=== PATIENT | female | born 1955 | race Caucasian/White ===

== ENCOUNTER 2016-09-27 11:30 | Emergency (ER) | payer MEDICAID, OTHER ==
[~2016-09-27] VITALS: Ht 148.6 cm; Wt 60.0 kg
[~2016-09-27 11:30] MED LIST: ALPR.25 PO; ATEN-100 PO; ECOT81TA2 PO; LEVEMIR SQ; LORTA10 PO; NOVOLOGSS SQ; POTA-243 PO; VITA200017 PO; [UNRECOGNIZED DRUG - CODE]
[2016-09-27 11:33] VITALS: BP 160/73; PULSE 67; RESP 12; TEMP 97.8; O2SAT 96
--- NOTE | 2016-09-27 12:34 | PD ---
HPI Chief Complaint: Wound/Suture/Staple Re-Check Time Seen by Provider: 12:33 Travel History International Travel<30 days: No Contact w/Intl Traveler<30days: No Traveled to known affect area: No History of Present Illness HPI 61-year-old female presents to the emergency department for evaluation of an ulcer to her left second toe that she noticed one week ago. Patient is concerned because she is type I diabetic and has history of peripheral neuropathy. Patient reports mild drainage. No fevers. Patient states the pain is worse at night. She denies any other complaints at this time. PFSH Past Medical History Hx Anticoagulant Therapy: Yes Arthritis: Yes Blood Disorders: No Anxiety: Yes Depression: No Cancer: No Cardiovascular Problems: Yes (HTN) Chemotherapy: No Diabetes: Yes Diminished Hearing: No Endocrine: Yes (DIABETES) Genitourinary: No Hepatitis: No ( A CHILD) Hiatal Hernia: No Hypertension: Yes Immune Disorder: No Musculoskeletal: Yes (ARTHRITIS) Neurologic: Yes (NEUROPATHY TO BILAT FEET) Psychiatric: No Reproductive: Yes (Hx. of cyst.) Respiratory: No Migraines: Yes (occassionally) Radiation Therapy: No Thyroid Disease: No ?: Not Past Surgical History Abdominal Surgery: Yes (CHOLECYSTECTOMY) AICD: No Appendectomy: Yes Body Medical Devices: insulin pump Cardiac Surgery: No Cholecystectomy: Yes Ear Surgery: No Endocrine Surgery: No Eye Surgery: No Genitourinary Surgery: No Gynecologic Surgery: Yes (HYSTERECTOMY) Hysterectomy: Yes Joint Replacement: No Oral Surgery: No Pacemaker: No Thoracic Surgery: No Other Surgery: Yes Social History Alcohol Use: Yes (OCCAS) Tobacco Use: No (quit) Substance Use: Yes (Marijauna) Allergies-Medications (Allergen,Severity, Reaction): Coded Allergies: Codeine (Verified Allergy, Mild, HIVES, 09/27/16) Glucophage (Verified Allergy, Mild, DKA, 09/27/16) Morphine (Verified Adverse Reaction, Severe, 09/27/16) vomiting Reported Meds & Prescriptions Reported Meds & Active Scripts Active Levemir Insulin (Insulin Detemir) 100 Units/Ml Inj 10 Units SQ HS 30 Days Levemir Insulin (Insulin Detemir) 100 Units/Ml Inj 20 Units SQ QAC 30 Days Novolog Insulin Supplemental Scale (Insulin Aspart) 100 /Ml Inj 1 Unit SQ ACHS 30 Days accu-check with novolog sliding scale coverage; 150-200 two units 201-250 four units 251-300 six units 301-350 eight units 351-400 ten units inform PCP if < 70 or > 400. Reported K-Dur (Potassium Chloride) 10 Meq Tabcr 10 Meq PO DAILY Paradigm Insulin Pump Pro (Insulin Infusion Pump) Program Mis Vitamin D3 (Cholecalciferol) 2,000 Unit Cap 2,000 Unit PO DAILY Ecotrin (Aspirin) 81 Mg Tabec 81 Mg PO DAILY Xanax 0.25 Mg (Alprazolam) Alprazolam 0.25 mg Tab 1 Tab PO TID PRN Atenolol 25 Mg Tab 25 Mg PO BID Hydrocodone/Acetaminophen 10 mg/325 mg 10 Mg/325 Mg Tab 1 Tab PO Q4HPRN Review of Systems Except as stated in HPI: all other systems reviewed are Neg Physical Exam Narrative GENERAL: Well-developed well-nourished female patient, ambulatory. Afebrile. SKIN: Warm and dry. Patient has an approximately 1 cm x 1 cm erythema to the left second toe on the medial aspect with a small central ulceration. Patient has tenderness over the erythema. HEAD: Normocephalic. Atraumatic. EYES: No scleral icterus. No injection or drainage. NECK: Supple, trachea midline. No JVD or lymphadenopathy. CARDIOVASCULAR: Regular rate and rhythm without murmurs, gallops, or rubs. Right pedal pulse 2+. Left pedal pulse is found with Doppler. RESPIRATORY: Breath sounds equal bilaterally. No accessory muscle use. Lungs sounds are clear to auscultation. GASTROINTESTINAL: Abdomen soft, non-tender, nondistended. MUSCULOSKELETAL: No cyanosis, or edema. BACK: Nontender without obvious deformity. No CVA tenderness. Data Data Last Documented VS Vital Signs Date Time Temp Pulse Resp B/P Pulse Ox O2 Delivery O2 Flow Rate FiO2 09/27/16 11:33 97.8 67 12 160/73 96 Room Air Orders Foot, Complete ([id number]) (09/27/16 ) Complete Blood Count With Diff (09/27/16 12:31) Basic Metabolic Panel (Bmp) (09/27/16 12:31) Westergren Sedimentation Rate (09/27/16 12:31) C-Reactive Protein (Crp) (09/27/16 12:31) Labs Laboratory Tests Test 09/27/16 13:06 White Blood Count 4.6 TH/MM3 Red Blood Count 5.29 MIL/MM3 Hemoglobin 14.0 GM/DL Hematocrit 41.8 % Mean Corpuscular Volume 79.0 FL Mean Corpuscular Hemoglobin 26.4 PG Mean Corpuscular Hemoglobin 33.4 % Concent Red Cell Distribution Width 14.4 % Platelet Count 227 TH/MM3 Mean Platelet Volume 8.6 FL Neutrophils (%) (Auto) 46.6 % Lymphocytes (%) (Auto) 30.3 % Monocytes (%) (Auto) 14.9 % Eosinophils (%) (Auto) 6.3 % Basophils (%) (Auto) 1.9 % Neutrophils # (Auto) 2.1 TH/MM3 Lymphocytes # (Auto) 1.4 TH/MM3 Monocytes # (Auto) 0.7 TH/MM3 Eosinophils # (Auto) 0.3 TH/MM3 Basophils # (Auto) 0.1 TH/MM3 CBC Comment DIFF FINAL Differential Comment Erythrocyte Sedimentation Rate 19 mm/hr Sodium Level 138 MEQ/L Potassium Level 4.1 MEQ/L Chloride Level 108 MEQ/L Carbon Dioxide Level 21.2 MEQ/L Anion Gap 9 MEQ/L Blood Urea Nitrogen 31 MG/DL Creatinine 0.91 MG/DL Estimat Glomerular Filtration 63 ML/MIN Rate Random Glucose 98 MG/DL Calcium Level 8.7 MG/DL C-Reactive Protein 0.49 MG/DL [facility] Medical Decision Making Medical Screen Exam Complete: Yes Emergency Medical Condition: Yes Medical Record Reviewed: Yes Interpretation(s) Last Impressions Foot X-Ray 09/27/16 0000 Signed Impressions: Service Date/Time: Tuesday, September 27, 2016 12:55 - CONCLUSION: 1. Erosion along the lateral aspect of the second metatarsal head. There is no destructive change. 2. Osteopenia and mild osteoarthritic change. Pacheco Cerrato MD Differential Diagnosis Diabetic ulcer versus cellulitis versus osteomyelitis Narrative Course 61-year-old female presented to the emergency department for evaluation of a diabetic ulcer on her left second toe. She denies any fevers or chills. She is type I diabetic. X-ray left foot is ordered and pending. CBC, BMP, CRP, sedimentation rate are ordered and pending. CBC shows no acute abnormality. ESR is 19. BMP shows no acute abnormality. CRP is 0.49. X-ray of the left foot shows Erosion along the lateral aspect of the second metatarsal head. There is no destructive change. 2. Osteopenia and mild osteoarthritic change. I discussed the case with attending physician, Dr. Zelaya, who also examined patient. She agrees with disposition. Patient will be discharged with a prescription for Keflex. She is encouraged to follow-up with her primary care physician. Patient will be given information on Dr. Puga in the community clinic [facility] as well as the wound clinic. Patient is agreeable. Diagnosis Primary Impression: Diabetic ulcer of foot associated with type 1 diabetes mellitus, limited to breakdown of skin Referrals: [facility] call for appointment Patient Instructions: Diabetic Foot Ulcers (ED), General Instructions Additional Instructions: Clean area twice daily with soap and water. Monitor closely. Take antibiotic as directed until gone. Follow-up with Dr. Puga at the community clinic. Information to contact the community clinic is attached. Follow up at the wound care clinic - Return to the emergency department for any acute worsening of symptoms. Med/Other Pt SpecificInfo: Prescription(s) given Scripts Cephalexin (Keflex)500 Mg [id number] Mg PO Q6H 10 Days Ref 0 Prov:Shari Jean-Baptiste 09/27/16 Disposition: 01 DISCHARGE HOME Condition: Stable Shari Jean-Baptiste Sep 27, 2016 12:33
[2016-09-27 13:23] LABS: AUTOMATED NEUTROPHIL # 2.1 TH/MM3 (1.8-7.7); BASOPHIL # 0.1 TH/MM3 (0-0.2); BASOPHIL % 1.9 % (0.0-2.0); EOSINOPHIL # 0.3 TH/MM3 (0-0.4); EOSINOPHIL % 6.3 % (0.0-4.0); HEMATOCRIT 41.8 % (35.0-46.0); HEMO FLAGS DIFF FINAL; LYMPH % 30.3 % (9.0-44.0); LYMPHOCYTE # 1.4 TH/MM3 (1.0-4.8); MEAN CORPUSCULAR HEMOGLOBIN 26.4 PG (27.0-34.0); MEAN CORPUSCULAR HGB CONC 33.4 % (32.0-36.0); MONO % 14.9 % (0.0-8.0); NEUT % 46.6 % (16.0-70.0); PLATELET COUNT 227 TH/MM3 (150-450); RED BLOOD COUNT 5.29 MIL/MM3 (4.00-5.30); RED CELL DISTRIBUTION WIDTH 14.4 % (11.6-17.2); WHITE BLOOD COUNT 4.6 TH/MM3 (4.0-11.0)
--- NOTE | 2016-09-27 13:25 | RADRPT ---
EXAM DATE/TIME: 09/27/2016 12:55 [facility] COMPARISON: No previous studies available for comparison. INDICATIONS : Diabetic open wound on anterior surface of 2nd digit on left foot, pain in great toe and 2nd digit MEDICAL HISTORY : Diabetes mellitus type II. SURGICAL HISTORY : None. ENCOUNTER: Initial ACUITY: 1 week PAIN SCORE: 8/10 LOCATION: Left foot FINDINGS: Three view examination of the left foot demonstrates no soft tissue swelling, dislocation, or fractur e. The tarsal bones appear intact. Mild degenerative change involving intertarsal joints and metata rsal tarsal joints. There is an erosion along the lateral aspect of the second metatarsal head. The c alcaneus is intact. There is mild osteopenia. Vascular calcifications are present. CONCLUSION: 1. Erosion along the lateral aspect of the second metatarsal head. There is no destructive change. 2. Osteopenia and mild osteoarthritic change. Pacheco Cerrato MD on September 27, 2016 at 13:18 Board Certified Radiologist. This report was verified electronically.
[2016-09-27 13:42] LABS: BICARBONATE 21.2 MEQ/L (21.0-32.0); POTASSIUM 4.1 MEQ/L (3.5-5.1)
[2016-09-27] MEDS ORDERED: CEPH-460 PO (14:05)
--- NOTE | 2016-09-27 14:32 | PD ---
Data Data Last Documented VS Vital Signs Date Time Temp Pulse Resp B/P Pulse Ox O2 Delivery O2 Flow Rate FiO2 09/27/16 11:33 97.8 67 12 160/73 96 Room Air Orders Foot, Complete ([id number]) (09/27/16 ) Complete Blood Count With Diff (09/27/16 12:31) Basic Metabolic Panel (Bmp) (09/27/16 12:31) Westergren Sedimentation Rate (09/27/16 12:31) C-Reactive Protein (Crp) (09/27/16 12:31) Labs Laboratory Tests Test 09/27/16 13:06 White Blood Count 4.6 TH/MM3 Red Blood Count 5.29 MIL/MM3 Hemoglobin 14.0 GM/DL Hematocrit 41.8 % Mean Corpuscular Volume 79.0 FL Mean Corpuscular Hemoglobin 26.4 PG Mean Corpuscular Hemoglobin 33.4 % Concent Red Cell Distribution Width 14.4 % Platelet Count 227 TH/MM3 Mean Platelet Volume 8.6 FL Neutrophils (%) (Auto) 46.6 % Lymphocytes (%) (Auto) 30.3 % Monocytes (%) (Auto) 14.9 % Eosinophils (%) (Auto) 6.3 % Basophils (%) (Auto) 1.9 % Neutrophils # (Auto) 2.1 TH/MM3 Lymphocytes # (Auto) 1.4 TH/MM3 Monocytes # (Auto) 0.7 TH/MM3 Eosinophils # (Auto) 0.3 TH/MM3 Basophils # (Auto) 0.1 TH/MM3 CBC Comment DIFF FINAL Differential Comment Erythrocyte Sedimentation Rate 19 mm/hr Sodium Level 138 MEQ/L Potassium Level 4.1 MEQ/L Chloride Level 108 MEQ/L Carbon Dioxide Level 21.2 MEQ/L Anion Gap 9 MEQ/L Blood Urea Nitrogen 31 MG/DL Creatinine 0.91 MG/DL Estimat Glomerular Filtration 63 ML/MIN Rate Random Glucose 98 MG/DL Calcium Level 8.7 MG/DL C-Reactive Protein 0.49 MG/DL MDM Supervised Visit with SETH: Yes Narrative Course I, Dr. Zelaya, have reviewed the advance practice practioner's documentation and am in agreement, met with the patient face to face, made the diagnosis, and the medical decision making was done by me. *My assessment and Findings: 61-year-old diabetic female here with complaint of ulceration to her left second toe for the last week. Associated peripheral neuropathy. On exam she has a crisscross of her big toe overlapping her second toe with a very small, 2 mm ulcer with minimal surrounding erythema. My suspicion for osteomyelitis, cellulitis is low. Exam is most consistent with this diabetic ulcer. Her laboratory workup and x-ray were negative and she will be discharged to home with outpatient primary care follow-up. Diagnosis Primary Impression: Diabetic ulcer of foot associated with type 1 diabetes mellitus, limited to breakdown of skin Referrals: [facility] call for appointment Patient Instructions: General Instructions, Diabetic Foot Ulcers (ED) Departure Forms: Tests/Procedures Additional Instruction: Clean area twice daily with soap and water. Monitor closely. Take antibiotic as directed until gone. Follow-up with Dr. Puga at the [facility]. Information to contact the [facility] is attached. Follow up at the wound care clinic - Return to the emergency department for any acute worsening of symptoms. Scripts Cephalexin (Keflex)500 Mg [id number] Mg PO Q6H 10 Days Ref 0 Prov:Shari Jean-Baptiste 09/27/16 Disposition: 01 DISCHARGE HOME Condition: Stable Liz Zelaya MD Sep 27, 2016 14:31
== END 2016-09-27 14:34 | disposition home or self-care (01) ==
LOC: NETRI 11:30
DX: E10.621 Type 1 diabetes mellitus with foot ulcer (principal); L97.521 Non-pressure chronic ulcer of other part of left foot limited to breakdown of skin; E10.42 Type 1 diabetes mellitus with diabetic polyneuropathy; I10 Essential (primary) hypertension; Z79.4 Long term (current) use of insulin; Z87.891 Personal history of nicotine dependence
CPT/HCPCS: 73630; 80048; 85025; 85652; 86140; 99283

== ENCOUNTER 2016-10-17 21:53 | Emergency (ER) | payer MEDICAID, OTHER ==
[~2016-10-17] VITALS: Ht 147.3 cm; Wt 60.0 kg
[~2016-10-17 21:53] MED LIST changes: +CEPH-460 PO
[2016-10-17 21:55] VITALS: BP 183/86; PULSE 91; RESP 18; TEMP 97.7; O2SAT 97
[2016-10-17] MEDS ORDERED: SODIUM CHLOR 0.9% 1000 ML INJ 1,000 ML IV ONE (23:15)
[2016-10-17 23:26] LABS: BLOOD, URINE TRACE (NEG); COMMENT (UR) CATH-CULT NOT IND; CULTURE IF INDICATED CATH CULTURE NOT IND; GLUCOSE,URINE 1000 mg/dL (NEG); KETONE, URINE NEG (NEG); MUCUS URINE FEW /lpf (OCC); NITRITE,URINE NEG (NEG); SQUAMOUS EPITHELIAL CELL URINE <1 /hpf (0-5); URINE COLOR YELLOW (YELLW/STRAW)
--- NOTE | 2016-10-17 23:40 | PD ---
HPI Chief Complaint: Diabetic Time Seen by Provider: 23:28 Travel History International Travel<30 days: No Contact w/Intl Traveler<30days: No Traveled to known affect area: No History of Present Illness HPI 61-year-old female with history of diabetes, has an insulin pump, chronic left second toe poorly healing wound seen 3 weeks ago in the ER status post Keflex treatment, presents back to the ER today because she states that the wound is not healing, and her blood sugars have been over 500 today. She denies any nausea, vomiting, fevers, abdominal pains, diarrhea, or any other symptoms. She states that she had given herself insulin without significant improvement in blood sugars. She reports pain in the second toe is a sharp 10 out of 10 at times. Modifying Factors: None Associated Signs & Symptoms: Left toe poorly healing wound, hyperglycemia Risk Factors: Diabetic PFSH Past Medical History Hx Anticoagulant Therapy: Yes Arthritis: Yes Blood Disorders: No Anxiety: Yes Depression: No Cancer: No Cardiovascular Problems: Yes (HTN) Chemotherapy: No Diabetes: Yes Patient Takes Glucophage: No Diminished Hearing: No Endocrine: Yes (DIABETES) Genitourinary: No Hiatal Hernia: No Hypertension: Yes Immune Disorder: No Musculoskeletal: Yes (ARTHRITIS) Neurologic: Yes (NEUROPATHY TO BILAT FEET) Psychiatric: No Reproductive: Yes (Hx. of cyst.) Respiratory: No Immunizations Current: Yes Migraines: Yes (occassionally) Radiation Therapy: No Thyroid Disease: No Past Surgical History Abdominal Surgery: Yes (CHOLECYSTECTOMY) AICD: No Appendectomy: Yes Body Medical Devices: INSULIN PUMP Cardiac Surgery: No Cholecystectomy: Yes Coronary Stent: Yes (X2) Ear Surgery: No Endocrine Surgery: No Eye Surgery: No Genitourinary Surgery: No Gynecologic Surgery: Yes (HYSTERECTOMY) Hysterectomy: Yes Joint Replacement: No Oral Surgery: No Pacemaker: No Thoracic Surgery: No Other Surgery: Yes (BYPASS LEFT LEG) Social History Alcohol Use: Yes (OCCAS) Tobacco Use: No Substance Use: Yes (Marijauna) Allergies-Medications (Allergen,Severity, Reaction): Coded Allergies: Codeine (Verified Allergy, Mild, HIVES, 10/17/16) Glucophage (Verified Allergy, Mild, DKA, 10/17/16) Morphine (Verified Adverse Reaction, Severe, 10/17/16) vomiting Reported Meds & Prescriptions Reported Meds & Active Scripts Active Reported Imitrex (Sumatriptan Succinate) 25 Mg Tab 25 Mg PO ONCE PRN If a satisfactory response has not been obtained at 2 hours, a second dose may be administered Topamax (Topiramate) 25 Mg Tab 25 Mg PO HS Lortab (Hydrocodone-Acetaminophen) 10-325 Mg Tab 1 Tab PO Q6H PRN Gabapentin 100 Mg Cap 100 Mg PO HS Atenolol 25 Mg Tab 25 Mg PO BID Mobic (Meloxicam) 15 Mg Tab 15 Mg PO DAILY Lisinopril 20 Mg Tab 20 Mg PO DAILY Clopidogrel (Clopidogrel Bisulfate) 75 Mg Tab 75 Mg PO DAILY Pravastatin 20 Mg Tab 20 Mg PO DAILY Aspir-81 (Aspirin) 81 Mg Tabdr 1 Tab PO DAILY Novolog Inj (Insulin Aspart) 1,000 Unit/10 Ml Vial 1 Units SQ DIRECTED Review of Systems Except as stated in HPI: all other systems reviewed are Neg Physical Exam Narrative GENERAL: Well-nourished, well-developed elderly female patient in no acute distress. Awake and oriented 3. SKIN: Warm and dry. HEAD: Normocephalic. EYES: No scleral icterus. No injection or drainage. NECK: Supple, trachea midline. CARDIOVASCULAR: Regular rate and rhythm without murmurs, gallops, or rubs. RESPIRATORY: Breath sounds equal bilaterally. No accessory muscle use. GASTROINTESTINAL: Abdomen soft, non-tender, nondistended. MUSCULOSKELETAL: No cyanosis, or edema. BACK: Nontender without obvious deformity. No CVA tenderness. Left foot: There is a 1 cm clean-based ulcer at the second toe dorsum with no significant drainage. Tender to palpation. No underlying fluctuance. NEUROLOGICAL: Awake and alert. Cranial nerves II through XII intact. Motor and sensory grossly within normal limits. Five out of 5 muscle strength in all muscle groups. Normal speech. Data Data Last Documented VS Vital Signs Date Time Temp Pulse Resp B/P Pulse Ox O2 Delivery O2 Flow Rate FiO2 10/17/16 21:55 97.7 91 18 183/86 97 Room Air Orders Complete Blood Count With Diff (10/17/16 23:06) Comprehensive Metabolic Panel (10/17/16 23:06) Lactic Acid Sepsis Protocol (10/17/16 23:06) Urinalysis - C+S If Indicated (10/17/16 23:06) Blood Culture (10/17/16 23:06) Blood Glucose (10/17/16 23:06) Ecg Monitoring (10/17/16 23:06) Iv Access Insert/Monitor (10/17/16 23:06) Oximetry (10/17/16 23:06) Oxygen Administration (10/17/16 23:06) Sodium Chlor 0.9% 1000 Ml Inj (Ns 1000 M (10/17/16 23:15) Toe (Min 2vws) (10/17/16 23:28) Beta Hydroxybutyrate (Acetone) (10/17/16 23:06) Insulin Human Regular Inj (Novolin R Inj (10/18/16 01:15) Labs Laboratory Tests Test 10/17/16 10/17/16 10/17/16 10/17/16 23:00 23:06 23:15 23:30 White Blood Count 6.1 TH/MM3 Red Blood Count 5.30 MIL/MM3 Hemoglobin 14.5 GM/DL Hematocrit 42.5 % Mean Corpuscular Volume 80.1 FL Mean Corpuscular Hemoglobin 27.3 PG Mean Corpuscular Hemoglobin 34.0 % Concent Red Cell Distribution Width 14.3 % Platelet Count 233 TH/MM3 Mean Platelet Volume 9.2 FL Neutrophils (%) (Auto) 50.0 % Lymphocytes (%) (Auto) 31.8 % Monocytes (%) (Auto) 13.7 % Eosinophils (%) (Auto) 3.2 % Basophils (%) (Auto) 1.3 % Neutrophils # (Auto) 3.0 TH/MM3 Lymphocytes # (Auto) 1.9 TH/MM3 Monocytes # (Auto) 0.8 TH/MM3 Eosinophils # (Auto) 0.2 TH/MM3 Basophils # (Auto) 0.1 TH/MM3 CBC Comment DIFF FINAL Differential Comment Sodium Level 135 MEQ/L Potassium Level 4.3 MEQ/L Chloride Level 101 MEQ/L Carbon Dioxide Level 24.8 MEQ/L Anion Gap 9 MEQ/L Blood Urea Nitrogen 26 MG/DL Creatinine 1.19 MG/DL Estimat Glomerular Filtration 46 ML/MIN Rate Random Glucose 389 MG/DL Calcium Level 9.0 MG/DL Total Bilirubin 0.4 MG/DL Aspartate Amino Transf 23 U/L (AST/SGOT) Alanine Aminotransferase 21 U/L (ALT/SGPT) Alkaline Phosphatase 128 U/L Total Protein 8.4 GM/DL Albumin 3.4 GM/DL B-Hydroxybutyrate 0.08 MMOL/L Urine Color YELLOW Urine Turbidity HAZY Urine pH 5.0 Urine Specific [place] 1.027 Urine Protein 30 mg/dL Urine Glucose (UA) 1000 mg/dL Urine Ketones NEG mg/dL Urine Occult Blood TRACE Urine Nitrite NEG Urine Bilirubin NEG Urine Urobilinogen LESS THAN 2.0 MG/DL Urine Leukocyte Esterase NEG Urine RBC 1 /hpf Urine WBC 2 /hpf Urine Squamous Epithelial <1 /hpf Cells Urine Mucus FEW /lpf Microscopic Urinalysis Comment CATH-CULT NOT IND Lactic Acid Level 1.4 mmol/L MDM Medical Decision Making Medical Screen Exam Complete: Yes Emergency Medical Condition: Yes Medical Record Reviewed: Yes Interpretation(s) Laboratory Tests Test 10/17/16 10/17/16 10/17/16 23:00 23:06 23:15 Monocytes (%) (Auto) 13.7 % (0.0-8.0) Sodium Level 135 MEQ/L (136-145) Blood Urea Nitrogen 26 MG/DL (7-18) Creatinine 1.19 MG/DL (0.50-1.00) Estimat Glomerular Filtration 46 ML/MIN (>89) Rate Random Glucose 389 MG/DL (74-106) Alkaline Phosphatase 128 U/L (45-117) Total Protein 8.4 GM/DL (6.4-8.2) Urine Turbidity HAZY (CLEAR) Urine Protein 30 mg/dL (NEG-TRACE) Urine Glucose (UA) 1000 mg/dL (NEG) Urine Occult Blood TRACE (NEG) Urine Mucus FEW /lpf (OCC) Differential Diagnosis Left toe poorly healing ulcer, hyperglycemiaDKA versus electrolyte abnormalities versus sepsis versus diabetic foot Narrative Course X-rays did not show any signs of acute osteomyelitis on the second toe. Apparently is a poor chronic healing diabetic ulcer which will need to be evaluated and observed further with primary care physician and podiatry. Her blood sugars were elevated here in the ER and IV insulin was given. I do not see any signs of DKA. At this point, my plan would be to release the patient would follow-up to primary care and podiatry. Return for new issues as needed. The plan has discussed her and she states understanding. Diagnosis Primary Impression: Diabetic ulcer of foot associated with type 1 diabetes mellitus, limited to breakdown of skin Additional Impression: Diabetes type 1, uncontrolled Med/Other Pt SpecificInfo: Prescription(s) given Scripts Sulfamethoxazole-Trimethoprim (Bactrim DS)800-160 Mg Tab1 Tab PO BID #14 TAB Ref 0 Prov:Grace Merritt MD 10/18/16 Disposition: 01 DISCHARGE HOME Condition: Stable Grace Merritt MD Oct 17, 2016 23:40
--- NOTE | 2016-10-18 00:23 | RADRPT ---
EXAM DATE/TIME: 10/17/2016 23:45 [facility] COMPARISON: No previous studies available for comparison. INDICATIONS : Left 2nd toe pain. MEDICAL HISTORY : None. SURGICAL HISTORY : None. ENCOUNTER: Initial ACUITY: 3 days PAIN SCORE: 5/10 LOCATION: Left foot, 2nd digit. FINDINGS: Examination of the second digit of the left foot demonstrates no evidence of fracture or dislocation. No radiopaque foreign bodies are seen. The soft tissues are intact. Hallux valgus deformity of the first ray. CONCLUSION: 1. Hallux valgus deformity of the great toe. 2. No fracture Mook Rodriguez MD on October 18, 2016 at 0:20 Board Certified Radiologist. This report was verified electronically.
[2016-10-18 00:38] LABS: BASOPHIL # 0.1 TH/MM3 (0-0.2); BASOPHIL % 1.3 % (0.0-2.0); EOSINOPHIL # 0.2 TH/MM3 (0-0.4); EOSINOPHIL % 3.2 % (0.0-4.0); HEMATOCRIT 42.5 % (35.0-46.0); HEMO FLAGS DIFF FINAL; LYMPH % 31.8 % (9.0-44.0); LYMPHOCYTE # 1.9 TH/MM3 (1.0-4.8); MEAN CELL VOLUME 80.1 FL (80.0-100.0); MEAN CORPUSCULAR HEMOGLOBIN 27.3 PG (27.0-34.0); MONO % 13.7 % (0.0-8.0); PLATELET COUNT 233 TH/MM3 (150-450); RED CELL DISTRIBUTION WIDTH 14.3 % (11.6-17.2); WHITE BLOOD COUNT 6.1 TH/MM3 (4.0-11.0)
[2016-10-18 01:07] LABS: ALKALINE PHOSPHATASE 128 U/L (45-117); ALT (GPT) 21 U/L (10-53); ANION GAP 9 MEQ/L (5-15); AST (GOT) 23 U/L (15-37); BETA-HYDROXYBUTYRATE 0.08 MMOL/L (0.00-0.39); BICARBONATE 24.8 MEQ/L (21.0-32.0); BLOOD UREA NITROGEN 26 MG/DL (7-18); CHLORIDE 101 MEQ/L (98-107); GLOMERULAR FILTRATION RATE 46 ML/MIN (>89); POTASSIUM 4.3 MEQ/L (3.5-5.1); SODIUM (NA) 135 MEQ/L (136-145); TOTAL BILIRUBIN ADULT 0.4 MG/DL (0.2-1.0)
[2016-10-18] MEDS ORDERED: GABA100C4 PO (01:09)
[2016-10-18] MEDS ORDERED: ATEN25TA PO (01:09)
[2016-10-18] MEDS ORDERED: CLOP75TA PO (01:09)
[2016-10-18] MEDS ORDERED: IMIT25TA PO (01:09)
[2016-10-18] MEDS ORDERED: TOPA25TA8 PO (01:09)
[2016-10-18] MEDS ORDERED: ASPI81TA81 PO (01:09)
[2016-10-18] MEDS ORDERED: HYDR-3535 PO (01:09)
[2016-10-18] MEDS ORDERED: NOVOLOGP2 SQ (01:09)
[2016-10-18] MEDS ORDERED: PRAV20TA2 PO (01:09)
[2016-10-18] MEDS ORDERED: LISI-515 PO (01:09)
[2016-10-18] MEDS ORDERED: MOBI15TA PO (01:09)
[2016-10-18] MEDS ORDERED: INSULIN HUMAN REGULAR 1,000 UNITS/10 ML VIAL IVP ONE (01:15)
[2016-10-18] MEDS ORDERED: BACT800T5 PO (01:55)
[2016-10-18 02:16] VITALS: BP 185/97
== END 2016-10-18 02:15 | disposition home or self-care (01) ==
LOC: NEPC 21:53
DX: E10.621 Type 1 diabetes mellitus with foot ulcer (principal); I10 Essential (primary) hypertension; F41.9 Anxiety disorder, unspecified; Z79.01 Long term (current) use of anticoagulants; Z96.41 Presence of insulin pump (external) (internal)
CPT/HCPCS: 73660; 80053; 81001; 82010; 83605; 85025; 87040; 87205; 96361; 96374; 99285; J1815; J7030

== ENCOUNTER 2016-10-31 14:54 | Emergency (ER) | payer OTHER ==
[~2016-10-31] VITALS: Ht 147.3 cm; Wt 102.0 kg
[~2016-10-31 14:54] MED LIST changes: -ALPR.25 PO; +ASPI81TA81 PO; -ATEN-100 PO; +ATEN25TA PO; +BACT800T5 PO; -CEPH-460 PO; +CLOP75TA PO; -ECOT81TA2 PO; +GABA100C4 PO; +HYDR-3535 PO; +IMIT25TA PO; -LEVEMIR SQ; +LISI-515 PO; -LORTA10 PO; +MOBI15TA PO; +NOVOLOGP2 SQ; -NOVOLOGSS SQ; -POTA-243 PO; +PRAV20TA2 PO; +TOPA25TA8 PO; -VITA200017 PO; -[UNRECOGNIZED DRUG - CODE]
[2016-10-31 14:55] VITALS: BP 112/58; PULSE 66; RESP 20; TEMP 97.4; O2SAT 98
--- NOTE | 2016-10-31 19:08 | PD ---
HPI . Diabetic foot ulcer Chief Complaint: Skin Problem Time Seen by Provider: 18:54 Travel History International Travel<30 days: No Contact w/Intl Traveler<30days: No Traveled to known affect area: No History of Present Illness HPI Patient presents complaining with a diabetic foot ulcer on her left second toe. She states that she's had it for 6 weeks. She states that she has been treated with 2 separate antibiotics for it. It is not getting any better. She states that she has had some associated vomiting and diarrhea in the last couple of days. Patient's medical history significant for diabetes, hypertension, tobacco abuse. She has known peripheral vascular disease and is status post a left femoropopliteal bypass in 02/26. 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 of cyst.) Respiratory: Yes Immunizations Current: Yes Migraines: Yes (occassionally) Radiation Therapy: No Thyroid Disease: No ?: Not Past Surgical History Abdominal Surgery: Yes (CHOLECYSTECTOMY) AICD: No Appendectomy: Yes Body Medical Devices: INSULIN PUMP Cardiac Surgery: No Cholecystectomy: Yes Coronary Stent: Yes (X2) Ear Surgery: No Endocrine Surgery: No Eye Surgery: No Genitourinary Surgery: No Gynecologic Surgery: Yes (HYSTERECTOMY) Hysterectomy: Yes Joint Replacement: No Oral Surgery: No Pacemaker: No Thoracic Surgery: No Other Surgery: Yes (BYPASS LEFT LEG) Social History Alcohol Use: Yes (OCCAS) Tobacco Use: No Substance Use: Yes (Stephy) Allergies-Medications (Allergen,Severity, Reaction): Coded Allergies: Codeine (Verified Allergy, Mild, HIVES, 10/31/16) Glucophage (Verified Allergy, Mild, DKA, 10/31/16) Morphine (Verified Adverse Reaction, Severe, 10/31/16) vomiting Reported Meds & Prescriptions Reported Meds & Active Scripts Active Reported Imitrex (Sumatriptan Succinate) 25 Mg Tab 25 Mg PO ONCE PRN If a satisfactory response has not been obtained at 2 hours, a second dose may be administered Topamax (Topiramate) 25 Mg Tab 25 Mg PO HS Lortab (Hydrocodone-Acetaminophen) 10-325 Mg Tab 1 Tab PO Q6H PRN Gabapentin 100 Mg Cap 100 Mg PO HS Atenolol 25 Mg Tab 25 Mg PO BID Mobic (Meloxicam) 15 Mg Tab 15 Mg PO DAILY Lisinopril 20 Mg Tab 20 Mg PO DAILY Clopidogrel (Clopidogrel Bisulfate) 75 Mg Tab 75 Mg PO DAILY Pravastatin 20 Mg Tab 20 Mg PO DAILY Aspir-81 (Aspirin) 81 Mg Tabdr 1 Tab PO DAILY Novolog Inj (Insulin Aspart) 1,000 Unit/10 Ml Vial 1 Units SQ DIRECTED Review of Systems Except as stated in HPI: all other systems reviewed are Neg General / Constitutional: Positive: Fever Gastrointestinal: Positive: Nausea, Vomiting, Diarrhea, Loss of Appetite Skin: Positive Lesions Physical Exam Narrative GENERAL: Awake and alert and in no acute distress. SKIN: Warm and dry. Ulcerative lesion to the medial aspect of the left second toe at the PIP joint. It is less than a centimeter in total diameter. There is an eschar in the center of the ulceration. There is no purulent drainage. It is locally tender. HEAD: Atraumatic. Normocephalic. EYES: Pupils equal and round. ENT: No nasal bleeding or discharge. Mucous membranes pink and moist. NECK: Trachea midline. CARDIOVASCULAR: Regular rate and rhythm. RESPIRATORY: No accessory muscle use. MUSCULOSKELETAL: No obvious deformities. No edema. NEUROLOGICAL: Awake and alert. No obvious cranial nerve deficits. Motor grossly within normal limits. Normal speech. PSYCHIATRIC: Appropriate mood and affect; insight and judgment normal. Data Data Last Documented VS Vital Signs Date Time Temp Pulse Resp B/P Pulse Ox O2 Delivery O2 Flow Rate FiO2 10/31/16 19:11 58 20 10/31/16 14:55 97.4 112/58 98 Room Air Orders Toe (Min 2vws) (10/31/16 18:54) Complete Blood Count With Diff (10/31/16 18:54) Westergren Sedimentation Rate (10/31/16 18:54) C-Reactive Protein (Crp) (10/31/16 18:54) Basic Metabolic Panel (Bmp) (10/31/16 18:54) Clindamycin Inj (Cleocin Inj) (10/31/16 20:15) Clindamycin Inj (Cleocin Inj) (10/31/16 21:30) Labs Laboratory Tests Test 10/31/16 20:00 White Blood Count 6.2 TH/MM3 Red Blood Count 5.71 MIL/MM3 Hemoglobin 15.6 GM/DL Hematocrit 45.6 % Mean Corpuscular Volume 79.8 FL Mean Corpuscular Hemoglobin 27.3 PG Mean Corpuscular Hemoglobin 34.1 % Concent Red Cell Distribution Width 14.9 % Platelet Count 275 TH/MM3 Mean Platelet Volume 9.3 FL Neutrophils (%) (Auto) 60.7 % Lymphocytes (%) (Auto) 25.0 % Monocytes (%) (Auto) 9.4 % Eosinophils (%) (Auto) 3.6 % Basophils (%) (Auto) 1.3 % Neutrophils # (Auto) 3.8 TH/MM3 Lymphocytes # (Auto) 1.6 TH/MM3 Monocytes # (Auto) 0.6 TH/MM3 Eosinophils # (Auto) 0.2 TH/MM3 Basophils # (Auto) 0.1 TH/MM3 CBC Comment DIFF FINAL Differential Comment Erythrocyte Sedimentation Rate 2 mm/hr Sodium Level 131 MEQ/L Potassium Level 5.8 MEQ/L Chloride Level 105 MEQ/L Carbon Dioxide Level 15.3 MEQ/L Anion Gap 11 MEQ/L Blood Urea Nitrogen 81 MG/DL Creatinine 1.85 MG/DL Estimat Glomerular Filtration 28 ML/MIN Rate Random Glucose 168 MG/DL Calcium Level 8.8 MG/DL C-Reactive Protein 1.10 MG/DL [facility] Medical Decision Making Medical Screen Exam Complete: Yes Emergency Medical Condition: Yes Differential Diagnosis My differential diagnosis includes but is not limited to cellulitis, abscess, vascular insufficiency, burn, abrasion Narrative Course Patient presents for evaluation of a nonhealing ulcer on her left toe. She will be evaluated for possible osteomyelitis. She has been treated here with Keflex and then with Septra. It does not appear that she has followed up as an outpatient. Last Impressions Toe X-Ray 10/31/16 3432 Signed Impressions: Service Date/Time: Monday, October 31, 2016 19:17 - CONCLUSION: 1. Stable hallux valgus angulation first metatarsal phalangeal joint 2. Otherwise, stable and unremarkable exam for patient's age. Mitch Leon MD The x-ray was independently viewed by me. CBC & BMP Diagram 10/31/16 20:00 Sedimentation rate and C-reactive protein are normal. This patient should be stable for treatment as an outpatient. Diagnosis Primary Impression: Diabetic ulcer of foot associated with type 1 diabetes mellitus, limited to breakdown of skin Qualified Code: E10.621 - Diabetic ulcer of toe of left foot associated with type 1 diabetes mellitus, limited to breakdown of skin Patient Instructions: Diabetic Foot Ulcers (DC), General Instructions Additional Instructions: It is imperative that he follow up with a primary care physician and the wound clinic. Med/Other Pt SpecificInfo: Prescription(s) given Scripts Clindamycin (Cleocin)300 Mg Whl214 Mg PO Q8H #30 CAP Ref 0 Prov:Urszula Forde MD 10/31/16 Disposition: 01 DISCHARGE HOME Condition: Stable Urszula Forde MD Oct 31, 2016 19:08
--- NOTE | 2016-10-31 19:41 | RADRPT ---
EXAM DATE/TIME: 10/31/2016 19:17 [facility] COMPARISON: TOE LEFT 2ND DIGIT (MIN 2VWS), October 17, 2016, 23:45. INDICATIONS : Left foot, second digit pain. Patient states her first digit rubs against her second digit causing sc abbing and pain. MEDICAL HISTORY : Diabetes mellitus type II. SURGICAL HISTORY : None. ENCOUNTER: Sequela ACUITY: 2 weeks PAIN SCORE: 10/10 LOCATION: Left foot, second digit. FINDINGS: Examination of the second digit of the left foot demonstrates no evidence of fracture or dislocation. There is stable hallux valgus angulation of the first metatarsal phalangeal joint. No radiopaque fo reign bodies are seen. The soft tissues are intact. No significant changes compared to the prior exa mination. The second digit is grossly unremarkable. CONCLUSION: 1. Stable hallux valgus angulation first metatarsal phalangeal joint 2. Otherwise, stable and unremarkable exam for patient's age. Mitch Leon MD on October 31, 2016 at 19:38 Board Certified Radiologist. This report was verified electronically.
[2016-10-31] MEDS ORDERED: CLINDAMYCIN INJ 600 MG in SODIUM CHLORIDE 0.9% INJ 100 ML IV ONE (20:15)
[2016-10-31 20:49] LABS: AUTOMATED NEUTROPHIL # 3.8 TH/MM3 (1.8-7.7); BASOPHIL # 0.1 TH/MM3 (0-0.2); BASOPHIL % 1.3 % (0.0-2.0); EOSINOPHIL # 0.2 TH/MM3 (0-0.4); EOSINOPHIL % 3.6 % (0.0-4.0); HEMATOCRIT 45.6 % (35.0-46.0); HEMO FLAGS DIFF FINAL; LYMPHOCYTE # 1.6 TH/MM3 (1.0-4.8); MEAN CELL VOLUME 79.8 FL (80.0-100.0); MEAN CORPUSCULAR HEMOGLOBIN 27.3 PG (27.0-34.0); MEAN CORPUSCULAR HGB CONC 34.1 % (32.0-36.0); MONO % 9.4 % (0.0-8.0); NEUT % 60.7 % (16.0-70.0); PLATELET COUNT 275 TH/MM3 (150-450); RED BLOOD COUNT 5.71 MIL/MM3 (4.00-5.30); RED CELL DISTRIBUTION WIDTH 14.9 % (11.6-17.2); WHITE BLOOD COUNT 6.2 TH/MM3 (4.0-11.0)
[2016-10-31 21:06] LABS: BICARBONATE 15.3 MEQ/L (21.0-32.0); POTASSIUM 5.8 MEQ/L (3.5-5.1)
[2016-10-31] MEDS ORDERED: CLINDAMYCIN PHOS 600 MG/4 ML VIAL IM ONE (21:30)
[2016-10-31] MEDS ORDERED: CLEO300C2 PO (21:35)
== END 2016-10-31 21:50 | disposition home or self-care (01) ==
LOC: NEPA 14:54
DX: E10.621 Type 1 diabetes mellitus with foot ulcer (principal); R11.10 Vomiting, unspecified; R19.7 Diarrhea, unspecified; Z79.01 Long term (current) use of anticoagulants; I10 Essential (primary) hypertension
CPT/HCPCS: 73660; 80048; 85025; 85652; 86140; 96372

== ENCOUNTER 2016-11-10 19:17 | Inpatient (IN) | payer OTHER ==
[~2016-11-10] VITALS: Ht 147.3 cm; Wt 61.2 kg
[~2016-11-10 19:17] MED LIST changes: -BACT800T5 PO; +CLEO300C2 PO
[2016-11-10 19:26] VITALS: BP 111/67; PULSE 124; RESP 16; TEMP 97.6; O2SAT 98
--- NOTE | 2016-11-10 19:50 | PD ---
Physical Exam Date Seen by Provider: Nov 10, 2016 Time Seen by Provider: 19:46 Narrative Patient seen in triage with Complaints of Hyperglycemia and Nausea and vomiting starting yesterday. BS was 508 at triage. Patient states 5 unit Insulin Bolus at 1830 hours. Patient denies LEMUS, but feels weak, no fever, chills or other signs illness. Patient denies Chest pain or SOB. Vital signs stable. Patient waiting for bed placement. Data Data Last Documented VS Vital Signs Date Time Temp Pulse Resp B/P Pulse Ox O2 Delivery O2 Flow Rate FiO2 11/10/16 19:26 97.6 124 16 111/67 98 Room Air [facility] Medical Record Reviewed: Yes Supervised Visit with SETH: Yes Condition: Stable Delmer Nichole Nov 10, 2016 19:50
--- NOTE | 2016-11-10 20:38 | PD ---
HPI Chief Complaint: Diabetic Time Seen by Provider: 20:25 Travel History International Travel<30 days: No Contact w/Intl Traveler<30days: No Traveled to known affect area: No History of Present Illness HPI 61yo F with PMD of CAD s/p cardiac stent, PVD, IDDM on insulin pump presents to the ED with c/o elevated blood glucose. Pt has been vomiting today and had abdominal pain with the vomiting. States she has had DKAs before and feels like it. Low grade fever at home. Denies any chest pain, sob, focal weakness or numbness. 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 of cyst.) Respiratory: Yes Immunizations Current: Yes Migraines: Yes (occassionally) Radiation Therapy: No Thyroid Disease: No ?: Not Past Surgical History Abdominal Surgery: Yes (CHOLECYSTECTOMY) AICD: No Appendectomy: Yes Body Medical Devices: INSULIN PUMP Cardiac Surgery: No Cholecystectomy: Yes Coronary Stent: Yes (X2) Ear Surgery: No Endocrine Surgery: No Eye Surgery: No Genitourinary Surgery: No Gynecologic Surgery: Yes (HYSTERECTOMY) Hysterectomy: Yes Insulin Pump: Yes Joint Replacement: No Oral Surgery: No Pacemaker: No Thoracic Surgery: No Other Surgery: Yes (BYPASS LEFT LEG) Social History Alcohol Use: Yes (OCCAS) Tobacco Use: No Substance Use: Yes (marijuana in the past) Allergies-Medications (Allergen,Severity, Reaction): Coded Allergies: Codeine (Verified Allergy, Mild, HIVES, 11/10/16) Glucophage (Verified Allergy, Mild, DKA, 11/10/16) Morphine (Verified Adverse Reaction, Severe, 11/10/16) vomiting Reported Meds & Prescriptions Reported Meds & Active Scripts Active Reported Imitrex (Sumatriptan Succinate) 25 Mg Tab 25 Mg PO ONCE PRN If a satisfactory response has not been obtained at 2 hours, a second dose may be administered Topamax (Topiramate) 25 Mg Tab 25 Mg PO HS Lortab (Hydrocodone-Acetaminophen) 10-325 Mg Tab 1 Tab PO Q6H PRN Gabapentin 100 Mg Cap 100 Mg PO HS Atenolol 25 Mg Tab 25 Mg PO BID Mobic (Meloxicam) 15 Mg Tab 15 Mg PO DAILY Lisinopril 20 Mg Tab 20 Mg PO DAILY Clopidogrel (Clopidogrel Bisulfate) 75 Mg Tab 75 Mg PO DAILY Pravastatin 20 Mg Tab 20 Mg PO DAILY Aspir-81 (Aspirin) 81 Mg Tabdr 1 Tab PO DAILY Novolog Inj (Insulin Aspart) 1,000 Unit/10 Ml Vial 1 Units SQ DIRECTED Review of Systems Except as stated in HPI: all other systems reviewed are Neg Physical Exam Narrative GENERAL: 61yo F in moderate distress. SKIN: Focused skin assessment warm/dry. HEAD: Atraumatic. Normocephalic. CARDIOVASCULAR: Regular rate and rhythm. No murmur appreciated. RESPIRATORY: No accessory muscle use. Clear to auscultation. Breath sounds equal bilaterally. GASTROINTESTINAL: Abdomen soft, non-tender, nondistended. No rebound tenderness or guarding. +Insulin pump in place. MUSCULOSKELETAL: No obvious deformities. No clubbing. No cyanosis. No edema. NEUROLOGICAL: Awake and alert. No obvious cranial nerve deficits. Motor grossly within normal limits. Normal speech. PSYCHIATRIC: Appropriate mood and affect; insight and judgment normal. Data Data Last Documented VS Vital Signs Date Time Temp Pulse Resp B/P Pulse Ox O2 Delivery O2 Flow Rate FiO2 11/11/16 00:00 136 16 118/58 98 Room Air 11/10/16 19:26 97.6 Orders Complete Blood Count With Diff (11/10/16 20:20) Comprehensive Metabolic Panel (11/10/16 20:20) Lactic Acid (11/10/16 20:20) Prothrombin Time / Inr (Pt) (11/10/16 20:20) Vascular Access Team Consult PRN (11/10/16 20:28) Blood Gas Venous (Vbg) (11/10/16 20:30) Blood Culture (11/10/16 20:30) Urinalysis - C+S If Indicated (11/10/16 20:30) Chest, Single Ap (11/10/16 ) Electrocardiogram (11/10/16 ) Troponin I (11/10/16 20:30) Ondansetron Odt (Zofran Odt) (11/10/16 20:45) Sodium Chlor 0.9% 1000 Ml Inj (Ns 1000 M (11/10/16 20:45) Beta Hydroxybutyrate (Acetone) (11/10/16 20:38) Ondansetron Inj (Zofran Inj) (11/10/16 20:57) Sodium Chlor 0.9% 1000 Ml Inj (Ns 1000 M (11/10/16 21:00) Ondansetron Inj (Zofran Inj) (11/10/16 21:15) Urine Culture (11/10/16 21:48) Chest, Single Ap (11/10/16 ) Sodium Chlor 0.9% 1000 Ml Inj (Ns 1000 M (11/11/16 00:46) Dext 5%-Nacl 0.9% 1000 Ml Inj (D5w-Ns 10 (11/11/16 00:46) Insulin Human Regular Inj (Novolin R Inj (11/11/16 01:00) Insulin Regular (Iv Infusion) (Novolin R (11/11/16 01:00) Admit Order (Ed Use Only) (11/11/16 00:48) Labs Laboratory Tests Test 11/10/16 11/10/16 11/10/16 11/10/16 20:30 20:36 21:48 23:45 White Blood Count 13.6 TH/MM3 Red Blood Count 5.15 MIL/MM3 Hemoglobin 14.0 GM/DL Hematocrit 42.9 % Mean Corpuscular Volume 83.3 FL Mean Corpuscular Hemoglobin 27.1 PG Mean Corpuscular Hemoglobin 32.5 % Concent Red Cell Distribution Width 15.8 % Platelet Count 239 TH/MM3 Mean Platelet Volume 9.4 FL Neutrophils (%) (Auto) 91.6 % Lymphocytes (%) (Auto) 4.9 % Monocytes (%) (Auto) 2.9 % Eosinophils (%) (Auto) 0.1 % Basophils (%) (Auto) 0.5 % Neutrophils # (Auto) 12.5 TH/MM3 Lymphocytes # (Auto) 0.7 TH/MM3 Monocytes # (Auto) 0.4 TH/MM3 Eosinophils # (Auto) 0.0 TH/MM3 Basophils # (Auto) 0.1 TH/MM3 CBC Comment DIFF FINAL Differential Comment Prothrombin Time 11.7 SEC Prothromb Time International 1.1 RATIO Ratio Lactic Acid Level 3.2 mmol/L Troponin I 0.04 NG/ML B-Hydroxybutyrate 4.72 MMOL/L Blood Gas Puncture Site CENTRAL LINE Blood Gas Patient Temperature 98.6 Venous Blood pH 7.23 Venous Blood Partial Pressure 29 mmHg CO2 Venous Blood Partial Pressure 47 mmHg O2 Venous Blood HCO3 12 mmol/L Venous Blood Oxygen Saturation 75 % Venous Blood Oxygen Content 14.9 Vol % Venous Blood Base Excess -14.2 mmol/L Oxygen Delivery Device ROOMIAR Blood Gas Inspired Oxygen 21 % Urine Color YELLOW Urine Turbidity HAZY Urine pH 5.0 Urine Specific [place] 1.012 Urine Protein 30 mg/dL Urine Glucose (UA) 1000 mg/dL Urine Ketones 10 mg/dL Urine Occult Blood NEG Urine Nitrite NEG Urine Bilirubin NEG Urine Urobilinogen LESS THAN 2.0 MG/DL Urine Leukocyte Esterase SMALL Urine RBC 3 /hpf Urine WBC 4 /hpf Urine Squamous Epithelial 6 /hpf Cells Urine Bacteria MOD /hpf Urine Hyaline Casts 61 /lpf Urine Mucus FEW /lpf Urine Yeast (Budding) OCC Microscopic Urinalysis Comment CULTURE INDICATED Sodium Level 134 MEQ/L Potassium Level 6.2 MEQ/L Chloride Level 101 MEQ/L Carbon Dioxide Level 9.4 MEQ/L Anion Gap 24 MEQ/L Blood Urea Nitrogen 42 MG/DL Creatinine 2.06 MG/DL Estimat Glomerular Filtration 24 ML/MIN Rate Random Glucose 718 MG/DL Calcium Level 8.9 MG/DL Total Bilirubin 0.4 MG/DL Aspartate Amino Transf 16 U/L (AST/SGOT) Alanine Aminotransferase 16 U/L (ALT/SGPT) Alkaline Phosphatase 105 U/L Total Protein 7.4 GM/DL Albumin 3.7 GM/DL [facility] Medical Decision Making Medical Screen Exam Complete: Yes Emergency Medical Condition: Yes Differential Diagnosis DKA vs. sepsis vs. UTI Narrative Course 61yo F with vomiting and elevated blood glucose. Impression is DKA. Labs reviewed, mild leukocytosis at 13.6. Glucose 718. K is 6.2 but will decrease after we correct the acidosis. Troponin 0.04. Anion gap is 24. VBG showed metabolic acidosis with pH 7.23, HCO3 12. b-hydroxybutyrate 4.72. UA showed moderate bacteria. Pt given NS IVF x2. Pt started on insulin drip after 5 units of IV insulin bolus. CXR negative. Pt's ultrasound guided IV infiltrated and is a hard stick so right IJ central line placed. Repeat CXR showed no PTX. Discussed with Dr. Castano and accepted to her service. Critical Care Narrative Aggregate critical care time was 45 minutes. Time to perform other separately billable procedures was not included in the critical care time. My time did not include minutes spent treating any other patients simultaneously or on activities that did not directly contribute to the patient's treatment. The services I provided to this patient were to treat and/or prevent clinically significant deterioration that could result in: cardiovascular collapse or . I provided critical care services requiring my management, as noted below: Chart data review, documentation time, medication orders and management, vital sign assessments/reviewing monitor data, ordering and reviewing lab tests, ordering and interpreting/reviewing x-rays and diagnostic studies, care of the patient and discussion of the patient with the admitting physicians. Procedures Procedure Narrative CENTRAL VENOUS LINE: The site was prepped with betadine sterilely draped. It was infiltrated with 1% lidocaine plain. The deep vein was cannulated using normal Seldinger technique. A central line was placed in the right IJ site and secured with simple interrupted suture. The site was sterilely dressed. The patient tolerated the procedure well. Diagnosis Primary Impression: DKA (diabetic ketoacidoses) Qualified Code: E13.10 - Diabetic ketoacidosis without coma associated with other specified diabetes mellitus Admitting Information Admitting Physician Requests: Admit Condition: Stable HumphriesNing DO Nov 10, 2016 20:38
[2016-11-10 20:45] LABS: BLOOD GAS VENOUS BASE EXCESS -14.2 mmol/L (-2-2); BLOOD GAS VENOUS HCO3 12 mmol/L (22-26); BLOOD GAS VENOUS O2 CONTENT 14.9 Vol % (9.0-17.0); BLOOD GAS VENOUS O2 HGB SAT 75 % (70-76); BLOOD GAS VENOUS PCO2 29 mmHg (44-48); BLOOD GAS VENOUS PO2 47 mmHg (35-40); BLOOD GAS VENOUS pH 7.23 (7.360-7.400); TEMP CORR TO 98.6
[2016-11-10] MEDS ORDERED: SODIUM CHLOR 0.9% 1000 ML INJ 1,000 ML IV ONE ×2 (20:45→21:00)
[2016-11-10] MEDS ORDERED: ONDANSETRON ODT 4 MG TAB PO ONE (20:45)
[2016-11-10 20:46] LABS: CRITICAL VALUE YES; FIO2 21 %; OXYGEN DEVICE ROOMIAR
[2016-11-10 20:47] LABS: DRAW SITE CENTRAL LINE; STAT YES
[2016-11-10] MEDS ORDERED: ONDANSETRON HCL 4 MG/2 ML VIAL ONE (20:57)
[2016-11-10 21:11] LABS: AUTOMATED NEUTROPHIL # 12.5 TH/MM3 (1.8-7.7); BASOPHIL # 0.1 TH/MM3 (0-0.2); BASOPHIL % 0.5 % (0.0-2.0); EOSINOPHIL % 0.1 % (0.0-4.0); HEMATOCRIT 42.9 % (35.0-46.0); HEMO FLAGS DIFF FINAL; LYMPH % 4.9 % (9.0-44.0); LYMPHOCYTE # 0.7 TH/MM3 (1.0-4.8); MEAN CELL VOLUME 83.3 FL (80.0-100.0); MEAN CORPUSCULAR HEMOGLOBIN 27.1 PG (27.0-34.0); MEAN CORPUSCULAR HGB CONC 32.5 % (32.0-36.0); MONO % 2.9 % (0.0-8.0); NEUT % 91.6 % (16.0-70.0); PLATELET COUNT 239 TH/MM3 (150-450); RED BLOOD COUNT 5.15 MIL/MM3 (4.00-5.30); RED CELL DISTRIBUTION WIDTH 15.8 % (11.6-17.2); WHITE BLOOD COUNT 13.6 TH/MM3 (4.0-11.0)
[2016-11-10 21:12] LABS: INTERNATIONAL NORMALIZED RATIO 1.1 RATIO; PROTHROMBIN TIME - PATIENT 11.7 SEC (9.8-11.6)
--- NOTE | 2016-11-10 21:13 | RADRPT ---
EXAM DATE/TIME: 11/10/2016 20:49 [facility] COMPARISON: CHEST SINGLE AP, June 05, 2016, 0:55. INDICATIONS : Vomiting MEDICAL HISTORY : None. SURGICAL HISTORY : None. ENCOUNTER: Initial ACUITY: 1 day PAIN SCORE: 0/10 LOCATION: Bilateral chest FINDINGS: A single view of the chest demonstrates the lungs to be symmetrically aerated without evidence of mas s, infiltrate or effusion. The cardiomediastinal contours are unremarkable. Osseous structures are intact. CONCLUSION: No acute disease. Kit Lyon MD on November 10, 2016 at 21:11 Board Certified Radiologist. This report was verified electronically.
[2016-11-10] MEDS ORDERED: ONDANSETRON HCL 4 MG/2 ML VIAL IV PUSH ONE (21:15)
[2016-11-10 22:09] LABS: BACTERIA, URINE MOD /hpf; BLOOD, URINE NEG (NEG); COMMENT (UR) CULTURE INDICATED; CULTURE IF INDICATED CULTURE INDICATED; GLUCOSE,URINE 1000 mg/dL (NEG); HYALINE CAST, URINE 61 /lpf (RARE); KETONE, URINE 10 mg/dL (NEG); MUCUS URINE FEW /lpf (OCC); NITRITE,URINE NEG (NEG); SQUAMOUS EPITHELIAL CELL URINE 6 /hpf (0-5); URINE COLOR YELLOW (YELLW/STRAW)
[2016-11-11] VITALS (15 sets, daily range): BP systolic 103–140; BP diastolic 56–92; PULSE 77–136; RESP 16–25; TEMP 97.8–99; O2SAT 98–100
--- NOTE | 2016-11-11 00:16 | RADRPT ---
EXAM DATE/TIME: 11/10/2016 23:51 [facility] COMPARISON: CHEST SINGLE AP, November 10, 2016, 20:49. INDICATIONS : Status post procedure. Evaluate for central line placement. MEDICAL HISTORY : Diabetes mellitus type II. SURGICAL HISTORY : None. ENCOUNTER: Initial ACUITY: 1 day PAIN SCORE: 0/10 LOCATION: chest FINDINGS: Portable AP view of the chest demonstrates a normal-sized cardiac silhouette. Right IJ central line t ip is in the SVC. No pneumothorax is visualized. No effusion or consolidation is identified. CONCLUSION: Right internal jugular central line distal tip is within the superior vena cava. No pneumothorax is v isualized. Lobo Quezada MD on November 11, 2016 at 0:14 Board Certified Radiologist. This report was verified electronically.
[2016-11-11 00:22] LABS: ALKALINE PHOSPHATASE 105 U/L (45-117); ALT (GPT) 16 U/L (10-53); AST (GOT) 16 U/L (15-37); BLOOD UREA NITROGEN 42 MG/DL (7-18); GLOMERULAR FILTRATION RATE 24 ML/MIN (>89)
[2016-11-11 00:23] LABS: ANION GAP 24 MEQ/L (5-15); BICARBONATE 9.4 MEQ/L (21.0-32.0); CHLORIDE 101 MEQ/L (98-107); POTASSIUM 6.2 MEQ/L (3.5-5.1); SODIUM (NA) 134 MEQ/L (136-145); TOTAL BILIRUBIN ADULT 0.4 MG/DL (0.2-1.0)
[2016-11-11] MEDS ORDERED: DEXT 5%-NACL 0.9% 1000 ML INJ 1,000 ML IV SCH ×2 (00:46→01:51)
[2016-11-11] MEDS ORDERED: SODIUM CHLOR 0.9% 1000 ML INJ 1,000 ML IV SCH (00:46)
[2016-11-11] MEDS ORDERED: INSULIN REGULAR (IV INFUSION) 100 UNITS in SODIUM CHLORIDE 0.9% INJ 99 ML IV SCH ×2 (01:00→02:00)
[2016-11-11] MEDS ORDERED: INSULIN HUMAN REGULAR 1,000 UNITS/10 ML VIAL IV PUSH ONE (01:00)
[2016-11-11] MEDS: ACETAMINOPHEN/HYDROcodone 325 MG/10 MG TAB PO PRN ×3 (01:30→21:19)
[2016-11-11] MEDS ORDERED: CHLORHEXIDINE GLUCONATE 2 % 1 PACK (2 CLOTHS) TOP PRN ×2 (01:45→02:00)
[2016-11-11] MEDS ORDERED: MISCELLANEOUS NURSING INFORMATION XX SCH ×2 (01:45→02:00)
[2016-11-11] MEDS ORDERED: RESP: ALBUTEROL 2.5 MG/3 ML NEB (PRN) INH (01:45)
[2016-11-11] MEDS ORDERED: ENOXAPARIN SODIUM 30 MG/0.3 ML SYRINGE SQ SCH (01:45)
[2016-11-11] MEDS ORDERED: ONDANSETRON HCL 4 MG/2 ML VIAL IV PRN (01:45)
--- NOTE | 2016-11-11 01:45 | HHI.HP ---
[facility] Service Critical Care Medicine Primary Care Physician Kain Chau, DO Admission Diagnosis DKA Diagnosis: Travel History International Travel<30 Days: No Contact w/Intl Traveler <30 Da: No Traveled to Known Affected Are: No History of Present Illness 61-year-old female with past history of insulin-dependent diabetes mellitus with insulin pump, hypertension, peripheral neuropathy, peripheral arterial disease, coronary artery disease with recent stent in July 2016 who presents to [facility] emergency department in DKA. She states that she saw her PMD today due to a poorly healing wound in left second toe that started about 3 weeks ago. It has been worse over the last week and intermittently draining pus. She states she has experienced subjective fevers. This afternoon her glucose was running in the 170s. This evening she had glucose in the 400s and therefore sought medical attention. She states she has had 5 episodes of nonbloody nonbilious emesis. States she has some lower abdominal discomfort which she attributes to vomiting. No diarrhea. Laboratory workup indicates DKA with pH of 7.23, bicarbonate of 9, anion gap of 24. She has acute kidney injury with creatinine of 2 (baseline ~0.8-0.9). Lactic acid is 3.2. She denies chest pain, shortness of breath. Review of Systems Constitutional: COMPLAINS OF: Chills Gastrointestinal: COMPLAINS OF: Nausea, Vomiting Musculoskeletal: COMPLAINS OF: Joint pain Past Family Social History Allergies: Coded Allergies: Codeine (Verified Allergy, Mild, HIVES, 11/10/16) Glucophage (Verified Allergy, Mild, DKA, 11/10/16) Morphine (Verified Adverse Reaction, Severe, 11/10/16) vomiting Past Medical History Diabetes Hyperlipidemia Migraines Chronic pain Peripheral arterial disease Coronary artery disease with coronary stent Peripheral neuropathy Hypertension Lexiscan with severe nonreversible apical perfusion abnormality Past Surgical History Hysterectomy Insulin pump placed 4-5 years ago Cholecystectomy Coronary stents discussed 08/11/16 done in [place] Left femoral popliteal bypass 02/25/16 (Dr. Galloway) Reported Medications Lisinopril 20 mg by mouth daily Gabapentin 100 mg by mouth daily at bedtime Topamax 25 mg by mouth daily at bedtime Atenolol 25 mg by mouth twice a day Pravastatin 20 mill grams by mouth daily Aspirin 81 mg by mouth daily Mobic 15 mill grams by mouth daily Lortab 10/325 one by mouth every 6 hours when necessary pain Plavix 75 mg by mouth daily Imitrex 25 mill grams by mouth daily Family History Her mother is . She had a myocardial infarction in her 60s Her father has alcoholism and COPD Social History She smokes 1 - 1 1/2 packs of cigarettes per day for 20 years. Quit 11 months ago. Drink alcohol occasionally Uses marijuana on occasion Is on disability due to chronic pain and arthralgias Physical Exam Vital Signs Vital Signs Date Time Temp Pulse Resp B/P Pulse Ox O2 Delivery O2 Flow Rate FiO2 11/11/16 00:00 136 16 118/58 98 Room Air 11/10/16 19:26 97.6 124 16 111/67 98 Room Air Physical Exam Temp 97.6. Pulse 130s respirations 16 blood pressure 118/58 sats 99% on room air GENERAL: Well-nourished, well-developed patient who is alert, sitting up in the ED gurney, SKIN: Warm and dry. There is a 1.5 cm eschar overlying medial aspect of left 2nd toe with some fluctuance but no drainage expressed. HEAD: Atraumatic. Normocephalic. EYES: Pupils equal and round. No scleral icterus. No injection or drainage. ENT: No nasal bleeding or discharge. Mucous membranes dry NECK: Trachea midline. No JVD. CARDIOVASCULAR: Regular, tachycardic, sinus tach on the monitor. No murmurs rubs or gallops appreciated. RESPIRATORY: Breathing comfortably with No accessory muscle use. Clear to auscultation. Breath sounds equal bilaterally. On room air GASTROINTESTINAL: Abdomen soft, nondistended. She reports some discomfort in her left lower abdomen but there is no significant tenderness. There is no rebounding or guarding. Bowel sounds are present MUSCULOSKELETAL: Extremities without clubbing, cyanosis, or edema. Lesion on left foot as per above. NEUROLOGICAL: Awake and alert. No obvious cranial nerve deficits. Motor grossly within normal limits. . Normal speech. Oriented 4 Laboratory Laboratory Tests Test 11/10/16 11/10/16 11/10/16 11/10/16 20:30 20:36 21:48 23:45 White Blood Count 13.6 Red Blood Count 5.15 Hemoglobin 14.0 Hematocrit 42.9 Mean Corpuscular Volume 83.3 Mean Corpuscular Hemoglobin 27.1 Mean Corpuscular Hemoglobin 32.5 Concent Red Cell Distribution Width 15.8 Platelet Count 239 Mean Platelet Volume 9.4 Neutrophils (%) (Auto) 91.6 Lymphocytes (%) (Auto) 4.9 Monocytes (%) (Auto) 2.9 Eosinophils (%) (Auto) 0.1 Basophils (%) (Auto) 0.5 Neutrophils # (Auto) 12.5 Lymphocytes # (Auto) 0.7 Monocytes # (Auto) 0.4 Eosinophils # (Auto) 0.0 Basophils # (Auto) 0.1 CBC Comment DIFF FINAL Differential Comment Prothrombin Time 11.7 Prothromb Time International 1.1 Ratio Lactic Acid Level 3.2 Troponin I 0.04 B-Hydroxybutyrate 4.72 Blood Gas Puncture Site CENTRAL LINE Blood Gas Patient Temperature 98.6 Venous Blood pH 7.23 Venous Blood Partial Pressure 29 CO2 Venous Blood Partial Pressure 47 O2 Venous Blood HCO3 12 Venous Blood Oxygen Saturation 75 Venous Blood Oxygen Content 14.9 Venous Blood Base Excess -14.2 Oxygen Delivery Device ROOMIAR Blood Gas Inspired Oxygen 21 Urine Color YELLOW Urine Turbidity HAZY Urine pH 5.0 Urine Specific [place] 1.012 Urine Protein 30 Urine Glucose (UA) 1000 Urine Ketones 10 Urine Occult Blood NEG Urine Nitrite NEG Urine Bilirubin NEG Urine Urobilinogen LESS THAN 2.0 Urine Leukocyte Esterase SMALL Urine RBC 3 Urine WBC 4 Urine Squamous Epithelial 6 Cells Urine Bacteria MOD Urine Hyaline Casts 61 Urine Mucus FEW Urine Yeast (Budding) OCC Microscopic Urinalysis Comment CULTURE INDICATED Sodium Level 134 Potassium Level 6.2 Chloride Level 101 Carbon Dioxide Level 9.4 Anion Gap 24 Blood Urea Nitrogen 42 Creatinine 2.06 Estimat Glomerular Filtration 24 Rate Random Glucose 718 Calcium Level 8.9 Total Bilirubin 0.4 Aspartate Amino Transf 16 (AST/SGOT) Alanine Aminotransferase 16 (ALT/SGPT) Alkaline Phosphatase 105 Total Protein 7.4 Albumin 3.7 Date/Time Procedure Status Source Growth 11/10/16 21:48 Urine Culture Received Urine Clean Catch Pending 11/10/16 20:49 Aerobic Blood Culture Received Blood Peripheral Pending 11/10/16 20:49 Anaerobic Blood Culture Received Blood Peripheral Pending Result Diagram: 11/10/16202911/10/16 9084 Assessment and Plan Assessment and Plan NEURO: Chronic pain Peripheral neuropathy History of migraine headaches Lortab 10/325 one tab by mouth every 6 hours as needed for pain Topamax 25 mg by mouth daily at bedtime (for migraine prophylaxis, no history of seizures) Gabapentin 100 g by mouth daily at bedtime RESP: History of tobacco abuse She is on room air. CV: Coronary artery disease with stents 08/11/16 Peripheral arterial disease s/p L fem pop bypass. Hypertension Hyperlipidemia Initial EKG with septal ST deviation and lateral ST depression. Patient denies any chest discomfort or shortness of breath whatsoever. Initial troponin 0.04. Will follow-up cardiac markers. Patient reports compliance with antiplatelet therapy. Will give aspirin 162 mg now. Continue aspirin 81 mg and Plavix 75 mg by mouth daily. Continue pravastatin 20 mg by mouth daily Resume atenolol 25 mg by mouth twice a day in a.m. with hold orders. GI: Vomiting Nothing by mouth until anion gap closes and then transition to ADA diet LFTs normal. Check lipase. Zofran as needed FEN/RENAL: Acute kidney injury Hyperkalemia secondary to metabolic acidemia AKA I suspected secondary to prerenal state due to DKA. Patient has been voiding well in the ED. Expect potassium to decrease as acidemia improves. Following serial BMP. Replace electrolytes as indicated per protocol. Check magnesium and phosphorus ID: Leukocytosis Left foot second digit diabetic ulcer Ancef 500 mg IV every 12 hours. Will adjust as renal function changes. Podiatry consult for wound management and possible debridement HEME: No acute hematologic issues ENDO: DKA Insulin drip with serial BMP, magnesium, phos per DKA protocol. Insulin pump stopped. PROPH: Lovenox 30 mg subcutaneous daily. Protonix 40 mg IV daily for stress ulcer prophylaxis. ACCESS: Right IJ central venous line placed 11/11/16 by ED physician #1 Troponin 0.4. Gave additional lovenox for therapeutic dose. She continues to deny chest pain. Level III H&P Urszula Castano MD Nov 11, 2016 01:45
[2016-11-11] MEDS: SODIUM CHLOR 0.9% 1000 ML INJ 1,000 ML IV SCH ×5 (01:51→19:46)
[2016-11-11] MEDS ORDERED: ASPIRIN 81 MG CHEW TAB CHEW ONE (02:00)
[2016-11-11] MEDS ORDERED: POTASSIUM CHLOR 20 MEQ PREMIX 100 ML IV PRN ×6 (02:00)
[2016-11-11] MEDS ORDERED: SODIUM BICARBONATE 8.4% SOLN 50 MEQ/50 ML VIAL IV PRN ×2 (02:00)
[2016-11-11] MEDS ORDERED: POTASSIUM CHLOR 40 MEQ PREMIX 100 ML IV PRN ×2 (02:00)
[2016-11-11] MEDS ORDERED: SODIUM PHOSPHATE INJ 15 MMOL in SODIUM CHLORIDE 0.9% INJ 100 ML IV PRN (02:00)
[2016-11-11 03:13] LABS: ALT (GPT) 17 U/L (10-53); ANION GAP 22 MEQ/L (5-15); AST (GOT) 19 U/L (15-37); BICARBONATE 7.7 MEQ/L (21.0-32.0); BLOOD UREA NITROGEN 41 MG/DL (7-18); CHLORIDE 108 MEQ/L (98-107); GLOMERULAR FILTRATION RATE 26 ML/MIN (>89); POTASSIUM 5.2 MEQ/L (3.5-5.1); SODIUM (NA) 138 MEQ/L (136-145)
[2016-11-11 03:16] LABS: ALKALINE PHOSPHATASE 99 U/L (45-117); TOTAL BILIRUBIN ADULT 0.4 MG/DL (0.2-1.0)
[2016-11-11] MEDS: CHLORHEXIDINE GLUCONATE 2 % 1 PACK (2 CLOTHS) TOP SCH (04:00)
[2016-11-11] MEDS ORDERED: CHLORHEXIDINE GLUCONATE 2 % 1 PACK (2 CLOTHS) TOP SCH (04:00)
[2016-11-11] MEDS ORDERED: ENOXAPARIN SODIUM 30 MG/0.3 ML SYRINGE SQ ONE (04:30)
[2016-11-11] MEDS: ceFAZolin INJ 500 MG in SODIUM CHLORIDE 0.9% INJ 100 ML IV SCH ×2 (05:26→14:04)
[2016-11-11 07:34] LABS: MAGNESIUM 1.8 MG/DL (1.5-2.5)
[2016-11-11] MEDS: ATENOLOL 25 MG TAB PO SCH ×2 (08:28→19:46)
[2016-11-11] MEDS: CLOPIDOGREL 75 MG TAB PO SCH (08:29)
[2016-11-11] MEDS: PANTOPRAZOLE SODIUM 40 MG VIAL IV SCH (08:29)
[2016-11-11] MEDS ORDERED: PRAVASTATIN SOD 20 MG TAB PO SCH (09:00)
[2016-11-11 09:33] LABS: AUTOMATED NEUTROPHIL # 10.6 TH/MM3 (1.8-7.7); BASOPHIL % 0.2 % (0.0-2.0); HEMATOCRIT 30.3 % (35.0-46.0); HEMO FLAGS DIFF FINAL; LYMPH % 7.5 % (9.0-44.0); LYMPHOCYTE # 0.9 TH/MM3 (1.0-4.8); MEAN CELL VOLUME 79.3 FL (80.0-100.0); MEAN CORPUSCULAR HEMOGLOBIN 26.8 PG (27.0-34.0); MEAN CORPUSCULAR HGB CONC 33.8 % (32.0-36.0); MONO % 8.8 % (0.0-8.0); NEUT % 83.5 % (16.0-70.0); PLATELET COUNT 168 TH/MM3 (150-450); RED BLOOD COUNT 3.82 MIL/MM3 (4.00-5.30); RED CELL DISTRIBUTION WIDTH 14.8 % (11.6-17.2); WHITE BLOOD COUNT 12.7 TH/MM3 (4.0-11.0)
[2016-11-11 11:00] LABS: BETA-HYDROXYBUTYRATE 0.06 MMOL/L (0.00-0.39); BICARBONATE 17.3 MEQ/L (21.0-32.0); MAGNESIUM 1.7 MG/DL (1.5-2.5)
[2016-11-11 11:15] LABS: CKMB 19.3 NG/ML (0.5-3.6)
[2016-11-11 11:16] LABS: CALCIUM-PROTEIN CORRECTED 8.1 MG/DL (8.5-10.1)
[2016-11-11] MEDS ORDERED: GLUCAGON 1 MG/ML VIAL OTHER PRN (11:30)
[2016-11-11] MEDS ORDERED: ASPIRIN 325 MG TAB PO ONE (11:30)
[2016-11-11] MEDS: INSULIN NovoLIN REGULAR SUPPLEMENTAL SCALE SQ SCH ×3 (11:30→19:45)
[2016-11-11] MEDS ORDERED: DEXTROSE 50% IN WATER 50 ML VIAL(D50) IV PUSH PRN (11:30)
[2016-11-11] MEDS: HEPARIN-D5W INJ 250 ML IV SCH (11:57)
[2016-11-11 12:12] LABS: APTT (PATIENT) 35.5 SEC (24.3-30.1); INTERNATIONAL NORMALIZED RATIO 1.2 RATIO; PROTHROMBIN TIME - PATIENT 13.1 SEC (9.8-11.6)
--- NOTE | 2016-11-11 15:17 | MB ---
cc: RUY ROSAS DO DATE OF CONSULTATION: 11/11/2016 REASON FOR CONSULTATION Elevation of troponins. HISTORY OF PRESENT ILLNESS Robyn Marquez is a 61-year-old female who presents to [facility] Emergency Room on November 11, 2016 due to elevation of her blood sugars. It appears that she has been here multiple times for DKA as well as her diabetic foot ulcer. She saw her corporate travel counselor for her foot ulcer which is getting worse over the past few weeks. She has had intermittent draining pus from it. Yesterday afternoon she had noticed that her blood sugars were in the 400s and decided she should come to the emergency room. She also had five episodes of emesis. On arrival she was found to have a blood glucose of 718 and a carbon dioxide of 9.4 with a lactic acid of 3.2. Initial troponin was 0.04 and then increased to 17.7. Throughout the event she states that she had no chest pain or shortness of breath. She was also in what appears to be acute kidney injury. In seeing her at this time she denies chest pain or shortness of breath. She does state that she feels better than she previously did the night before. PAST MEDICAL HISTORY 1. Uncontrolled diabetes mellitus with multiple admissions for DKA. 2. Hyperlipidemia. 3. Coronary artery disease. 4. Peripheral artery disease. 5. Migraines. 6. Chronic pain. 7. Peripheral neuropathy. 8. Hypertension. PAST SURGICAL HISTORY 1. Cardiac catheterization (August 11, 2016 in [place]) with placement of a Promus Premier drug-eluting stent to the proximal LAD (2.5 x 28), and mid LAD (2.25 x 32). 2. Hysterectomy. 3. Insulin pump placed 4-5 years ago. 4. Cholecystectomy. 5. Left fem-pop bypass (12/26/2015). ALLERGIES 1. CODEINE. 2. GLUCOPHAGE. 3. MORPHINE. MEDICATIONS 1. Lisinopril 20 mg daily. 2. Gabapentin 100 mg every night. 3. Topamax 25 mg every night. 4. Atenolol 25 mg b.i.d. 5. Pravastatin 20 mg daily. 6. NovoLog sliding scale. 7. Aspirin 81 mg daily. 8. Mobic 15 mg daily. 9. Lortab 10/325 every six hours as needed for pain. 10.Plavix 75 mg daily. 11.Imitrex 25 mg as needed for migraine headaches. FAMILY HISTORY Her mother from a myocardial infarction in her 60s. Her father had a history of alcoholism and COPD. SOCIAL HISTORY The patient smokes 1 to 1-1/2 packs of cigarettes per day for 20 years. Quit 11 months ago. Drinks alcohol occasionally. Uses marijuana occasionally. Is on Disability for chronic pain and arthralgias. REVIEW OF SYSTEMS 14 systems were reviewed including osteopathic. Pertinent positives and negatives as above, otherwise negative. PHYSICAL EXAMINATION VITAL SIGNS: Temperature 98.4, heart rate 100, blood pressure 132/62, respirations 24, pulse ox 100% on room air. GENERAL: In general the patient appears well in no acute distress, alert, awake and oriented x3. HEENT: Extraocular muscles intact. Mucous membranes moist. NECK: Supple. No JVD at 45 degrees. No carotid bruits heard bilaterally. Carotid upstroke is brisk in nature. HEART: Regular rate and rhythm. Positive first and second heart sounds with no noted murmurs, gallops or rubs. LUNGS: Clear to auscultation bilaterally. No wheezes, rales or rhonchi. ABDOMEN: Soft, nontender, nondistended. No organomegaly noted. EXTREMITIES: No clubbing, cyanosis or edema. There is a 1 to 1.5 cm eschar overlying the medial aspect of the second left toe. NEUROLOGIC: Neurologically no focal deficits. SKIN: Warm, dry and intact. The only lesion noted is of the left toe as above. MUSCULOSKELETAL: Osteopathically no kyphoscoliosis, lordosis or paraspinal tender points. LABORATORY Hemoglobin 10.2, hematocrit 30.3, platelets 168. Potassium 4.0, BUN 38, creatinine 1.64, troponin 17.7. ELECTROCARDIOGRAM Electrocardiogram (November 11, 2016 at 0703): Sinus tachycardia, possible left atrial enlargement, old septal infarct, nonspecific ST-T wave changes, cannot rule out ischemia. IMPRESSIONS 1. NSTEMI, possible type 1 versus type 2. 2. Diabetic ketoacidosis with uncontrolled diabetes mellitus. 3. Uncontrolled diabetes with a history of peripheral neuropathy. 4. Peripheral artery disease, status post fem-pop bypass with a lesion on her left toe which is non-healing. 5. Hypertension. 6. Hyperlipidemia. 7. History of tobacco abuse. 8. Acute kidney injury. 9. Anemia. 10.Metabolic acidosis secondary to DKA. 11.Coronary artery disease with recent stenting of the LAD as above (July 2016). RECOMMENDATIONS 1. Ms. Marquez appeared to have an NSTEMI, unsure if type 1 2. Will plan on treating her medically for this at this time. I have discussed with her consideration of cardiac catheterization on Monday. 3. Will place her on a heparin drip. 4. She will continue on aspirin and Plavix. 5. Will check a 2-D echo to look at her overall left ventricular function, cardiac structure and possible valvulopathies. 6. Will plan on waiting until Monday for cardiac catheterization so that hopefully we can have correction of her medical derangements including her acidemia and acute kidney injury as well as her elevated blood sugars. 7. Further recommendations will be made based on the hospital course. Thank you for allowing me to see Robyn Marquez. If there are any questions, please do not hesitate to call. Ruy Rosas DO VGP/BT /1:51 PM /2:49 PM
--- NOTE | 2016-11-11 15:51 | RADRPT ---
EXAM DATE/TIME: 11/11/2016 13:40 [place] COMPARISON: FOOT LEFT COMPLETE ([id number]), September 27, 2016, 12:55. INDICATIONS : Left foot and 1st and 2nd toes pain. MEDICAL HISTORY : Diabetes mellitus type II. SURGICAL HISTORY : None. ENCOUNTER: Initial ACUITY: 2 days PAIN SCORE: 4/10 LOCATION: Left Foot. FINDINGS: 3 views of the left foot reveal hallux valgus deformity. No fracture or dislocation. No bony destruct ion. Soft tissues are unremarkable. No radiopaque foreign bodies CONCLUSION: Hallux valgus deformity. No acute abnormality. Berlin Sarmiento Jr., MD on November 11, 2016 at 15:47 Board Certified Radiologist. This report was verified electronically.
--- NOTE | 2016-11-11 16:58 | EKG ---
Date Performed: 11/11/2016 Time Performed: 07:03:46 PTAGE: 61 years EKG: SINUS TACHYCARDIA POSSIBLE LEFT ATRIAL ENLARGEMENT SEPTAL MYOCARDIAL INFARCTION , OF INDETE RMINATE AGE Compared to prior tracing no significant change ABNORMAL ECG PREVIOUS TRACING : 11/11/2016 02.12 DOCTOR: Roland Pratt Interpretating Date/Time 11/11/2016 16:57:03
--- NOTE | 2016-11-11 16:58 | EKG ---
Date Performed: 11/11/2016 Time Performed: 02:12:39 PTAGE: 61 years EKG: SINUS TACHYCARDIA SEPTAL MYOCARDIAL INFARCTION Compared to prior tracing no significant jace nge ABNORMAL ECG PREVIOUS TRACING : 11/10/2016 22.04 DOCTOR: Roland Pratt Interpretating Date/Time 11/11/2016 16:56:54
--- NOTE | 2016-11-11 16:58 | EKG ---
Date Performed: 11/10/2016 Time Performed: 22:04:52 PTAGE: 61 years EKG: SINUS TACHYCARDIA INCOMPLETE RIGHT BUNDLE BRANCH BLOCK SEPTAL MYOCARDIAL INFARCTION Compare d to PREVIOUS TRACING , sinus tachycardia is new ACUTE [place] PREVIOUS TRACIN06/05/2016 1 3.10 DOCTOR: Roland Pratt Interpretating Date/Time 11/11/2016 16:56:35
[2016-11-11 18:00] LABS: APTT (PATIENT) 64.6 SEC (24.3-30.1)
[2016-11-11 18:30] LABS: MEAN CELL VOLUME 81.4 FL (80.0-100.0); MEAN CORPUSCULAR HEMOGLOBIN 26.1 PG (27.0-34.0); PLATELET COUNT 162 TH/MM3 (150-450); RED BLOOD COUNT 4.05 MIL/MM3 (4.00-5.30); RED CELL DISTRIBUTION WIDTH 15.3 % (11.6-17.2); REVIEW FLAG FINAL; WHITE BLOOD COUNT 13.2 TH/MM3 (4.0-11.0)
--- NOTE | 2016-11-11 19:01 | EC ---
Study Study Date:11/11/2016 STUDY CONCLUSIONS SUMMARY - Left ventricle: The cavity size was normal. Wall thickness was normal. Systolic function was moderately reduced. The estimated ejection fraction was in the range of 40% to 45%. Diffuse hypokinesis. Doppler parameters are consistent with abnormal left ventricular relaxation (grade 1 diastolic dysfunction). - Mitral valve: Mildly calcified annulus. Moderate regurgitation. - Pulmonary arteries: PA peak pressure: 38mm Hg (S). If LV function is below 40, please consider prescribing an ACEI or ARB or document rationale for non-use. PROCEDURE DATA STUDY STATUS: Elective. Procedure: Transthoracic echocardiography. Image quality was good. Scanning was performed from the parasternal, apical, and subcostal acoustic windows. Study completion: The patient tolerated the procedure well. Transthoracic echocardiography. M-mode, complete 2D, complete spectral Doppler, and color Doppler. Patient status: Inpatient. CARDIAC ANATOMY LEFT VENTRICLE: The cavity size was normal. Wall thickness was normal. Systolic function was moderately reduced. The estimated ejection fraction was in the range of 40% to 45%. Diffuse hypokinesis. Doppler parameters are consistent with abnormal left ventricular relaxation (grade 1 diastolic dysfunction). AORTIC VALVE: The valve appears to be grossly normal. Trileaflet. Doppler: There was no stenosis. No significant regurgitation. MITRAL VALVE: Mildly calcified annulus. Doppler: There was no evidence for stenosis. Moderate regurgitation. Valve area by pressure half-time: 2.82cm^2. Mean gradient: 5mm Hg (D). LEFT ATRIUM: The atrium was normal in size. RIGHT VENTRICLE: The cavity size was normal. PULMONIC VALVE: Not well visualized. Doppler: There was no evidence for stenosis. No significant regurgitation. TRICUSPID VALVE: The valve appears to be grossly normal. Doppler: There was no evidence for stenosis. Trace to mild regurgitation. PERICARDIUM: There was no pericardial effusion. BASIC MEASUREMENTS ADULT Normal Left ventricle LV internal dimension, ED, chordal level, 45.8 mm 43-52 PLAX LV posterior wall thickness, ED 7.67 mm IVS/LVPW ratio, ED *1.36 <1.3 Ventricular septum Septal thickness, ED 10.4 mm Aortic valve Leaflet separation *14 mm 15-26 Left atrium Anterior-posterior dimension 34 mm Right ventricle RV internal dimension, ED, PLAX 24.9 mm 19-38 BASIC MEASUREMENTS ADULT Normal Aortic valve Leaflet separation *14 mm 15-26 Aorta Root diameter, ED 23 mm 20-37 DOPPLER MEASUREMENTS ADULT Normal Main pulmonary artery Pressure, S *38 mm Hg =30 Aortic valve VTI, S 46.4 cm Mitral valve Peak E-wave velocity 64.2 cm/s Peak A-wave velocity 97.2 cm/s Mean velocity, D 97.2 cm/s Pressure half-time 78 ms Mean gradient, D 5 mm Hg Peak E/A ratio 0.7 Valve area, pressure half-time 2.82 cm^2 Maximal regurgitant velocity 494 cm/s Tricuspid valve Regurgitant peak velocity 254 cm/s Peak RV-RA gradient, S 26 mm Hg Maximal regurgitant velocity 254 cm/s Systemic veins Estimated CVP 10 mm Hg Right ventricle RV pressure, S *38 mm Hg <30 LEGEND: Mean values are shown as u=mean value. Asterisk (*) rosales values outside specified normal range. Prepared and signed by Ruy Briones [id number]
[2016-11-11 19:05] LABS: BICARBONATE 12.6 MEQ/L (21.0-32.0); MAGNESIUM 1.6 MG/DL (1.5-2.5); POTASSIUM 4.7 MEQ/L (3.5-5.1)
[2016-11-11 19:42] LABS: CALCIUM-PROTEIN CORRECTED 8.1 MG/DL (8.5-10.1); CKMB 20.3 NG/ML (0.5-3.6)
[2016-11-11] MEDS: ATORVASTATIN 80 MG TAB PO SCH (19:45)
[2016-11-11] MEDS: GABAPENTIN 100 MG CAP PO SCH (19:45)
[2016-11-11] MEDS: TOPIRAMATE 25 MG TAB PO SCH (19:46)
[2016-11-11] MEDS ORDERED: MAGNESIUM SULFATE 1 GM PREMIX 100 ML IV ONE (20:15)
[2016-11-12] VITALS (13 sets, daily range): BP systolic 118–158; BP diastolic 58–81; PULSE 58–80; RESP 15–21; TEMP 97.6–98.7; O2SAT 97–100
[2016-11-12] MEDS: INSULIN NovoLIN REGULAR SUPPLEMENTAL SCALE SQ SCH ×6 (00:04→19:30)
[2016-11-12 00:57] LABS: BETA-HYDROXYBUTYRATE 0.17 MMOL/L (0.00-0.39); BICARBONATE 18.1 MEQ/L (21.0-32.0); MAGNESIUM 2.1 MG/DL (1.5-2.5); POTASSIUM 4.3 MEQ/L (3.5-5.1)
[2016-11-12 01:09] LABS: CKMB 15.9 NG/ML (0.5-3.6)
[2016-11-12 01:36] LABS: APTT (PATIENT) 60.7 SEC (24.3-30.1)
[2016-11-12] MEDS: ceFAZolin INJ 500 MG in SODIUM CHLORIDE 0.9% INJ 100 ML IV SCH ×2 (03:20→15:58)
[2016-11-12] MEDS: ACETAMINOPHEN/HYDROcodone 325 MG/10 MG TAB PO PRN ×4 (03:21→22:11)
[2016-11-12] MEDS: COLLAGENASE OINT 30 GM TUBE TOPICAL SCH (03:23)
[2016-11-12] MEDS: CHLORHEXIDINE GLUCONATE 2 % 1 PACK (2 CLOTHS) TOP SCH (04:00)
[2016-11-12] MEDS: SODIUM CHLOR 0.9% 1000 ML INJ 1,000 ML IV SCH ×2 (06:16→23:14)
[2016-11-12 06:31] LABS: APTT (PATIENT) 64.5 SEC (24.3-30.1)
[2016-11-12 06:40] LABS: BICARBONATE 15.7 MEQ/L (21.0-32.0); POTASSIUM 4.4 MEQ/L (3.5-5.1)
[2016-11-12 06:44] LABS: AUTOMATED NEUTROPHIL # 7.6 TH/MM3 (1.8-7.7); BASOPHIL # 0.1 TH/MM3 (0-0.2); BASOPHIL % 0.5 % (0.0-2.0); EOSINOPHIL # 0.1 TH/MM3 (0-0.4); EOSINOPHIL % 1.3 % (0.0-4.0); HEMO FLAGS DIFF FINAL; LYMPH % 21.5 % (9.0-44.0); LYMPHOCYTE # 2.3 TH/MM3 (1.0-4.8); MEAN CELL VOLUME 80.8 FL (80.0-100.0); MEAN CORPUSCULAR HEMOGLOBIN 26.9 PG (27.0-34.0); MEAN CORPUSCULAR HGB CONC 33.3 % (32.0-36.0); MONO % 5.6 % (0.0-8.0); NEUT % 71.1 % (16.0-70.0); PLATELET COUNT 164 TH/MM3 (150-450); RED BLOOD COUNT 3.96 MIL/MM3 (4.00-5.30); RED CELL DISTRIBUTION WIDTH 15.8 % (11.6-17.2); WHITE BLOOD COUNT 10.6 TH/MM3 (4.0-11.0)
--- NOTE | 2016-11-12 07:31 | MB ---
cc: ELIANA MENON DPM DATE OF CONSULTATION: 11/11/2016 DATE OF : 05/02/1956 REASON FOR CONSULTATION: Left foot ulcer. HISTORY OF PRESENT ILLNESS The patient is a 61-year-old female a longstanding history of elevated blood sugars she was admitted for DKA. She has a long history of a left second digit wound, an ulcer for which she has seen her product expert. On arrival blood glucose was 718. PAST MEDICAL HISTORY 1. Uncontrolled diabetes with multiple admissions for DKA hyperlipidemia, 2. Chronic coronary artery disease 3. Peripheral arterial disease. 4. Migraines. 5. Chronic pain. 6. Peripheral neuropathy. 7. Hypertension. PAST SURGICAL HISTORY 1. Cardiac cath 2. hysterectomy 3. insulin pump 4. cholecystectomy left fem-pop bypass 12/26/2015 ALLERGIES GLUCOPHAGE MORPHINE CODEINE. MEDICATIONS 1. Lisinopril. 2. Gabapentin 3. Topamax. 4. Atenolol. 5. Pravastatin. 6. NovoLog. 7. Aspirin. 8. Mobic. 9. Lortab. 10. Plavix 11. Imitrex FAMILY HISTORY Noncontributory. SOCIAL HISTORY The patient smokes one-to-one and half packs cigarettes per day for 20 years, quit 11 months ago, does drink occasionally uses marijuana occasionally, is on disability for chronic pain and artralgias. REVIEW OF SYSTEMS Review of systems, pertinent positives noted above; Left DP is palpable, but PT is nonpalpable, significant crossover or the left hallux over to the second digit. Ulcerated left second digit, dorsal medial necrotic type tissue 1 cm over the medial aspect of the toe. No exposed bone or tendon. Protective sensation grossly diminished. LABORATORY DATA Hemoglobin 10.2. Hematocrit 30.3, Platelets 168 RADIOLOGIC: pending left foot x-ray and MRI as well as blood flow studies. ASSESSMENT/PLAN Podiatric related 1. PVD 2. Left hallux left second digit ulcer 3. Diabetic neuropathy. RECOMMENDATIONS 1. Begin offloading with Santyl and wound care. 2. Continue spacing the digit. 3. If there is no osteomyelitis noted I will recommend local wound care and follow up with her product expert as an outpatient. 4. We will continue to follow while in-house. BUDDY Blandon /8:21 PM /7:20 AM
[2016-11-12 07:54] LABS: CKMB 14.2 NG/ML (0.5-3.6)
[2016-11-12] MEDS: CLOPIDOGREL 75 MG TAB PO SCH (08:30)
[2016-11-12] MEDS: ATENOLOL 25 MG TAB PO SCH ×2 (08:30→20:17)
[2016-11-12] MEDS: ASPIRIN EC 81 MG TABEC PO SCH (08:31)
[2016-11-12] MEDS: PANTOPRAZOLE SODIUM 40 MG VIAL IV SCH (08:31)
--- NOTE | 2016-11-12 08:57 | HHI.PR ---
Subjective Remarks Follow-up DKA. Patient denies any symptoms. Patient admits having difficulty obtaining Novolin for insulin pump resulted to frequent admissions. Agrees to be on long-acting insulin. Discussed with RN. We'll consult case management for medication assistance Objective Vitals Vital Signs Date Time Temp Pulse Resp B/P Pulse Ox O2 Delivery O2 Flow Rate FiO2 11/12/16 06:00 63 11/12/16 04:00 98.5 72 21 118/58 100 11/12/16 04:00 72 11/12/16 02:00 71 11/12/16 00:00 98.2 67 15 122/58 98 11/12/16 00:00 67 11/11/16 22:00 77 11/11/16 20:00 78 11/11/16 20:00 97.8 78 20 138/63 100 11/11/16 19:16 98 21 11/11/16 18:00 84 11/11/16 16:00 98.3 80 16 110/58 100 11/11/16 16:00 79 11/11/16 14:00 87 11/11/16 12:00 78 11/11/16 12:00 99.0 91 16 103/56 100 11/11/16 10:00 102 11/11/16 09:23 100 21 I/O 11/11/16 11/11/16 11/11/16 11/12/16 11/12/16 11/12/16 07:00 15:00 23:00 07:00 15:00 23:00 Intake Total 3031 ml 1789 ml 997 ml 867 ml Output Total 400 ml 1300 ml 200 ml 200 ml Balance 2631 ml 489 ml 797 ml 667 ml Intake Oral 0 ml 240 ml 100 ml 50 ml IV Total 3031 ml 1549 ml 897 ml 817 ml Output Urine Total 400 ml 1300 ml 200 ml 200 ml # Voids 1 # Bowel Movements 0 0 0 Result Diagram: 11/12/16 0514 11/12/16 0514 Imaging Last Impressions Foot X-Ray 11/11/16 0000 Signed Impressions: Service Date/Time: Friday, November 11, 2016 13:40 - CONCLUSION: Hallux valgus deformity. No acute abnormality. Berlin Sarmiento Jr., MD Chest X-Ray 11/10/16 0000 Signed Impressions: Service Date/Time: October 23:51 - CONCLUSION: Right internal jugular central line distal tip is within the superior vena cava. No pneumothorax is visualized. Lobo Quezada MD Objective Remarks GENERAL: Well-nourished, well-developed patient who is alert, sitting up haven' t breakfast SKIN: Warm and dry. There is a 1.5 cm eschar overlying medial aspect of left 2nd toe with some fluctuance but no drainage expressed. HEAD: Atraumatic. Normocephalic. EYES: Pupils equal and round. No scleral icterus. No injection or drainage. ENT: No nasal bleeding or discharge. Mucous membranes dry NECK: Trachea midline. No JVD. CARDIOVASCULAR: Regular,no murmurs rubs or gallops appreciated. RESPIRATORY: Breathing comfortably with No accessory muscle use. Clear to auscultation. Breath sounds equal bilaterally. On room air GASTROINTESTINAL: Abdomen soft, nondistended. There is no rebounding or guarding. Bowel sounds are present MUSCULOSKELETAL: Extremities without clubbing, cyanosis, or edema. Lesion on left foot as per above. NEUROLOGICAL: Awake and alert. No obvious cranial nerve deficits. Motor grossly within normal limits. . Normal speech. Oriented 4 Procedures none A/P Problem List: (1) DKA (diabetic ketoacidoses) ICD Code: E13.10 Status: Resolved Assessment and Plan NEURO: Chronic pain Peripheral neuropathy History of migraine headaches Lortab 10/325 one tab by mouth every 6 hours as needed for pain Topamax 25 mg by mouth daily at bedtime (for migraine prophylaxis, no history of seizures) Gabapentin 100 g by mouth daily at bedtime RESP: History of tobacco abuse She is on room air. CV: NSTEMI Coronary artery disease with stents 08/11/16 EF 40% with diastolic dysfunction Peripheral arterial disease s/p L fem pop bypass. Hypertension Hyperlipidemia Initial EKG with septal ST deviation and lateral ST depression. Patient denies any chest discomfort or shortness of breath whatsoever. Cardiology plans to do cardiac catheterization and started heparin drip Continue aspirin 81 mg and Plavix 75 mg by mouth daily. Continue pravastatin 20 mg by mouth daily Resume atenolol 25 mg by mouth twice a day in a.m. with hold orders. Monitor for overload decrease IV fluid to 60 cc an hour GI: Vomiting Resolved tolerating ADA diet LFTs normal. Lipase not elevated Zofran as needed FEN/RENAL: Acute kidney injury Hyperkalemia secondary to metabolic acidemia ROSAURA suspected secondary to prerenal state due to DKA. Patient has been voiding well in the ED. Expect potassium to decrease as acidemia improves. Following serial BMP. Replace electrolytes as indicated per protocol. Improving on IV fluids ID: Leukocytosis Left foot second digit diabetic ulcer Ancef 500 mg IV every 12 hours. Will adjust as renal function changes. Podiatry consulted for wound management and possible debridement. Follow-up MRI HEME: No acute hematologic issues ENDO: DKA Resolved discontinued Insulin drip. Continue IV fluids and start long-acting insulin with sliding scale coverage. Diabetic education Insulin pump stopped. PROPH: Subcutaneous heparin ACCESS: Right IJ central venous line placed 11/11/16 by ED physician #1 will discontinue after securing PIV Discharge Planning Stable may transfer to floor Problem Qualifiers (1) DKA (diabetic ketoacidoses): Qualified Code: E13.10 - Diabetic ketoacidosis without coma associated with other specified diabetes mellitus Dequan Montesinos MD Nov 12, 2016 08:57
[2016-11-12] MEDS ORDERED: INSULIN HUMAN NPH 1,000 UNITS/10 ML VIAL SQ ONE (09:00)
[2016-11-12] MEDS: PANTOPRAZOLE SOD 40 MG DELAYED RELEASE TAB PO SCH (09:48)
--- NOTE | 2016-11-12 09:57 | PD.CARD.PN ---
Subjective Subjective Remarks No chest pain, no shortness of breath Objective Medications Current Medications Medications (Trade) Dose Ordered Sig/Judah Route Start Time Stop Time Status Last Admin ([place] 10-325 Mg) 1 tab Q6H PRN PO 11/11/16 01:30 11/12/16 03:21 Ondansetron HCl 4 mg 4 mg Q6H PRN IV 11/11/16 01:45 Potassium Chloride 100 ml @ 100 mls/hr Q1H PRN IV 11/11/16 02:00 Potassium Chloride 100 ml @ 50 mls/hr Q2H PRN IV 11/11/16 02:00 Potassium Chloride 100 ml @ 100 mls/hr Q1H PRN IV 11/11/16 02:00 Potassium Chloride 100 ml @ 100 mls/hr Q1H PRN IV 11/11/16 02:00 Potassium Chloride 100 ml @ 50 mls/hr Q2H PRN IV 11/11/16 02:00 Potassium Chloride 100 ml @ 50 mls/hr Q2H PRN IV 11/11/16 02:00 Potassium Chloride 100 ml @ 50 mls/hr Q2H PRN IV 11/11/16 02:00 (KCl 20 Meq Premix Inj) 100 ml @ 50 mls/hr Q2H PRN IV 11/11/16 02:00 (Sodium Bicarbonate 8.4% Inj) 100 meq UNSCH PRN IV 11/11/16 02:00 Sodium Bicarbonate 50 meq 50 meq UNSCH PRN IV 11/11/16 02:00 (Sodium Phosphate Inj/NS Inj) 105 ml @ 25 mls/hr UNSCH PRN IV 11/11/16 02:00 Miscellaneous Information 1 Q361D XX 11/11/16 02:00 11/11/16 02:00 (Chlorhexidine 2% Cloth) 3 pack Taper DAILY@04 TOP 11/11/16 04:00 11/07/17 03:59 11/12/16 04:00 (Chlorhexidine 2% Cloth) 3 pack UNSCH PRN TOP 11/11/16 02:00 (Plavix) 75 mg DAILY PO 11/11/16 09:00 11/12/16 08:30 (Neurontin) 100 mg HS PO 11/11/16 21:00 Topiramate 25 mg 25 mg HS PO 11/11/16 21:00 (Ancef Inj/NS Inj) 100 ml @ 200 mls/hr Q12H IV 11/11/16 03:00 11/12/16 03:20 (Tenormin) 25 mg Q12HR PO 11/11/16 09:00 11/12/16 08:30 (D50w (Vial) Inj) 25 ml UNSCH PRN IV PUSH 11/11/16 11:30 Glucagon 1 mg 1 mg UNSCH PRN OTHER 11/11/16 11:30 (NS 1000 ml Inj) 1,000 ml @ 60 mls/hr [id number] IV 11/11/16 11:30 11/12/16 06:16 Aspirin 81 mg 81 mg DAILY PO 11/12/16 09:00 11/12/16 08:31 (Heparin-D5W Inj) 250 ml @ 0 mls/hr TITRATE IV 11/11/16 11:30 11/11/16 11:57 (Lipitor) 80 mg HS PO 11/11/16 21:00 11/11/16 19:45 (Santyl Oint) 1 applic DAILY TOPICAL 11/12/16 09:00 11/12/16 03:23 (NovoLIN R SUPPLEMENTAL SCALE) 1 Q4H SQ 11/12/16 07:30 11/12/16 08:31 (Protonix) 40 mg DAILY PO 11/12/16 09:00 11/12/16 09:48 (NovoLIN N INJ) 10 units DAILY@08 SQ 11/13/16 08:00 Vital Signs / I&O Vital Signs Date Time Temp Pulse Resp B/P Pulse Ox O2 Delivery O2 Flow Rate FiO2 11/12/16 06:00 63 11/12/16 04:00 98.5 72 21 118/58 100 11/12/16 04:00 72 11/12/16 02:00 71 11/12/16 00:00 98.2 67 15 122/58 98 11/12/16 00:00 67 11/11/16 22:00 77 11/11/16 20:00 78 11/11/16 20:00 97.8 78 20 138/63 100 11/11/16 19:16 98 21 11/11/16 18:00 84 11/11/16 16:00 98.3 80 16 110/58 100 11/11/16 16:00 79 11/11/16 14:00 87 11/11/16 12:00 78 11/11/16 12:00 99.0 91 16 103/56 100 11/11/16 10:00 102 I/O 11/11/16 11/11/16 11/11/16 11/12/16 11/12/16 11/12/16 07:00 15:00 23:00 07:00 15:00 23:00 Intake Total 3031 ml 1789 ml 997 ml 867 ml Output Total 400 ml 1300 ml 200 ml 200 ml Balance 2631 ml 489 ml 797 ml 667 ml Intake Oral 0 ml 240 ml 100 ml 50 ml IV Total 3031 ml 1549 ml 897 ml 817 ml Output Urine Total 400 ml 1300 ml 200 ml 200 ml # Voids 1 # Bowel Movements 0 0 0 Physical Exam GENERAL: NAD, AAOx3 SKIN: Warm and dry. HEAD: Atraumatic. Normocephalic. EYES: Pupils equal and round. No scleral icterus. No injection or drainage. ENT: No nasal bleeding or discharge. Mucous membranes pink and moist. NECK: Trachea midline. No JVD. CARDIOVASCULAR: Regular rate and rhythm. RESPIRATORY: No accessory muscle use. Clear to auscultation. Breath sounds equal bilaterally. GASTROINTESTINAL: Abdomen soft, non-tender, nondistended. Hepatic and splenic margins not palpable. MUSCULOSKELETAL: Extremities without clubbing, cyanosis, or edema. No obvious deformities. Left toe ulcer wrapped NEUROLOGICAL: Awake and alert. No obvious cranial nerve deficits. Motor grossly within normal limits. Five out of 5 muscle strength in the arms and legs. Normal speech. PSYCHIATRIC: Appropriate mood and affect; insight and judgment normal. Laboratory Laboratory Tests Test 11/11/16 11/11/16 11/11/16 11/11/16 10:10 11:40 17:30 18:10 Sodium Level 142 MEQ/L 139 MEQ/L Potassium Level 4.0 MEQ/L 4.7 MEQ/L Chloride Level 116 MEQ/L 114 MEQ/L Carbon Dioxide Level 17.3 MEQ/L 12.6 MEQ/L Anion Gap 9 MEQ/L 12 MEQ/L Blood Urea Nitrogen 38 MG/DL 40 MG/DL Creatinine 1.64 MG/DL 1.60 MG/DL Estimat Glomerular Filtration 32 ML/MIN 33 ML/MIN Rate Random Glucose 156 MG/DL 288 MG/DL Calcium Level 7.3 MG/DL 7.3 MG/DL Protein Corrected Calcium 8.1 MG/DL 8.1 MG/DL Phosphorus Level 2.3 MG/DL 3.8 MG/DL Magnesium Level 1.7 MG/DL 1.6 MG/DL Total Creatine Kinase 270 U/L 276 U/L Creatine Kinase MB 19.3 NG/ML 20.3 NG/ML Creatine Kinase MB % 7.1 % 7.4 % Troponin I 17.70 NG/ML 11.90 NG/ML Total Protein 5.7 GM/DL 5.7 GM/DL B-Hydroxybutyrate 0.06 MMOL/L Prothrombin Time 13.1 SEC Prothromb Time International 1.2 RATIO Ratio Activated Partial 35.5 SEC 64.6 SEC Thromboplast Time White Blood Count 13.2 TH/MM3 Red Blood Count 4.05 MIL/MM3 Hemoglobin 10.6 GM/DL Hematocrit 33.0 % Mean Corpuscular Volume 81.4 FL Mean Corpuscular Hemoglobin 26.1 PG Mean Corpuscular Hemoglobin 32.0 % Concent Red Cell Distribution Width 15.3 % Platelet Count 162 TH/MM3 Mean Platelet Volume 8.7 FL Lipase 56 U/L Test 11/11/16 11/12/16 23:57 05:14 Activated Partial 60.7 SEC 64.5 SEC Thromboplast Time Sodium Level 140 MEQ/L 141 MEQ/L Potassium Level 4.3 MEQ/L 4.4 MEQ/L Chloride Level 114 MEQ/L 115 MEQ/L Carbon Dioxide Level 18.1 MEQ/L 15.7 MEQ/L Anion Gap 8 MEQ/L 10 MEQ/L Blood Urea Nitrogen 39 MG/DL 35 MG/DL Creatinine 1.41 MG/DL 1.29 MG/DL Estimat Glomerular Filtration 38 ML/MIN 42 ML/MIN Rate Random Glucose 177 MG/DL 114 MG/DL Calcium Level 7.5 MG/DL 7.8 MG/DL Phosphorus Level 2.9 MG/DL Magnesium Level 2.1 MG/DL Total Creatine Kinase 246 U/L 238 U/L Creatine Kinase MB 15.9 NG/ML 14.2 NG/ML Creatine Kinase MB % 6.5 % 6.0 % Troponin I 7.18 NG/ML 5.63 NG/ML B-Hydroxybutyrate 0.17 MMOL/L White Blood Count 10.6 TH/MM3 Red Blood Count 3.96 MIL/MM3 Hemoglobin 10.7 GM/DL Hematocrit 32.0 % Mean Corpuscular Volume 80.8 FL Mean Corpuscular Hemoglobin 26.9 PG Mean Corpuscular Hemoglobin 33.3 % Concent Red Cell Distribution Width 15.8 % Platelet Count 164 TH/MM3 Mean Platelet Volume 9.1 FL Neutrophils (%) (Auto) 71.1 % Lymphocytes (%) (Auto) 21.5 % Monocytes (%) (Auto) 5.6 % Eosinophils (%) (Auto) 1.3 % Basophils (%) (Auto) 0.5 % Neutrophils # (Auto) 7.6 TH/MM3 Lymphocytes # (Auto) 2.3 TH/MM3 Monocytes # (Auto) 0.6 TH/MM3 Eosinophils # (Auto) 0.1 TH/MM3 Basophils # (Auto) 0.1 TH/MM3 CBC Comment DIFF FINAL Differential Comment Assessment and Plan Problem List: (1) DKA (diabetic ketoacidoses) (2) Elevated troponin (3) Diabetic ulcer of foot associated with type 1 diabetes mellitus, limited to breakdown of skin (4) CAD (coronary artery disease) (5) Diabetes type 1, uncontrolled (6) HTN (hypertension) (7) Metabolic acidosis Assessment and Plan 1) Continue heparin drip 2) ASA/Plavix/BB/Statin 3) Will plan on cardiac catheterization on Monday as long as her metabolic derangement has resolved, mild drop in her bicarb Problem Qualifiers (1) DKA (diabetic ketoacidoses): Qualified Code: E13.10 - Diabetic ketoacidosis without coma associated with other specified diabetes mellitus Ruy Briones DO Nov 12, 2016 09:57
[2016-11-12] MEDS ORDERED: GADOBENATE DIM PF 529 MG/ML 10ML VIAL (for RAD MRI) IV ONE (13:22)
--- NOTE | 2016-11-12 13:52 | RADRPT ---
EXAM DATE/TIME: 11/12/2016 12:59 [facility] COMPARISON: No previous studies available for comparison. INDICATIONS : Osteomyelitis. Wound distal tuft second digit left foot. CONTRAST: 10 cc MultiHance (gadobenate) IV MEDICAL HISTORY : Diabetes mellitus type 2. Hypertension. SURGICAL HISTORY : Hysterectomy. Cholecystectomy. Femoral popliteal bypass. ENCOUNTER: Initial ACUITY: 1 day PAIN SCORE: 0/10 LOCATION: Left foot TECHNIQUE: Multiplanar, multisequence MRI examination was performed without contrast and after the intravenous a dministration of gadolinium. FINDINGS: There is generalized edema present. There is generalized subcutaneous enhancement present. There is a focal marrow abnormality identified in the proximal phalanx 2nd toe suspicious for osteomyelitis. There is no evidence for deep space abscess. CONCLUSION: Findings suspicious for osteomyelitis proximal phalanx 2nd toe. Perico Novak MD FACR on November 12, 2016 at 13:43 Board Certified Radiologist. This report was verified electronically.
--- NOTE | 2016-11-12 15:43 | RADRPT ---
EXAM DATE/TIME: 11/12/2016 15:00 [facility] COMPARISON: No previous studies available for comparison. INDICATIONS : DKA/PVD TECHNIQUE: Five-station segmental examination of the lower extremities was performed. Pulsed-cuff waveform tracings and pressures were recorded. Ankle-brachial indices and toe-brachial indices were calculated. PRESSURES (mmHg): Brachial (arm): Right IV SITE Left 142 Lower Thigh: Right 176 Left 95 Calf: Right 84 Left 51 Ankle: Right 79 Left 57 Toe: Right 60 Left 30 JOI: Right 0.56 Left 0.40 TBI: Right 0.42 Left 0.21 PULSED CUFF WAVEFORMS: There is preserved up stroke of the waveforms in the right lower extremity and blunted upstroke in th e left thigh and knee and no discernible upstroke of the left ankle and toe. CONCLUSION: 1. Significant and severe inflow disease throughout the left lower extremity. 2. The JOI on the right side is abnormally depressed, but wave form shape is partially preserved a nd the opening pressures on the right are slightly higher than the left suggesting moderate severity disease on the right. Berlin Narvaez MD on November 12, 2016 at 15:39 Board Certified Radiologist. This report was verified electronically.
[2016-11-12 18:58] LABS: BICARBONATE 15.8 MEQ/L (21.0-32.0); MAGNESIUM 1.9 MG/DL (1.5-2.5); POTASSIUM 4.4 MEQ/L (3.5-5.1)
[2016-11-12] MEDS: GABAPENTIN 100 MG CAP PO SCH (20:17)
[2016-11-12] MEDS: ATORVASTATIN 80 MG TAB PO SCH (20:17)
[2016-11-12] MEDS: TOPIRAMATE 25 MG TAB PO SCH (22:11)
[2016-11-12] MEDS: HEPARIN-D5W INJ 250 ML IV SCH (22:58)
[2016-11-13] VITALS (23 sets, daily range): BP systolic 147–173; BP diastolic 73–86; PULSE 56–80; RESP 16–18; TEMP 98.2–98.7; O2SAT 96–99
[2016-11-13] MEDS: INSULIN NovoLIN REGULAR SUPPLEMENTAL SCALE SQ SCH ×6 (00:23→21:25)
[2016-11-13] MEDS: CHLORHEXIDINE GLUCONATE 2 % 1 PACK (2 CLOTHS) TOP SCH (04:00)
[2016-11-13] MEDS: ceFAZolin INJ 500 MG in SODIUM CHLORIDE 0.9% INJ 100 ML IV SCH ×2 (04:26→15:13)
[2016-11-13] MEDS: ACETAMINOPHEN/HYDROcodone 325 MG/10 MG TAB PO PRN ×3 (06:50→23:23)
[2016-11-13 07:08] LABS: BICARBONATE 17.8 MEQ/L (21.0-32.0); MAGNESIUM 1.7 MG/DL (1.5-2.5); POTASSIUM 4.2 MEQ/L (3.5-5.1)
[2016-11-13] MEDS: INSULIN HUMAN NPH 1,000 UNITS/10 ML VIAL SQ SCH (07:18)
--- NOTE | 2016-11-13 07:37 | HHI.PR ---
Subjective Remarks Follow-up diabetic foot infection. Patient made aware of MRI results discussed with podiatry who recommended medical management at this time pending vascular surgery evaluation. Patient does not want to see Dr. Galloway again. Objective Vitals Vital Signs Date Time Temp Pulse Resp B/P Pulse Ox O2 Delivery O2 Flow Rate FiO2 11/13/16 07:22 16 11/13/16 04:00 98.7 62 16 152/79 99 11/13/16 04:00 62 11/13/16 02:34 21 11/13/16 02:11 56 11/13/16 01:00 56 11/13/16 00:00 98.7 64 16 147/79 99 11/13/16 00:00 76 11/12/16 23:00 64 11/12/16 22:00 58 11/12/16 21:00 72 11/12/16 20:00 98.7 62 16 144/73 99 11/12/16 20:00 80 11/12/16 19:00 62 11/12/16 18:05 98.4 72 17 158/81 97 11/12/16 16:00 74 11/12/16 16:00 98.5 74 20 125/59 100 11/12/16 12:00 62 11/12/16 12:00 98.7 69 16 142/65 99 11/12/16 08:00 60 11/12/16 08:00 97.6 60 18 133/63 99 I/O 11/12/16 11/12/16 11/12/16 11/13/16 11/13/16 11/13/16 07:00 15:00 23:00 07:00 15:00 23:00 Intake Total 867 ml 1317 ml 984 ml Output Total 200 ml 900 ml 1460 ml Balance 667 ml 417 ml -476 ml Intake Oral 50 ml 650 ml 180 ml IV Total 817 ml 667 ml 804 ml Output Urine Total 200 ml 900 ml 1460 ml # Bowel Movements 0 0 Result Diagram: 11/12/16 0514 11/13/16 0620 Imaging Last Impressions Foot MRI 11/12/16 0000 Signed Impressions: Service Date/Time: Saturday, November 12, 2016 12:59 - CONCLUSION: Findings suspicious for osteomyelitis proximal phalanx 2nd toe. Perico Novak MD FACR Foot X-Ray 11/11/16 0000 Signed Impressions: Service Date/Time: Friday, November 11, 2016 13:40 - CONCLUSION: Hallux valgus deformity. No acute abnormality. Berlin Sarmiento Jr., MD Chest X-Ray 11/10/16 0000 Signed Impressions: Service Date/Time: October 23:51 - CONCLUSION: Right internal jugular central line distal tip is within the superior vena cava. No pneumothorax is visualized. Lobo Quezada MD Objective Remarks GENERAL: Well-nourished, well-developed patient who is alert, SKIN: Warm and dry. There is a 1.5 cm eschar overlying medial aspect of left 2nd toe with some fluctuance but no drainage expressed. HEAD: Atraumatic. Normocephalic. EYES: Pupils equal and round. No scleral icterus. No injection or drainage. ENT: No nasal bleeding or discharge. Mucous membranes dry NECK: Trachea midline. No JVD. CARDIOVASCULAR: Regular,no murmurs rubs or gallops appreciated. RESPIRATORY: Breathing comfortably with No accessory muscle use. Clear to auscultation. Breath sounds equal bilaterally. On room air GASTROINTESTINAL: Abdomen soft, nondistended. There is no rebounding or guarding. Bowel sounds are present MUSCULOSKELETAL: Extremities without clubbing, cyanosis, or edema. Lesion on left foot as per above. NEUROLOGICAL: Awake and alert. No obvious cranial nerve deficits. Motor grossly within normal limits. . Normal speech. Oriented 4 Procedures none A/P Problem List: (1) DKA (diabetic ketoacidoses) ICD Code: E13.10 Status: Resolved Assessment and Plan NEURO: Chronic pain Peripheral neuropathy History of migraine headaches Lortab 10/325 one tab by mouth every 6 hours as needed for pain Topamax 25 mg by mouth daily at bedtime (for migraine prophylaxis, no history of seizures) Gabapentin 100 g by mouth daily at bedtime RESP: History of tobacco abuse. Counseled She is on room air. CV: NSTEMI Coronary artery disease with stents 08/11/16 EF 40% with diastolic dysfunction Peripheral arterial disease s/p L fem pop bypass. Hypertension Hyperlipidemia Initial EKG with septal ST deviation and lateral ST depression. Patient denies any chest discomfort or shortness of breath whatsoever. Discussed with cardiology for cardiac catheterization in the morning and continue heparin drip Continue aspirin 81 mg and Plavix 75 mg by mouth daily. Continue pravastatin 20 mg by mouth daily Continue atenolol 25 mg by mouth twice a day in a.m. with hold orders. Restart lisinopril Monitor for overload decrease IV fluid to 60 cc an hour GI: Vomiting Resolved tolerating ADA diet LFTs normal. Lipase not elevated Zofran as needed FEN/RENAL: Acute kidney injury Hyperkalemia secondary to metabolic acidemia ROSAURA suspected secondary to prerenal state due to DKA. Patient has been voiding well in the ED. Expect potassium to decrease as acidemia improves. Following serial BMP. Replace electrolytes as indicated per protocol. Improving on IV fluids. Avoid nephrotoxins ID: Leukocytosis Left foot second digit diabetic ulcer Ancef 500 mg IV every 12 hours. Will adjust as renal function changes. Consider ID consult MRI suspicious for possible myelitis of the proximal phalanx of the left second toe Podiatry consulted for wound management and possible debridement pending muscular surgery evaluation patient has PAD with abnormal JOI HEME: No acute hematologic issues ENDO: DKA Resolved discontinued Insulin drip. Continue IV fluids and adjust long-acting insulin with sliding scale coverage depending on glycemic trends. Start NPH 4 units at bedtime and continue 10 units in the morning. Hypoglycemia protocol. Diabetic education Insulin pump stopped. PROPH: Subcutaneous heparin ACCESS: Right IJ central venous line placed 11/11/16 by ED physician #1 already discontinued after securing PIV Discharge Planning Not ready for discharge Problem Qualifiers (1) DKA (diabetic ketoacidoses): Qualified Code: E13.10 - Diabetic ketoacidosis without coma associated with other specified diabetes mellitus Dequan Montesinos MD Nov 13, 2016 07:37
[2016-11-13] MEDS: PANTOPRAZOLE SOD 40 MG DELAYED RELEASE TAB PO SCH (08:15)
[2016-11-13] MEDS: CLOPIDOGREL 75 MG TAB PO SCH (08:15)
[2016-11-13] MEDS: ASPIRIN EC 81 MG TABEC PO SCH (08:15)
[2016-11-13] MEDS: COLLAGENASE OINT 30 GM TUBE TOPICAL SCH (08:15)
[2016-11-13] MEDS: ATENOLOL 25 MG TAB PO SCH ×2 (08:15→21:24)
[2016-11-13] MEDS: LISINOPRIL 20 MG TAB PO SCH (08:20)
--- NOTE | 2016-11-13 10:04 | PD.VS.CON ---
History of Present Illness Chief Complaint: L 2nd toe tissue loss Consult Requested by: Dr. Montesinos History of Present Illness 61 yo female with CAD, DM, and PAD who has a L toe wound x 6 weeks that she feels is getting worse. + Pain but not rest pain. ? drainage while at home. Pt has a history of L LE bypass (fem-AK pop with PTFE by incisions) in December. Ambulates well. ABIs 0.56/0.40 Of considerable note, has significant CAD with recent placement of GARRY in LM in Jul and presented with STEMI this hospitalization with initial troponin at 18 but down now to 7. No c/o SOB or CP and overall looks well. Past/Family/Social History Past Medical History DM with DKA by history CAD as above PAD as above HTN Hypercholesterolemia Neuropathy Past Surgical History ML Jen Appy L fem-pop Home Medications Reported Medications Sumatriptan (Imitrex)25 Mg Tab25 Mg PO ONCE PRN (MIGRAINE HEADACHE) Ref 0 If a satisfactory response has not been obtained at 2 hours, a second dose may be administered 10/18/16 Topiramate (Topamax)25 Mg Tab25 Mg PO HS #60 TAB Ref 0 10/18/16 Hydrocodone-Acetaminophen (Lortab)10-325 Mg Tab1 Tab PO Q6H PRN (PAIN) Ref 0 10/18/16 Gabapentin 100 Mg [id number] Mg PO HS #30 CAP Ref 0 10/18/16 Atenolol 25 Mg Tab25 Mg PO BID #60 TAB Ref 0 10/18/16 Meloxicam (Mobic)15 Mg Tab15 Mg PO DAILY Ref 0 10/18/16 Lisinopril 20 Mg Tab20 Mg PO DAILY #30 TAB Ref 0 10/18/16 Clopidogrel 75 Mg Tab75 Mg PO DAILY #30 TAB Ref 0 10/18/16 Pravastatin 20 Mg Tab20 Mg PO DAILY #30 TAB Ref 0 10/18/16 Aspirin (Aspir-81)81 Mg Tabdr1 Tab PO DAILY 10/18/16 Insulin Aspart Inj (Novolog Inj)1,000 Unit/10 Ml Vial1 Units SQ DIRECTED #0 ML Ref 0 10/18/16 Discontinued Scripts Clindamycin (Cleocin)300 Mg [id number] Mg PO Q8H #30 CAP Ref 0 Prov:Urszula Forde MD 10/31/16 Coded Allergies: Codeine (Verified Allergy, Mild, HIVES, 11/10/16) Glucophage (Verified Allergy, Mild, DKA, 11/10/16) Morphine (Verified Adverse Reaction, Severe, 11/10/16) vomiting Social History former smoker, quit 11m ago Review of Systems Constitutional: COMPLAINS OF: Fatigue, DENIES: Fever, Chills Cardiovascular: DENIES: Chest pain, Syncope Gastrointestinal: DENIES: Abdominal pain Integumentary: COMPLAINS OF: Abnormal pigmentation Neurologic: COMPLAINS OF: Paresthesias Physical Exam Vitals/I&O Date Time Temp Pulse Resp B/P Pulse Ox O2 Delivery O2 Flow Rate FiO2 11/13/16 08:00 68 11/13/16 08:00 98.2 70 18 173/84 98 11/13/16 07:22 16 11/13/16 04:00 98.7 62 16 152/79 99 11/13/16 04:00 62 11/13/16 02:34 21 11/13/16 02:11 56 11/13/16 01:00 56 11/13/16 00:00 98.7 64 16 147/79 99 11/13/16 00:00 76 11/12/16 23:00 64 11/12/16 22:00 58 11/12/16 21:00 72 11/12/16 20:00 98.7 62 16 144/73 99 11/12/16 20:00 80 11/12/16 19:00 62 11/12/16 18:05 98.4 72 17 158/81 97 11/12/16 16:00 74 11/12/16 16:00 98.5 74 20 125/59 100 11/12/16 12:00 62 11/12/16 12:00 98.7 69 16 142/65 99 11/13/16 11/13/16 11/13/16 07:00 15:00 23:00 Intake Total 984 ml Output Total 1460 ml Balance -476 ml Neuro: Alert, oriented, appears to be in no distress HEENT: NC/AT; anicteric sclera Neck: no JVD Heart: Reg rate, no M Lungs: Clear B Abdomen: soft, NT Vascular: Palpable femoral pulses, no popliteal or pedal pulses Extremities: L 2nd toe with ulceration without surrounding erythema; + tenderness, but no drainage Laboratory Tests Test 11/12/16 11/13/16 18:24 06:20 Sodium Level 139 142 Potassium Level 4.4 4.2 Chloride Level 113 114 Carbon Dioxide Level 15.8 17.8 Anion Gap 10 10 Blood Urea Nitrogen 30 26 Creatinine 1.29 0.97 Estimat Glomerular Filtration 42 58 Rate Random Glucose 105 180 Calcium Level 7.7 7.7 Magnesium Level 1.9 1.7 Activated Partial 56.0 Thromboplast Time Date/Time Procedure Status Source Growth 11/11/16 01:00 Aerobic Blood Culture - Preliminary Resulted Blood Peripheral NO GROWTH IN 1 DAY 11/11/16 01:00 Anaerobic Blood Culture - Preliminary Resulted Blood Peripheral NO GROWTH IN 1 DAY 11/10/16 21:48 Urine Culture - Final Complete Urine Clean Catch 50-100,000 CFU/ML MIXED GRAM POSITIVE... Last 48 hours Impressions Foot MRI 11/12/16 0000 Signed Impressions: Service Date/Time: Saturday, November 12, 2016 12:59 - CONCLUSION: Findings suspicious for osteomyelitis proximal phalanx 2nd toe. Perico Novak MD FACR Assessment and Plan Plan 1. PAD: tissue loss and failed bypass, likely prosthetic a. Needs UE/LE vein survey - ordered b. Will need revasculzation, starting with L LE angiogram c. Clearly, her TL is stable and does not appear to be driving sytemic hyperglycemia, so needs completion of cardiac work-up for NSTEMI first. Per records, there is a plan for [facility] Monday d. Ok to ambulate as tolerated e. Broad antibiotics for polymicrobial coverage for DFI f. Will likely need re-do distal bypass, but as I explained to the patient, this can be done as outpatient given NSTEMI 2. CV risk factor modification: ASA, statin, Beta angel 3. F/u Hgb A1c I will follow her closely and arrange all PAD tests and interventions. Kit Fairbanks MD FACS professor of legal studies [facility] at [facility] [phone] Kit Fairbanks MD Nov 13, 2016 10:04
--- NOTE | 2016-11-13 12:46 | PD.POD ---
Subjective Podiatric Problems Left 2nd digit ulcer. PVD DM Pain scale used: 0-10 numeric scale Pain score: 3 Past Med/Surg/Social History Social History Smoking Status: Former Smoker Objective Vital Signs Vital Signs Date Time Temp Pulse Resp B/P Pulse Ox O2 Delivery O2 Flow Rate FiO2 11/13/16 12:00 98.2 64 16 165/86 99 11/13/16 12:00 64 11/13/16 11:00 80 11/13/16 10:00 70 11/13/16 09:00 74 11/13/16 08:00 68 11/13/16 08:00 98.2 70 18 173/84 98 11/13/16 07:22 16 11/13/16 07:00 62 11/13/16 04:00 98.7 62 16 152/79 99 11/13/16 04:00 62 11/13/16 02:34 21 11/13/16 02:11 56 11/13/16 01:00 56 11/13/16 00:00 98.7 64 16 147/79 99 11/13/16 00:00 76 11/12/16 23:00 64 11/12/16 22:00 58 11/12/16 21:00 72 11/12/16 20:00 98.7 62 16 144/73 99 11/12/16 20:00 80 11/12/16 19:00 62 11/12/16 18:05 98.4 72 17 158/81 97 11/12/16 16:00 74 11/12/16 16:00 98.5 74 20 125/59 100 Coded Allergies: Codeine (Verified Allergy, Mild, HIVES, 11/10/16) Glucophage (Verified Allergy, Mild, DKA, 11/10/16) Morphine (Verified Adverse Reaction, Severe, 11/10/16) vomiting Other Results Last Impressions Foot MRI 11/12/16 0000 Signed Impressions: Service Date/Time: Saturday, November 12, 2016 12:59 - CONCLUSION: Findings suspicious for osteomyelitis proximal phalanx 2nd toe. Perico Novak MD FACR Foot X-Ray 11/11/16 0000 Signed Impressions: Service Date/Time: Friday, November 11, 2016 13:40 - CONCLUSION: Hallux valgus deformity. No acute abnormality. Berlin Sarmiento Jr., MD Chest X-Ray 11/10/16 0000 Signed Impressions: Service Date/Time: October 23:51 - CONCLUSION: Right internal jugular central line distal tip is within the superior vena cava. No pneumothorax is visualized. Lobo Quezada MD Laboratory Tests Test 11/10/16 11/10/16 11/10/16 11/11/16 20:30 20:36 21:48 02:20 Lactic Acid Level 3.2 mmol/L Blood Gas Puncture Site CENTRAL LINE Blood Gas Patient Temperature 98.6 Venous Blood pH 7.23 Venous Blood Partial Pressure 29 mmHg CO2 Venous Blood Partial Pressure 47 mmHg O2 Venous Blood HCO3 12 mmol/L Venous Blood Oxygen Saturation 75 % Venous Blood Oxygen Content 14.9 Vol % Venous Blood Base Excess -14.2 mmol/L Oxygen Delivery Device ROOMIAR Blood Gas Inspired Oxygen 21 % Urine Color YELLOW Urine Turbidity HAZY Urine pH 5.0 Urine Specific [place] 1.012 Urine Protein 30 mg/dL Urine Glucose (UA) 1000 mg/dL Urine Ketones 10 mg/dL Urine Occult Blood NEG Urine Nitrite NEG Urine Bilirubin NEG Urine Urobilinogen LESS THAN 2.0 MG/DL Urine Leukocyte Esterase SMALL Urine RBC 3 /hpf Urine WBC 4 /hpf Urine Squamous Epithelial 6 /hpf Cells Urine Bacteria MOD /hpf Urine Hyaline Casts 61 /lpf Urine Mucus FEW /lpf Urine Yeast (Budding) OCC Microscopic Urinalysis Comment CULTURE INDICATED Total Bilirubin 0.4 MG/DL Aspartate Amino Transf 19 U/L (AST/SGOT) Alanine Aminotransferase 17 U/L (ALT/SGPT) Alkaline Phosphatase 99 U/L Albumin 3.3 GM/DL Test 11/11/16 11/11/16 11/11/16 11/11/16 02:35 11:40 18:10 23:57 Nasal Screen MRSA (PCR) NEGATIVE Prothrombin Time 13.1 SEC Prothromb Time International 1.2 RATIO Ratio Protein Corrected Calcium 8.1 MG/DL Total Protein 5.7 GM/DL Lipase 56 U/L Phosphorus Level 2.9 MG/DL B-Hydroxybutyrate 0.17 MMOL/L Test 11/12/16 11/13/16 05:14 06:20 White Blood Count 10.6 TH/MM3 Red Blood Count 3.96 MIL/MM3 Hemoglobin 10.7 GM/DL Hematocrit 32.0 % Mean Corpuscular Volume 80.8 FL Mean Corpuscular Hemoglobin 26.9 PG Mean Corpuscular Hemoglobin 33.3 % Concent Red Cell Distribution Width 15.8 % Platelet Count 164 TH/MM3 Mean Platelet Volume 9.1 FL Neutrophils (%) (Auto) 71.1 % Lymphocytes (%) (Auto) 21.5 % Monocytes (%) (Auto) 5.6 % Eosinophils (%) (Auto) 1.3 % Basophils (%) (Auto) 0.5 % Neutrophils # (Auto) 7.6 TH/MM3 Lymphocytes # (Auto) 2.3 TH/MM3 Monocytes # (Auto) 0.6 TH/MM3 Eosinophils # (Auto) 0.1 TH/MM3 Basophils # (Auto) 0.1 TH/MM3 CBC Comment DIFF FINAL Differential Comment Total Creatine Kinase 238 U/L Creatine Kinase MB 14.2 NG/ML Creatine Kinase MB % 6.0 % Troponin I 5.63 NG/ML Hemoglobin A1c 7.8 % Activated Partial 56.0 SEC Thromboplast Time Sodium Level 142 MEQ/L Potassium Level 4.2 MEQ/L Chloride Level 114 MEQ/L Carbon Dioxide Level 17.8 MEQ/L Anion Gap 10 MEQ/L Blood Urea Nitrogen 26 MG/DL Creatinine 0.97 MG/DL Estimat Glomerular Filtration 58 ML/MIN Rate Random Glucose 180 MG/DL Calcium Level 7.7 MG/DL Magnesium Level 1.7 MG/DL Physical Exam Details LLE Ulcerated/necrotic left 2nd digit. Non palpable D P and PT Protective sensation is absent. Tender to palpation. No drainage. Assessment & Plan Diagnosis: (1) Diabetes type 1, uncontrolled Status: Acute (2) Diabetic ulcer of foot associated with type 1 diabetes mellitus, limited to breakdown of skin Status: Acute A/P Vascular recommended outpatient revascularization with NSTEMI. MRI completed. Recommended local wound care given medical history. Santyl and DSD currently in place. Dr Hinton will begin coverage 11/14/16 Lorena Em DPM Nov 13, 2016 12:46
--- NOTE | 2016-11-13 13:07 | PD.CARD.PN ---
Subjective Subjective Remarks No chest pain, no shortness of breath Objective Medications Current Medications Medications (Trade) Dose Ordered Sig/Judah Route Start Time Stop Time Status Last Admin ([place] 10-325 Mg) 1 tab Q6H PRN PO 11/11/16 01:30 11/13/16 06:50 (Zofran Inj) 4 mg Q6H PRN IV 11/11/16 01:45 (Sodium Bicarbonate 8.4% Inj) 100 meq UNSCH PRN IV 11/11/16 02:00 Sodium Bicarbonate 50 meq 50 meq UNSCH PRN IV 11/11/16 02:00 (Sodium Phosphate Inj/NS Inj) 105 ml @ 25 mls/hr UNSCH PRN IV 11/11/16 02:00 Miscellaneous Information 1 [id number] XX 11/11/16 02:00 11/11/16 02:00 (Chlorhexidine 2% Cloth) 3 pack Taper DAILY@04 TOP 11/11/16 04:00 11/07/17 03:59 11/12/16 04:00 (Chlorhexidine 2% Cloth) 3 pack UNSCH PRN TOP 11/11/16 02:00 (Plavix) 75 mg DAILY PO 11/11/16 09:00 11/13/16 08:15 (Neurontin) 100 mg HS PO 11/11/16 21:00 11/12/16 20:17 Topiramate 25 mg 25 mg HS PO 11/11/16 21:00 11/12/16 22:11 (Ancef Inj/NS Inj) 100 ml @ 200 mls/hr Q12H IV 11/11/16 03:00 11/13/16 04:26 (Tenormin) 25 mg Q12HR PO 11/11/16 09:00 11/13/16 08:15 (D50w (Vial) Inj) 25 ml UNSCH PRN IV PUSH 11/11/16 11:30 Glucagon 1 mg 1 mg UNSCH PRN OTHER 11/11/16 11:30 (NS 1000 ml Inj) 1,000 ml @ 60 mls/hr [id number] IV 11/11/16 11:30 11/12/16 23:14 Aspirin 81 mg 81 mg DAILY PO 11/12/16 09:00 11/13/16 08:15 (Heparin-D5W Inj) 250 ml @ 0 mls/hr TITRATE IV 11/11/16 11:30 11/12/16 22:58 (Lipitor) 80 mg HS PO 11/11/16 21:00 11/12/16 20:17 (Santyl Oint) 1 applic DAILY TOPICAL 11/12/16 09:00 11/13/16 08:15 (Protonix) 40 mg DAILY PO 11/12/16 09:00 11/13/16 08:15 (NovoLIN N INJ) 10 units DAILY@08 SQ 11/13/16 08:00 11/13/16 07:18 (Prinivil) 20 mg DAILY PO 11/13/16 09:00 11/13/16 08:20 (NovoLIN N INJ) 4 units HS SQ 11/13/16 21:00 Vital Signs / I&O Vital Signs Date Time Temp Pulse Resp B/P Pulse Ox O2 Delivery O2 Flow Rate FiO2 11/13/16 12:00 98.2 64 16 165/86 99 11/13/16 12:00 64 11/13/16 11:00 80 11/13/16 10:00 70 11/13/16 09:00 74 11/13/16 08:00 68 11/13/16 08:00 98.2 70 18 173/84 98 11/13/16 07:22 16 11/13/16 07:00 62 11/13/16 04:00 98.7 62 16 152/79 99 11/13/16 04:00 62 11/13/16 02:34 21 11/13/16 02:11 56 11/13/16 01:00 56 11/13/16 00:00 98.7 64 16 147/79 99 11/13/16 00:00 76 11/12/16 23:00 64 11/12/16 22:00 58 11/12/16 21:00 72 11/12/16 20:00 98.7 62 16 144/73 99 11/12/16 20:00 80 11/12/16 19:00 62 11/12/16 18:05 98.4 72 17 158/81 97 11/12/16 16:00 74 11/12/16 16:00 98.5 74 20 125/59 100 I/O 11/12/16 11/12/16 11/12/16 11/13/16 11/13/16 11/13/16 07:00 15:00 23:00 07:00 15:00 23:00 Intake Total 867 ml 1317 ml 984 ml Output Total 200 ml 900 ml 1460 ml Balance 667 ml 417 ml -476 ml Intake Oral 50 ml 650 ml 180 ml IV Total 817 ml 667 ml 804 ml Output Urine Total 200 ml 900 ml 1460 ml # Bowel Movements 0 0 Physical Exam GENERAL: NAD, AAOx3 SKIN: Warm and dry. HEAD: Atraumatic. Normocephalic. EYES: Pupils equal and round. No scleral icterus. No injection or drainage. ENT: No nasal bleeding or discharge. Mucous membranes pink and moist. NECK: Trachea midline. No JVD. CARDIOVASCULAR: Regular rate and rhythm. RESPIRATORY: No accessory muscle use. Clear to auscultation. Breath sounds equal bilaterally. GASTROINTESTINAL: Abdomen soft, non-tender, nondistended. Hepatic and splenic margins not palpable. MUSCULOSKELETAL: Extremities without clubbing, cyanosis, or edema. No obvious deformities. Left toe ulcer wrapped NEUROLOGICAL: Awake and alert. No obvious cranial nerve deficits. Motor grossly within normal limits. Five out of 5 muscle strength in the arms and legs. Normal speech. PSYCHIATRIC: Appropriate mood and affect; insight and judgment normal. Laboratory Laboratory Tests Test 11/12/16 11/13/16 18:24 06:20 Sodium Level 139 MEQ/L 142 MEQ/L Potassium Level 4.4 MEQ/L 4.2 MEQ/L Chloride Level 113 MEQ/L 114 MEQ/L Carbon Dioxide Level 15.8 MEQ/L 17.8 MEQ/L Anion Gap 10 MEQ/L 10 MEQ/L Blood Urea Nitrogen 30 MG/DL 26 MG/DL Creatinine 1.29 MG/DL 0.97 MG/DL Estimat Glomerular Filtration 42 ML/MIN 58 ML/MIN Rate Random Glucose 105 MG/DL 180 MG/DL Calcium Level 7.7 MG/DL 7.7 MG/DL Magnesium Level 1.9 MG/DL 1.7 MG/DL Activated Partial 56.0 SEC Thromboplast Time Assessment and Plan Problem List: (1) DKA (diabetic ketoacidoses) (2) Elevated troponin (3) Diabetic ulcer of foot associated with type 1 diabetes mellitus, limited to breakdown of skin (4) CAD (coronary artery disease) (5) Diabetes type 1, uncontrolled (6) HTN (hypertension) (7) Metabolic acidosis Assessment and Plan 1) Continue heparin drip 2) ASA/Plavix/BB/Statin 3) Will plan on cardiac catheterization tomorrow as long as her metabolic derangement has resolved, bicarb increasing today... discussed with the patient , may need to hold off until Monday, will check labs in the morning Problem Qualifiers (1) DKA (diabetic ketoacidoses): Qualified Code: E13.10 - Diabetic ketoacidosis without coma associated with other specified diabetes mellitus Ruy Briones DO Nov 13, 2016 13:06
[2016-11-13] MEDS: SODIUM CHLOR 0.9% 1000 ML INJ 1,000 ML IV SCH (15:02)
--- NOTE | 2016-11-13 17:04 | RADRPT ---
EXAM DATE/TIME: 11/13/2016 13:18 [facility] COMPARISON: No previous studies available for comparison. INDICATIONS : Arterial bypass. MEDICAL HISTORY : Hypertension. Arthritis. Osteoporosis. Glaucoma. Migraines. Neuropathy, bilateral feet. Diabetes. Anx iety. Substance use. Hepatitis as child. Anticoagulant therapy, Plavix & Aspirin 81mg. SURGICAL HISTORY : Appendectomy.Cholecystectomy. Coronary artery stent.Hysterectomy. Bypass left leg. ENCOUNTER: Initial ACUITY: 1 day PAIN SCORE: 10/10 LOCATION: Bilateral leg. TECHNIQUE: Venous ultrasound of the left and right leg was performed from the inguinal ligament to the proximal calf. Real-time, color Doppler and spectral tracing, compression and augmentation techniques were us ed. FINDINGS: RIGHT LEG: There is normal compressibility of the deep venous system from the inguinal region to the proximal ca lf. No echogenic clot is seen in the lumen of the common femoral, femoral, popliteal, and posterior tibial veins. There is a normal response of the venous system to proximal and distal augmentation an d respiration. LEFT LEG: There is normal compressibility of the deep venous system from the inguinal region to the proximal ca lf. No echogenic clot is seen in the lumen of the common femoral, femoral, popliteal, and posterior tibial veins. There is a normal response of the venous system to proximal and distal augmentation an d respiration. CONCLUSION: Normal examination. Tapan Keller MD on November 13, 2016 at 17:02 Board Certified Radiologist. This report was verified electronically.
--- NOTE | 2016-11-13 17:04 | RADRPT ---
EXAM DATE/TIME: 11/13/2016 13:27 [facility] COMPARISON: No previous studies available for comparison. INDICATIONS : Arterial bypass. MEDICAL HISTORY : Hypertension. Arthritis. Osteoporosis. Glaucoma. Migraines. Neuropathy, bilateral feet. Diabetes. Anx iety. Substance use. Hepatitis as child. Anticoagulant therapy, Plavix & Aspirin 81mg . SURGICAL HISTORY : Coronary artery stent. Cholecystectomy. Appendectomy. Hysterectomy. Bypass left leg. ENCOUNTER: Initial ACUITY: 1 day PAIN SCORE: 10/10 LOCATION: Bilateral leg. GREATER SAPHENOUS VEIN THIGH: PROXIMAL: Right 4 mm Left 3 mm MID: Right 2 mm Left 4 mm DISTAL: Right 3 mm Left 3 mm CALF: PROXIMAL: Right 1 mm Left 1 mm MID: Right 1 mm Left 2 mm DISTAL: Right 1 mm Left 1 mm FINDINGS: The venous system of the lower extremities are patent by color Doppler imaging. Measurements of the leg veins (in mm) are listed above. CONCLUSION: Normal examination. Tapan Keller MD on November 13, 2016 at 17:03 Board Certified Radiologist. This report was verified electronically.
--- NOTE | 2016-11-13 17:05 | RADRPT ---
EXAM DATE/TIME: 11/13/2016 13:56 [facility] COMPARISON: No previous studies available for comparison. INDICATIONS : Arterial bypass. MEDICAL HISTORY : Hypertension. Arthritis. Osteoporosis. Glaucoma. Migraines. Neuropathy, bilateral feet. Diabetes. Anx iety. Substance use. Hepatitis as child. Anticoagulant therapy, Plavix & Aspirin 81mg. SURGICAL HISTORY : Appendectomy. Cholecystectomy. Coronary artery stent. Hysterectomy. Bypass left leg. ENCOUNTER: Initial ACUITY: 1 day PAIN SCORE: 0/10 LOCATION: Bilateral arm. CEPHALIC: ORIGIN: Right 2 mm Left 1 mm MID-ARM: Right 1 mm Left 1 mm ELBOW: Right 1 mm Left 1 mm FOREARM: Right 1 mm Left 1 mm WRIST: Right 1 mm Left Non-visualized BASILIC: ORIGIN: Right 2 mm Left 3 mm MID-ARM: Right 2 mm Left 3 mm ELBOW: Right 2 mm Left 2 mm ARTERIES: BRACHIAL: Right 4 mm Left 4 mm ULNAR: Right 2 mm Left 2 mm RADIAL: Right 2 mm Left 2 mm VEINS: RADIAL: Right 2 mm Left 1 mm ULNAR: Right 2 mm Left 4 mm FINDINGS: The venous system of the upper extremities are patent by color Doppler imaging. Measurements of the arm veins (in mm) are listed above. CONCLUSION: Normal examination. Tapan Keller MD on November 13, 2016 at 17:03 Board Certified Radiologist. This report was verified electronically.
--- NOTE | 2016-11-13 17:05 | RADRPT ---
EXAM DATE/TIME: 11/13/2016 13:45 [facility] COMPARISON: No previous studies available for comparison. INDICATIONS : Arterial bypass. MEDICAL HISTORY : Hypertension. Arthritis. Osteoporosis. Glaucoma. Migraines. Neuropathy, bilateral feet. Diabetes. Anx iety. Substance use. Hepatitis as child. Anticoagulant therapy, Plavix & Aspirin 81mg. SURGICAL HISTORY : Appendectomy.Cholecystectomy. Coronary artery stent.Hysterectomy. Bypass left leg. ENCOUNTER: Initial ACUITY: 1 day PAIN SCORE: 0/10 LOCATION: Bilateral arm. FINDINGS: RIGHT UPPER EXTREMITY: There is spontaneous flow documented in the brachial, basilic, cephalic, axillary, and subclavian vei ns. The vessels are compressible and augmentation response is documented. No filling defects are se en. The flow is phasic with respiration. Direction of flow in the jugular vein is caudal. LEFT UPPER EXTREMITY: There is spontaneous flow documented in the brachial, basilic, cephalic, axillary, and subclavian vei ns. The vessels are compressible and augmentation response is documented. No filling defects are se en. The flow is phasic with respiration. Direction of flow in the jugular vein is caudal. CONCLUSION: Normal examination. Tapan Keller MD on November 13, 2016 at 17:03 Board Certified Radiologist. This report was verified electronically.
[2016-11-13] MEDS ORDERED: INSULIN HUMAN NPH 1,000 UNITS/10 ML VIAL SQ SCH (21:00)
[2016-11-13] MEDS: GABAPENTIN 100 MG CAP PO SCH (21:24)
[2016-11-13] MEDS: TOPIRAMATE 25 MG TAB PO SCH (21:24)
[2016-11-13] MEDS: ATORVASTATIN 80 MG TAB PO SCH (21:24)
[2016-11-14] VITALS (24 sets, daily range): BP systolic 91–154; BP diastolic 51–86; PULSE 56–76; RESP 18–20; TEMP 97.6–98.5; O2SAT 97–99
[2016-11-14] MEDS: INSULIN NovoLIN REGULAR SUPPLEMENTAL SCALE SQ SCH ×5 (03:51→21:43)
[2016-11-14] MEDS: ceFAZolin INJ 500 MG in SODIUM CHLORIDE 0.9% INJ 100 ML IV SCH ×2 (03:51→15:00)
[2016-11-14] MEDS: CHLORHEXIDINE GLUCONATE 2 % 1 PACK (2 CLOTHS) TOP SCH (04:00)
[2016-11-14 06:20] LABS: HEMATOCRIT 35.5 % (35.0-46.0); MEAN CELL VOLUME 78.9 FL (80.0-100.0); MEAN CORPUSCULAR HEMOGLOBIN 26.8 PG (27.0-34.0); PLATELET COUNT 137 TH/MM3 (150-450); REVIEW FLAG FINAL
[2016-11-14 06:47] LABS: BICARBONATE 22.9 MEQ/L (21.0-32.0); MAGNESIUM 1.6 MG/DL (1.5-2.5); POTASSIUM 3.7 MEQ/L (3.5-5.1)
[2016-11-14] MEDS ORDERED: BISACODYL 10 MG SUPP RECTAL PRN (07:45)
[2016-11-14] MEDS ORDERED: MAGNESIUM HYDROXIDE SUSP 30 ML CUP PO PRN (07:45)
[2016-11-14] MEDS ORDERED: INSULIN HUMAN NPH 1,000 UNITS/10 ML VIAL SQ ONE (08:00)
[2016-11-14] MEDS: CLOPIDOGREL 75 MG TAB PO SCH (08:23)
[2016-11-14] MEDS: LISINOPRIL 20 MG TAB PO SCH (08:24)
[2016-11-14] MEDS: ASPIRIN EC 81 MG TABEC PO SCH (08:24)
[2016-11-14] MEDS: ATENOLOL 25 MG TAB PO SCH ×2 (08:24→21:22)
[2016-11-14] MEDS: ACETAMINOPHEN/HYDROcodone 325 MG/10 MG TAB PO PRN ×3 (08:24→23:13)
[2016-11-14] MEDS: PANTOPRAZOLE SOD 40 MG DELAYED RELEASE TAB PO SCH (08:24)
[2016-11-14] MEDS: COLLAGENASE OINT 30 GM TUBE TOPICAL SCH (08:25)
[2016-11-14] MEDS: DOCUSATE SODIUM 50 MG/SENNA 8.6 MG TAB PO SCH ×2 (08:26→21:22)
[2016-11-14] MEDS: SODIUM CHLOR 0.9% 1000 ML INJ 1,000 ML IV SCH (08:34)
--- NOTE | 2016-11-14 10:08 | HHI.PR ---
Subjective Remarks Follow-up AL. Denies chest pain. Awaiting cardiac catheterization discussed with RN Objective Vitals Vital Signs Date Time Temp Pulse Resp B/P Pulse Ox O2 Delivery O2 Flow Rate FiO2 11/14/16 08:06 98.4 63 18 151/79 99 11/14/16 05:01 62 11/14/16 04:16 56 11/14/16 04:00 98.5 58 18 154/86 98 11/14/16 03:00 61 11/14/16 02:00 64 11/14/16 01:00 61 11/14/16 00:00 64 11/13/16 23:23 98.5 61 18 156/85 98 11/13/16 23:06 62 11/13/16 22:00 68 11/13/16 21:59 97 21 11/13/16 21:00 61 11/13/16 20:00 98.5 61 18 166/73 98 11/13/16 20:00 61 11/13/16 19:00 61 11/13/16 18:00 68 11/13/16 17:00 74 11/13/16 16:00 98.2 70 18 172/86 96 11/13/16 16:00 79 11/13/16 15:00 72 11/13/16 14:00 58 11/13/16 13:00 70 11/13/16 12:00 98.2 64 16 165/86 99 11/13/16 12:00 64 11/13/16 11:00 80 I/O 11/13/16 11/13/16 11/13/16 11/14/16 11/14/16 11/14/16 07:00 15:00 23:00 07:00 15:00 23:00 Intake Total 984 ml 1648 ml 1044 ml Output Total 1460 ml 1750 ml 1200 ml Balance -476 ml -102 ml -156 ml Intake Oral 180 ml 960 ml 240 ml IV Total 804 ml 688 ml 804 ml Output Urine Total 1460 ml 1750 ml 1200 ml # Bowel Movements 0 0 0 Result Diagram: 11/14/16 0505 11/14/16 0505 Imaging Last Impressions Upper Extremity Ultrasound 11/13/16 0000 Signed Impressions: Service Date/Time: Sunday, November 13, 2016 13:45 - CONCLUSION: Normal examination. Tapan Keller MD Lower Extremity Ultrasound 11/13/16 0000 Signed Impressions: Service Date/Time: Sunday, November 13, 2016 13:18 - CONCLUSION: Normal examination. Tapan Keller MD Foot MRI 11/12/16 0000 Signed Impressions: Service Date/Time: Saturday, November 12, 2016 12:59 - CONCLUSION: Findings suspicious for osteomyelitis proximal phalanx 2nd toe. Perico Novak MD FACR Foot X-Ray 11/11/16 0000 Signed Impressions: Service Date/Time: Friday, November 11, 2016 13:40 - CONCLUSION: Hallux valgus deformity. No acute abnormality. Berlin Sarmiento Jr., MD Chest X-Ray 11/10/16 0000 Signed Impressions: Service Date/Time: October 23:51 - CONCLUSION: Right internal jugular central line distal tip is within the superior vena cava. No pneumothorax is visualized. Lobo Quezada MD Objective Remarks GENERAL: Well-nourished, well-developed patient who is alert, SKIN: Warm and dry. There is a 1.5 cm eschar overlying medial aspect of left 2nd toe with some fluctuance but no drainage expressed. HEAD: Atraumatic. Normocephalic. EYES: Pupils equal and round. No scleral icterus. No injection or drainage. ENT: No nasal bleeding or discharge. Mucous membranes dry NECK: Trachea midline. No JVD. CARDIOVASCULAR: Regular,no murmurs rubs or gallops appreciated. RESPIRATORY: Breathing comfortably with No accessory muscle use. Clear to auscultation. Breath sounds equal bilaterally. On room air GASTROINTESTINAL: Abdomen soft, nondistended. There is no rebounding or guarding. Bowel sounds are present MUSCULOSKELETAL: Extremities without clubbing, cyanosis, or edema. Lesion on left foot as per above. NEUROLOGICAL: Awake and alert. No obvious cranial nerve deficits. Motor grossly within normal limits. . Normal speech. Procedures none A/P Problem List: (1) DKA (diabetic ketoacidoses) ICD Code: E13.10 Status: Resolved Assessment and Plan NEURO: Chronic pain Peripheral neuropathy History of migraine headaches Lortab 10/325 one tab by mouth every 6 hours as needed for pain Topamax 25 mg by mouth daily at bedtime (for migraine prophylaxis, no history of seizures) Gabapentin 100 g by mouth daily at bedtime RESP: History of tobacco abuse. Counseled She is on room air. CV: NSTEMI Coronary artery disease with stents 08/11/16 EF 40% with diastolic dysfunction Peripheral arterial disease s/p L fem pop bypass. Hypertension Hyperlipidemia Initial EKG with septal ST deviation and lateral ST depression. Patient denies any chest discomfort or shortness of breath whatsoever. Discussed with cardiology for cardiac catheterization this morning continue heparin drip Continue aspirin 81 mg and Plavix 75 mg by mouth daily. Continue pravastatin 20 mg by mouth daily Continue atenolol 25 mg by mouth twice a day in a.m. with hold orders. Restart lisinopril Monitor for overload decrease IV fluid to 60 cc an hour Vascular surgery recommends outpatient follow-up regarding PAD secondary to AL GI: Vomiting Resolved tolerating ADA diet LFTs normal. Lipase not elevated Zofran as needed FEN/RENAL: Acute kidney injury Hyperkalemia secondary to metabolic acidemia ROSAURA suspected secondary to prerenal state due to DKA. Patient has been voiding well in the ED. Expect potassium to decrease as acidemia improves. Following serial BMP. Replace electrolytes as indicated per protocol. Improving on IV fluids. Avoid nephrotoxins ID: Leukocytosis Left foot second digit diabetic ulcer Ancef 500 mg IV every 12 hours. Will adjust as renal function changes. Consult ID MRI suspicious for possible myelitis of the proximal phalanx of the left second toe Podiatry consulted for wound management and possible debridement, recommends to hold off surgical procedure pending vascular intervention HEME: No acute hematologic issues ENDO: DKA Resolved discontinued Insulin drip. Continue IV fluids and adjust long-acting insulin with sliding scale coverage depending on glycemic trends. Increase NPH to 70 units at bedtime and continue 10 units in the morning but because of nothing by mouth status will be given 4 units this morning Insulin pump stopped. PROPH: Subcutaneous heparin ACCESS: Right IJ central venous line placed 11/11/16 by ED physician #1 already discontinued after securing PIV Discharge Planning Discharge in 1-2 days Problem Qualifiers (1) DKA (diabetic ketoacidoses): Qualified Code: E13.10 - Diabetic ketoacidosis without coma associated with other specified diabetes mellitus Dequan Montesinos MD Nov 14, 2016 10:08
[2016-11-14] MEDS: INSULIN HUMAN NPH 1,000 UNITS/10 ML VIAL SQ ONE (10:30)
--- NOTE | 2016-11-14 11:52 | PD.VS.PN ---
Subjective Subjective/Hospital Course Pt OOB this am without difficulty Pt without complaints reported she is scheduled for a cardiac catheterization this am Objective Vitals/I&O Date Time Temp Pulse Resp B/P Pulse Ox O2 Delivery O2 Flow Rate FiO2 11/14/16 11:00 98.1 61 20 136/72 97 11/14/16 10:36 18 11/14/16 08:06 98.4 63 18 151/79 99 11/14/16 05:01 62 11/14/16 04:16 56 11/14/16 04:00 98.5 58 18 154/86 98 11/14/16 03:00 61 11/14/16 02:00 64 11/14/16 01:00 61 11/14/16 00:00 64 11/13/16 23:23 98.5 61 18 156/85 98 11/13/16 23:06 62 11/13/16 22:00 68 11/13/16 21:59 97 21 11/13/16 21:00 61 11/13/16 20:00 98.5 61 18 166/73 98 11/13/16 20:00 61 11/13/16 19:00 61 11/13/16 18:00 68 11/13/16 17:00 74 11/13/16 16:00 98.2 70 18 172/86 96 11/13/16 16:00 79 11/13/16 15:00 72 11/13/16 14:00 58 11/13/16 13:00 70 11/13/16 12:00 98.2 64 16 165/86 99 11/13/16 12:00 64 11/14/16 11/14/16 11/14/16 07:00 15:00 23:00 Intake Total 1044 ml Output Total 1200 ml Balance -156 ml Physical Exam GENERAL: A&OX3, NAD, pleasant 61/F SKIN: Warm and dry/ Left 2nd toe presents with an ulceration, no redness, swelling or drainage present, First (great) toe deviates to the left overlapping the 2nd left toe. CARDIOVASCULAR: +S1,S2 RESPIRATORY: Breath sounds equal bilaterally. No accessory muscle use. GASTROINTESTINAL: Abdomen soft, non-tender, nondistended. MUSCULOSKELETAL: No cyanosis, or edema. Bilat feet warm with motor intact, non palpable DP noted Laboratory Laboratory Tests Test 11/14/16 05:05 White Blood Count 5.0 Red Blood Count 4.50 Hemoglobin 12.1 Hematocrit 35.5 Mean Corpuscular Volume 78.9 Mean Corpuscular Hemoglobin 26.8 Mean Corpuscular Hemoglobin 34.0 Concent Red Cell Distribution Width 15.0 Platelet Count 137 Mean Platelet Volume 9.1 Activated Partial 37.0 Thromboplast Time Sodium Level 140 Potassium Level 3.7 Chloride Level 107 Carbon Dioxide Level 22.9 Anion Gap 10 Blood Urea Nitrogen 16 Creatinine 0.88 Estimat Glomerular Filtration 65 Rate Random Glucose 201 Calcium Level 8.0 Magnesium Level 1.6 Date/Time Procedure Status Source Growth 11/11/16 01:00 Aerobic Blood Culture - Preliminary Resulted Blood Peripheral NO GROWTH IN 3 DAYS 11/11/16 01:00 Anaerobic Blood Culture - Preliminary Resulted Blood Peripheral NO GROWTH IN 3 DAYS 11/10/16 21:48 Urine Culture - Final Complete Urine Clean Catch 50-100,000 CFU/ML MIXED GRAM POSITIVE... Imaging Last 48 hours Impressions Upper Extremity Ultrasound 11/13/16 0000 Signed Impressions: Service Date/Time: Sunday, November 13, 2016 13:45 - CONCLUSION: Normal examination. Tapan Keller MD Upper Extremity Ultrasound 11/13/16 0000 Signed Impressions: Service Date/Time: Sunday, November 13, 2016 13:56 - CONCLUSION: Normal examination. Tapan Keller MD Lower Extremity Ultrasound 11/13/16 0000 Signed Impressions: Service Date/Time: Sunday, November 13, 2016 13:18 - CONCLUSION: Normal examination. Tapan Keller MD Lower Extremity Ultrasound 11/13/16 0000 Signed Impressions: Service Date/Time: Sunday, November 13, 2016 13:27 - CONCLUSION: Normal examination. Tapan Keller MD Assessment and Plan Plan Plan Pt planned for revascularization, starting with L LE angiogram after completion of her cardiac work-up for NSTEMI. Will follow closely to determine inpatient revascularization vs outpatient CV risk factor modification: ASA, statin, Beta angel recommended Debbie MCELROY [facility] [phone] Debbie Doran Nov 14, 2016 11:52
[2016-11-14] MEDS ORDERED: HEPARIN-NS/PF INJ 500 ML ONE ×2 (11:55→11:56)
[2016-11-14] MEDS ORDERED: HEPARIN SODIUM - IV 10,000 UNITS/10 ML VIAL ONE (11:58)
[2016-11-14] MEDS ORDERED: VERAPAMIL HCL 5 MG/2 ML VIAL ONE (11:58)
[2016-11-14] MEDS ORDERED: MIDAZOLAM HCL 2 MG/2 ML VIAL ONE (11:58)
[2016-11-14] MEDS ORDERED: NITROGLYCERIN INJ 5 ML ONE (11:58)
[2016-11-14] MEDS ORDERED: SODIUM CHLORIDE 0.9% FLUSH 10 ML FLUSH IV FLUSH PRN (13:30)
[2016-11-14] MEDS ORDERED: IOHEXOL 350 MG/ML 100 ML BTL (for Cath Lab) OTHER ONE (14:35)
[2016-11-14 14:56] LABS: APTT (PATIENT) 40.8 SEC (24.3-30.1)
--- NOTE | 2016-11-14 16:29 | PD.CARD.PN ---
Subjective Subjective Remarks No complaints post-catheterization Objective Medications Current Medications Medications (Trade) Dose Ordered Sig/Judah Route Start Time Stop Time Status Last Admin ([place] 10-325 Mg) 1 tab Q6H PRN PO 11/11/16 01:30 11/14/16 08:24 (Zofran Inj) 4 mg Q6H PRN IV 11/11/16 01:45 11/14/16 13:56 (Sodium Bicarbonate 8.4% Inj) 100 meq UNSCH PRN IV 11/11/16 02:00 Sodium Bicarbonate 50 meq 50 meq UNSCH PRN IV 11/11/16 02:00 (Sodium Phosphate Inj/NS Inj) 105 ml @ 25 mls/hr UNSCH PRN IV 11/11/16 02:00 Miscellaneous Information 1 Q361D XX 11/11/16 02:00 11/11/16 02:00 (Chlorhexidine 2% Cloth) 3 pack Taper DAILY@04 TOP 11/11/16 04:00 11/07/17 03:59 11/12/16 04:00 (Chlorhexidine 2% Cloth) 3 pack UNSCH PRN TOP 11/11/16 02:00 (Plavix) 75 mg DAILY PO 11/11/16 09:00 11/14/16 08:23 (Neurontin) 100 mg HS PO 11/11/16 21:00 11/13/16 21:24 Topiramate 25 mg 25 mg HS PO 11/11/16 21:00 11/13/16 21:24 (Ancef Inj/NS Inj) 100 ml @ 200 mls/hr Q12H IV 11/11/16 03:00 11/14/16 03:51 (Tenormin) 25 mg Q12HR PO 11/11/16 09:00 11/14/16 08:24 (D50w (Vial) Inj) 25 ml UNSCH PRN IV PUSH 11/11/16 11:30 Glucagon 1 mg 1 mg UNSCH PRN OTHER 11/11/16 11:30 11/14/16 10:55 (NS 1000 ml Inj) 1,000 ml @ 60 mls/hr [id number] IV 11/11/16 11:30 11/14/16 08:34 (Ecotrin Ec) 81 mg DAILY PO 11/12/16 09:00 11/14/16 08:24 (Lipitor) 80 mg HS PO 11/11/16 21:00 11/13/16 21:24 (Santyl Oint) 1 applic DAILY TOPICAL 11/12/16 09:00 11/14/16 08:25 (Protonix) 40 mg DAILY PO 11/12/16 09:00 11/14/16 08:24 (NovoLIN N INJ) 10 units DAILY@08 SQ 11/13/16 08:00 11/13/16 07:18 (Prinivil) 20 mg DAILY PO 11/13/16 09:00 11/14/16 08:24 (NovoLIN N INJ) 7 units HS SQ 11/14/16 21:00 (Sandee-Colace) 2 tab BID PO 11/14/16 09:00 11/14/16 08:26 (Dulcolax Supp) 10 mg DAILY PRN RECTAL 11/14/16 07:45 (Milk Of Magnesia Liq) 30 ml Q6H PRN PO 11/14/16 07:45 (NS Flush) 2 ml BID IV FLUSH 11/14/16 21:00 (NS Flush) 2 ml UNSCH PRN IV FLUSH 11/14/16 13:30 (Heparin Inj) 5,000 units Q8HR SQ 11/14/16 22:00 Vital Signs / I&O Vital Signs Date Time Temp Pulse Resp B/P Pulse Ox O2 Delivery O2 Flow Rate FiO2 11/14/16 15:30 98.3 66 18 96/51 98 11/14/16 14:00 64 11/14/16 11:00 61 11/14/16 11:00 98.1 61 20 136/72 97 11/14/16 10:36 18 11/14/16 10:00 58 11/14/16 09:00 60 11/14/16 08:06 98.4 63 18 151/79 99 11/14/16 08:00 62 11/14/16 07:00 60 11/14/16 05:01 62 11/14/16 04:16 56 11/14/16 04:00 98.5 58 18 154/86 98 11/14/16 03:00 61 11/14/16 02:00 64 11/14/16 01:00 61 11/14/16 00:00 64 11/13/16 23:23 98.5 61 18 156/85 98 11/13/16 23:06 62 11/13/16 22:00 68 11/13/16 21:59 97 21 11/13/16 21:00 61 11/13/16 20:00 98.5 61 18 166/73 98 11/13/16 20:00 61 11/13/16 19:00 61 11/13/16 18:00 68 11/13/16 17:00 74 I/O 11/13/16 11/13/16 11/13/16 11/14/16 11/14/16 11/14/16 07:00 15:00 23:00 07:00 15:00 23:00 Intake Total 984 ml 1648 ml 1044 ml Output Total 1460 ml 1750 ml 1200 ml Balance -476 ml -102 ml -156 ml Intake Oral 180 ml 960 ml 240 ml IV Total 804 ml 688 ml 804 ml Output Urine Total 1460 ml 1750 ml 1200 ml # Bowel Movements 0 0 0 Physical Exam GENERAL: NAD, AAOx3 SKIN: Warm and dry. HEAD: Atraumatic. Normocephalic. EYES: Pupils equal and round. No scleral icterus. No injection or drainage. ENT: No nasal bleeding or discharge. Mucous membranes pink and moist. NECK: Trachea midline. No JVD. CARDIOVASCULAR: Regular rate and rhythm. RESPIRATORY: No accessory muscle use. Clear to auscultation. Breath sounds equal bilaterally. GASTROINTESTINAL: Abdomen soft, non-tender, nondistended. Hepatic and splenic margins not palpable. MUSCULOSKELETAL: Extremities without clubbing, cyanosis, or edema. No obvious deformities. Left toe ulcer wrapped NEUROLOGICAL: Awake and alert. No obvious cranial nerve deficits. Motor grossly within normal limits. Five out of 5 muscle strength in the arms and legs. Normal speech. PSYCHIATRIC: Appropriate mood and affect; insight and judgment normal. Laboratory Laboratory Tests Test 11/14/16 11/14/16 05:05 14:17 White Blood Count 5.0 TH/MM3 Red Blood Count 4.50 MIL/MM3 Hemoglobin 12.1 GM/DL Hematocrit 35.5 % Mean Corpuscular Volume 78.9 FL Mean Corpuscular Hemoglobin 26.8 PG Mean Corpuscular Hemoglobin 34.0 % Concent Red Cell Distribution Width 15.0 % Platelet Count 137 TH/MM3 Mean Platelet Volume 9.1 FL Activated Partial 37.0 SEC 40.8 SEC Thromboplast Time Sodium Level 140 MEQ/L Potassium Level 3.7 MEQ/L Chloride Level 107 MEQ/L Carbon Dioxide Level 22.9 MEQ/L Anion Gap 10 MEQ/L Blood Urea Nitrogen 16 MG/DL Creatinine 0.88 MG/DL Estimat Glomerular Filtration 65 ML/MIN Rate Random Glucose 201 MG/DL Calcium Level 8.0 MG/DL Magnesium Level 1.6 MG/DL Assessment and Plan Problem List: (1) DKA (diabetic ketoacidoses) (2) Elevated troponin (3) Diabetic ulcer of foot associated with type 1 diabetes mellitus, limited to breakdown of skin (4) CAD (coronary artery disease) (5) Diabetes type 1, uncontrolled (6) HTN (hypertension) (7) Metabolic acidosis Assessment and Plan 1) Continue medical management of CAD, NSTEMI felt to be Type 2 2) ASA/Plavix/BB/Statin 3) If stable over night, plan discharge in the morning from a cardiovascular stand point, discussed with the primary team Problem Qualifiers (1) DKA (diabetic ketoacidoses): Qualified Code: E13.10 - Diabetic ketoacidosis without coma associated with other specified diabetes mellitus Ruy Briones DO Nov 14, 2016 16:29
[2016-11-14] MEDS: SODIUM CHLORIDE 0.9% FLUSH 10 ML FLUSH IV FLUSH SCH (21:00)
[2016-11-14] MEDS: TOPIRAMATE 25 MG TAB PO SCH (21:21)
[2016-11-14] MEDS: GABAPENTIN 100 MG CAP PO SCH (21:22)
[2016-11-14] MEDS: ATORVASTATIN 80 MG TAB PO SCH (21:22)
[2016-11-14] MEDS: INSULIN HUMAN NPH 1,000 UNITS/10 ML VIAL SQ SCH (21:23)
[2016-11-14] MEDS: HEPARIN SODIUM - SQ 10,000 UNITS/ML VIAL SQ SCH (21:23)
[2016-11-15] VITALS (24 sets, daily range): BP systolic 129–147; BP diastolic 62–77; PULSE 58–79; RESP 14–20; TEMP 98–98.5; O2SAT 98–100
[2016-11-15] MEDS: SODIUM CHLOR 0.9% 1000 ML INJ 1,000 ML IV SCH ×2 (01:14→17:54)
[2016-11-15] MEDS: INSULIN NovoLIN REGULAR SUPPLEMENTAL SCALE SQ SCH ×5 (03:00→21:00)
[2016-11-15] MEDS: CHLORHEXIDINE GLUCONATE 2 % 1 PACK (2 CLOTHS) TOP SCH (04:00)
[2016-11-15] MEDS: ceFAZolin INJ 500 MG in SODIUM CHLORIDE 0.9% INJ 100 ML IV SCH ×2 (04:04→17:01)
[2016-11-15] MEDS: HEPARIN SODIUM - SQ 10,000 UNITS/ML VIAL SQ SCH ×3 (05:21→21:00)
[2016-11-15] MEDS: ACETAMINOPHEN/HYDROcodone 325 MG/10 MG TAB PO PRN ×4 (05:22→22:46)
[2016-11-15 05:39] LABS: AUTOMATED NEUTROPHIL # 2.9 TH/MM3 (1.8-7.7); BASOPHIL # 0.1 TH/MM3 (0-0.2); BASOPHIL % 1.1 % (0.0-2.0); EOSINOPHIL # 0.2 TH/MM3 (0-0.4); EOSINOPHIL % 3.8 % (0.0-4.0); HEMATOCRIT 33.3 % (35.0-46.0); HEMO FLAGS DIFF FINAL; LYMPH % 31.7 % (9.0-44.0); LYMPHOCYTE # 1.8 TH/MM3 (1.0-4.8); MEAN CELL VOLUME 78.2 FL (80.0-100.0); MEAN CORPUSCULAR HGB CONC 34.5 % (32.0-36.0); MONO % 10.9 % (0.0-8.0); NEUT % 52.5 % (16.0-70.0); PLATELET COUNT 142 TH/MM3 (150-450); RED BLOOD COUNT 4.25 MIL/MM3 (4.00-5.30); RED CELL DISTRIBUTION WIDTH 14.9 % (11.6-17.2); WHITE BLOOD COUNT 5.6 TH/MM3 (4.0-11.0)
[2016-11-15 06:06] LABS: BICARBONATE 21.4 MEQ/L (21.0-32.0); MAGNESIUM 1.6 MG/DL (1.5-2.5); POTASSIUM 3.4 MEQ/L (3.5-5.1)
--- NOTE | 2016-11-15 07:44 | MA ---
cc: RUY ROSAS DO DATE 11/14/2016 PROCEDURE Left heart catheterization, coronary angiogram, moderate sedation 30 minutes. PREPROCEDURE DIAGNOSIS NSTEMI, known coronary artery disease. POSTPROCEDURE DIAGNOSIS NSTEMI, moderate coronary artery disease. MEDICATIONS 1. Fentanyl 25 mcg 2. Heparin 2500 units 3. Verapamil 2.5 mg 4. Nitro 200 mcg 5. Versed 0.5 mg CONTRAST 100 cc FLUOROSCOPY 11.7 minutes. ANESTHESIA Moderate sedation, 30 minutes PROCEDURAL SUMMARY Robyn Marquez is a pleasant 61-year-old female who presents to [facility] and was found to have DKA. During her workup, she was also found to have an elevation of her troponin signifying an NSTEMI. Because of this and her recent stenting in July at another facility, it was felt that she should undergo coronary angiogram to rule out significant disease. The risks, benefits and alternatives were explained to her and she consented as such. She was brought to the lab and prepped in the usual sterile fashion. The right radial artery was accessed using a modified Seldinger technique and placement of a 5/6 [place] slender sheath. This was easily aspirated and flushed. The JR-4 was then advanced to the ascending aorta and it crossed the aortic valve into the left ventricle. LVEDP was measured at nine. This was then pulled back across the aortic valve showing no significant gradient of aortic stenosis. At that time, I was unable to find the ostium of the right coronary artery and so the JR-4 was then exchanged for a JL-3.5. This was used for selective angiography of the left coronary system. JL-3.5 was then exchanged for a 3DRC catheter for nonselective angiography of the RCA. A 3DRC catheter was then removed over a J-wire. TR band was placed across the arteriotomy site for hemostasis. 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 Left main overall short vessel that bifurcates into the LAD and circumflex. Overall, has no significant disease. LAD overall has a 20% lesion at the ostium. Previous stents in the midportion are patent with 30-40% in-stent restenosis of the distal portion. The circumflex appears to be a dominant vessel gives off three major obtuse marginales. Overall the circumflex has mild diffuse disease throughout. The three obtuse marginales are overall tortuous, but did not appear to have significant disease. 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 This is a nondominant vessel and has diffuse 50% disease throughout the midportion of it. IMPRESSIONS 1. NSTEMI most likely type 2 in nature due to her significant DKA. 2. Previous stenting (July 2016) appears patent with mild to moderate in-stent restenosis distally. RECOMMENDATIONS 1. Because no lesions were found that were felt necessary to intervene upon, we will continue with medical management of Mrs. Marquez. 2. Primary care team will continue to work on her uncontrolled sugars. 3. If cardiovascularly stable overnight, we will plan for possible discharge in the morning. Thank you for allowing me to see Robyn Marquez. If there are any questions, please do not hesitate to call. Ruy Rosas DO VGP/DJL /7:30 PM /7:30 AM
[2016-11-15] MEDS: COLLAGENASE OINT 30 GM TUBE TOPICAL SCH (09:00)
[2016-11-15] MEDS: ASPIRIN EC 81 MG TABEC PO SCH (09:12)
[2016-11-15] MEDS: PANTOPRAZOLE SOD 40 MG DELAYED RELEASE TAB PO SCH (09:12)
[2016-11-15] MEDS: LISINOPRIL 20 MG TAB PO SCH (09:12)
[2016-11-15] MEDS: DOCUSATE SODIUM 50 MG/SENNA 8.6 MG TAB PO SCH ×2 (09:12→20:57)
[2016-11-15] MEDS: ATENOLOL 25 MG TAB PO SCH ×2 (09:12→20:58)
[2016-11-15] MEDS: SODIUM CHLORIDE 0.9% FLUSH 10 ML FLUSH IV FLUSH SCH ×2 (09:12→20:58)
[2016-11-15] MEDS: CLOPIDOGREL 75 MG TAB PO SCH (09:12)
[2016-11-15] MEDS: INSULIN HUMAN NPH 1,000 UNITS/10 ML VIAL SQ SCH ×2 (09:13→20:59)
[2016-11-15] MEDS ORDERED: NOVONP2 SQ (10:15)
[2016-11-15] MEDS ORDERED: POTASSIUM CHLORIDE 10 MEQ CONTROLLED RELEASE TAB PO ONE (10:15)
--- NOTE | 2016-11-15 10:16 | HHI.DCPOC ---
Discharge Care Plan Diagnosis: (1) DKA (diabetic ketoacidoses) (2) Diabetic ulcer of foot associated with type 1 diabetes mellitus, limited to breakdown of skin (3) Elevated troponin Your Health Problems Are: Difficulty with ADL Exercise Tolerance Goals to Promote Your Health * To prevent worsening of your condition and complications * To maintain your health at the optimal level Directions to Meet Your Goals Take your medications as prescribed Follow your dietary instruction Follow activity as directed Keep your appointments as scheduled Take your immunizations and boosters as scheduled If your symptoms worsen call your PCP, if no PCP go to Urgent Care Center or Emergency Room Smoking is Dangerous to Your Health. Avoid second hand smoke Call the 24-hour hour crisis hotline for domestic abuse at Dequan Montesinos MD Nov 15, 2016 10:16
--- NOTE | 2016-11-15 10:19 | HHI.PR ---
Subjective Remarks Follow-up PR. Denies chest pain. Discussed with cardiology, and it'll management. Discussed with RN, discharge pending follow-up by vascular surgery and ID today. Objective Vitals Vital Signs Date Time Temp Pulse Resp B/P Pulse Ox O2 Delivery O2 Flow Rate FiO2 11/15/16 09:15 18 11/15/16 08:00 98.0 69 20 140/62 100 11/15/16 06:00 58 11/15/16 05:00 58 11/15/16 04:00 68 11/15/16 03:00 59 11/15/16 03:00 98.1 67 20 129/66 100 11/15/16 02:00 60 11/15/16 01:00 64 11/15/16 00:00 62 11/14/16 23:00 98.0 68 20 91/66 98 11/14/16 23:00 69 11/14/16 22:00 74 11/14/16 21:00 64 11/14/16 20:00 76 11/14/16 19:00 97.6 63 18 120/69 97 11/14/16 19:00 74 11/14/16 18:00 75 11/14/16 17:00 70 11/14/16 16:00 72 11/14/16 15:30 98.3 66 18 96/51 98 11/14/16 15:00 69 11/14/16 14:00 64 11/14/16 11:00 61 11/14/16 11:00 98.1 61 20 136/72 97 I/O 11/14/16 11/14/16 11/14/16 11/15/16 11/15/16 11/15/16 07:00 15:00 23:00 07:00 15:00 23:00 Intake Total 1044 ml 240 ml 640 ml Output Total 1200 ml 1350 ml Balance -156 ml -1110 ml 640 ml Intake Oral 240 ml 240 ml 240 ml IV Total 804 ml 400 ml Output Urine Total 1200 ml 1350 ml # Bowel Movements 0 0 Result Diagram: 11/15/16 0505 11/15/16 0505 Imaging Last Impressions Upper Extremity Ultrasound 11/13/16 0000 Signed Impressions: Service Date/Time: Sunday, November 13, 2016 13:45 - CONCLUSION: Normal examination. Tapan Keller MD Lower Extremity Ultrasound 11/13/16 Signed Impressions: Service Date/Time: Sunday, November 13, 2016 13:18 - CONCLUSION: Normal examination. Tapan Keller MD Foot MRI 11/12/16 0000 Signed Impressions: Service Date/Time: Saturday, November 12, 2016 12:59 - CONCLUSION: Findings suspicious for osteomyelitis proximal phalanx 2nd toe. Perico Novak MD FACR Foot X-Ray 11/11/16 Signed Impressions: Service Date/Time: Friday, November 11, 2016 13:40 - CONCLUSION: Hallux valgus deformity. No acute abnormality. Berlin Sarmiento Jr., MD Chest X-Ray 11/10/16 0000 Signed Impressions: Service Date/Time: October 23:51 - CONCLUSION: Right internal jugular central line distal tip is within the superior vena cava. No pneumothorax is visualized. Lobo Quezada MD Objective Remarks GENERAL: Well-nourished, well-developed patient who is alert, SKIN: Warm and dry. There is a 1.5 cm eschar overlying medial aspect of left 2nd toe with some fluctuance but no drainage expressed. HEAD: Atraumatic. Normocephalic. EYES: Pupils equal and round. No scleral icterus. No injection or drainage. ENT: No nasal bleeding or discharge. Mucous membranes dry NECK: Trachea midline. No JVD. CARDIOVASCULAR: Regular,no murmurs rubs or gallops appreciated. RESPIRATORY: Breathing comfortably with No accessory muscle use. Clear to auscultation. Breath sounds equal bilaterally. On room air GASTROINTESTINAL: Abdomen soft, nondistended. There is no rebounding or guarding. Bowel sounds are present MUSCULOSKELETAL: Extremities without clubbing, cyanosis, or edema. Lesion on left foot as per above. NEUROLOGICAL: Awake and alert. No obvious cranial nerve deficits. Motor grossly within normal limits. Normal speech. Procedures Cardiac catheterization A/P Problem List: (1) DKA (diabetic ketoacidoses) ICD Code: E13.10 Status: Resolved Assessment and Plan NEURO: Chronic pain Peripheral neuropathy History of migraine headaches Lortab 10/325 one tab by mouth every 6 hours as needed for pain Topamax 25 mg by mouth daily at bedtime (for migraine prophylaxis, no history of seizures) Gabapentin 100 g by mouth daily at bedtime RESP: History of tobacco abuse. Counseled She is on room air. CV: NSTEMI Coronary artery disease with stents 08/11/16 EF 40% with diastolic dysfunction Peripheral arterial disease s/p L fem pop bypass. Hypertension Hyperlipidemia Initial EKG with septal ST deviation and lateral ST depression. Patient denies any chest discomfort or shortness of breath whatsoever. Discussed with cardiology recommended cardiac catheterization this morning continue heparin drip Continue aspirin 81 mg and Plavix 75 mg by mouth daily. Continue pravastatin 20 mg by mouth daily Continue atenolol 25 mg by mouth twice a day in a.m. with hold orders. Restart lisinopril Monitor for overload decrease IV fluid to 60 cc an hour Vascular surgery recommends outpatient follow-up regarding PAD secondary to PR, will clarify if patient needs left lower extremity angiogram in-house versus outpatient GI: Vomiting Resolved tolerating ADA diet LFTs normal. Lipase not elevated Zofran as needed FEN/RENAL: Acute kidney injury Hyperkalemia secondary to metabolic acidemia ROSAURA suspected secondary to prerenal state due to DKA. Patient has been voiding well in the ED. Expect potassium to decrease as acidemia improves. Following serial BMP. Replace electrolytes as indicated per protocol. Improving on IV fluids. Avoid nephrotoxins. Creatinine slightly up with mild hypokalemia. Will replace ID: Leukocytosis Left foot second digit diabetic ulcer Ancef 500 mg IV every 12 hours. Will adjust as renal function changes. Follow- up consult to ID MRI suspicious for possible myelitis of the proximal phalanx of the left second toe Podiatry consulted for wound management and possible debridement, recommends to hold off surgical procedure pending vascular intervention HEME: No acute hematologic issues ENDO: DKA Resolved discontinued Insulin drip. Continue IV fluids and adjust long-acting insulin with sliding scale coverage depending on glycemic trends. Continue NPH 7 units at bedtime and 10 units in the morning. Hyperglycemic yesterday because patient did not receive NPH in the morning Insulin pump stopped patient not able to afford medication, case management consulted. PROPH: Subcutaneous heparin ACCESS: Right IJ central venous line placed 11/11/16 by ED physician #1 already discontinued after securing PIV Discharge Planning Possible discharge today Problem Qualifiers (1) DKA (diabetic ketoacidoses): Qualified Code: E13.10 - Diabetic ketoacidosis without coma associated with other specified diabetes mellitus Dequan Montesinos MD Nov 15, 2016 10:19
[2016-11-15] MEDS ORDERED: LANCETS1 MI1 (10:26)
[2016-11-15] MEDS ORDERED: INSU1MIS15 (10:26)
[2016-11-15] MEDS ORDERED: GLUCTES12 (10:26)
--- NOTE | 2016-11-15 11:42 | PD.CARD.PN ---
Subjective Subjective Remarks Doing well, no chest pain, no shortness of breath Objective Medications Current Medications Medications (Trade) Dose Ordered Sig/Judah Route Start Time Stop Time Status Last Admin ([place] 10-325 Mg) 1 tab Q6H PRN PO 11/11/16 01:30 11/15/16 10:24 (Zofran Inj) 4 mg Q6H PRN IV 11/11/16 01:45 11/14/16 13:56 (Sodium Bicarbonate 8.4% Inj) 100 meq UNSCH PRN IV 11/11/16 02:00 Sodium Bicarbonate 50 meq 50 meq UNSCH PRN IV 11/11/16 02:00 (Sodium Phosphate Inj/NS Inj) 105 ml @ 25 mls/hr UNSCH PRN IV 11/11/16 02:00 Miscellaneous Information 1 [id number] XX 11/11/16 02:00 11/11/16 02:00 (Chlorhexidine 2% Cloth) 3 pack Taper DAILY@04 TOP 11/11/16 04:00 11/07/17 03:59 11/12/16 04:00 (Chlorhexidine 2% Cloth) 3 pack UNSCH PRN TOP 11/11/16 02:00 (Plavix) 75 mg DAILY PO 11/11/16 09:00 11/15/16 09:12 (Neurontin) 100 mg HS PO 11/11/16 21:00 11/14/16 21:22 Topiramate 25 mg 25 mg HS PO 11/11/16 21:00 11/14/16 21:21 (Ancef Inj/NS Inj) 100 ml @ 200 mls/hr Q12H IV 11/11/16 03:00 11/15/16 04:04 (Tenormin) 25 mg Q12HR PO 11/11/16 09:00 11/15/16 09:12 (D50w (Vial) Inj) 25 ml UNSCH PRN IV PUSH 11/11/16 11:30 Glucagon 1 mg 1 mg UNSCH PRN OTHER 11/11/16 11:30 11/14/16 10:55 (NS 1000 ml Inj) 1,000 ml @ 60 mls/hr [id number] IV 11/11/16 11:30 11/14/16 08:34 (Ecotrin Ec) 81 mg DAILY PO 11/12/16 09:00 11/15/16 09:12 (Lipitor) 80 mg HS PO 11/11/16 21:00 11/14/16 21:22 (Santyl Oint) 1 applic DAILY TOPICAL 11/12/16 09:00 11/15/16 09:00 (Protonix) 40 mg DAILY PO 11/12/16 09:00 11/15/16 09:12 (NovoLIN N INJ) 10 units DAILY@08 SQ 11/13/16 08:00 11/15/16 09:13 (Prinivil) 20 mg DAILY PO 11/13/16 09:00 11/15/16 09:12 (NovoLIN N INJ) 7 units HS SQ 11/14/16 21:00 11/14/16 21:23 (Sandee-Colace) 2 tab BID PO 11/14/16 09:00 11/15/16 09:12 (Dulcolax Supp) 10 mg DAILY PRN RECTAL 11/14/16 07:45 (Milk Of Magnesia Liq) 30 ml Q6H PRN PO 11/14/16 07:45 (NS Flush) 2 ml BID IV FLUSH 11/14/16 21:00 11/15/16 09:12 (NS Flush) 2 ml UNSCH PRN IV FLUSH 11/14/16 13:30 (Heparin Inj) 5,000 units Q8HR SQ 11/14/16 22:00 11/15/16 05:21 Vital Signs / I&O Vital Signs Date Time Temp Pulse Resp B/P Pulse Ox O2 Delivery O2 Flow Rate FiO2 11/15/16 09:15 18 11/15/16 08:00 98.0 69 20 140/62 100 11/15/16 06:00 58 11/15/16 05:00 58 11/15/16 04:00 68 11/15/16 03:00 59 11/15/16 03:00 98.1 67 20 129/66 100 11/15/16 02:00 60 11/15/16 01:00 64 11/15/16 00:00 62 11/14/16 23:00 98.0 68 20 91/66 98 11/14/16 23:00 69 11/14/16 22:00 74 11/14/16 21:00 64 11/14/16 20:00 76 11/14/16 19:00 97.6 63 18 120/69 97 11/14/16 19:00 74 11/14/16 18:00 75 11/14/16 17:00 70 11/14/16 16:00 72 11/14/16 15:30 98.3 66 18 96/51 98 11/14/16 15:00 69 11/14/16 14:00 64 I/O 11/14/16 11/14/16 11/14/16 11/15/16 11/15/16 11/15/16 07:00 15:00 23:00 07:00 15:00 23:00 Intake Total 1044 ml 240 ml 640 ml Output Total 1200 ml 1350 ml Balance -156 ml -1110 ml 640 ml Intake Oral 240 ml 240 ml 240 ml IV Total 804 ml 400 ml Output Urine Total 1200 ml 1350 ml # Bowel Movements 0 0 Physical Exam GENERAL: NAD, AAOx3 SKIN: Warm and dry. HEAD: Atraumatic. Normocephalic. EYES: Pupils equal and round. No scleral icterus. No injection or drainage. ENT: No nasal bleeding or discharge. Mucous membranes pink and moist. NECK: Trachea midline. No JVD. CARDIOVASCULAR: Regular rate and rhythm. RESPIRATORY: No accessory muscle use. Clear to auscultation. Breath sounds equal bilaterally. GASTROINTESTINAL: Abdomen soft, non-tender, nondistended. Hepatic and splenic margins not palpable. MUSCULOSKELETAL: Extremities without clubbing, cyanosis, or edema. No obvious deformities. Left toe ulcer wrapped NEUROLOGICAL: Awake and alert. No obvious cranial nerve deficits. Motor grossly within normal limits. Five out of 5 muscle strength in the arms and legs. Normal speech. PSYCHIATRIC: Appropriate mood and affect; insight and judgment normal. Laboratory Laboratory Tests Test 11/14/16 11/15/16 14:17 05:05 Activated Partial 40.8 SEC Thromboplast Time White Blood Count 5.6 TH/MM3 Red Blood Count 4.25 MIL/MM3 Hemoglobin 11.5 GM/DL Hematocrit 33.3 % Mean Corpuscular Volume 78.2 FL Mean Corpuscular Hemoglobin 27.0 PG Mean Corpuscular Hemoglobin 34.5 % Concent Red Cell Distribution Width 14.9 % Platelet Count 142 TH/MM3 Mean Platelet Volume 8.7 FL Neutrophils (%) (Auto) 52.5 % Lymphocytes (%) (Auto) 31.7 % Monocytes (%) (Auto) 10.9 % Eosinophils (%) (Auto) 3.8 % Basophils (%) (Auto) 1.1 % Neutrophils # (Auto) 2.9 TH/MM3 Lymphocytes # (Auto) 1.8 TH/MM3 Monocytes # (Auto) 0.6 TH/MM3 Eosinophils # (Auto) 0.2 TH/MM3 Basophils # (Auto) 0.1 TH/MM3 CBC Comment DIFF FINAL Differential Comment Sodium Level 140 MEQ/L Potassium Level 3.4 MEQ/L Chloride Level 107 MEQ/L Carbon Dioxide Level 21.4 MEQ/L Anion Gap 12 MEQ/L Blood Urea Nitrogen 23 MG/DL Creatinine 1.13 MG/DL Estimat Glomerular Filtration 49 ML/MIN Rate Random Glucose 158 MG/DL Calcium Level 7.7 MG/DL Magnesium Level 1.6 MG/DL Assessment and Plan Problem List: (1) DKA (diabetic ketoacidoses) (2) Elevated troponin (3) Diabetic ulcer of foot associated with type 1 diabetes mellitus, limited to breakdown of skin (4) CAD (coronary artery disease) (5) Diabetes type 1, uncontrolled (6) HTN (hypertension) (7) Metabolic acidosis Assessment and Plan 1) Continue medical management of CAD, NSTEMI felt to be Type 2 2) ASA/Plavix/BB/Statin 3) Cardiovascularly stable, can discharge from a CV standpoint Problem Qualifiers (1) DKA (diabetic ketoacidoses): Qualified Code: E13.10 - Diabetic ketoacidosis without coma associated with other specified diabetes mellitus Ruy Briones DO Nov 15, 2016 11:42
--- NOTE | 2016-11-15 12:36 | PD.VS.PN ---
Subjective Subjective/Hospital Course Pt alert in NAD without complaints Objective Vitals/I&O Date Time Temp Pulse Resp B/P Pulse Ox O2 Delivery O2 Flow Rate FiO2 11/15/16 12:12 18 11/15/16 08:00 98.0 69 20 140/62 100 11/15/16 06:00 58 11/15/16 05:00 58 11/15/16 04:00 68 11/15/16 03:00 59 11/15/16 03:00 98.1 67 20 129/66 100 11/15/16 02:00 60 11/15/16 01:00 64 11/15/16 00:00 62 11/14/16 23:00 98.0 68 20 91/66 98 11/14/16 23:00 69 11/14/16 22:00 74 11/14/16 21:00 64 11/14/16 20:00 76 11/14/16 19:00 97.6 63 18 120/69 97 11/14/16 19:00 74 11/14/16 18:00 75 11/14/16 17:00 70 11/14/16 16:00 72 11/14/16 15:30 98.3 66 18 96/51 98 11/14/16 15:00 69 11/14/16 14:00 64 11/15/16 11/15/16 11/15/16 07:00 15:00 23:00 Intake Total 640 ml Balance 640 ml Physical Exam GENERAL: A&OX3, NAD, pleasant 61/F SKIN: Warm and dry. Ulceration to Left 2nd toe stable with no change NECK: Supple, No JVD CARDIOVASCULAR: +S1,S2. RRR RESPIRATORY: Breath sounds equal and clear bilaterally. No accessory muscle use. GASTROINTESTINAL: Abdomen soft, non-tender, nondistended. MUSCULOSKELETAL: No cyanosis, or edema. Bilat LE warm, motor intact Laboratory Laboratory Tests Test 11/14/16 11/15/16 14:17 05:05 Activated Partial 40.8 Thromboplast Time White Blood Count 5.6 Red Blood Count 4.25 Hemoglobin 11.5 Hematocrit 33.3 Mean Corpuscular Volume 78.2 Mean Corpuscular Hemoglobin 27.0 Mean Corpuscular Hemoglobin 34.5 Concent Red Cell Distribution Width 14.9 Platelet Count 142 Mean Platelet Volume 8.7 Neutrophils (%) (Auto) 52.5 Lymphocytes (%) (Auto) 31.7 Monocytes (%) (Auto) 10.9 Eosinophils (%) (Auto) 3.8 Basophils (%) (Auto) 1.1 Neutrophils # (Auto) 2.9 Lymphocytes # (Auto) 1.8 Monocytes # (Auto) 0.6 Eosinophils # (Auto) 0.2 Basophils # (Auto) 0.1 CBC Comment DIFF FINAL Differential Comment Sodium Level 140 Potassium Level 3.4 Chloride Level 107 Carbon Dioxide Level 21.4 Anion Gap 12 Blood Urea Nitrogen 23 Creatinine 1.13 Estimat Glomerular Filtration 49 Rate Random Glucose 158 Calcium Level 7.7 Magnesium Level 1.6 Date/Time Procedure Status Source Growth 11/11/16 01:00 Aerobic Blood Culture - Preliminary Resulted Blood Peripheral NO GROWTH IN 4 DAYS 11/11/16 01:00 Anaerobic Blood Culture - Preliminary Resulted Blood Peripheral NO GROWTH IN 4 DAYS 11/10/16 21:48 Urine Culture - Final Complete Urine Clean Catch 50-100,000 CFU/ML MIXED GRAM POSITIVE... 11/10/16 20:49 Aerobic Blood Culture - Final Complete Blood Peripheral NO GROWTH IN 5 DAYS 11/10/16 20:49 Anaerobic Blood Culture - Final Complete Blood Peripheral NO GROWTH IN 5 DAYS Assessment and Plan Plan Plan Pt will follow up in our OPC on 11/25/16 Future revascularization as an outpatient was discussed in detail with patient CV risk factor modification: ASA, statin, Beta angel recommended Debbie MCELROY [id number] Discharge Planning Pt Ok for discharge from a vascular standpoint Will follow pt in our OPC Scheduled appointment date and time given to pt Debbie Doran Nov 15, 2016 12:36
--- NOTE | 2016-11-15 17:28 | PD.ID.CON ---
History of Present Illness Service ID Consult Requested By Reason for Consult Evaluation and Mment of Left 2nd toe osteomyelitis. Primary Care Physician Kain Chau DO Diagnoses: History of Present Illness is a 61-year-old female with past history of insulin- dependent diabetes mellitus with insulin pump, hypertension, peripheral neuropathy, peripheral arterial disease, Hammer toes, coronary artery disease with recent stent in July 2016 who presented to [facility] emergency department in DKA. She states that she saw her PMD due to a poorly healing wound in left second toe that started about 6 weeks ago. It got worse and was intermittently draining pus. She states she had experienced subjective fevers. Laboratory workup indicates DKA with pH of 7.23, bicarbonate of 9, anion gap of 24. She has acute kidney injury with creatinine of 2 (baseline ~ 0.8-0.9). Lactic acid is 3.2. She denies chest pain, shortness of breath. She has been seen by Vascular and Podiatry and decision to wait for interventions at present time due to her recent CO in this admission made. ID consulted for evaluation and Mment of Left 2nd toe osteomyelitis and medical management. Review of Systems Constitutional: DENIES: Diaphoretic episodes, Fatigue, Fever, Weight gain, Weight loss, Chills, Dizziness, Change in appetite, Night Sweats Endocrine: DENIES: Abnorml menstrual pattern, Heat/cold intolerance, Polydipsia , Polyuria, Polyphagia Eyes: DENIES: Blurred vision, Diplopia, Eye inflammation, Eye pain, Vision loss , Photosensitivity, Double Vision Ears, nose, mouth, throat: DENIES: Tinnitus, Hearing loss, Vertigo, Nasal discharge, Oral lesions, Throat pain, Hoarseness, Ear Pain, Running Nose, Epistaxis, Sinus Pain, Toothache, Odynophagia Respiratory: DENIES: Apneas, Cough, Snoring, Wheezing, Hemoptysis, Sputum production, Shortness of breath Cardiovascular: DENIES: Chest pain, Palpitations, Syncope, Dyspnea on Exertion , PND, Lower Extremity Edema, Orthopnea, Claudication Gastrointestinal: DENIES: Abdominal pain, Black stools, Bloody stools, Constipation, Diarrhea, Nausea, Vomiting, Difficulty Swallowing, Anorexia Genitourinary: DENIES: Abnormal vaginal bleeding, Dysmenorrhea, Dyspareunia, Sexual dysfunction, Urinary frequency, Urinary incontinence, Urgency, Hematuria , Dysuria, Nocturia, Vaginal discharge Musculoskeletal: DENIES: Joint pain, Muscle aches, Stiffness, Joint Swelling, Back pain, Neck pain Integumentary: DENIES: Abnormal pigmentation, Pruritus, Rash, Nail changes, Breast masses, Breast skin changes, Nipple discharge Hematologic/lymphatic: DENIES: Bruising, Lymphadenopathy Immunologic/allergic: DENIES: Eczema, Urticaria Neurologic: DENIES: Abnormal gait, Headache, Localized weakness, Paresthesias, Seizures, Speech Problems, Tremor, Poor Balance Psychiatric: COMPLAINS OF: Anxiety, DENIES: Confusion, Mood changes, Depression, Hallucinations, Agitation, Suicidal Ideation, Homicidal Ideation, Delusions Except as stated in HPI: all other systems reviewed are Neg Past Family Social History Allergies: Coded Allergies: Codeine (Verified Allergy, Mild, HIVES, 11/10/16) Glucophage (Verified Allergy, Mild, DKA, 11/10/16) Morphine (Verified Adverse Reaction, Severe, 11/10/16) vomiting Past Medical History Diabetes Hyperlipidemia Migraines Chronic pain Peripheral arterial disease Coronary artery disease with coronary stent Peripheral neuropathy Hypertension Past Surgical History Hysterectomy Insulin pump placed 4-5 years ago Cholecystectomy Coronary stents discussed 08/11/16 done in [place] Left femoral popliteal bypass 02/25/16 (Dr. Galloway) Reported Medications Reported Meds & Active Scripts Active Reported Imitrex (Sumatriptan Succinate) 25 Mg Tab 25 Mg PO ONCE PRN If a satisfactory response has not been obtained at 2 hours, a second dose may be administered Topamax (Topiramate) 25 Mg Tab 25 Mg PO HS Lortab (Hydrocodone-Acetaminophen) 10-325 Mg Tab 1 Tab PO Q6H PRN Gabapentin 100 Mg Cap 100 Mg PO HS Atenolol 25 Mg Tab 25 Mg PO BID Mobic (Meloxicam) 15 Mg Tab 15 Mg PO DAILY Lisinopril 20 Mg Tab 20 Mg PO DAILY Clopidogrel (Clopidogrel Bisulfate) 75 Mg Tab 75 Mg PO DAILY Pravastatin 20 Mg Tab 20 Mg PO DAILY Aspir-81 (Aspirin) 81 Mg Tabdr 1 Tab PO DAILY Novolog Inj (Insulin Aspart) 1,000 Unit/10 Ml Vial 1 Units SQ DIRECTED Active Ordered Medications Current Medications Medications (Trade) Dose Ordered Sig/Judah Route Start Time Stop Time Status Last Admin (Sutton 10-325 Mg) 1 tab Q6H PRN PO 3/31/17 01:30 11/15/16 17:03 (Zofran Inj) 4 mg Q6H PRN IV 11/11/16 01:45 11/14/16 13:56 (Sodium Bicarbonate 8.4% Inj) 100 meq UNSCH PRN IV 11/11/16 02:00 Sodium Bicarbonate 50 meq 50 meq UNSCH PRN IV 11/11/16 02:00 (Sodium Phosphate Inj/NS Inj) 105 ml @ 25 mls/hr UNSCH PRN IV 11/11/16 02:00 Miscellaneous Information 1 [id number] XX 11/11/16 02:00 11/11/16 02:00 (Chlorhexidine 2% Cloth) 3 pack Taper DAILY@04 TOP 11/11/16 04:00 11/07/17 03:59 11/12/16 04:00 (Chlorhexidine 2% Cloth) 3 pack UNSCH PRN TOP 11/11/16 02:00 (Plavix) 75 mg DAILY PO 11/11/16 09:00 11/15/16 09:12 (Neurontin) 100 mg HS PO 11/11/16 21:00 11/14/16 21:22 Topiramate 25 mg 25 mg HS PO 11/11/16 21:00 11/14/16 21:21 (Ancef Inj/NS Inj) 100 ml @ 200 mls/hr Q12H IV 11/11/16 03:00 11/15/16 17:01 (Tenormin) 25 mg Q12HR PO 11/11/16 09:00 11/15/16 09:12 (D50w (Vial) Inj) 25 ml UNSCH PRN IV PUSH 11/11/16 11:30 Glucagon 1 mg 1 mg UNSCH PRN OTHER 11/11/16 11:30 11/14/16 10:55 (NS 1000 ml Inj) 1,000 ml @ 60 mls/hr [id number] IV 11/11/16 11:30 11/14/16 08:34 (Ecotrin Ec) 81 mg DAILY PO 11/12/16 09:00 11/15/16 09:12 (Lipitor) 80 mg HS PO 11/11/16 21:00 11/14/16 21:22 (Santyl Oint) 1 applic DAILY TOPICAL 11/12/16 09:00 11/15/16 09:00 (Protonix) 40 mg DAILY PO 11/12/16 09:00 11/15/16 09:12 (NovoLIN N INJ) 10 units DAILY@08 SQ 11/13/16 08:00 11/15/16 09:13 (Prinivil) 20 mg DAILY PO 11/13/16 09:00 11/15/16 09:12 (NovoLIN N INJ) 7 units HS SQ 11/14/16 21:00 11/14/16 21:23 (Sandee-Colace) 2 tab BID PO 11/14/16 09:00 11/15/16 09:12 (Dulcolax Supp) 10 mg DAILY PRN RECTAL 11/14/16 07:45 (Milk Of Magnshorty Liq) 30 ml Q6H PRN PO 11/14/16 07:45 (NS Flush) 2 ml BID IV FLUSH 11/14/16 21:00 11/15/16 09:12 (NS Flush) 2 ml UNSCH PRN IV FLUSH 11/14/16 13:30 (Heparin Inj) 5,000 units Q8HR SQ 11/14/16 22:00 11/15/16 17:02 Family History Her mother is . She had a myocardial infarction in her 60s Her father has alcoholism and COPD Social History She smokes 1 - 1 1/2 packs of cigarettes per day for 20 years. Quit 11 months ago. Drink alcohol occasionally Uses marijuana on occasion Is on disability due to chronic pain and arthralgias Physical Exam Vital Signs Vital Signs Date Time Temp Pulse Resp B/P Pulse Ox O2 Delivery O2 Flow Rate FiO2 11/15/16 12:12 18 11/15/16 12:00 60 11/15/16 11:00 98.4 64 20 147/69 98 11/15/16 11:00 67 11/15/16 10:00 66 11/15/16 09:00 66 11/15/16 08:00 58 11/15/16 08:00 98.0 69 20 140/62 100 11/15/16 07:00 60 11/15/16 06:00 58 11/15/16 05:00 58 11/15/16 04:00 68 11/15/16 03:00 59 11/15/16 03:00 98.1 67 20 129/66 100 11/15/16 02:00 60 11/15/16 01:00 64 11/15/16 00:00 62 11/14/16 23:00 98.0 68 20 91/66 98 11/14/16 23:00 69 11/14/16 22:00 74 11/14/16 21:00 64 11/14/16 20:00 76 11/14/16 19:00 97.6 63 18 120/69 97 11/14/16 19:00 74 11/14/16 18:00 75 Physical Exam GENERAL: This is a well-nourished, well-developed patient, in no apparent distress. SKIN: No rashes, ecchymoses or lesions. Cool and dry. HEAD: Atraumatic. Normocephalic. No temporal or scalp tenderness. EYES: Pupils equal round and reactive. Extraocular motions intact. No scleral icterus. No injection or drainage. ENT: Nose without bleeding, purulent drainage or septal hematoma. Throat without erythema, tonsillar hypertrophy or exudate. Uvula midline. Airway patent. NECK: Trachea midline. Supple, nontender, no meningeal signs. CARDIOVASCULAR: RRR RESPIRATORY: Clear to auscultation. Breath sounds equal bilaterally. No wheezes , rales, or rhonchi. GASTROINTESTINAL: Abdomen soft, non-tender, nondistended. MUSCULOSKELETAL: Hammer toe deformities noted. Left 2nd toe with ulceration noted with eschar covering and surrounding erythema in web space as well as extending to medial aspect of great toe. NEUROLOGICAL: Awake and alert. Grossly non focal Psych tearful and sad appearing, appears situational. Denies suicidal ideations. IV line sites with no e.o infection. Laboratory Laboratory Tests Test 11/15/16 05:05 White Blood Count 5.6 Red Blood Count 4.25 Hemoglobin 11.5 Hematocrit 33.3 Mean Corpuscular Volume 78.2 Mean Corpuscular Hemoglobin 27.0 Mean Corpuscular Hemoglobin 34.5 Concent Red Cell Distribution Width 14.9 Platelet Count 142 Mean Platelet Volume 8.7 Neutrophils (%) (Auto) 52.5 Lymphocytes (%) (Auto) 31.7 Monocytes (%) (Auto) 10.9 Eosinophils (%) (Auto) 3.8 Basophils (%) (Auto) 1.1 Neutrophils # (Auto) 2.9 Lymphocytes # (Auto) 1.8 Monocytes # (Auto) 0.6 Eosinophils # (Auto) 0.2 Basophils # (Auto) 0.1 CBC Comment DIFF FINAL Differential Comment Sodium Level 140 Potassium Level 3.4 Chloride Level 107 Carbon Dioxide Level 21.4 Anion Gap 12 Blood Urea Nitrogen 23 Creatinine 1.13 Estimat Glomerular Filtration 49 Rate Random Glucose 158 Calcium Level 7.7 Magnesium Level 1.6 Date/Time Procedure Status Source Growth 11/11/16 01:00 Aerobic Blood Culture - Preliminary Resulted Blood Peripheral NO GROWTH IN 4 DAYS 11/11/16 01:00 Anaerobic Blood Culture - Preliminary Resulted Blood Peripheral NO GROWTH IN 4 DAYS 11/10/16 21:48 Urine Culture - Final Complete Urine Clean Catch 50-100,000 CFU/ML MIXED GRAM POSITIVE... 11/10/16 20:49 Aerobic Blood Culture - Final Complete Blood Peripheral NO GROWTH IN 5 DAYS 11/10/16 20:49 Anaerobic Blood Culture - Final Complete Blood Peripheral NO GROWTH IN 5 DAYS Result Diagram: 11/15/16 0505 11/15/16 0505 Imaging Last Impressions Upper Extremity Ultrasound 11/13/16 0000 Signed Impressions: Service Date/Time: Sunday, November 13, 2016 13:45 - CONCLUSION: Normal examination. Tapan Keller MD Lower Extremity Ultrasound 11/13/16 0000 Signed Impressions: Service Date/Time: Sunday, November 13, 2016 13:18 - CONCLUSION: Normal examination. Tapan Keller MD Foot MRI 11/12/16 0000 Signed Impressions: Service Date/Time: Saturday, November 12, 2016 12:59 - CONCLUSION: Findings suspicious for osteomyelitis proximal phalanx 2nd toe. Perico Novak MD FACR Foot X-Ray 11/11/16 0000 Signed Impressions: Service Date/Time: Friday, November 11, 2016 13:40 - CONCLUSION: Hallux valgus deformity. No acute abnormality. Berlin Sarmiento Jr., MD Chest X-Ray 11/10/16 0000 Signed Impressions: Service Date/Time: October 23:51 - CONCLUSION: Right internal jugular central line distal tip is within the superior vena cava. No pneumothorax is visualized. Lobo Quezada MD Assessment and Plan Assessment and Plan Left 2nd toe osteomyelitis Left great and 2nd toe cellulitis. DM2 with DKA on admission PAD needing intervention in future. recs DC cefazolin Start Cefepime IV (covers PSAE and other gram negatives in Diabetic patient) Start Flagyl oral. DC regimen Cefepime IV and Flagyl oral for 6 weeks. PICC line consult Will need follow up with Dr.Reba Constantino Summers about DC planning in addition to patient. Patient agreeable to PICC line. Anjali Cisse MD Nov 15, 2016 17:28
[2016-11-15] MEDS ORDERED: EPIN1INJ21 IV PUSH (17:41)
[2016-11-15] MEDS ORDERED: CEFE2INJ5 IV (17:41)
[2016-11-15] MEDS ORDERED: EPIN1INJ21 SQ (17:41)
[2016-11-15] MEDS ORDERED: SOLU250I IV PUSH (17:41)
[2016-11-15] MEDS ORDERED: METR-1 PO (17:42)
--- NOTE | 2016-11-15 17:42 | HHI.FF ---
Face to Face Verification Diagnosis: (1) DKA (diabetic ketoacidoses) Home Health Nursing Order: Medical education Signs/symptoms of disease process Diabetic education Medication education-adverse effect Wound care and dressing changes Nursing assessment with vital signs I have seen patient Robyn Marquez on 11/15/16. My clinical findings support the need for the requested home health care services because: Ltd mobility - disease progression I certify that my clinical findings support that this patient is homebound because: Need for psychosocial assistance Dequan Montesinos MD Nov 15, 2016 17:42
--- NOTE | 2016-11-15 17:45 | HHI.FF ---
cc: Ana Maria Meeks MD Infusion Therapy Location of Infusion Therapy: Home Health Care IV Infusion Order Patient Information Appointment Date: Nov 16, 2016 Patient Weight 59.8 kg Diagnosis: Diagnosis Left 2nd toe osteomyelitis DM2 uncontrolled. Coded Allergies: Codeine (Verified Allergy, Mild, HIVES, 11/10/16) Glucophage (Verified Allergy, Mild, DKA, 11/10/16) Morphine (Verified Adverse Reaction, Severe, 11/10/16) vomiting Administer Medication Cefepime (If Pump approved then 6 gm IV over 24 hours.) 2 grams IV q 8 hours Start Treatment: Nov 15, 2016 Stop Treatment: December 28, 2016 Additional Information Venous access: PICC Line Additional Instructions [x] Peripheral flush and dressing changes per protocol [x] Implanted port and central online user experience strategist: * Implanted port: 10 ml Normal Saline followed by 5 ml Heparin 100 units/ml Heparin flush after each use and monthly to maintain. [] May leave port accessed during therapy. [] May leave peripheral site accessed for duration of therapy. [x] If patient has SOB or respiratory distress, check oxygen saturation. If less than 90% or clinical signs of respiratory distress, administer oxygen at 2 L/min. via nasal cannula and notify physician. [x] Anaphylaxis/Reaction orders: * Stop infusion. * Keep IV line open with saline flush. * Notify physician. * Monitor vital signs every 15 minutes until symptoms resolve. * Check Oxygen saturation; Oxygen at 2 L/min. via nasal cannula if less than 90% or clinical signs of respiratory distress. * Administer diphenhydramine (Benadryl) 25 mg IV STAT, (unless patient has received as pre-med). May repeat once, if necessary. * Solu-Cortef 250 mg IVP over 30-60 seconds, use 100 mg vials for each dissolution. * Epinephrine (1mg/1 ml) 0.3 mg subcutaneously or IVP now with any signs of respiratory distress. * Check with physician for new additional pre-med orders if patient is re- challenged or re-treated. [x] May remove PICC line when treatment complete, after confirming with Physician. [x] If the patient is admitted to the hospital, the ED, or transferred via [facility] , complete transfer form including medication reconciliation order sheet. Laboratory Tests Weekly Labs: CBC w/diff, Creatinine, CRP, LFT's (Hepatic function test) Additional Information Please draw weekly labs on every Monday while on antibiotics, Fax labs to numbers below, Call with abnormals, change in clinical condition or problems to: Dr.Reba Meeks or or Covering ID Physician Follow up appt: Patient to schedule follow up appt with Dr.Reba Meeks within 10 days post discharge. Follow up with PCP Follow up with other MDs as planned. Counseling: Counseled about medication side effects Counseled about PICC line care and hand hygiene. Anjali Cisse MD Nov 15, 2016 17:45
--- NOTE | 2016-11-15 17:46 | HHI.DS ---
Discharge Summary Admission Date Nov 11, 2016 at 00:50 Discharge Date: Nov 16, 2016 Admitting Diagnosis DKA (1) DKA (diabetic ketoacidoses) ICD Code: E13.10 Diagnosis: Principal Procedures Cardiac catheterization Brief History - From Admission 61-year-old female with past history of insulin-dependent diabetes mellitus with insulin pump, hypertension, peripheral neuropathy, peripheral arterial disease, coronary artery disease with recent stent in July 2016 who presents to [facility] emergency department in [facility]. She states that she saw her PMD today due to a poorly healing wound in left second toe that started about 3 weeks ago. It has been worse over the last week and intermittently draining pus. She states she has experienced subjective fevers. This afternoon her glucose was running in the 170s. This evening she had glucose in the 400s and therefore sought medical attention. She states she has had 5 episodes of nonbloody nonbilious emesis. States she has some lower abdominal discomfort which she attributes to vomiting. No diarrhea. Laboratory workup indicates DKA with pH of 7.23, bicarbonate of 9, anion gap of 24. She has acute kidney injury with creatinine of 2 (baseline ~0.8-0.9). Lactic acid is 3.2. She denies chest pain, shortness of breath. CBC/BMP: 11/15/16 0505 11/15/16 0505 Significant Findings Laboratory Tests Test 11/12/16 11/13/16 11/14/16 11/14/16 18:24 06:20 05:05 14:17 Chloride Level 113 MEQ/L 114 MEQ/L (98-107) (98-107) Carbon Dioxide Level 15.8 MEQ/L 17.8 MEQ/L (21.0-32.0) (21.0-32.0) Blood Urea Nitrogen 30 MG/DL (7-18) 26 MG/DL (7-18) Creatinine 1.29 MG/DL (0.50-1.00) Estimat Glomerular Filtration 42 ML/MIN (>89) 58 ML/MIN (>89) 65 ML/MIN (>89) Rate Calcium Level 7.7 MG/DL 7.7 MG/DL 8.0 MG/DL (8.5-10.1) (8.5-10.1) (8.5-10.1) Activated Partial 56.0 SEC 37.0 SEC 40.8 SEC Thromboplast Time (24.3-30.1) (24.3-30.1) (24.3-30.1) Random Glucose 180 MG/DL 201 MG/DL (74-106) (74-106) Mean Corpuscular Volume 78.9 FL (80.0-100.0) Mean Corpuscular Hemoglobin 26.8 PG (27.0-34.0) Platelet Count 137 TH/MM3 (150-450) Test 11/15/16 05:05 Hemoglobin 11.5 GM/DL (11.6-15.3) Hematocrit 33.3 % (35.0-46.0) Mean Corpuscular Volume 78.2 FL (80.0-100.0) Platelet Count 142 TH/MM3 (150-450) Monocytes (%) (Auto) 10.9 % (0.0-8.0) Potassium Level 3.4 MEQ/L (3.5-5.1) Blood Urea Nitrogen 23 MG/DL (7-18) Creatinine 1.13 MG/DL (0.50-1.00) Estimat Glomerular Filtration 49 ML/MIN (>89) Rate Random Glucose 158 MG/DL (74-106) Calcium Level 7.7 MG/DL (8.5-10.1) Imaging Last Impressions Upper Extremity Ultrasound 11/13/16 0000 Signed Impressions: Service Date/Time: Sunday, November 13, 2016 13:45 - CONCLUSION: Normal examination. Tapan Keller MD Lower Extremity Ultrasound 11/13/16 0000 Signed Impressions: Service Date/Time: Sunday, November 13, 2016 13:18 - CONCLUSION: Normal examination. Tapan Keller MD Foot MRI 11/12/16 0000 Signed Impressions: Service Date/Time: Saturday, November 12, 2016 12:59 - CONCLUSION: Findings suspicious for osteomyelitis proximal phalanx 2nd toe. Perico Novak MD FACR Foot X-Ray 11/11/16 0000 Signed Impressions: Service Date/Time: Friday, November 11, 2016 13:40 - CONCLUSION: Hallux valgus deformity. No acute abnormality. Berlin Sarmiento Jr., MD Chest X-Ray 11/10/16 0000 Signed Impressions: Service Date/Time: October 23:51 - CONCLUSION: Right internal jugular central line distal tip is within the superior vena cava. No pneumothorax is visualized. Lobo Quezada MD PE at Discharge GENERAL: Well-nourished, well-developed patient who is alert, SKIN: Warm and dry. There is a 1.5 cm eschar overlying medial aspect of left 2nd toe with some fluctuance but no drainage expressed. HEAD: Atraumatic. Normocephalic. EYES: Pupils equal and round. No scleral icterus. No injection or drainage. ENT: No nasal bleeding or discharge. Mucous membranes dry NECK: Trachea midline. No JVD. CARDIOVASCULAR: Regular,no murmurs rubs or gallops appreciated. RESPIRATORY: Breathing comfortably with No accessory muscle use. Clear to auscultation. Breath sounds equal bilaterally. On room air GASTROINTESTINAL: Abdomen soft, nondistended. There is no rebounding or guarding. Bowel sounds are present MUSCULOSKELETAL: Extremities without clubbing, cyanosis, or edema. Lesion on left foot as per above. NEUROLOGICAL: Awake and alert. No obvious cranial nerve deficits. Motor grossly within normal limits. Normal speech. Hospital Course NEURO: Chronic pain Peripheral neuropathy History of migraine headaches Lortab 10/325 one tab by mouth every 6 hours as needed for pain Topamax 25 mg by mouth daily at bedtime (for migraine prophylaxis, no history of seizures) Gabapentin 100 g by mouth daily at bedtime RESP: History of tobacco abuse. Counseled She is on room air. CV: NSTEMI Coronary artery disease with stents 08/11/16 EF 40% with diastolic dysfunction Peripheral arterial disease s/p L fem pop bypass. Hypertension Hyperlipidemia Initial EKG with septal ST deviation and lateral ST depression. Patient denies any chest discomfort or shortness of breath whatsoever. Discussed with cardiology recommended cardiac catheterization this morning continue heparin drip Continue aspirin 81 mg and Plavix 75 mg by mouth daily. Continue pravastatin 20 mg by mouth daily Continue atenolol 25 mg by mouth twice a day in a.m. with hold orders. Restart lisinopril Monitor for overload decrease IV fluid to 60 cc an hour Vascular surgery recommends outpatient follow-up regarding PAD secondary to NC, will clarify if patient needs left lower extremity angiogram in-house versus outpatient GI: Vomiting Resolved tolerating ADA diet LFTs normal. Lipase not elevated Zofran as needed FEN/RENAL: Acute kidney injury Hyperkalemia secondary to metabolic acidemia ROSAURA suspected secondary to prerenal state due to DKA. Patient has been voiding well in the ED. Expect potassium to decrease as acidemia improves. Following serial BMP. Replace electrolytes as indicated per protocol. Improving on IV fluids. Avoid nephrotoxins. Creatinine slightly up with mild hypokalemia. Will replace ID: Leukocytosis Left foot second digit diabetic ulcer Dw ID MRI suspicious for possible myelitis of the proximal phalanx of the left second toe switch to IV cefepime and po Flagyl for 6 weeks Podiatry consulted for wound management and possible debridement, recommends to hold off surgical procedure pending vascular intervention. Wd care HEME: No acute hematologic issues ENDO: DKA Resolved discontinued Insulin drip. Continue IV fluids and adjust long-acting insulin with sliding scale coverage depending on glycemic trends. Continue NPH 7 units at bedtime and increase to 15 units in the morning for better control. Insulin pump stopped patient not able to afford medication, case management consulted. Patient aware that if she can secure her insulin for insulin pump she will not use NPH which will only be for backup. Discussed with RN PROPH: Subcutaneous heparin ACCESS: Right IJ central venous line placed 11/11/16 by ED physician #1 already discontinued after securing PIV. PICC line for long-term antibiotic Pt Condition on Discharge: Stable Discharge Disposition: Disch w/ Home Health Serv Discharge Time: <= 30 minutes Discharge Instructions DIET: Follow Instructions for: Heart Healthy Diet, Diabetic Diet Activities you can perform: Regular-No Restrictions Activities to Avoid: Driving Follow up Referrals: Cardiology - 1 Week Infectious Disease - 1 Week PCP Follow-up - 1 Week Vascular Surgery - 1 Week New Medications: Cefepime Inj (Cefepime Inj) 2 Gm Inj 2 GM IV Q8H Osteomyelitis Days 42 Ref 0 BAG Epinephrine Inj (Epinephrine Inj) 1 Mg/Ml Inj 0.3 MG IV PUSH ONCE PRN ALLERGIC REACTION #1 VIAL Epinephrine Inj (Epinephrine Inj) 1 Mg/Ml Inj 0.3 MG SQ ONCE Give with any signs of respiratory distress. PRN ALLERGIC REACTION #1 VIAL Glucocom Test Strips (Glucocom Test Strips) 1 Conchis Conchis 1 EA .ROUTE DIRECTED Blood Sugar Management #90 BOX Hydrocortisone Inj (Solu-Cortef Inj) 250 Mg Inj 250 MG IV PUSH ONCE Give over 30-60 seconds. PRN ALLERGIC REACTION #1 Ref 0 VIAL Insulin Syringe/U-100/31G X 5/16" 1 ml (Insulin Syringe/U-100/31G X 5/16" 1 ml) 1 Mis Mis 1 EA .ROUTE DIRECTED Blood Sugar Management #1 Ref 0 BOX Lancets (Lancets) 1 Mis Mis 1 EA .ROUTE DIRECTED Blood Sugar Management #1 Ref 0 BOX Metronidazole (Flagyl) 500 Mg Tab 500 MG PO TID Infection Days 42 Ref 0 TAB Insulin Human NPH Inj (Novolin N Inj) 1,000 Unit/10 Ml Vial 7 UNITS SQ HS Blood Sugar Management #30 INJECTION Insulin Human NPH Inj (Novolin N Inj) 1,000 Unit/10 Ml Vial 15 UNITS SQ DAILY@08 Blood Sugar Management #30 INJECTION Continued Medications: Aspirin DR (Aspir-81) 81 Mg Tabdr 1 TAB PO DAILY Atenolol (Atenolol) 25 Mg Tab 25 MG PO BID Blood Pressure Management #60 Ref 0 TAB Clopidogrel (Clopidogrel) 75 Mg Tab 75 MG PO DAILY Blood Clot Prevention #30 Ref 0 TAB Gabapentin (Gabapentin) 100 Mg Cap 100 MG PO HS #30 Ref 0 CAP Hydrocodone-Acetaminophen (Lortab) 10-325 Mg Tab 1 TAB PO Q6H PRN PAIN Ref 0 TAB Insulin Aspart Inj (Novolog Inj) 1,000 Unit/10 Ml Vial 1 UNITS SQ DIRECTED Blood Sugar Management #0 Ref 0 ML Lisinopril (Lisinopril) 20 Mg Tab 20 MG PO DAILY #30 Ref 0 TAB Meloxicam (Mobic) 15 Mg Tab 15 MG PO DAILY Arthritis pain Ref 0 TAB Pravastatin (Pravastatin) 20 Mg Tab 20 MG PO DAILY Cholesterol Management #30 Ref 0 TAB Sumatriptan (Imitrex) 25 Mg Tab 25 MG PO ONCE If a satisfactory response has not been obtained at 2 hours, a second dose may be administered PRN MIGRAINE HEADACHE Ref 0 TAB Topiramate (Topamax) 25 Mg Tab 25 MG PO HS Control Seizures #60 Ref 0 TAB Dequan Montesinos MD Nov 15, 2016 17:46
--- NOTE | 2016-11-15 19:21 | RADRPT ---
EXAM DATE/TIME: 11/15/2016 18:40 [place] COMPARISON: CHEST SINGLE AP, November 10, 2016, 23:51. INDICATIONS : Post right sided PICC line placement. MEDICAL HISTORY : Diabetes mellitus type II. SURGICAL HISTORY : None. ENCOUNTER: Initial ACUITY: 1 day PAIN SCORE: 0/10 LOCATION: Bilateral chest FINDINGS: A single view of the chest demonstrates the lungs to be symmetrically aerated without evidence of mas s, infiltrate or effusion. No evidence of pneumothorax. The cardiomediastinal contours are unremark able. Osseous structures are intact. Right-sided PICC line has been placed and the tip is projected over the distal superior vena cava. CONCLUSION: PICC line in distal superior vena cava. The lungs are clear. Berlin Narvaez MD on November 15, 2016 at 19:19 Board Certified Radiologist. This report was verified electronically.
[2016-11-15] MEDS: TOPIRAMATE 25 MG TAB PO SCH (20:57)
[2016-11-15] MEDS: ATORVASTATIN 80 MG TAB PO SCH (20:57)
[2016-11-15] MEDS: GABAPENTIN 100 MG CAP PO SCH (20:58)
[2016-11-15] MEDS: metroNIDAZOLE 500 MG TAB PO SCH (21:00)
[2016-11-16] VITALS (16 sets, daily range): BP systolic 141–155; BP diastolic 71–78; PULSE 56–72; RESP 14–20; TEMP 98.1–98.6; O2SAT 98–99
[2016-11-16] MEDS: CHLORHEXIDINE GLUCONATE 2 % 1 PACK (2 CLOTHS) TOP SCH (04:00)
[2016-11-16] MEDS: ACETAMINOPHEN/HYDROcodone 325 MG/10 MG TAB PO PRN ×2 (04:50→12:08)
[2016-11-16] MEDS: INSULIN NovoLIN REGULAR SUPPLEMENTAL SCALE SQ SCH ×3 (04:51→12:08)
[2016-11-16] MEDS: HEPARIN SODIUM - SQ 10,000 UNITS/ML VIAL SQ SCH ×2 (05:15→14:21)
[2016-11-16] MEDS: metroNIDAZOLE 500 MG TAB PO SCH ×2 (05:15→14:21)
[2016-11-16 05:33] LABS: BICARBONATE 26.5 MEQ/L (21.0-32.0); MAGNESIUM 1.6 MG/DL (1.5-2.5); POTASSIUM 3.9 MEQ/L (3.5-5.1)
[2016-11-16] MEDS ORDERED: NOVONP2 SQ (05:48)
[2016-11-16] MEDS ORDERED: MAGNESIUM CITRATE SOLN 300 ML BTL PO ONE (06:00)
[2016-11-16] MEDS ORDERED: INSULIN HUMAN NPH 1,000 UNITS/10 ML VIAL SQ SCH (08:00)
[2016-11-16] MEDS: SODIUM CHLORIDE 0.9% FLUSH 10 ML FLUSH IV FLUSH SCH (09:28)
[2016-11-16] MEDS: DOCUSATE SODIUM 50 MG/SENNA 8.6 MG TAB PO SCH (09:29)
[2016-11-16] MEDS: ASPIRIN EC 81 MG TABEC PO SCH (09:29)
[2016-11-16] MEDS: CLOPIDOGREL 75 MG TAB PO SCH (09:29)
[2016-11-16] MEDS: COLLAGENASE OINT 30 GM TUBE TOPICAL SCH (09:30)
[2016-11-16] MEDS: PANTOPRAZOLE SOD 40 MG DELAYED RELEASE TAB PO SCH (09:30)
[2016-11-16] MEDS: ATENOLOL 25 MG TAB PO SCH (09:30)
[2016-11-16] MEDS: LISINOPRIL 20 MG TAB PO SCH (09:30)
--- NOTE | 2016-11-16 10:21 | HHI.PR ---
Subjective Remarks Follow-up osteomyelitis second toe and diabetes mellitus. Complaining of toe pain. Discussed with ID, patient will be discharged on IV cefepime and by mouth Flagyl. Status post PICC line. Case management working on home antibiotics. Patient aware that if she can secure her insulin for insulin pump she will not use NPH which will only be for backup. Discussed with RN Objective Vitals Vital Signs Date Time Temp Pulse Resp B/P Pulse Ox O2 Delivery O2 Flow Rate FiO2 11/16/16 07:00 58 11/16/16 06:00 56 11/16/16 05:00 64 11/16/16 04:00 59 11/16/16 03:00 56 11/16/16 03:00 98.6 63 14 151/78 98 11/16/16 02:00 72 11/16/16 01:00 60 11/16/16 00:00 58 11/15/16 23:00 98.5 67 14 145/77 99 11/15/16 23:00 62 11/15/16 22:00 64 11/15/16 21:00 60 11/15/16 20:00 70 11/15/16 19:05 18 11/15/16 19:00 98.5 63 14 139/72 99 11/15/16 19:00 79 11/15/16 18:00 65 11/15/16 17:00 66 11/15/16 16:00 72 11/15/16 16:00 98.3 64 20 146/77 100 11/15/16 15:00 67 11/15/16 14:00 58 11/15/16 13:00 62 11/15/16 12:00 60 11/15/16 11:00 98.4 64 20 147/69 98 11/15/16 11:00 67 I/O 11/15/16 11/15/16 11/15/16 11/16/16 11/16/16 11/16/16 07:00 15:00 23:00 07:00 15:00 23:00 Intake Total 640 ml 1060 ml 240 ml Output Total 250 ml 400 ml Balance 640 ml 810 ml -160 ml Intake Oral 240 ml 960 ml 240 ml IV Total 400 ml 100 ml Output Urine Total 250 ml 400 ml # Voids 3 4 # Bowel Movements 0 Result Diagram: 11/15/16 0505 11/16/16 0430 Objective Remarks GENERAL: Well-nourished, well-developed patient who is alert, SKIN: Warm and dry. There is a 1.5 cm eschar overlying medial aspect of left 2nd toe with some fluctuance but no drainage expressed. HEAD: Atraumatic. Normocephalic. EYES: Pupils equal and round. No scleral icterus. No injection or drainage. ENT: No nasal bleeding or discharge. Mucous membranes dry NECK: Trachea midline. No JVD. CARDIOVASCULAR: Regular,no murmurs rubs or gallops appreciated. RESPIRATORY: Breathing comfortably with No accessory muscle use. Clear to auscultation. Breath sounds equal bilaterally. On room air GASTROINTESTINAL: Abdomen soft, nondistended. There is no rebounding or guarding. Bowel sounds are present MUSCULOSKELETAL: Extremities without clubbing, cyanosis, or edema. Lesion on left foot as per above. NEUROLOGICAL: Awake and alert. No obvious cranial nerve deficits. Motor grossly within normal limits. Normal speech. Nonfocal Procedures Cardiac catheterization A/P Problem List: (1) DKA (diabetic ketoacidoses) ICD Code: E13.10 Status: Resolved Assessment and Plan NEURO: Chronic pain Peripheral neuropathy History of migraine headaches Lortab 10/325 one tab by mouth every 6 hours as needed for pain Topamax 25 mg by mouth daily at bedtime (for migraine prophylaxis, no history of seizures) Gabapentin 100 g by mouth daily at bedtime RESP: History of tobacco abuse. Counseled She is on room air. CV: NSTEMI Coronary artery disease with stents 08/11/16 EF 40% with diastolic dysfunction Peripheral arterial disease s/p L fem pop bypass. Hypertension Hyperlipidemia Initial EKG with septal ST deviation and lateral ST depression. Patient denies any chest discomfort or shortness of breath whatsoever. Discussed with cardiology recommended cardiac catheterization this morning continue heparin drip Continue aspirin 81 mg and Plavix 75 mg by mouth daily. Continue pravastatin 20 mg by mouth daily Continue atenolol 25 mg by mouth twice a day in a.m. with hold orders. Restart lisinopril Monitor for overload decrease IV fluid to 60 cc an hour Vascular surgery recommends outpatient follow-up regarding PAD secondary to [place], will clarify if patient needs left lower extremity angiogram in-house versus outpatient GI: Vomiting Resolved tolerating ADA diet LFTs normal. Lipase not elevated Zofran as needed FEN/RENAL: Acute kidney injury Hyperkalemia secondary to metabolic acidemia ROSAURA suspected secondary to prerenal state due to DKA. Patient has been voiding well in the ED. Expect potassium to decrease as acidemia improves. Following serial BMP. Replace electrolytes as indicated per protocol. Improving on IV fluids. Avoid nephrotoxins. Creatinine slightly up with mild hypokalemia. Will replace ID: Leukocytosis Left foot second digit diabetic ulcer Dw ID MRI suspicious for possible myelitis of the proximal phalanx of the left second toe switch to IV cefepime and po Flagyl for 6 weeks Podiatry consulted for wound management and possible debridement, recommends to hold off surgical procedure pending vascular intervention. Wd care HEME: No acute hematologic issues ENDO: DKA Resolved discontinued Insulin drip. Continue IV fluids and adjust long-acting insulin with sliding scale coverage depending on glycemic trends. Continue NPH 7 units at bedtime and increase to 15 units in the morning for better control. Insulin pump stopped patient not able to afford medication, case management consulted. Patient aware that if she can secure her insulin for insulin pump she will not use NPH which will only be for backup. Discussed with RN PROPH: Subcutaneous heparin ACCESS: Right IJ central venous line placed 11/11/16 by ED physician #1 already discontinued after securing PIV. PICC line for long-term antibiotic Discharge Planning Possible discharge today Problem Qualifiers (1) DKA (diabetic ketoacidoses): Qualified Code: E13.10 - Diabetic ketoacidosis without coma associated with other specified diabetes mellitus Dequan Montesinos MD Nov 16, 2016 10:21 Dequan Montesinos MD Nov 16, 2016 10:21
[2016-11-16] MEDS: SODIUM CHLOR 0.9% 1000 ML INJ 1,000 ML IV SCH (10:34)
[2016-11-16] MEDS ORDERED: CEFEPIME INJ 2,000 MG in SODIUM CHLORIDE 0.9% INJ 100 ML IV SCH (21:00)
--- NOTE | 2016-11-16 21:22 | PD.CARD.PN ---
Subjective Subjective Remarks Patient seen this morning No chest pain, no shortness of breath Objective Medications Current Medications Ondansetron HCl 4 mg 4 mg ONCE ONCE PO ; Start 11/10/16 at 20:45; Stop at 21:02; Status DC Sodium Chloride (NS 1000 ml Inj) 1,000 ml @ 999 mls/hr BOLUS ONCE IV Last administered on 11/10/16 21:22; Start 11/10/16 at 20:45; Stop 11/10/16 at 21:45 ; Status DC Ondansetron HCl 4 mg 4 mg STK-MED ONCE .ROUTE ; Start 11/10/16 at 20:57; Stop at 20:58; Status DC Sodium Chloride (NS 1000 ml Inj) 1,000 ml @ 999 mls/hr BOLUS ONCE IV Last administered on 11/11/16 00:43; Start 11/10/16 at 21:00; Stop 11/10/16 at 22:00 ; Status DC Ondansetron HCl 4 mg 4 mg ONCE ONCE IV PUSH Last administered on 11/10/16 21: 22; Start 11/10/16 at 21:15; Stop 11/10/16 at 21:16; Status DC Sodium Chloride 1,000 ml @ 250 mls/hr Q4H IV Last administered on 11/11/16 01 :21; Start 11/11/16 at 00:46; Stop 11/11/16 at 01:57; Status DC Dextrose/Sodium Chloride (D5W-NS 1000 ml Inj) 1,000 ml @ 200 mls/hr Q5H IV ; Start 11/11/16 at 00:46; Stop 11/11/16 at 01:57; Status DC Insulin Human Regular 5 units 5 units BOLUS ONCE IV PUSH Last administered on 11/11/16 01:21; Start 11/11/16 at 01:00; Stop 11/11/16 at 01:01; Status DC Insulin Human Regular/Sodium Chloride (NovoLIN R (IV INFUSION)/NS Inj) 100 ml @ 0 mls/hr TITRATE IV Last administered on 11/11/16 01:49; Start 11/11/16 at 01: 00; Stop 11/11/16 at 01:57; Status DC Acetaminophen/ Hydrocodone Bitart (Curlew 10-325 Mg) 1 tab Q6H PRN PO PAIN Last administered on 11/16/16 12:08; Start 11/11/16 at 01:30; Stop 11/16/16 at 16:01; Status DC Pantoprazole Sodium (Protonix Inj) 40 mg DAILY IV Last administered on 08:31; Start 11/11/16 at 09:00; Stop 11/12/16 at 08:54; Status DC Ondansetron HCl (Zofran Inj) 4 mg Q6H PRN IV NAUSEA OR VOMITING Last administered on 11/14/16 13:56; Start 11/11/16 at 01:45; Stop 11/16/16 at 16:01; Status DC Albuterol Sulfate (Albuterol Neb) 2.5 mg Q2HR NEB PRN INH SOB/WHEEZING; Start 11/11/16 at 01:45; Stop 11/16/16 at 16:01; Status DC Miscellaneous Information 1 Q361D XX Last administered on 11/11/16 01:45; Start 11/11/16 at 01:45; Stop 11/11/16 at 14:11; Status DC Chlorhexidine Gluconate (Chlorhexidine 2% Cloth) 3 pack Taper DAILY@04 TOP Last administered on 11/11/16 04:00; Start 11/11/16 at 04:00; Stop 11/11/16 at 14:11; Status DC Chlorhexidine Gluconate (Chlorhexidine 2% Cloth) 3 pack UNSCH PRN TOP HYGIENIC CARE; Start 11/11/16 at 01:45; Stop 11/11/16 at 14:11; Status DC Enoxaparin Sodium 30 mg 30 mg Q24H SQ Last administered on 11/11/16 03:16; Start 11/11/16 at 01:45; Stop 11/11/16 at 12:57; Status DC Sodium Chloride 1,000 ml @ 250 mls/hr Q4H IV Last administered on 11/11/16 08 :29; Start 11/11/16 at 01:51; Stop 11/11/16 at 11:25; Status DC Dextrose/Sodium Chloride 1,000 ml @ 200 mls/hr Q5H IV ; Start 11/11/16 at 01:51 ; Stop 11/11/16 at 11:25; Status DC Insulin Human Regular 100 units/ Sodium Chloride 100 ml @ 0 mls/hr TITRATE IV ; Start 11/11/16 at 02:00; Stop 11/11/16 at 11:25; Status DC Potassium Chloride 100 ml @ 100 mls/hr Q1H PRN IV SEE LABEL COMMENTS; Start at 02:00; Stop 11/12/16 at 17:37; Status DC Potassium Chloride 100 ml @ 50 mls/hr Q2H PRN IV SEE LABEL COMMENTS; Start at 02:00; Stop 11/12/16 at 17:37; Status DC Potassium Chloride 100 ml @ 100 mls/hr Q1H PRN IV SEE LABEL COMMENTS; Start at 02:00; Stop 11/12/16 at 17:37; Status DC Potassium Chloride 100 ml @ 100 mls/hr Q1H PRN IV SEE LABEL COMMENTS; Start at 02:00; Stop 11/12/16 at 17:37; Status DC Potassium Chloride 100 ml @ 50 mls/hr Q2H PRN IV SEE LABEL COMMENTS; Start at 02:00; Stop 11/12/16 at 17:37; Status DC Potassium Chloride 100 ml @ 50 mls/hr Q2H PRN IV SEE LABEL COMMENTS; Start at 02:00; Stop 11/12/16 at 17:37; Status DC Potassium Chloride 100 ml @ 50 mls/hr Q2H PRN IV SEE LABEL COMMENTS; Start at 02:00; Stop 11/12/16 at 17:37; Status DC Potassium Chloride (KCl 20 Meq Premix Inj) 100 ml @ 50 mls/hr Q2H PRN IV SEE LABEL COMMENTS; Start 11/11/16 at 02:00; Stop 11/12/16 at 17:37; Status DC Sodium Bicarbonate (Sodium Bicarbonate 8.4% Inj) 100 meq UNSCH PRN IV SEE LABEL COMMENTS; Start 11/11/16 at 02:00; Stop 11/16/16 at 16:01; Status DC Sodium Bicarbonate 50 meq 50 meq UNSCH PRN IV SEE LABEL COMMENTS; Start at 02:00; Stop 11/16/16 at 16:01; Status DC Sodium Phosphate/ Sodium Chloride (Sodium Phosphate Inj/NS Inj) 105 ml @ 25 mls /hr UNSCH PRN IV SEE LABEL COMMENTS; Start 11/11/16 at 02:00; Stop 11/16/16 at 16:01; Status DC Miscellaneous Information 1 Q361D XX Last administered on 11/11/16 02:00; Start 11/11/16 at 02:00; Stop 11/16/16 at 16:01; Status DC Chlorhexidine Gluconate (Chlorhexidine 2% Cloth) Taper DAILY@04 TOP Last administered on 11/12/16 04:00; Start 11/11/16 at 04:00; Stop 11/16/16 at 16:01; Status DC Chlorhexidine Gluconate (Chlorhexidine 2% Cloth) 3 pack UNSCH PRN TOP HYGIENIC CARE; Start 11/11/16 at 02:00; Stop 11/16/16 at 16:01; Status DC Aspirin (Aspirin Chew) 162 mg ONCE ONCE CHEW Last administered on 11/11/16 03 :15; Start 11/11/16 at 02:00; Stop 11/11/16 at 02:01; Status DC Clopidogrel Bisulfate (Plavix) 75 mg DAILY PO Last administered on 11/16/16 09: 29; Start 11/11/16 at 09:00; Stop 11/16/16 at 16:01; Status DC Gabapentin (Neurontin) 100 mg HS PO Last administered on 11/15/16 20:58; Start 11/11/16 at 21:00; Stop 11/16/16 at 16:01; Status DC Pravastatin Sodium (Pravachol) 20 mg DAILY PO Last administered on 11/11/16 08 :28; Start 11/11/16 at 09:00; Stop 11/11/16 at 14:04; Status DC Topiramate 25 mg 25 mg HS PO Last administered on 11/15/16 20:57; Start at 21:00; Stop 11/16/16 at 16:01; Status DC Cefazolin Sodium/ Sodium Chloride (Ancef Inj/NS Inj) 100 ml @ 200 mls/hr Q12H IV Last administered on 11/15/16 17:01; Start 11/11/16 at 03:00; Stop 11/15/16 at 17:29; Status DC Atenolol (Tenormin) 25 mg Q12HR PO Last administered on 11/16/16 09:30; Start 11/11/16 at 09:00; Stop 11/16/16 at 16:01; Status DC Enoxaparin Sodium (Lovenox Inj) 25 mg ONCE ONCE SQ ; Start 11/11/16 at 04:30; Stop 11/11/16 at 04:31; Status DC Dextrose (D50w (Vial) Inj) 25 ml UNSCH PRN IV PUSH HYPOGLYCEMIA-SEE COMMENTS; Start 11/11/16 at 11:30; Stop 11/16/16 at 16:01; Status DC Glucagon (Glucagon Inj) 1 mg UNSCH PRN OTHER HYPOGLYCEMIA-SEE COMMENTS Last administered on 11/14/16 10:55; Start 11/11/16 at 11:30; Stop 11/16/16 at 16:01; Status DC Insulin Human Regular 1 1 Q4H SQ Last administered on 11/12/16 00:04; Start at 11:30; Stop 11/12/16 at 06:26; Status DC Sodium Chloride (NS 1000 ml Inj) 1,000 ml @ 60 mls/hr [id number] IV Last administered on 11/14/16 08:34; Start 11/11/16 at 11:30; Stop 11/16/16 at 16:01; Status DC Aspirin (Aspirin) 325 mg ONCE ONCE PO Last administered on 11/11/16 11:55; Start 11/11/16 at 11:30; Stop 11/11/16 at 11:31; Status DC Aspirin 81 mg 81 mg DAILY PO Last administered on 11/16/16 09:29; Start at 09:00; Stop 11/16/16 at 16:01; Status DC Heparin Sodium/ Dextrose (Heparin-D5W Inj) 250 ml @ 0 mls/hr TITRATE IV Last administered on 11/12/16 22:58; Start 11/11/16 at 11:30; Stop 11/14/16 at 13:27; Status DC Atorvastatin Calcium 80 mg 80 mg HS PO Last administered on 11/15/16 20:57; Start 11/11/16 at 21:00; Stop 11/16/16 at 16:01; Status DC Magnesium Sulfate/ Dextrose (Magnesium Sulfate 1 Gm Premix) 100 ml @ 100 mls/ hr ONCE ONCE IV Last administered on 11/11/16 20:21; Start 11/11/16 at 20:15 ; Stop 11/11/16 at 21:14; Status DC Collagenase (Santyl Oint) 1 applic DAILY TOPICAL Last administered on 11/16/16 09:30; Start 11/12/16 at 09:00; Stop 11/16/16 at 16:01; Status DC Insulin Human Regular (NovoLIN R SUPPLEMENTAL SCALE) 1 Q4H SQ Last administered on 11/13/16 06:58; Start 11/12/16 at 07:30; Stop 11/13/16 at 08:16; Status DC Pantoprazole Sodium (Protonix) 40 mg DAILY PO Last administered on 11/16/16 09: 30; Start 11/12/16 at 09:00; Stop 11/16/16 at 16:01; Status DC Insulin Human NPH (NovoLIN N INJ) 10 units DAILY@08 SQ Last administered on 11/15 09:13; Start 11/13/16 at 08:00; Stop 11/16/16 at 05:47; Status DC Insulin Human NPH (NovoLIN N INJ) 10 units ONCE ONCE SQ Last administered on 09:00; Start 11/12/16 at 09:00; Stop 11/12/16 at 09:06; Status DC Gadobenate Dimeglumine (Multihance Pf Inj) 10 ml STK-MED ONCE IV Last administered on 11/12/16 13:22; Start 11/12/16 at 13:22; Stop 11/12/16 at 13:23; Status DC Lisinopril (Prinivil) 20 mg DAILY PO Last administered on 11/16/16 09:30; Start 11/13/16 at 09:00; Stop 11/16/16 at 16:01; Status DC Insulin Human Regular (NovoLIN R SUPPLEMENTAL SCALE) 1 ACHS AND 3AM SQ Last administered on 11/16/16 12:08; Start 11/13/16 at 11:00; Stop 11/16/16 at 16:01; Status DC Insulin Human NPH (NovoLIN N INJ) 4 units HS SQ Last administered on 11/13/16 21:25; Start 11/13/16 at 21:00; Stop 11/14/16 at 07:40; Status DC Insulin Human NPH (NovoLIN N INJ) 5 units ONCE ONCE SQ ; Start 11/14/16 at 08:00 ; Stop 11/14/16 at 08:01; Status DC Insulin Human NPH (NovoLIN N INJ) 7 units HS SQ Last administered on 11/15/16 20:59; Start 11/14/16 at 21:00; Stop 11/16/16 at 16:01; Status DC Senna/Docusate Sodium (Sandee-Colace) 2 tab BID PO Last administered on 11/16/16 09:29; Start 11/14/16 at 09:00; Stop 11/16/16 at 16:01; Status DC Bisacodyl (Dulcolax Supp) 10 mg DAILY PRN RECTAL CONSTIPATION; Start 11/14/16 at 07:45; Stop 11/16/16 at 16:01; Status DC Magnesium Hydroxide (Milk Of Magnesia Liq) 30 ml Q6H PRN PO CONSTIPATION; Start 11/14/16 at 07:45; Stop 11/16/16 at 16:01; Status DC Insulin Human NPH 4 units 4 units ONCE ONCE SQ ; Start 11/14/16 at 10:30; Stop 11/14/16 at 10:31; Status DC Heparin Sodium/ Sodium Chloride 500 ml @ As Directed STK-MED ONCE .ROUTE Last administered on 11/14/16 11:55; Start 11/14/16 at 11:55; Stop 11/14/16 at 11:56; Status DC Heparin Sodium/ Sodium Chloride (Heparin-NS/Pf Inj) 500 ml @ As Directed STK- MED ONCE .ROUTE ; Start 11/14/16 at 11:56; Stop 11/14/16 at 11:57; Status DC Midazolam HCl (Versed Inj) 2 mg STK-MED ONCE .ROUTE Last administered on 12:34; Start 11/14/16 at 11:58; Stop 11/14/16 at 11:59; Status DC Fentanyl Citrate (fentaNYL INJ) 100 mcg STK-MED ONCE .ROUTE Last administered on 11/14/16 12:27; Start 11/14/16 at 11:58; Stop 11/14/16 at 11:59; Status DC Verapamil HCl (Isoptin Inj) 5 mg STK-MED ONCE .ROUTE Last administered on 12:30; Start 11/14/16 at 11:58; Stop 11/14/16 at 11:59; Status DC Heparin Sodium (Porcine) 29794 units 10,000 units STK-MED ONCE .ROUTE Last administered on 11/14/16 11:58; Start 11/14/16 at 11:58; Stop 11/14/16 at 11:59; Status DC Nitroglycerin (Nitroglycerin Inj) 5 ml @ As Directed STK-MED ONCE .ROUTE Last administered on 11/14/16 12:30; Start 11/14/16 at 11:58; Stop 11/14/16 at 11:59; Status DC Sodium Chloride (NS Flush) 2 ml BID IV FLUSH Last administered on 11/16/16 09: 28; Start 11/14/16 at 21:00; Stop 11/16/16 at 16:01; Status DC Sodium Chloride (NS Flush) 2 ml UNSCH PRN IV FLUSH FLUSH AFTER USING IV ACCESS ; Start 11/14/16 at 13:30; Stop 11/16/16 at 16:01; Status DC Heparin Sodium (Porcine) (Heparin Inj) 5,000 units Q8HR SQ Last administered on 11/16/16 14:21; Start 11/14/16 at 22:00; Stop 11/16/16 at 16:01; Status DC Iohexol (OMNIPAQUE 350 INJ (Gold Letterer)) 100 ml STK-MED ONCE OTHER ; Start at 14:35; Stop 11/14/16 at 14:36; Status DC Potassium Chloride 20 meq 20 meq ONCE ONCE PO Last administered on 11/15/16 12 :03; Start 11/15/16 at 10:15; Stop 11/15/16 at 10:35; Status DC Cefepime HCl/ Sodium Chloride (Maxipime Inj/NS Inj) 100 ml @ 200 mls/hr Q12H IV Last administered on 11/16/16 14:21; Start 11/16/16 at 21:00; Stop 11/16/16 at 21:00; Status DC Metronidazole (Flagyl) 500 mg Q8HR PO Last administered on 11/16/16 14:21; Start 11/15/16 at 22:00; Stop 11/16/16 at 16:01; Status DC Insulin Human NPH (NovoLIN N INJ) 15 units DAILY@08 SQ Last administered on 11/16 09:29; Start 11/16/16 at 08:00; Stop 11/16/16 at 16:01; Status DC Magnesium Citrate (Citroma Liq) 300 ml ONCE ONCE PO Last administered on 06:56; Start 11/16/16 at 06:00; Stop 11/16/16 at 06:01; Status DC Vital Signs / I&O Vital Signs Date Time Temp Pulse Resp B/P Pulse Ox O2 Delivery O2 Flow Rate FiO2 11/16/16 14:28 18 11/16/16 14:00 67 11/16/16 13:00 59 11/16/16 12:00 62 11/16/16 11:00 59 11/16/16 11:00 98.1 64 20 141/71 99 11/16/16 10:00 64 11/16/16 09:00 64 11/16/16 08:00 64 11/16/16 08:00 98.1 57 20 155/74 98 11/16/16 07:00 58 11/16/16 06:00 56 11/16/16 05:00 64 11/16/16 04:00 59 11/16/16 03:00 56 11/16/16 03:00 98.6 63 14 151/78 98 11/16/16 02:00 72 11/16/16 01:00 60 11/16/16 00:00 58 11/15/16 23:00 98.5 67 14 145/77 99 11/15/16 23:00 62 11/15/16 22:00 64 I/O 11/15/16 11/15/16 11/15/16 11/16/16 11/16/16 11/16/16 07:00 15:00 23:00 07:00 15:00 23:00 Intake Total 640 ml 1060 ml 240 ml Output Total 250 ml 400 ml Balance 640 ml 810 ml -160 ml Intake Oral 240 ml 960 ml 240 ml IV Total 400 ml 100 ml Output Urine Total 250 ml 400 ml # Voids 3 4 # Bowel Movements 0 Physical Exam GENERAL: NAD, AAOx3 SKIN: Warm and dry. HEAD: Atraumatic. Normocephalic. EYES: Pupils equal and round. No scleral icterus. No injection or drainage. ENT: No nasal bleeding or discharge. Mucous membranes pink and moist. NECK: Trachea midline. No JVD. CARDIOVASCULAR: Regular rate and rhythm. RESPIRATORY: No accessory muscle use. Clear to auscultation. Breath sounds equal bilaterally. GASTROINTESTINAL: Abdomen soft, non-tender, nondistended. Hepatic and splenic margins not palpable. MUSCULOSKELETAL: Extremities without clubbing, cyanosis, or edema. No obvious deformities. Left toe ulcer wrapped NEUROLOGICAL: Awake and alert. No obvious cranial nerve deficits. Motor grossly within normal limits. Five out of 5 muscle strength in the arms and legs. Normal speech. PSYCHIATRIC: Appropriate mood and affect; insight and judgment normal. Laboratory Laboratory Tests Test 11/16/16 04:30 Sodium Level 142 MEQ/L Potassium Level 3.9 MEQ/L Chloride Level 108 MEQ/L Carbon Dioxide Level 26.5 MEQ/L Anion Gap 8 MEQ/L Blood Urea Nitrogen 22 MG/DL Creatinine 1.01 MG/DL Estimat Glomerular Filtration 56 ML/MIN Rate Random Glucose 159 MG/DL Calcium Level 8.1 MG/DL Magnesium Level 1.6 MG/DL Assessment and Plan Problem List: (1) DKA (diabetic ketoacidoses) (2) Elevated troponin (3) Diabetic ulcer of foot associated with type 1 diabetes mellitus, limited to breakdown of skin (4) CAD (coronary artery disease) (5) Diabetes type 1, uncontrolled (6) HTN (hypertension) (7) Metabolic acidosis Assessment and Plan 1) Continue medical management of CAD, NSTEMI felt to be Type 2 2) ASA/Plavix/BB/Statin 3) Cardiovascularly stable, can discharge from a CV standpoint 4) Will call the office, unsure if we take her insurance, if not then needs to find cardiology follow up Problem Qualifiers (1) DKA (diabetic ketoacidoses): Qualified Code: E13.10 - Diabetic ketoacidosis without coma associated with other specified diabetes mellitus Ruy Briones DO Nov 16, 2016 21:22
== END 2016-11-16 15:55 | disposition home health service (06) | DRG 637 ==
LOC: NEPC 19:17 → NEDA 11-11 00:50 → HIME 11-11 02:25 → HCIS 11-12 18:08
PROVIDERS: ADMIT Internal Medicine; ATTEND Internal Medicine
PROC: 02HV33Z Insertion of Infusion Device into Superior Vena Cava, Percutaneous Approach (ICD-10-PCS; 2016-11-11)
PROC: B2111ZZ Fluoroscopy of Multiple Coronary Arteries using Low Osmolar Contrast (ICD-10-PCS; 2016-11-14)
PROC: 4A023N7 Measurement of Cardiac Sampling and Pressure, Left Heart, Percutaneous Approach (ICD-10-PCS; principal; 2016-11-14 09:45)
PROC: 02HV33Z Insertion of Infusion Device into Superior Vena Cava, Percutaneous Approach (ICD-10-PCS; 2016-11-15)
DX: E10.10 Type 1 diabetes mellitus with ketoacidosis without coma (principal); I21.4 Non-ST elevation (NSTEMI) myocardial infarction; N17.9 Acute kidney failure, unspecified; E10.621 Type 1 diabetes mellitus with foot ulcer; M86.9 Osteomyelitis, unspecified; T82.858A Stenosis of other vascular prosthetic devices, implants and grafts, initial encounter; E87.5 Hyperkalemia; E10.51 Type 1 diabetes mellitus with diabetic peripheral angiopathy without gangrene; I10 Essential (primary) hypertension; I25.10 Atherosclerotic heart disease of native coronary artery without angina pectoris; G89.29 Other chronic pain; L97.529 Non-pressure chronic ulcer of other part of left foot with unspecified severity; D72.829 Elevated white blood cell count, unspecified; Z79.4 Long term (current) use of insulin; M19.90 Unspecified osteoarthritis, unspecified site; E78.5 Hyperlipidemia, unspecified; D64.9 Anemia, unspecified; E10.40 Type 1 diabetes mellitus with diabetic neuropathy, unspecified; E10.69 Type 1 diabetes mellitus with other specified complication; M20.40 Other hammer toe(s) (acquired), unspecified foot; L03.032 Cellulitis of left toe; E87.6 Hypokalemia; F12.90 Cannabis use, unspecified, uncomplicated; F41.9 Anxiety disorder, unspecified; Z87.891 Personal history of nicotine dependence; Z88.5 Allergy status to narcotic agent; Z96.41 Presence of insulin pump (external) (internal)
CPT/HCPCS: 36556; 36569; 71010; 73630; 73720; 76937; 80048; 80053; 81001; 82010; 82550; 82552; 82805; 82948; 83036; 83605; 83690; 83735; 84100; 84155; 84484; 85025; 85027; 85610; 85730; 87040; 87086; 87641; 93005; 93306; 93458; 93923; 93970; 93998; 96361; 96374; 96375; A9577; C1769; C1893; C9113; J0690; J0692; J1610; J1644; J1650; J1815; J1817; J2250; J2405; J3010; J3475; J7030; Q9967

== ENCOUNTER 2016-11-29 11:32 | Inpatient (IN) | payer MEDICAID, OTHER ==
[~2016-11-29] VITALS: Ht 147.3 cm; Wt 57.7 kg
[~2016-11-29 11:32] MED LIST changes: +CEFE2INJ5 IV; -CLEO300C2 PO; +EPIN1INJ21 IV PUSH; +EPIN1INJ21 SQ; +GLUCTES12; +INSU1MIS15; +LANCETS1 MI1; +METR-1 PO; +NOVONP2 SQ; +SOLU250I IV PUSH
[2016-11-29 11:38] VITALS: BP 162/81; PULSE 71; RESP 20; TEMP 98.3; O2SAT 99
--- NOTE | 2016-11-29 11:55 | PD ---
Physical Exam Time Seen by Provider: 11:51 Narrative 61 year old female presents to ED for evaluation of N/V/D over the last 3 days. Pt states she noticed bong red blood in her nose and emesis yesterday and today. No abdominal pain. Subjective fever and chills. Pt is on IV abx at home via PICC for osteomyelitis in her L foot. Pt has history of HTN, DM, CAD, HI. No other symptoms to report. Data Data Last Documented VS Vital Signs Date Time Temp Pulse Resp B/P Pulse Ox O2 Delivery O2 Flow Rate FiO2 11/29/16 11:38 98.3 71 20 162/81 99 MDM Medical Record Reviewed: Yes Supervised Visit with SETH: No Narrative Course 61 year old female presents to ED for evaluation of N/V/D for 3 days. Appears without distress. Anabelle Pacheco Nov 29, 2016 11:55
[2016-11-29] MEDS ORDERED: SODIUM CHLOR 0.9% 1000 ML INJ 1,000 ML IV SCH ×3 (13:12→17:00)
--- NOTE | 2016-11-29 13:14 | PD ---
HPI Chief Complaint: GI Complaint Time Seen by Provider: 13:14 Travel History International Travel<30 days: No Contact w/Intl Traveler<30days: No Traveled to known affect area: No History of Present Illness HPI 61-year-old female with a history of DM with insulin pump, HTN, peripheral neuropathy, PAD, CAD w/ stent, left foot osteomyelitis currently receiving antibiotic therapy through PICC line presents to the emergency department for evaluation of nausea and vomiting. The patient states she is nauseous with decreased appetite for 4 days. States that she's had subjective fever and chills. States that she's been vomiting 1-2 times daily for the past 2 days. States that she had one episode of vomiting yesterday in which she had a teaspoon amount of bright red blood in the vomit. States that this morning when she blew her nose she had a small amount of blood in the mucus as well. States that these 2 things caused her to be very concerned so she presented to the emergency room today. She denies any chest pain, shortness of breath, abdominal pain, diarrhea, constipation, bloody stool, black stool. No other complaints. PFSH Past Medical History Hx Anticoagulant Therapy: Yes (plavix asa) Arthritis: Yes Blood Disorders: No Anxiety: Yes Depression: No Cancer: No Cardiovascular Problems: Yes (htn; 2 [place]) Chemotherapy: No Diabetes: Yes Patient Takes Glucophage: No Diminished Hearing: No Endocrine: Yes (DIABETES) Genitourinary: No Hiatal Hernia: No Hypertension: Yes Immune Disorder: No Musculoskeletal: Yes (ARTHRITIS) Neurologic: Yes (NEUROPATHY TO BILAT FEET) Psychiatric: No Reproductive: Yes (Hx. of cyst.) Respiratory: Yes Immunizations Current: Yes Migraines: Yes (occassionally) Radiation Therapy: No Thyroid Disease: No Past Surgical History Abdominal Surgery: Yes (CHOLECYSTECTOMY) AICD: No Appendectomy: Yes Body Medical Devices: INSULIN PUMP Cardiac Surgery: No Cholecystectomy: Yes Coronary Stent: Yes (X2) Ear Surgery: No Endocrine Surgery: No Eye Surgery: No Genitourinary Surgery: No Gynecologic Surgery: Yes (HYSTERECTOMY) Hysterectomy: Yes Insulin Pump: Yes Joint Replacement: No Oral Surgery: No Pacemaker: No Thoracic Surgery: No Other Surgery: Yes (BYPASS LEFT LEG) Social History Alcohol Use: Yes (OCCAS) Tobacco Use: No Substance Use: Yes (marijuana in the past) Allergies-Medications (Allergen,Severity, Reaction): Coded Allergies: Codeine (Verified Allergy, Mild, HIVES, 11/10/16) Glucophage (Verified Allergy, Mild, DKA, 11/10/16) Morphine (Verified Adverse Reaction, Severe, 11/10/16) vomiting Reported Meds & Prescriptions Reported Meds & Active Scripts Active Epinephrine Inj 1 Mg/Ml Inj 0.3 Mg SQ ONCE PRN Give with any signs of respiratory distress. Solu-Cortef Inj (Hydrocortisone Sodium Succinate) 250 Mg Inj 250 Mg IV PUSH ONCE PRN Give over 30-60 seconds. Cefepime Inj (Cefepime HCl) 2 Gm Inj 2 Gm IV Q8H 42 Days Reported Imitrex (Sumatriptan Succinate) 25 Mg Tab 25 Mg PO ONCE PRN If a satisfactory response has not been obtained at 2 hours, a second dose may be administered Topamax (Topiramate) 25 Mg Tab 25 Mg PO HS Lortab (Hydrocodone-Acetaminophen) 10-325 Mg Tab 1 Tab PO Q6H PRN Gabapentin 100 Mg Cap 100 Mg PO HS Atenolol 25 Mg Tab 25 Mg PO BID Mobic (Meloxicam) 15 Mg Tab 15 Mg PO DAILY Lisinopril 20 Mg Tab 20 Mg PO DAILY Clopidogrel (Clopidogrel Bisulfate) 75 Mg Tab 75 Mg PO DAILY Pravastatin 20 Mg Tab 20 Mg PO DAILY Aspir-81 (Aspirin) 81 Mg Tabdr 81 Mg PO DAILY Novolog Inj (Insulin Aspart) 1,000 Unit/10 Ml Vial SQ DIRECTED Sliding Scale via insulin pump Review of Systems Except as stated in HPI: all other systems reviewed are Neg Physical Exam Narrative GENERAL: Well-nourished and well-developed pleasant patient in no acute distress who is nontoxic appearing. SKIN: Warm and dry. Chronic wound to left second toe approximately 1 cm in diameter, no surrounding erythema or warmth, no discharge or drainage. Granulation tissue noted. HEAD: Normocephalic and atraumatic. EYES: No injection, drainage, or hyphema noted. PERRLA. EOMI. ENT: No nasal drainage noted. Oropharynx is clear. NECK: Supple and the trachea is midline. CARDIOVASCULAR: Regular rate and rhythm. RESPIRATORY: Breath sounds are equal bilaterally with no accessory muscle use, wheezing, rhonchi, or crackles. GASTROINTESTINAL: Abdomen is soft, non-tender, and nondistended. MUSCULOSKELETAL: No obvious deformities, swelling, cyanosis, or ecchymosis is present throughout the upper and lower extremities. Patient has full range of motion without any signs of neurovascular compromise. NEUROLOGICAL: Awake, alert, and oriented. Normal speech and gait. Cranial nerves are grossly intact. Data Data Last Documented VS Vital Signs Date Time Temp Pulse Resp B/P Pulse Ox O2 Delivery O2 Flow Rate FiO2 11/29/16 13:25 95 Room Air 11/29/16 11:38 98.3 71 20 162/81 Orders Electrocardiogram (11/29/16 11:54) Blood Glucose (11/29/16 11:54) Complete Blood Count With Diff (11/29/16 13:12) Comprehensive Metabolic Panel (11/29/16 13:12) Lactic Acid (11/29/16 13:12) Urinalysis - C+S If Indicated (11/29/16 13:12) Iv Access Insert/Monitor (11/29/16 13:12) Ecg Monitoring (11/29/16 13:12) Oximetry (11/29/16 13:12) Sodium Chlor 0.9% 1000 Ml Inj (Ns 1000 M (11/29/16 13:12) Sodium Chloride 0.9% Flush (Ns Flush) (11/29/16 13:15) Sodium Chlor 0.9% 1000 Ml Inj (Ns 1000 M (11/29/16 14:11) Acetamin-Hydrocod 325-5 Mg ([place] 5-325 (11/29/16 15:15) Ondansetron Inj (Zofran Inj) (11/29/16 15:15) Admit Order (Ed Use Only) (11/29/16 16:27) Labs Laboratory Tests Test 11/29/16 11/29/16 13:20 13:25 Urine Color YELLOW Urine Turbidity HAZY Urine pH 6.0 Urine Specific [place] 1.024 Urine Protein 300 mg/dL Urine Glucose (UA) NEG mg/dL Urine Ketones 10 mg/dL Urine Occult Blood MOD Urine Nitrite NEG Urine Bilirubin NEG Urine Urobilinogen LESS THAN 2.0 MG/DL Urine Leukocyte Esterase NEG Urine RBC 3 /hpf Urine WBC 5 /hpf Urine Squamous Epithelial 8 /hpf Cells Urine Amorphous Sediment FEW Urine Bacteria RARE /hpf Urine Granular Casts 4 /lpf Urine Mucus MOD /lpf Microscopic Urinalysis Comment CULT NOT INDICATED White Blood Count 6.8 TH/MM3 Red Blood Count 5.04 MIL/MM3 Hemoglobin 13.8 GM/DL Hematocrit 40.6 % Mean Corpuscular Volume 80.7 FL Mean Corpuscular Hemoglobin 27.4 PG Mean Corpuscular Hemoglobin 34.0 % Concent Red Cell Distribution Width 17.1 % Platelet Count 225 TH/MM3 Mean Platelet Volume 9.3 FL Neutrophils (%) (Auto) 54.9 % Lymphocytes (%) (Auto) 18.8 % Monocytes (%) (Auto) 17.0 % Eosinophils (%) (Auto) 5.5 % Basophils (%) (Auto) 3.8 % Neutrophils # (Auto) 3.8 TH/MM3 Lymphocytes # (Auto) 1.3 TH/MM3 Monocytes # (Auto) 1.2 TH/MM3 Eosinophils # (Auto) 0.4 TH/MM3 Basophils # (Auto) 0.3 TH/MM3 CBC Comment DIFF FINAL Differential Comment Sodium Level 137 MEQ/L Potassium Level 4.7 MEQ/L Chloride Level 109 MEQ/L Carbon Dioxide Level 15.7 MEQ/L Anion Gap 12 MEQ/L Blood Urea Nitrogen 46 MG/DL Creatinine 2.50 MG/DL Estimat Glomerular Filtration 20 ML/MIN Rate Random Glucose 122 MG/DL Lactic Acid Level 0.8 mmol/L Calcium Level 9.1 MG/DL Total Bilirubin 0.3 MG/DL Aspartate Amino Transf 17 U/L (AST/SGOT) Alanine Aminotransferase 20 U/L (ALT/SGPT) Alkaline Phosphatase 117 U/L Total Protein 8.0 GM/DL Albumin 3.2 GM/DL [facility] Medical Decision Making Medical Screen Exam Complete: Yes Emergency Medical Condition: Yes Differential Diagnosis Gastroenteritis versus pancreatitis versus dehydration versus electrolyte abnormality versus DKA Narrative Course 61-year-old female presents to the emergency department for evaluation of 4 day history of nausea and loss of appetite with 2 day history of vomiting. Patient is afebrile, vital signs are stable. Abdominal examination is benign. IV access is obtained, labs were drawn and sent. Patient is placed on cardiac telemetry and pulse oximetry monitoring. Patient is administered a liter of IV fluid. CBC is unremarkable. CMP shows elevated creatinine of 2.5, BUN 46, GFR 20. This is doubled from her previous values 2 weeks ago. Lactic acid is 0.8. Urinalysis shows 300 protein, 10 ketones, moderate occult blood, rare bacteria, moderate mucus. The patient will be admitted to the hospital for IV hydration. I discussed the case with my attending physician Dr. Shaw who is aware of the patients history, physical examination findings, and treatment plan. Physician Communication Physician Communication I spoke with Dr. Mcneil [facility] who agrees to admit the patient to her service. Diagnosis Primary Impression: ROSAURA (acute kidney injury) Additional Impression: Nausea & vomiting Qualified Code: R11.2 - Non-intractable vomiting with nausea, unspecified vomiting type Admitting Information Admitting Physician Requests: Admit Chasity Dolan Nov 29, 2016 13:14
[2016-11-29] MEDS ORDERED: SODIUM CHLORIDE 0.9% FLUSH 10 ML FLUSH IV FLUSH PRN ×2 (13:15→16:30)
[2016-11-29 13:25] VITALS: O2SAT 95
[2016-11-29 13:51] LABS: AUTOMATED NEUTROPHIL # 3.8 TH/MM3 (1.8-7.7); BASOPHIL # 0.3 TH/MM3 (0-0.2); BASOPHIL % 3.8 % (0.0-2.0); EOSINOPHIL # 0.4 TH/MM3 (0-0.4); EOSINOPHIL % 5.5 % (0.0-4.0); HEMATOCRIT 40.6 % (35.0-46.0); HEMO FLAGS DIFF FINAL; LYMPH % 18.8 % (9.0-44.0); LYMPHOCYTE # 1.3 TH/MM3 (1.0-4.8); MEAN CELL VOLUME 80.7 FL (80.0-100.0); MEAN CORPUSCULAR HEMOGLOBIN 27.4 PG (27.0-34.0); NEUT % 54.9 % (16.0-70.0); PLATELET COUNT 225 TH/MM3 (150-450); RED BLOOD COUNT 5.04 MIL/MM3 (4.00-5.30); RED CELL DISTRIBUTION WIDTH 17.1 % (11.6-17.2); WHITE BLOOD COUNT 6.8 TH/MM3 (4.0-11.0)
[2016-11-29 13:56] LABS: BACTERIA, URINE RARE /hpf; BLOOD, URINE MOD (NEG); COMMENT (UR) CULT NOT INDICATED; CULTURE IF INDICATED CULT NOT INDICATED; GLUCOSE,URINE NEG (NEG); GRANULAR CAST, URINE 4 /lpf; KETONE, URINE 10 mg/dL (NEG); MUCUS URINE MOD /lpf (OCC); NITRITE,URINE NEG (NEG); SQUAMOUS EPITHELIAL CELL URINE 8 /hpf (0-5); URINE COLOR YELLOW (YELLW/STRAW)
[2016-11-29 14:06] LABS: ANION GAP 12 MEQ/L (5-15); AST (GOT) 17 U/L (15-37); BICARBONATE 15.7 MEQ/L (21.0-32.0); BLOOD UREA NITROGEN 46 MG/DL (7-18); CHLORIDE 109 MEQ/L (98-107); GLOMERULAR FILTRATION RATE 20 ML/MIN (>89); POTASSIUM 4.7 MEQ/L (3.5-5.1); SODIUM (NA) 137 MEQ/L (136-145)
[2016-11-29 14:09] LABS: ALKALINE PHOSPHATASE 117 U/L (45-117); ALT (GPT) 20 U/L (10-53); TOTAL BILIRUBIN ADULT 0.3 MG/DL (0.2-1.0)
[2016-11-29] MEDS ORDERED: ONDANSETRON HCL 4 MG/2 ML VIAL IV PUSH ONE (15:15)
[2016-11-29] MEDS ORDERED: ACETAMINOPHEN/HYDROcodone 325 MG/5 MG TAB PO ONE (15:15)
[2016-11-29] MEDS ORDERED: MAGNESIUM HYDROXIDE SUSP 30 ML CUP PO PRN (16:30)
[2016-11-29 16:40] VITALS: O2SAT 98
[2016-11-29] MEDS ORDERED: DEXTROSE 50% IN WATER 50 ML VIAL(D50) IV PUSH PRN (16:45)
[2016-11-29] MEDS ORDERED: GLUCAGON 1 MG/ML VIAL OTHER PRN (16:45)
--- NOTE | 2016-11-29 17:36 | RADRPT ---
EXAM DATE/TIME: 11/29/2016 16:58 [facility] COMPARISON: No previous studies available for comparison. INDICATIONS : Increased BUN/creatinine. MEDICAL HISTORY : Osteoporosis. Myocardial infarction. Arthritis. Glaucoma. Neuropathy to bilateral feet. HTN. Diabetes . Anxiety. Substance use. Hepatitis as a child. Anticoauglant therapy, Aspirin and Plavix. SURGICAL HISTORY : Coronary artery stent. Cholecystectomy. Appendectomy. Hysterectomy. Bypass left leg. ENCOUNTER: Initial ACUITY: 1 day PAIN SCORE: 0/10 LOCATION: Bilateral flank MEASUREMENTS: RIGHT KIDNEY: 9.1 x 4.8 x 4.3 cm LEFT KIDNEY: 9.2 x 3.8 x 4.4 cm FINDINGS: RIGHT KIDNEY: Renal cortex is normal in thickness and echotexture. No hydronephrosis, stone, or mass. LEFT KIDNEY: Renal cortex is normal in thickness and echotexture. No hydronephrosis, stone, or mass. BLADDER: Nondistended. CONCLUSION: Negative renal sonogram. [place] Narvaez MD on November 29, 2016 at 17:34 Board Certified Radiologist. This report was verified electronically.
--- NOTE | 2016-11-29 18:11 | HHI.HP ---
HPI Service [facility] Hospitalists Primary Care Physician Kain Chau DO Admission Diagnosis ROSAURA, Nausea and Vomiting Diagnoses: Chief Complaint: N/V Poor appetite Increased fatigue Left toe pain Travel History International Travel<30 Days: No Contact w/Intl Traveler <30 Da: No Traveled to Known Affected Are: No History of Present Illness This is a 61-year-old female with a past medical history significant for diabetes mellitus status post insulin pump implantation with multiple hospitalizations secondary to DKA, left foot osteomyelitis currently receiving antibiotic therapy through a PICC line, coronary artery disease with recent NM status post stent implantation July 2016, HTN, peripheral neuropathy, peripheral vascular disease, migraines and dyslipidemia who presents to [facility] ED with complaints of decreased appetite and nausea/vomiting for the past 2-3 days. Patient states she's not been eating her normal amount because to just does not seem appealing to her. She reports increased fatigue. She states she's had several episodes of nausea and vomiting occurring 1-2 times for the past 2 days and noticed a small amount of blood in the vomitus yesterday. She also states that she had a small amount of blood in the mucus after she blew her nose earlier today. She also reports that she feels that her skin is warm but she has not taken her temperature at home. She denies any palpitations, dizziness, lightheadedness, shortness of breath, chest pain, abdominal pain, diarrhea or constipation. She denies any complaints of black/ tarry/bloody stools. In the ED, patient was found to have elevated creatinine level of 2.50. Blood glucose is controlled at 122. Lactic acid was 0.8 and white count was 6.8. Review of Systems Except as stated in HPI: all other systems reviewed are Neg (10 point review of systems completed and all pertinents negative except as stated in the history of present illness) Past Family Social History Past Medical History Diabetes s/p implantation of insulin pump Hyperlipidemia Migraines Chronic pain Peripheral arterial disease Coronary artery disease with coronary stent 2 08/11/16 Peripheral neuropathy Hypertension Lexiscan 05/29 with severe nonreversible apical perfusion abnormality Past Surgical History Hysterectomy Insulin pump placed 4-5 years ago Cholecystectomy Coronary stents discussed 08/11/16 done in [place] Left femoral popliteal bypass 02/25/16 (Dr. Galloway) Reported Medications Imitrex (Sumatriptan Succinate) 25 Mg Tab 25 Mg PO ONCE PRN If a satisfactory response has not been obtained at 2 hours, a second dose may be administered Topamax (Topiramate) 25 Mg Tab 25 Mg PO HS Lortab (Hydrocodone-Acetaminophen) 10-325 Mg Tab 1 Tab PO Q6H PRN Gabapentin 100 Mg Cap 100 Mg PO HS Atenolol 25 Mg Tab 25 Mg PO BID Mobic (Meloxicam) 15 Mg Tab 15 Mg PO DAILY Lisinopril 20 Mg Tab 20 Mg PO DAILY Clopidogrel (Clopidogrel Bisulfate) 75 Mg Tab 75 Mg PO DAILY Pravastatin 20 Mg Tab 20 Mg PO DAILY Aspir-81 (Aspirin) 81 Mg Tabdr 1 Tab PO DAILY Novolog Inj (Insulin Aspart) 1,000 Unit/10 Ml Vial 1 Units SQ DIRECTED Flagyl (Metronidazole) 500 Mg Tab 500 Mg PO TID 42 Days Cefepime Inj (Cefepime HCl) 2 Gm Inj 2 Gm IV Q8H 42 Days Allergies: Coded Allergies: Codeine (Verified Allergy, Mild, HIVES, 11/10/16) Glucophage (Verified Allergy, Mild, DKA, 11/10/16) Morphine (Verified Adverse Reaction, Severe, 11/10/16) vomiting Active Ordered Medications Current Medications Medications (Trade) Dose Ordered Sig/Judah Route Start Time Stop Time Status Last Admin (NS 1000 ml Inj) 1,000 ml @ 100 mls/hr Q10H IV 11/29/16 17:00 (NS Flush) 2 ml UNSCH PRN IV FLUSH 11/29/16 16:30 (NS Flush) 2 ml BID IV FLUSH 11/29/16 21:00 (Tylenol) 650 mg Q4H PRN PO 11/29/16 16:30 (Zofran Inj) 4 mg Q6H PRN IVP 11/29/16 16:30 (Colace) 100 mg Q12H PO 11/29/16 17:00 (Milk Of Magnesia Liq) 30 ml Q12H PRN PO 11/29/16 16:30 (Restoril) 15 mg HS PRN PO 11/29/16 21:00 (Lovenox Inj) 30 mg Q24H SQ 11/29/16 17:00 (D50w (Vial) Inj) 25 ml UNSCH PRN IV PUSH 11/29/16 16:45 (Glucagon Inj) 1 mg UNSCH PRN OTHER 11/29/16 16:45 Family History Mom had heart disease, previous NM, hypertension, age 60s Father had liver disease, COPD, alcoholism Social History Patient reports a history of tobacco use of 1 - 1 1/2 half packs per day for 20 years but quit 11 months ago. Patient admits to occasional alcohol consumption but states she's not had any alcoholic beverages for the past 6 months. Patient reports previous marijuana use but has not used in the past 6 months. Patient is currently on disability due to chronic pain and arthralgias. Physical Exam Vital Signs Vital Signs Date Time Temp Pulse Resp B/P Pulse Ox O2 Delivery O2 Flow Rate FiO2 11/29/16 16:40 98 21 11/29/16 13:25 95 Room Air 11/29/16 11:38 98.3 71 20 162/81 99 Physical Exam GENERAL: This is a well-nourished, well-developed patient, in no apparent distress. Awake and oriented. SKIN: No rashes, ecchymoses or lesions. Cool and dry. HEAD: Atraumatic. Normocephalic. No temporal or scalp tenderness. EYES: Pupils equal round and reactive. Extraocular motions intact. No scleral icterus. No injection or drainage. ENT: Nose without bleeding, purulent drainage or septal hematoma. NECK: Trachea midline. No JVD or lymphadenopathy. Supple, nontender, no meningeal signs. CARDIOVASCULAR: Regular rate and rhythm without murmurs, gallops, or rubs. RESPIRATORY: Clear to auscultation. Breath sounds equal bilaterally. No wheezes , rales, or rhonchi. GASTROINTESTINAL: Abdomen soft, non-tender, nondistended. No hepato-splenomegaly , or palpable masses. No guarding. MUSCULOSKELETAL: Extremities without clubbing, cyanosis, or edema. No joint tenderness, effusion, or edema noted. No calf tenderness. Left foot wound wrapped in gauze, did not take down dressing. NEUROLOGICAL: Awake and alert. Able to move all 4 extremity. No focal neurologic findings appreciated on exam. Normal speech. Laboratory Laboratory Tests Test 11/29/16 11/29/16 13:20 13:25 Urine Color YELLOW Urine Turbidity HAZY Urine pH 6.0 Urine Specific [place] 1.024 Urine Protein 300 Urine Glucose (UA) NEG Urine Ketones 10 Urine Occult Blood MOD Urine Nitrite NEG Urine Bilirubin NEG Urine Urobilinogen LESS THAN 2.0 Urine Leukocyte Esterase NEG Urine RBC 3 Urine WBC 5 Urine Squamous Epithelial 8 Cells Urine Amorphous Sediment FEW Urine Bacteria RARE Urine Granular Casts 4 Urine Mucus MOD Microscopic Urinalysis Comment CULT NOT INDICATED White Blood Count 6.8 Red Blood Count 5.04 Hemoglobin 13.8 Hematocrit 40.6 Mean Corpuscular Volume 80.7 Mean Corpuscular Hemoglobin 27.4 Mean Corpuscular Hemoglobin 34.0 Concent Red Cell Distribution Width 17.1 Platelet Count 225 Mean Platelet Volume 9.3 Neutrophils (%) (Auto) 54.9 Lymphocytes (%) (Auto) 18.8 Monocytes (%) (Auto) 17.0 Eosinophils (%) (Auto) 5.5 Basophils (%) (Auto) 3.8 Neutrophils # (Auto) 3.8 Lymphocytes # (Auto) 1.3 Monocytes # (Auto) 1.2 Eosinophils # (Auto) 0.4 Basophils # (Auto) 0.3 CBC Comment DIFF FINAL Differential Comment Sodium Level 137 Potassium Level 4.7 Chloride Level 109 Carbon Dioxide Level 15.7 Anion Gap 12 Blood Urea Nitrogen 46 Creatinine 2.50 Estimat Glomerular Filtration 20 Rate Random Glucose 122 Lactic Acid Level 0.8 Calcium Level 9.1 Total Bilirubin 0.3 Aspartate Amino Transf 17 (AST/SGOT) Alanine Aminotransferase 20 (ALT/SGPT) Alkaline Phosphatase 117 Total Protein 8.0 Albumin 3.2 Result Diagram: 11/29/16 1325 11/29/16 1325 Imaging Assessment and Plan Assessment and Plan 61-year-old female with a past medical history significant for diabetes mellitus status post insulin pump implantation with multiple hospitalizations secondary to DKA, left foot osteomyelitis currently receiving antibiotic therapy through a PICC line, coronary artery disease with recent NM status post stent implantation July 2016, HTN, peripheral neuropathy, peripheral vascular disease, migraines and dyslipidemia who presents to [facility] ED with complaints of decreased appetite and nausea/vomiting for the past 2-3 days. ROSAURA - suspect prerenal secondary to dehydration, N/V and poor oral intake - IVF - avoid nephrotoxic agents - Renal US ordered - repeat lab in am to monitor trend - IV Zofran prn - hold home Lisinopril dose - diabetic/renal/heart healthy diet DM - ISS - accluma - A1c 7.8 11/12/16 Left 2nd toe osteomyelitis - patient has PICC line in place for ongoing IV abx treatment - hold IV Cefepime 2gm q 8hrs and po Flagyl 500mg po TID - stop date 12/28/16 - Consult ID for their input. - Consult podiatry - Lortab prn with Morphine for breakthrough pain HTN/CAD/s/p NM with cardiac stents - not controlled at present - resume home medications except for ACEI - ASA daily - monitor BP and adjust treatment accordingly - clonidine prn with parameters PAD - resume home Plavix Dyslipidemia - resume home Pravastatin dose Peripheral neuropathy - resume home Gabapentin Migraines - Topamax qhs per home schedule - Imitrex prn DVT prophylaxis - Lovenox sq Written by Tammy Emmanuel PA-C acting as scribe for Dr. Mcneil on 11/29/16 at 17:45. This note was transcribed by scribe TAMMY WRIGHT I, Dr. Elizabeth Mcneil personally performed the history, physical exam, and medical decision making; and confirmed the accuracy of the information in the transcribed note. Authenticated by Dr. Elizabeth Mcneil on 11/29/16 at 17:45. Physician Certification 2 Midnight Certification Type: Admission for Inpatient Services Order for Inpatient Services The services are ordered in accordance with Medicare regulations or non- Medicare payer requirements, as applicable. In the case of services not specified as inpatient-only, they are appropriately provided as inpatient services in accordance with the 2-midnight benchmark. Estimated LOS (days): 2 2 days is the estimated time the patient will need to remain in the hospital, assuming treatment plan goals are met and no additional complications. Post-Hospital Plan: Not yet determined Tammy Emmanuel Nov 29, 2016 18:11 Elizabeth Mcneil MD Nov 29, 2016 18:44
[2016-11-29] MEDS ORDERED: SUMAtriptan SUCCINATE 25 MG TAB PO PRN (18:30)
[2016-11-29] MEDS ORDERED: MORPHINE SULFATE 4 MG/ML INJ IV PUSH PRN (18:45)
[2016-11-29] MEDS: ONDANSETRON HCL 4 MG/2 ML VIAL IVP PRN (18:47)
[2016-11-29] MEDS: DOCUSATE SODIUM 100 MG CAP PO SCH (18:47)
[2016-11-29] MEDS: ENOXAPARIN SODIUM 30 MG/0.3 ML SYRINGE SQ SCH (18:48)
[2016-11-29] MEDS: ACETAMINOPHEN/HYDROcodone 325 MG/10 MG TAB PO PRN (19:26)
[2016-11-29] MEDS: INSULIN ASPART SUPPLEMENTAL SCALE SQ SCH (21:00)
[2016-11-29] MEDS: ATENOLOL 25 MG TAB PO SCH (21:36)
[2016-11-29] MEDS: TOPIRAMATE 25 MG TAB PO SCH (21:36)
[2016-11-29] MEDS: SODIUM CHLORIDE 0.9% FLUSH 10 ML FLUSH IV FLUSH SCH (21:36)
[2016-11-29] MEDS: GABAPENTIN 100 MG CAP PO SCH (21:36)
[2016-11-29 21:43] VITALS: BP 128/60; PULSE 16; PULSE 80; RESP 16; O2SAT 98
--- NOTE | 2016-11-29 23:46 | EKG ---
Date Performed: 11/29/2016 Time Performed: 12:32:10 PTAGE: 61 years EKG: Sinus rhythm POSSIBLE RIGHT ATRIAL ENLARGEMENT LEFT ATRIAL ENLARGEMENT LATERAL AND INFERIOR ST DEPRESSIONS, POSSI BLE ISCHEMIA ABNORMAL ECG PREVIOUS TRACING : 11/11/2016 07.03 Compared to the previous tracing, rate has decreased DOCTOR: Ruy Briones Interpretating Date/Time 11/29/2016 23:45:28
[2016-11-30 00:17] VITALS: BP 140/97; PULSE 75; RESP 20; TEMP 98.3; O2SAT 96
[2016-11-30] MEDS: DOCUSATE SODIUM 100 MG CAP PO SCH ×2 (05:00→16:47)
[2016-11-30] MEDS: ACETAMINOPHEN/HYDROcodone 325 MG/10 MG TAB PO PRN ×2 (05:08→13:54)
[2016-11-30 05:15] VITALS: BP 150/70; PULSE 68; RESP 20; TEMP 98.6; O2SAT 100
[2016-11-30] MEDS: INSULIN ASPART SUPPLEMENTAL SCALE SQ SCH ×4 (05:55→21:00)
[2016-11-30 08:03] VITALS: BP 143/62; PULSE 72; RESP 20; TEMP 97.3; O2SAT 100
[2016-11-30] MEDS: ATENOLOL 25 MG TAB PO SCH ×2 (09:05→22:22)
[2016-11-30] MEDS: PRAVASTATIN SOD 20 MG TAB PO SCH (09:05)
[2016-11-30] MEDS: ASPIRIN EC 81 MG TABEC PO SCH (09:05)
[2016-11-30] MEDS: SODIUM CHLORIDE 0.9% FLUSH 10 ML FLUSH IV FLUSH SCH ×2 (09:05→22:21)
[2016-11-30] MEDS: CLOPIDOGREL 75 MG TAB PO SCH (09:05)
[2016-11-30 09:41] LABS: ALKALINE PHOSPHATASE 101 U/L (45-117); ALT (GPT) 15 U/L (10-53); ANION GAP 10 MEQ/L (5-15); AST (GOT) 13 U/L (15-37); BICARBONATE 14.6 MEQ/L (21.0-32.0); BLOOD UREA NITROGEN 40 MG/DL (7-18); CHLORIDE 115 MEQ/L (98-107); GLOMERULAR FILTRATION RATE 21 ML/MIN (>89); POTASSIUM 4.3 MEQ/L (3.5-5.1); SODIUM (NA) 140 MEQ/L (136-145); TOTAL BILIRUBIN ADULT 0.3 MG/DL (0.2-1.0)
--- NOTE | 2016-11-30 11:54 | RADRPT ---
EXAM DATE/TIME: 11/30/2016 11:19 [facility] COMPARISON: FOOT LEFT COMPLETE ([id number]), November 11, 2016, 13:40. INDICATIONS : Left foot pain. Patient has a sore on tip of 2nd digit. MEDICAL HISTORY : Hypertension. SURGICAL HISTORY : Hysterectomy. Cholecystectomy ENCOUNTER: Initial ACUITY: 3 weeks PAIN SCORE: 8/10 LOCATION: Left Foot. FINDINGS: There is deformity at the 1st metatarsal phalangeal joint with moderate angulation. Degenerate ponce es are evident with hypertrophic changes about the joint. There is some soft tissue swelling about the 2nd digit without obvious osteomyelitis. CONCLUSION: 1. Deformity about the 1st metatarsal phalangeal joint. 2. Soft tissue swelling 2nd digit without osteomyelitis. Perico Novak MD FACR on November 30, 2016 at 11:39 Board Certified Radiologist. This report was verified electronically.
[2016-11-30 12:20] VITALS: BP 145/68; PULSE 75; RESP 18; TEMP 98.7; O2SAT 100
--- NOTE | 2016-11-30 12:25 | PD.CONS ---
History of Present Illness Service podiatry Consult Requested By ED Reason for Consult L 2nd toe infection/osteomyelitis Primary Care Physician Kain Chau DO Diagnoses: History of Present Illness Patient relates long history of nonhealing very painful wound L 2nd toe with osteomyelitis and has been on IV antibiotics for treatment, as well as local wound care, without resolution of symptoms. She states she was already scheduled outpatient to have vascular surgery later this month and is requesting her surgeon be consulted. Past Family Social History Allergies: Coded Allergies: Codeine (Verified Allergy, Mild, HIVES, 11/10/16) Glucophage (Verified Allergy, Mild, DKA, 11/10/16) Morphine (Verified Adverse Reaction, Severe, 11/10/16) vomiting Past Medical History Diabetes s/p implantation of insulin pump Hyperlipidemia Migraines Chronic pain Peripheral arterial disease Coronary artery disease with coronary stent 2 08/11/16 Peripheral neuropathy Hypertension Lexiscan 05/29 with severe nonreversible apical perfusion abnormality Past Surgical History Hysterectomy Insulin pump placed 4-5 years ago Cholecystectomy Coronary stents discussed 08/11/16 done in [place] Left femoral popliteal bypass 02/25/16 (Dr. Galloway) Active Ordered Medications Current Medications Medications (Trade) Dose Ordered Sig/Judah Route Start Time Stop Time Status Last Admin (NS 1000 ml Inj) 1,000 ml @ 100 mls/hr Q10H IV 11/29/16 17:00 11/29/16 18:47 (NS Flush) 2 ml UNSCH PRN IV FLUSH 11/29/16 16:30 (NS Flush) 2 ml BID IV FLUSH 11/29/16 21:00 11/30/16 09:05 (Tylenol) 650 mg Q4H PRN PO 11/29/16 16:30 (Zofran Inj) 4 mg Q6H PRN IVP 11/29/16 16:30 11/29/16 18:47 (Colace) 100 mg Q12H PO 11/29/16 17:00 11/30/16 05:00 (Milk Of Magnesia Liq) 30 ml Q12H PRN PO 11/29/16 16:30 (Restoril) 15 mg HS PRN PO 11/29/16 21:00 (Lovenox Inj) 30 mg Q24H SQ 11/29/16 17:00 11/29/16 18:48 (D50w (Vial) Inj) 25 ml UNSCH PRN IV PUSH 11/29/16 16:45 11/29/16 22:13 (Glucagon Inj) 1 mg UNSCH PRN OTHER 11/29/16 16:45 (Ecotrin Ec) 81 mg DAILY PO 11/30/16 09:00 11/30/16 09:05 (Tenormin) 25 mg BID PO 11/29/16 21:00 11/30/16 09:05 (Plavix) 75 mg DAILY PO 11/30/16 09:00 11/30/16 09:05 (Neurontin) 100 mg HS PO 11/29/16 21:00 11/29/16 21:36 ([place] 10-325 Mg) 1 tab Q6H PRN PO 11/29/16 18:30 11/30/16 05:08 (Pravachol) 20 mg DAILY PO 11/30/16 09:00 11/30/16 09:05 (Imitrex) 25 mg ONCE PRN PO 11/29/16 18:30 12/02/16 18:29 (Topamax) 25 mg HS PO 11/29/16 21:00 11/29/16 21:36 (Morphine Inj) 2 mg Q3H PRN IV PUSH 11/29/16 18:45 (Catapres) 0.1 mg Q6H PRN PO 11/29/16 18:45 Social History Patient reports a history of tobacco use of 1 - 1 1/2 half packs per day for 20 years but states she quit 11 months ago. Patient admits to occasional alcohol consumption, previous marijuana use Physical Exam Vital Signs Vital Signs Date Time Temp Pulse Resp B/P Pulse Ox O2 Delivery O2 Flow Rate FiO2 11/30/16 08:03 97.3 72 20 143/62 100 11/30/16 05:55 16 11/30/16 05:15 98.6 68 20 150/70 100 11/30/16 00:17 98.3 75 20 140/97 96 11/29/16 21:43 80 16 128/60 98 Room Air 11/29/16 16:40 98 21 11/29/16 13:25 95 Room Air Physical Exam L medial 2nd digit PIP joint area has open lesion with exposed joint capsule 1cm diameter with serous drainage. No active purulent drainage at this time. Mild erythema to digit. Severe pain to palpation to wound area. Hallux overlaps 2nd toe, at area of ulceration. Nonpalpable pedal pulses. Warm skin temperature. Laboratory Laboratory Tests Test 11/29/16 11/29/16 11/30/16 13:20 13:25 08:26 Urine Color YELLOW Urine Turbidity HAZY Urine pH 6.0 Urine Specific [place] 1.024 Urine Protein 300 Urine Glucose (UA) NEG Urine Ketones 10 Urine Occult Blood MOD Urine Nitrite NEG Urine Bilirubin NEG Urine Urobilinogen LESS THAN 2.0 Urine Leukocyte Esterase NEG Urine RBC 3 Urine WBC 5 Urine Squamous Epithelial 8 Cells Urine Amorphous Sediment FEW Urine Bacteria RARE Urine Granular Casts 4 Urine Mucus MOD Microscopic Urinalysis Comment CULT NOT INDICATED White Blood Count 6.8 Red Blood Count 5.04 Hemoglobin 13.8 Hematocrit 40.6 Mean Corpuscular Volume 80.7 Mean Corpuscular Hemoglobin 27.4 Mean Corpuscular Hemoglobin 34.0 Concent Red Cell Distribution Width 17.1 Platelet Count 225 Mean Platelet Volume 9.3 Neutrophils (%) (Auto) 54.9 Lymphocytes (%) (Auto) 18.8 Monocytes (%) (Auto) 17.0 Eosinophils (%) (Auto) 5.5 Basophils (%) (Auto) 3.8 Neutrophils # (Auto) 3.8 Lymphocytes # (Auto) 1.3 Monocytes # (Auto) 1.2 Eosinophils # (Auto) 0.4 Basophils # (Auto) 0.3 CBC Comment DIFF FINAL Differential Comment Sodium Level 137 140 Potassium Level 4.7 4.3 Chloride Level 109 115 Carbon Dioxide Level 15.7 14.6 Anion Gap 12 10 Blood Urea Nitrogen 46 40 Creatinine 2.50 2.35 Estimat Glomerular Filtration 20 21 Rate Random Glucose 122 119 Lactic Acid Level 0.8 Calcium Level 9.1 8.0 Total Bilirubin 0.3 0.3 Aspartate Amino Transf 17 13 (AST/SGOT) Alanine Aminotransferase 20 15 (ALT/SGPT) Alkaline Phosphatase 117 101 Total Protein 8.0 6.3 Albumin 3.2 2.5 Result Diagram: 11/29/16 1325 11/30/16 0826 Imaging Foot XR pending L foot. Last Impressions Renal Ultrasound 11/29/16 0000 Signed Impressions: Service Date/Time: Tuesday, November 29, 2016 16:58 - CONCLUSION: Negative renal sonogram. Berlin Narvaez MD Assessment and Plan Assessment and Plan L 2nd to osteomyelitis Consulted her vascular surgeon to attempt to coordinate her procedure with this admission vs continuing with her outpatient plan. Plan to amputate L 2nd toe to remove infected bone and reduce pain. Will attempt to get on OR schedule tomorrow afternoon and will make patient NPO after breakfast tomorrow, if able to coordinate this with OR Ita Rehman DPM Nov 30, 2016 12:25
--- NOTE | 2016-11-30 13:59 | PD.VS.CON ---
History of Present Illness Chief Complaint: Pt c/o worsening left 2nd toe pain with tissue loss Osteomyelitis Consult Requested by: Dr. Rehman History of Present Illness As written This is a 61-year-old female with a past medical history significant for diabetes mellitus status post insulin pump implantation with multiple hospitalizations secondary to DKA, left foot osteomyelitis currently receiving antibiotic therapy through a PICC line, coronary artery disease with recent [place] status post stent implantation July 2016, HTN, peripheral neuropathy, peripheral vascular disease, migraines and dyslipidemia who presents to [facility] ED with complaints of decreased appetite and nausea/vomiting for the past 2-3 days. Patient states she's not been eating her normal amount because to just does not seem appealing to her. She reports increased fatigue. She states she's had several episodes of nausea and vomiting occurring 1-2 times for the past 2 days and noticed a small amount of blood in the vomitus yesterday. She also states that she had a small amount of blood in the mucus after she blew her nose earlier today. She also reports that she feels that her skin is warm but she has not taken her temperature at home. She denies any palpitations, dizziness, lightheadedness, shortness of breath, chest pain, abdominal pain, diarrhea or constipation. She denies any complaints of black/ tarry/bloody stools. In the ED, patient was found to have elevated creatinine level of 2.50. Blood glucose is controlled at 122. Lactic acid was 0.8 and white count was 6.8. (Debbie Doran) Past/Family/Social History Past Medical History Diabetes s/p implantation of insulin pump Hyperlipidemia Migraines Chronic pain Peripheral arterial disease Coronary artery disease with coronary stent 2 08/11/16 Peripheral neuropathy Hypertension Past Surgical History Hysterectomy Insulin pump placed 4-5 years ago Cholecystectomy Coronary stents discussed 08/11/16 done in [place] Left femoral popliteal bypass 02/25/16 Social History HX of tobacco use of 1 - 1 1/2 half packs per day for 20 years but quit 11 months ago. Patient admits to occasional alcohol consumption but states she's not had any alcoholic beverages for the past 6 months. Patient reports previous marijuana use but has not used in the past 6 months Pt reported prior cocaine abuse but quit 3 years ago. Patient is currently on disability due to chronic pain and arthralgias. Family History Mom had heart disease, previous [place], hypertension, age 60s Father had liver disease, COPD, alcoholism (Debbie Doran) Home Medications Active Scripts Epinephrine Inj 1 Mg/Ml Inj0.3 Mg SQ ONCE PRN (ALLERGIC REACTION) #1 VIAL Give with any signs of respiratory distress. Prov:Anjali Cisse MD 11/15/16 Hydrocortisone Inj (Solu-Cortef Inj)250 Mg [id number] Mg IV PUSH ONCE PRN (ALLERGIC REACTION) #1 VIAL Ref 0 Give over 30-60 seconds. Prov:Anjali Cisse MD 11/15/16 Cefepime Inj 2 Gm Inj2 Gm IV Q8H 42 Days Ref 0 Prov:Anjali Cisse MD 11/15/16 Reported Medications Sumatriptan (Imitrex)25 Mg Tab25 Mg PO ONCE PRN (MIGRAINE HEADACHE) Ref 0 If a satisfactory response has not been obtained at 2 hours, a second dose may be administered 10/18/16 Topiramate (Topamax)25 Mg Tab25 Mg PO HS #60 TAB Ref 0 10/18/16 Hydrocodone-Acetaminophen (Lortab)10-325 Mg Tab1 Tab PO Q6H PRN (PAIN) Ref 0 10/18/16 Gabapentin 100 Mg Wei647 Mg PO HS #30 CAP Ref 0 10/18/16 Atenolol 25 Mg Tab25 Mg PO BID #60 TAB Ref 0 10/18/16 Meloxicam (Mobic)15 Mg Tab15 Mg PO DAILY Ref 0 10/18/16 Lisinopril 20 Mg Tab20 Mg PO DAILY #30 TAB Ref 0 10/18/16 Clopidogrel 75 Mg Tab75 Mg PO DAILY #30 TAB Ref 0 10/18/16 Pravastatin 20 Mg Tab20 Mg PO DAILY #30 TAB Ref 0 10/18/[address] (Aspir-81)81 Mg Tabdr81 Mg PO DAILY 10/18/16 Insulin Aspart Inj (Novolog Inj)1,000 Unit/10 Ml Vial SQ DIRECTED #0 ML Ref 0 Sliding Scale via insulin pump 10/18/16 Discontinued Scripts Insulin Human NPH Inj (Novolin N Inj)1,000 Unit/10 Ml Vial15 Units SQ DAILY@08 #30 INJECTION Prov:Dequan Montesinos MD 11/16/16 Metronidazole (Flagyl)500 Mg Xvh598 Mg PO TID 42 Days Ref 0 Prov:Anjali Cisse MD 11/15/16 Insulin Human NPH Inj (Novolin N Inj)1,000 Unit/10 Ml Vial7 Units SQ HS #30 INJECTION Prov:Dequan Montesinos MD 11/15/16 Coded Allergies: Codeine (Verified Allergy, Mild, HIVES, 11/10/16) Glucophage (Verified Allergy, Mild, DKA, 11/10/16) Morphine (Verified Adverse Reaction, Severe, 11/10/16) vomiting Physical Exam Vitals/I&O Date Time Temp Pulse Resp B/P Pulse Ox O2 Delivery O2 Flow Rate FiO2 11/30/16 12:20 98.7 75 18 145/68 100 11/30/16 08:03 97.3 72 20 143/62 100 11/30/16 05:55 16 11/30/16 05:15 98.6 68 20 150/70 100 11/30/16 00:17 98.3 75 20 140/97 96 11/29/16 21:43 80 16 128/60 98 Room Air 11/29/16 16:40 98 21 Neuro: Pt A&OX3 CN 2-12 intact Neck: supple Heart: RRR +S1,S2 Lungs: CTA bilat Abdomen: sofet and non tender Vascular: Bialt strong palpable femerol pulses noted + monophasic DP/PT heard via doppler (left) + triphasic DP/PT heard via doppler (right) Bilat feet warm with motor intact bilat Extremities: Left 2nd toe with tissue loss noted Left great toe deformity noted/inverts toward the 2nd toe (Debbie Doran ) Laboratory Tests Test 11/30/16 08:26 Sodium Level 140 Potassium Level 4.3 Chloride Level 115 Carbon Dioxide Level 14.6 Anion Gap 10 Blood Urea Nitrogen 40 Creatinine 2.35 Estimat Glomerular Filtration 21 Rate Random Glucose 119 Calcium Level 8.0 Total Bilirubin 0.3 Aspartate Amino Transf 13 (AST/SGOT) Alanine Aminotransferase 15 (ALT/SGPT) Alkaline Phosphatase 101 Total Protein 6.3 Albumin 2.5 Last 48 hours Impressions Renal Ultrasound 11/29/16 0000 Signed Impressions: Service Date/Time: Tuesday, November 29, 2016 16:58 - CONCLUSION: Negative renal sonogram. Berlin Narvaez MD (Debbie Doran) Assessment and Plan Assessment: (1) PAD (peripheral artery disease) Status: Chronic Plan Plan Pt scheduled for Angiogram on Monday and Distal Bypass for Mon next week with Dr. Fairbanks Recommend IV hydration (elevated Creatinine) Debbie MCELROY [facility] [phone] (Debbie Doran) Plan Pt is well known to me. I saw her with Mrs. Doran and agree with above. Recommend hydration and monitoring creatinine. Plan for angio (diagnostic) on Monday and distal bypass on Monday. Would not perform toe amputation without prior revascularization. Kit Fairbanks MD FACS glaciologist [facility] - [facility] V[facility] Surgery at [facility] (Kit Fairbanks MD) Debbie Doran Nov 30, 2016 13:59 Kit Fairbanks MD Nov 30, 2016 14:45
--- NOTE | 2016-11-30 14:52 | HHI.PR ---
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 No fever or chills overnight. Denies n/v/d/c. Was able to eat last night, decreased appetite. Feels tired Objective Vitals Vital Signs Date Time Temp Pulse Resp B/P Pulse Ox O2 Delivery O2 Flow Rate FiO2 11/30/16 12:20 98.7 75 18 145/68 100 11/30/16 08:03 97.3 72 20 143/62 100 11/30/16 05:55 16 11/30/16 05:15 98.6 68 20 150/70 100 11/30/16 00:17 98.3 75 20 140/97 96 11/29/16 21:43 80 16 128/60 98 Room Air 11/29/16 16:40 98 21 I/O 11/29/16 11/29/16 11/29/16 11/30/16 11/30/16 11/30/16 07:00 15:00 23:00 07:00 15:00 23:00 Intake Total 240 ml Balance 240 ml Intake Oral 240 ml Result Diagram: 11/29/16 1325 11/30/16 0826 Imaging Last Impressions Foot X-Ray 11/30/16 0000 Signed Impressions: Service Date/Time: Wednesday, November 30, 2016 11:19 - CONCLUSION: 1. Deformity about the 1st metatarsal phalangeal joint. 2. Soft tissue swelling 2nd digit without osteomyelitis. Perico Novak MD FACR Renal Ultrasound 11/29/16 0000 Signed Impressions: Service Date/Time: Tuesday, November 29, 2016 16:58 - CONCLUSION: Negative renal sonogram. Berlin Narvaez MD Objective Remarks GENERAL: This is a well-nourished, well-developed patient, in no apparent distress. Awake and oriented. SKIN: No rashes, ecchymoses or lesions. Cool and dry. HEAD: Atraumatic. Normocephalic. No temporal or scalp tenderness. EYES: Pupils equal round and reactive. Extraocular motions intact. No scleral icterus. No injection or drainage. ENT: Nose without bleeding, purulent drainage or septal hematoma. NECK: Trachea midline. No JVD or lymphadenopathy. Supple, nontender, no meningeal signs. CARDIOVASCULAR: Regular rate and rhythm without murmurs, gallops, or rubs. RESPIRATORY: Clear to auscultation. Breath sounds equal bilaterally. No wheezes , rales, or rhonchi. GASTROINTESTINAL: Abdomen soft, non-tender, nondistended. No hepato-splenomegaly , or palpable masses. No guarding. MUSCULOSKELETAL: Extremities without clubbing, cyanosis, or edema. No joint tenderness, effusion, or edema noted. No calf tenderness. Left foot wound wrapped in gauze, did not take down dressing. NEUROLOGICAL: Awake and alert. Able to move all 4 extremity. No focal neurologic findings appreciated on exam. Normal speech. A/P Assessment and Plan 61-year-old female with a past medical history significant for diabetes mellitus status post insulin pump implantation with multiple hospitalizations secondary to DKA, left foot osteomyelitis currently receiving antibiotic therapy through a PICC line, coronary artery disease with recent [place] status post stent implantation July 2016, HTN, peripheral neuropathy, peripheral vascular disease, migraines and dyslipidemia who presents to [facility] ED with complaints of decreased appetite and nausea/vomiting for the past 2-3 days. ROSAURA - suspect prerenal secondary to dehydration, N/V and poor oral intake - Monitor kidney function, improving - Continue IVF - avoid nephrotoxic agents - Renal US ordered - repeat lab in am to monitor trend - IV Zofran prn - hold home Lisinopril dose - diabetic/renal/heart healthy diet DM - ISS - accuchecks - A1c 7.8 11/12/16 Left 2nd toe osteomyelitis Consulted her vascular surgeon, seen by Dr Fairbanks. Pt scheduled for Angiogram on Monday and Distal Bypass for Mon next week with Dr. Fairbanks [facility] surg Plan to amputate L 2nd toe to remove infected bone and reduce pain per podiatry Dr Trejo appreciate recommendations . NPO after breakfast 12/01/16 attmept for surgery in the PM Patient has PICC line in place for ongoing IV abx treatment Hold IV Cefepime 2gm q 8hrs and po Flagyl 500mg po TID - stop date 12/28/16 - Consult ID for abx recommendations Consult podiatry Lortab prn with Morphine for breakthrough pain HTN/CAD/s/p [place] with cardiac stents - not controlled at present - resume home medications except for ACEI - ASA daily - monitor BP and adjust treatment accordingly - clonidine prn with parameters PAD - resume home Plavix Dyslipidemia - resume home Pravastatin dose Peripheral neuropathy - resume home Gabapentin Migraines - Topamax qhs per home schedule - Imitrex prn DVT prophylaxis - Lovenox sq Discussed with the patient. nurse Elizabeth Mcneli MD Nov 30, 2016 14:52
[2016-11-30 16:25] VITALS: BP 153/69; PULSE 65; RESP 20; TEMP 97.9; O2SAT 100
[2016-11-30] MEDS: ENOXAPARIN SODIUM 30 MG/0.3 ML SYRINGE SQ SCH (16:48)
--- NOTE | 2016-11-30 17:30 | PD.ID.CON ---
History of Present Illness Service ID Consult Requested By Reason for Consult Evaluation and Mment of Primary Care Physician Kain Chau DO Diagnoses: History of Present Illness is a 61 y/o CF with PMHx of DM s/p insulin pump implantation with multiple hospitalizations secondary to DKA, left foot osteomyelitis currently receiving antibiotic therapy through a PICC line(cefepime IV and flagyl oral), CAD with recent [place] status post stent implantation July 2016, HTN, peripheral neuropathy, peripheral vascular disease, migraines and dyslipidemia who presents to [facility] ED with complaints of decreased appetite and nausea/vomiting for the past 2-3 days. She reports a metallic taste and decreased appetite, reports increased fatigue. She reports not having taken the flagyl for at least 10 days now. She reports a small amount of blood in the vomitus yesterday. She reports heart burn and epigastric discomfort. She denies any fever, chills or night sweats. She denies any palpitations, dizziness, lightheadedness, shortness of breath, chest pain, abdominal pain, diarrhea or constipation. She denies any complaints of black/tarry/bloody stools. In the ED, patient was found to have elevated creatinine level of 2.50. Blood glucose is controlled at 122. Lactic acid was 0.8 and white count was 6.8. Patient now refuses any antibiotics and wants her toe amputated. Past Family Social History Allergies: Coded Allergies: Codeine (Verified Allergy, Mild, HIVES, 11/10/16) Glucophage (Verified Allergy, Mild, DKA, 11/10/16) Morphine (Verified Adverse Reaction, Severe, 11/10/16) vomiting Past Medical History Diabetes s/p implantation of insulin pump Hyperlipidemia Migraines Chronic pain Peripheral arterial disease Coronary artery disease with coronary stent 2 08/11/16 Peripheral neuropathy Hypertension Past Surgical History Hysterectomy Insulin pump placed 4-5 years ago Cholecystectomy Coronary stents discussed 08/11/16 done in [place] Left femoral popliteal bypass 02/25/16 (Dr. Galloway) Reported Medications Reported Meds & Active Scripts Active Epinephrine Inj 1 Mg/Ml Inj 0.3 Mg SQ ONCE PRN Give with any signs of respiratory distress. Solu-Cortef Inj (Hydrocortisone Sodium Succinate) 250 Mg Inj 250 Mg IV PUSH ONCE PRN Give over 30-60 seconds. Cefepime Inj (Cefepime HCl) 2 Gm Inj 2 Gm IV Q8H 42 Days Reported Imitrex (Sumatriptan Succinate) 25 Mg Tab 25 Mg PO ONCE PRN If a satisfactory response has not been obtained at 2 hours, a second dose may be administered Topamax (Topiramate) 25 Mg Tab 25 Mg PO HS Lortab (Hydrocodone-Acetaminophen) 10-325 Mg Tab 1 Tab PO Q6H PRN Gabapentin 100 Mg Cap 100 Mg PO HS Atenolol 25 Mg Tab 25 Mg PO BID Mobic (Meloxicam) 15 Mg Tab 15 Mg PO DAILY Lisinopril 20 Mg Tab 20 Mg PO DAILY Clopidogrel (Clopidogrel Bisulfate) 75 Mg Tab 75 Mg PO DAILY Pravastatin 20 Mg Tab 20 Mg PO DAILY Aspir-81 (Aspirin) 81 Mg Tabdr 81 Mg PO DAILY Novolog Inj (Insulin Aspart) 1,000 Unit/10 Ml Vial SQ DIRECTED Sliding Scale via insulin pump Active Ordered Medications Current Medications Medications (Trade) Dose Ordered Sig/Judah Route Start Time Stop Time Status Last Admin (NS 1000 ml Inj) 1,000 ml @ 100 mls/hr Q10H IV 11/29/16 17:00 11/29/16 18:47 (NS Flush) 2 ml UNSCH PRN IV FLUSH 11/29/16 16:30 (NS Flush) 2 ml BID IV FLUSH 11/29/16 21:00 11/30/16 09:05 (Tylenol) 650 mg Q4H PRN PO 11/29/16 16:30 (Zofran Inj) 4 mg Q6H PRN IVP 11/29/16 16:30 11/29/16 18:47 (Colace) 100 mg Q12H PO 11/29/16 17:00 11/30/16 16:47 (Milk Of Magnesia Liq) 30 ml Q12H PRN PO 11/29/16 16:30 (Restoril) 15 mg HS PRN PO 11/29/16 21:00 (Lovenox Inj) 30 mg Q24H SQ 11/29/16 17:00 11/30/16 16:48 (D50w (Vial) Inj) 25 ml UNSCH PRN IV PUSH 11/29/16 16:45 11/29/16 22:13 (Glucagon Inj) 1 mg UNSCH PRN OTHER 11/29/16 16:45 (Ecotrin Ec) 81 mg DAILY PO 11/30/16 09:00 11/30/16 09:05 (Tenormin) 25 mg BID PO 11/29/16 21:00 11/30/16 09:05 (Plavix) 75 mg DAILY PO 11/30/16 09:00 11/30/16 09:05 (Neurontin) 100 mg HS PO 11/29/16 21:00 11/29/16 21:36 ([place] 10-325 Mg) 1 tab Q6H PRN PO 11/29/16 18:30 11/30/16 13:54 (Pravachol) 20 mg DAILY PO 11/30/16 09:00 11/30/16 09:05 (Imitrex) 25 mg ONCE PRN PO 11/29/16 18:30 12/02/16 18:29 (Topamax) 25 mg HS PO 11/29/16 21:00 11/29/16 21:36 (Morphine Inj) 2 mg Q3H PRN IV PUSH 11/29/16 18:45 (Catapres) 0.1 mg Q6H PRN PO 11/29/16 18:45 Family History reviewed and [place] Social History reviewed Physical Exam Vital Signs Vital Signs Date Time Temp Pulse Resp B/P Pulse Ox O2 Delivery O2 Flow Rate FiO2 11/30/16 16:25 97.9 65 20 153/69 100 11/30/16 12:20 98.7 75 18 145/68 100 11/30/16 08:03 97.3 72 20 143/62 100 11/30/16 05:55 16 11/30/16 05:15 98.6 68 20 150/70 100 11/30/16 00:17 98.3 75 20 140/97 96 11/29/16 21:43 80 16 128/60 98 Room Air Physical Exam GENERAL: This is a well-nourished, well-developed patient, in no apparent distress. SKIN: No rashes, ecchymoses or lesions. Cool and dry. HEAD: Atraumatic. Normocephalic. No temporal or scalp tenderness. EYES: Pupils equal round and reactive. Extraocular motions intact. No scleral icterus. No injection or drainage. ENT: Nose without bleeding, purulent drainage or septal hematoma. Throat without erythema, tonsillar hypertrophy or exudate. Uvula midline. Airway patent. NECK: Trachea midline. No JVD or lymphadenopathy. Supple, nontender, no meningeal signs. CARDIOVASCULAR: Regular rate and rhythm without murmurs, gallops, or rubs. RESPIRATORY: Clear to auscultation. Breath sounds equal bilaterally. No wheezes , rales, or rhonchi. GASTROINTESTINAL: Abdomen soft, non-tender, nondistended. MUSCULOSKELETAL: NEUROLOGICAL: Awake and alert. Grossly non focal Psych: cooperative IV line sites with no e.o infection. Laboratory Laboratory Tests Test 11/30/16 08:26 Sodium Level 140 Potassium Level 4.3 Chloride Level 115 Carbon Dioxide Level 14.6 Anion Gap 10 Blood Urea Nitrogen 40 Creatinine 2.35 Estimat Glomerular Filtration 21 Rate Random Glucose 119 Calcium Level 8.0 Total Bilirubin 0.3 Aspartate Amino Transf 13 (AST/SGOT) Alanine Aminotransferase 15 (ALT/SGPT) Alkaline Phosphatase 101 Total Protein 6.3 Albumin 2.5 Result Diagram: 11/29/16 1325 11/30/16 0826 Imaging Last Impressions Foot X-Ray 11/30/16 0000 Signed Impressions: Service Date/Time: Wednesday, November 30, 2016 11:19 - CONCLUSION: 1. Deformity about the 1st metatarsal phalangeal joint. 2. Soft tissue swelling 2nd digit without osteomyelitis. Perico Novak MD FACR Renal Ultrasound 11/29/16 0000 Signed Impressions: Service Date/Time: Tuesday, November 29, 2016 16:58 - CONCLUSION: Negative renal sonogram. Berlin Narvaez MD Assessment and Plan Assessment and Plan 2nd left toe osteomyelitis PICC line in place DM insulin pump dependent. ? compliance admitted with DKA few times CAD s.p stent Acute renal failure: prerenal, meds (was on DU-I, Lortab, Gabapentin) PAD and PVD. Recs: Observe off antibiotics. Patient tells me Podiatry plans on amputation in am. If any change in clinical condition s/o sepsis ok to start Zyvox IV and Meropenem IV (Cefepime induced ? AIN) Follow cultures Follow clinically. Anjali Cisse MD Nov 30, 2016 17:30
[2016-11-30 20:26] VITALS: BP 150/74; PULSE 81; RESP 18; TEMP 97.9; O2SAT 96
[2016-11-30] MEDS: TOPIRAMATE 25 MG TAB PO SCH (21:00)
[2016-11-30] MEDS: GABAPENTIN 100 MG CAP PO SCH (22:22)
[2016-11-30] MEDS: SODIUM BICARBONATE 8.4% INJ 75 MEQ in SODIUM CHLOR 0.45% 1000 ML INJ 1,000 ML IV SCH (22:37)
[2016-12-01 01:27] VITALS: BP 144/73; PULSE 84; RESP 18; TEMP 97.9; O2SAT 96
[2016-12-01] MEDS: DOCUSATE SODIUM 100 MG CAP PO SCH ×2 (06:36→17:00)
[2016-12-01] MEDS: INSULIN ASPART SUPPLEMENTAL SCALE SQ SCH ×4 (06:40→21:41)
--- NOTE | 2016-12-01 06:55 | MB ---
cc: PITO VARELA MD DATE OF CONSULTATION 11/30/2016 REASON FOR CONSULTATION Elevated BUN and creatinine for evaluation. HISTORY OF PRESENT ILLNESS This is a 61-year-old female with a past medical history of hypertension, diabetes mellitus, hyperlipidemia, peripheral neuropathy, infection in the left big toe, history of recurrent, acute kidney injury in the past, was admitted because of nausea, vomiting and decreased appetite. I was called to see the patient because of elevated BUN and creatinine. The patient denies any previous history of renal disease and creatinine was 0.8-0.9 in the beginning of this month but she had acute kidney injury last month with the creatinine going up to as high as 2.0 and before that looking back it seems like she has creatinine of 1.18 in 2015 and 1.6 also in 2007. The patient denies any known history of renal disease. She has not seen any cone picker before. She was following with Dr. Cisse, Infectious Disease and getting antibiotic for her left big toe infection. She has no known history of diabetic retinopathy but clinically she has neuropathy. She started having this vomiting the last 2 to 3 days, 2 to 3 times per day and she was not eating well. There is no dysuria, hematuria or difficulty in passing urine. She did not notice any disease in the urine output. She denies taking nonsteroidal anti-inflammatory drugs. PAST MEDICAL HISTORY 1. Hypertension. 2. Diabetes mellitus. 3. Hyperlipidemia. 4. Peripheral vascular disease. 5. Ischemic heart disease. 6. History of recurrent acute kidney injury. PAST SURGICAL HISTORY 1. Hysterectomy. 2. Cholecystectomy. 3. Cardiac catheterization with stent placement. 4. Left fem-pop bypass. 5. Hysterectomy. REVIEW OF SYSTEMS Denies any history of fever. No sore throat. No headache, dizziness or blurring of vision. The patient denies any history of diabetic retinopathy and no shortness of breath. No chest pain. She has this nausea, vomiting and decreased appetite going on for the last 2 to 3 days, vomiting about 2 to 3 times per day. There is no blood in the vomitus. There is no history of diarrhea. No dysuria, hematuria or difficulty in passing urine. No history of renal stone. Not taking any nonsteroidal anti-inflammatory drugs. SOCIAL HISTORY The patient has a history of smoking, stopped about a year ago. There is no history of heavy alcoholism. FAMILY HISTORY Positive for heart disease from the mother's side and father has COPD and alcoholism. ALLERGIES CODEINE. GLUCOPHAGE. MORPHINE. MEDICATIONS Currently she is on following medications - 1. IV fluid normal saline at 800 an hour. 2. Atenolol 25 mg b.i.d. 3. Aspirin 81 mg once a day. 4. Plavix 75 mg daily. 5. Pravachol 20 mg once a day. 6. Neurontin 100 mg q.h.s. 7. Topamax 25 mg q.h.s. 8. Colace 100 mg q.12 hours. 9. Lovenox 30 mg subcu q.24 hours. 10. Sodium nitroprusside infusion with titration. 11. Reglan as needed. PHYSICAL EXAMINATION GENERAL: On examination the patient is awake, alert. She is not in acute distress. VITAL SIGNS: Her last blood pressure is 150/74 temperature 97.9, oxygen saturation is 96-100% on room air. There was no hypotensive episode during this admission. HEENT: Pupils equally reacting to light. Nonicteric sclerae. Conjunctivae are normal. NECK: Supple. JVD is not elevated. LUNGS: The patient has bilateral decreased air entry with occasional wheezing. HEART: S1, S2. Regular rhythm. ABDOMEN: Soft, lax. There is no tenderness. Bowel sounds positive. EXTREMITIES: There is no pedal edema. INVESTIGATIONS WBC count is 6.8, hemoglobin 13.8, platelet count of 225, neutrophils 54.9. Sodium 140, potassium 4.3, chloride 115, bicarb 14.6, BUN 40, creatinine 2.35. Calcium 8.0, AST is 13, ALT is 15, total protein 6.3. Albumin is 2.5. Urinalysis showing that she has proteinuria of 300, specific gravity 1.024. IMAGING STUDIES The patient has ultrasound of the kidneys done which shows that both kidneys are normal in size and there is no hydronephrosis. Foot x-ray was done which shows deformity of the first metatarsophalangeal joint, soft tissue swelling without any osteomyelitis. ASSESSMENT AND PLAN 1. Acute kidney injury. 2. Metabolic acidosis. 3. Peripheral vascular disease. 4. Infection of the left big toe. 5. Hypertension. 6. Diabetes mellitus. The patient has acute kidney injury and the differential diagnosis is either prerenal or possibility of interstitial nephritis. She possibly has underlying diabetic or hypertensive renal disease with proteinuria and mild dysfunction and recurrent acute kidney injuries. At present I agree with continuing the IV fluids. I will add sodium bicarbonate since her bicarb is low and also check a urine sodium and osmolality along with eosinophils. Follow the urine output and the BUN and creatinine. Avoid any nephrotoxins. Thank you for the consultation. I will follow the patient while she is in the hospital. MD SILAS Solis/JACOB /8:53 PM /6:39 AM
[2016-12-01 07:13] VITALS: BP 150/72; PULSE 68; RESP 18; TEMP 97.6; O2SAT 100
[2016-12-01 08:06] LABS: AUTOMATED NEUTROPHIL # 1.8 TH/MM3 (1.8-7.7); BASOPHIL # 0.1 TH/MM3 (0-0.2); BASOPHIL % 2.7 % (0.0-2.0); EOSINOPHIL # 0.3 TH/MM3 (0-0.4); EOSINOPHIL % 7.9 % (0.0-4.0); HEMATOCRIT 31.6 % (35.0-46.0); HEMO FLAGS DIFF FINAL; LYMPH % 32.5 % (9.0-44.0); LYMPHOCYTE # 1.4 TH/MM3 (1.0-4.8); MEAN CELL VOLUME 81.1 FL (80.0-100.0); MEAN CORPUSCULAR HEMOGLOBIN 26.9 PG (27.0-34.0); MEAN CORPUSCULAR HGB CONC 33.2 % (32.0-36.0); MONO % 17.1 % (0.0-8.0); NEUT % 39.8 % (16.0-70.0); PLATELET COUNT 142 TH/MM3 (150-450); RED BLOOD COUNT 3.89 MIL/MM3 (4.00-5.30); RED CELL DISTRIBUTION WIDTH 17.6 % (11.6-17.2); WHITE BLOOD COUNT 4.4 TH/MM3 (4.0-11.0)
[2016-12-01 08:29] LABS: BICARBONATE 16.2 MEQ/L (21.0-32.0); POTASSIUM 3.9 MEQ/L (3.5-5.1)
--- NOTE | 2016-12-01 08:40 | HHI.PR ---
Subjective Remarks Patient in bed, says pain in her leg is fairly controlled by meds. No n/v/d/c. Denies chest pain or sob. Feels tired. Says she is drinking water and is urinating a lot. Objective Vitals Vital Signs Date Time Temp Pulse Resp B/P Pulse Ox O2 Delivery O2 Flow Rate FiO2 12/01/16 07:13 97.6 68 18 150/72 100 12/01/16 03:13 21 12/01/16 01:27 97.9 84 18 144/73 96 11/30/16 20:26 97.9 81 18 150/74 96 11/30/16 16:25 97.9 65 20 153/69 100 11/30/16 12:20 98.7 75 18 145/68 100 I/O 11/30/16 11/30/16 11/30/16 12/01/16 12/01/16 12/01/16 07:00 15:00 23:00 07:00 15:00 23:00 Intake Total 1631 ml Balance 1631 ml Intake Oral 820 ml IV Total 811 ml # Voids 3 Result Diagram: 12/01/16 0626 12/01/16 0626 Imaging Last Impressions Foot X-Ray 11/30/16 0000 Signed Impressions: Service Date/Time: Wednesday, November 30, 2016 11:19 - CONCLUSION: 1. Deformity about the 1st metatarsal phalangeal joint. 2. Soft tissue swelling 2nd digit without osteomyelitis. Perico Novak MD FACR Renal Ultrasound 11/29/16 0000 Signed Impressions: Service Date/Time: Tuesday, November 29, 2016 16:58 - CONCLUSION: Negative renal sonogram. Berlin Narvaez MD Objective Remarks GENERAL: This is a well-nourished, well-developed patient, in no apparent distress. Awake and oriented. SKIN: No rashes, ecchymoses or lesions. Cool and dry. HEAD: Atraumatic. Normocephalic. No temporal or scalp tenderness. EYES: Pupils equal round and reactive. Extraocular motions intact. No scleral icterus. No injection or drainage. ENT: Nose without bleeding, purulent drainage or septal hematoma. NECK: Trachea midline. No JVD or lymphadenopathy. Supple, nontender, no meningeal signs. CARDIOVASCULAR: Regular rate and rhythm without murmurs, gallops, or rubs. RESPIRATORY: Clear to auscultation. Breath sounds equal bilaterally. No wheezes , rales, or rhonchi. GASTROINTESTINAL: Abdomen soft, non-tender, nondistended. No hepato-splenomegaly , or palpable masses. No guarding. MUSCULOSKELETAL: Extremities without clubbing, cyanosis, or edema. No joint tenderness, effusion, or edema noted. No calf tenderness. Left foot wound wrapped in gauze, did not take down dressing. NEUROLOGICAL: Awake and alert. Able to move all 4 extremity. No focal neurologic findings appreciated on exam. Normal speech. A/P Assessment and Plan 61-year-old female with a past medical history significant for diabetes mellitus status post insulin pump implantation with multiple hospitalizations secondary to DKA, left foot osteomyelitis currently receiving antibiotic therapy through a PICC line, coronary artery disease with recent MT status post stent implantation July 2016, HTN, peripheral neuropathy, peripheral vascular disease, migraines and dyslipidemia who presents to [facility] ED with complaints of decreased appetite and nausea/vomiting for the past 2-3 days. ROSAURA - suspect prerenal secondary to dehydration, N/V and poor oral intake - Monitor kidney function, improving - Continue IVF - avoid nephrotoxic agents - Renal US ordered - repeat lab in am to monitor trend - IV Zofran prn - hold home Lisinopril dose - diabetic/renal/heart healthy diet DM - ISS - accuchecks - A1c 7.8 11/12/16 Left 2nd toe osteomyelitis Consulted her vascular surgeon, seen by Dr Fairbanks. Pt scheduled for Angiogram on Monday and Distal Bypass for Mon next week with Dr. Fairbanks [facility] surg Plan to amputate L 2nd toe to remove infected bone and reduce pain per podiatry Dr Trejo appreciate recommendations. NPO after breakfast 12/01/16 attempt for surgery in the PM. Patient has PICC line in place for ongoing IV abx treatment Hold IV Cefepime 2gm q 8hrs and po Flagyl 500mg po TID - stop date 12/28/16 - Consult ID for abx recommendations. Discussed with Dr Cisse ID HOLD on any meds. patient doesn't need abx at this time, also patient will have surgery Consult podiatry Lortab prn with Morphine for breakthrough pain HTN/CAD/s/p MT with cardiac stents - not controlled at present - resume home medications except for ACEI - ASA daily - monitor BP and adjust treatment accordingly - clonidine prn with parameters PAD - resume home Plavix Dyslipidemia - resume home Pravastatin dose Peripheral neuropathy - resume home Gabapentin Migraines - Topamax qhs per home schedule - Imitrex prn DVT prophylaxis - Lovenox sq Discussed with the patient, nurse, Elizabeth Chaney MD Dec 01, 2016 08:40
[2016-12-01] MEDS: ASPIRIN EC 81 MG TABEC PO SCH (09:00)
[2016-12-01] MEDS: CLOPIDOGREL 75 MG TAB PO SCH (09:00)
[2016-12-01] MEDS: ATENOLOL 25 MG TAB PO SCH ×2 (10:03→21:39)
[2016-12-01] MEDS: SODIUM BICARBONATE 8.4% INJ 75 MEQ in SODIUM CHLOR 0.45% 1000 ML INJ 1,000 ML IV SCH (10:04)
[2016-12-01] MEDS: ACETAMINOPHEN/HYDROcodone 325 MG/10 MG TAB PO PRN ×2 (10:04→21:39)
[2016-12-01] MEDS: PRAVASTATIN SOD 20 MG TAB PO SCH (10:04)
[2016-12-01] MEDS: SODIUM CHLORIDE 0.9% FLUSH 10 ML FLUSH IV FLUSH SCH ×2 (10:06→21:40)
[2016-12-01 11:25] VITALS: BP 124/67; PULSE 65; RESP 20; TEMP 98.7; O2SAT 98
[2016-12-01] MEDS ORDERED: PROPOFOL 200 MG/20 ML AMP IV ONE (12:00)
[2016-12-01] MEDS ORDERED: LIDOCAINE HCL 2% 50 ML VIAL ONE (14:40)
[2016-12-01] MEDS: ENOXAPARIN SODIUM 30 MG/0.3 ML SYRINGE SQ SCH (15:07)
[2016-12-01 15:19] VITALS: BP 142/71; PULSE 65; RESP 20; TEMP 98.2; O2SAT 99
[2016-12-01] MEDS ORDERED: BUPIVACAINE HCL PF 0.5% 30 ML VIAL ONE (16:15)
[2016-12-01] MEDS ORDERED: ceFAZolin INJ 1,000 MG VIAL IV ONE (17:11)
--- NOTE | 2016-12-01 17:55 | HHI.PR ---
Immediate Post Op Note Procedure Date: Dec 01, 2016 Pre Op Diagnosis: Chronic osteomyelitis L 2nd toe Post Op Diagnosis: same Surgeon: Ita Rehman DPM Deposit Clerk(s): Staff Procedure: Amputation L 2nd toe Findings: Consistent with diagnosis L hallux overlapping 2nd digit with chronic ulceration to bone to medial 2nd toe PIP joint area. Exposed bone in wound. Mild edema to L 2nd digit. No purulence noted. Digit amputated in disarticulation at MTP joint level. No purulence noted at level of MTP joint. Clean, white, healthy-appearing cartilage cap noted to 2nd metatarsal. Irrigation with NS, followed by primary closure with 2-0 and 3-0 nylon. Dressing with xeroform, 4x4, cast padding, emiliano. WBAT to heel only in surgical shoe. PT to gait train. Will change bandage over the weekend. Keep clean, dry, intact. Additional Information: 2g Ancef IV preoperatively Complications: None Specimen(s) removed: 1. L 2nd toe to pathology 2. culture L foot, amputation site, prior to closure Estimated blood loss: Minimal Anesthesia: MAC, Local (22mL 2% lidocaine plain) Drains: None IVF Tourniquet time (min at mmHg) n/a Patient to: PACU Patient Condition: Good Date/Time of Procedure: SEE SURGICAL CARE RECORD Ita Rehman DPM Dec 01, 2016 17:55
[2016-12-01] MEDS ORDERED: DO NOT ADM ANY ANTICOAGULANT DRUGS PRN (18:15)
--- NOTE | 2016-12-01 18:45 | HHI.NPPN ---
Subjective History of Present Illness 61-year-old female with a past medical history of hypertension, diabetes mellitus, hyperlipidemia, peripheral neuropathy, infection in the left big toe, history of recurrent, acute kidney injury in the past, was admitted because of nausea, vomiting and decreased appetite. I was called to see the patient because of elevated BUN and creatinine. Additional Remarks Patient is alert, no SOB, feeling better. Review of Systems General Constitutional: Fatigue Cardiovascular Cardiac: SMITH Objective Data Data Vital Signs Date Time Temp Pulse Resp B/P Pulse Ox O2 Delivery O2 Flow Rate FiO2 12/01/16 17:44 98.6 78 16 150/73 98 Nasal Cannula 2 12/01/16 15:19 98.2 65 20 142/71 99 12/01/16 11:25 98.7 65 20 124/67 98 12/01/16 07:13 97.6 68 18 150/72 100 12/01/16 03:13 21 12/01/16 01:27 97.9 84 18 144/73 96 11/30/16 20:26 97.9 81 18 150/74 96 -: 12/01/16 0626 12/01/16 0626 Physical Exam General Appearance: No Acute Distress, Comfortable Eyes Eye Exam: Pupils Equal Throat Throat Exam: Oral Mucosa [place] & Moist Pulmonary Resp Exam: Breath Sounds Equal, No Distress, Rhonchi, Decreased Bases Cardiology CV Exam: Regular, Normal Sinus Rhythm Gastrointestinal/Abdomen GI Exam: Soft, Non-Tender, Bowel Sounds Present, Non-Distended Extremeties Extremities Exam: Trace Edema Neurologic Neuro Exam: Alert, Awake, Oriented Psychiatric Psych Exam: Appropriate Responses Assessment/Plan Assessment Summary: ROSAURA/Acute Renal Failure Problem List: (1) Metabolic acidosis (2) HTN (hypertension) (3) Diabetic ulcer of foot associated with type 1 diabetes mellitus, limited to breakdown of skin (4) Diabetes type 1, uncontrolled (5) PAD (peripheral artery disease) (6) Nausea & vomiting (7) ROSAURA (acute kidney injury) Plan Patient has left toe and hallux amputation. Urine out put is good. Creatinine is almost same. HCo3 is still low, continue IVF with NaHco3. Avoid Nephrotoxins and continue IVF. Follow the urine out put and BMP. Problem Qualifiers (1) Nausea & vomiting: Qualified Code: R11.2 - Non-intractable vomiting with nausea, unspecified vomiting type Luis Daniel Melendez MD Dec 01, 2016 18:45
[2016-12-01 20:00] VITALS: BP 187/79; PULSE 77; RESP 20; TEMP 98.8; O2SAT 98
[2016-12-01] MEDS: TOPIRAMATE 25 MG TAB PO SCH (21:00)
[2016-12-01 21:22] VITALS: BP 188/77
[2016-12-01] MEDS: GABAPENTIN 100 MG CAP PO SCH (21:38)
[2016-12-01] MEDS: TEMAZEPAM 15 MG CAP PO PRN (21:39)
[2016-12-02] VITALS (8 sets, daily range): BP systolic 108–175; BP diastolic 51–88; PULSE 65–78; RESP 17–20; TEMP 96.1–98.6; O2SAT 96–99
[2016-12-02] MEDS: ACETAMINOPHEN/HYDROcodone 325 MG/10 MG TAB PO PRN ×4 (03:44→20:27)
[2016-12-02] MEDS: DOCUSATE SODIUM 100 MG CAP PO SCH ×2 (03:44→16:27)
[2016-12-02] MEDS: SODIUM BICARBONATE 8.4% INJ 75 MEQ in SODIUM CHLOR 0.45% 1000 ML INJ 1,000 ML IV SCH ×3 (05:15→18:09)
[2016-12-02] MEDS: INSULIN ASPART SUPPLEMENTAL SCALE SQ SCH ×4 (06:20→20:43)
[2016-12-02] MEDS: SODIUM CHLORIDE 0.9% FLUSH 10 ML FLUSH IV FLUSH SCH ×2 (09:00→20:27)
[2016-12-02] MEDS: ASPIRIN EC 81 MG TABEC PO SCH (09:12)
[2016-12-02] MEDS: PRAVASTATIN SOD 20 MG TAB PO SCH (09:12)
[2016-12-02] MEDS: CLOPIDOGREL 75 MG TAB PO SCH (09:12)
[2016-12-02] MEDS: ATENOLOL 25 MG TAB PO SCH ×2 (09:12→20:27)
[2016-12-02 09:26] LABS: BICARBONATE 21.9 MEQ/L (21.0-32.0); POTASSIUM 3.6 MEQ/L (3.5-5.1)
--- NOTE | 2016-12-02 11:22 | HHI.IDPN ---
Subjective Subjective Remarks is a 61 y/o CF with PMHx of DM s/p insulin pump implantation with multiple hospitalizations secondary to DKA, left foot osteomyelitis currently receiving antibiotic therapy through a PICC line(cefepime IV and flagyl oral), CAD with recent ID status post stent implantation July 2016, HTN, peripheral neuropathy, peripheral vascular disease, migraines and dyslipidemia who presents to [facility] ED with complaints of decreased appetite and nausea/vomiting for the past 2-3 days. She reports a metallic taste and decreased appetite, reports increased fatigue. She reports not having taken the flagyl for at least 10 days now. She reports a small amount of blood in the vomitus yesterday. She reports heart burn and epigastric discomfort. She denies any fever, chills or night sweats. She denies any palpitations, dizziness, lightheadedness, shortness of breath, chest pain, abdominal pain, diarrhea or constipation. She denies any complaints of black/tarry/bloody stools. In the ED, patient was found to have elevated creatinine level of 2.50. Blood glucose is controlled at 122. Lactic acid was 0.8 and white count was 6.8. Patient now refuses any antibiotics and wants her toe amputated. Overnight events reviewed No fever No rash No diarrhea D/w : no clinical e/o residual infection at the stump of amputation site. Antibiotics None Lines Line sites with no e.o infection Past Medical History reviewed Allergies: Coded Allergies: Codeine (Verified Allergy, Mild, HIVES, 11/10/16) Glucophage (Verified Allergy, Mild, DKA, 11/10/16) Morphine (Verified Adverse Reaction, Severe, 11/10/16) vomiting Objective . Vital Signs Date Time Temp Pulse Resp B/P Pulse Ox O2 Delivery O2 Flow Rate FiO2 12/02/16 08:00 96.1 74 18 161/88 99 12/02/16 04:55 19 12/02/16 04:00 98.5 77 20 128/58 96 12/02/16 00:00 98.6 77 20 108/51 96 12/01/16 21:22 188/77 12/01/16 20:00 98.8 77 20 187/79 98 12/01/16 18:22 79 16 147/91 97 Room Air 12/01/16 18:00 74 16 157/78 98 Nasal Cannula 2 12/01/16 17:44 98.6 78 16 150/73 98 Nasal Cannula 2 12/01/16 15:19 98.2 65 20 142/71 99 12/01/16 11:25 98.7 65 20 124/67 98 12/01/16 12/01/16 12/02/16 15:00 23:00 07:00 Intake Total 1631 ml 940 ml 240 ml Output Total 350 ml 1 ml Balance 1631 ml 590 ml 239 ml Intake Oral 820 ml 340 ml 240 ml IV Total 811 ml Other 600 ml Output Urine Total 350 ml Stool Total 1 ml Estimated Blood Loss 0 ml # Voids 3 2 2 # Bowel Movements 0 1 . Laboratory Tests Test 12/01/16 06:26 White Blood Count 4.4 TH/MM3 Red Blood Count 3.89 MIL/MM3 Hemoglobin 10.5 GM/DL Hematocrit 31.6 % Mean Corpuscular Volume 81.1 FL Mean Corpuscular Hemoglobin 26.9 PG Mean Corpuscular Hemoglobin 33.2 % Concent Red Cell Distribution Width 17.6 % Platelet Count 142 TH/MM3 Mean Platelet Volume 9.6 FL Neutrophils (%) (Auto) 39.8 % Lymphocytes (%) (Auto) 32.5 % Monocytes (%) (Auto) 17.1 % Eosinophils (%) (Auto) 7.9 % Basophils (%) (Auto) 2.7 % Neutrophils # (Auto) 1.8 TH/MM3 Lymphocytes # (Auto) 1.4 TH/MM3 Monocytes # (Auto) 0.8 TH/MM3 Eosinophils # (Auto) 0.3 TH/MM3 Basophils # (Auto) 0.1 TH/MM3 CBC Comment DIFF FINAL Differential Comment Laboratory Tests Test 12/01/16 12/02/16 06:26 08:46 Sodium Level 140 MEQ/L 144 MEQ/L Potassium Level 3.9 MEQ/L 3.6 MEQ/L Chloride Level 113 MEQ/L 114 MEQ/L Carbon Dioxide Level 16.2 MEQ/L 21.9 MEQ/L Anion Gap 11 MEQ/L 8 MEQ/L Blood Urea Nitrogen 36 MG/DL 32 MG/DL Creatinine 2.21 MG/DL 2.28 MG/DL Estimat Glomerular Filtration 23 ML/MIN 22 ML/MIN Rate Random Glucose 156 MG/DL 62 MG/DL Calcium Level 8.0 MG/DL 8.6 MG/DL Microbiology Date/Time Procedure Status Source Growth 12/01/16 17:25 Gram Stain - Final Resulted Wound Foot 12/01/16 17:25 Wound Culture Resulted Wound Foot Pending 12/01/16 17:25 Acid Fast Stain Received Wound Foot Pending 12/01/16 17:25 Mycobacterial Culture Received Wound Foot Pending 12/01/16 17:25 Fungal Smear - Final Resulted Wound Foot NO FUNGAL ELEMENTS SEEN. 12/01/16 17:25 Fungal Culture Resulted Wound Foot Pending Imaging Last Impressions Foot X-Ray 11/30/16 0000 Signed Impressions: Service Date/Time: Wednesday, November 30, 2016 11:19 - CONCLUSION: 1. Deformity about the 1st metatarsal phalangeal joint. 2. Soft tissue swelling 2nd digit without osteomyelitis. Perico Novak MD FACR Renal Ultrasound 11/29/16 0000 Signed Impressions: Service Date/Time: Tuesday, November 29, 2016 16:58 - CONCLUSION: Negative renal sonogram. Berlin Narvaez MD Physical Exam GENERAL: This is a well-nourished, well-developed patient, in no apparent distress. SKIN: No rashes, ecchymoses or lesions. Cool and dry. HEAD: Atraumatic. Normocephalic. No temporal or scalp tenderness. EYES: Pupils equal round and reactive. Extraocular motions intact. No scleral icterus. No injection or drainage. ENT: Nose without bleeding, purulent drainage or septal hematoma. Throat without erythema, tonsillar hypertrophy or exudate. Uvula midline. Airway patent. NECK: Trachea midline. No JVD or lymphadenopathy. Supple, nontender, no meningeal signs. CARDIOVASCULAR: Regular rate and rhythm without murmurs, gallops, or rubs. RESPIRATORY: Clear to auscultation. Breath sounds equal bilaterally. No wheezes , rales, or rhonchi. GASTROINTESTINAL: Abdomen soft, non-tender, nondistended. MUSCULOSKELETAL: foot in dressing. NEUROLOGICAL: Awake and alert. Grossly non focal Psych: cooperative IV line sites with no e.o infection. Assessment & Plan Remarks 2nd left toe osteomyelitis PICC line in place DM insulin pump dependent. ? compliance admitted with DKA few times CAD s.p stent Acute renal failure: prerenal, meds (was on DU-I, Lortab, Gabapentin) PAD and PVD. Recs: No antibiotics for now. follow cultures follow path Clinically thinks no residual infection based on intraop findings. Follow clinically. I will be OOT and return on 12/06/16. covering for me starting tomorrow. Anjali Cisse MD Dec 02, 2016 11:22
[2016-12-02] MEDS: cloNIDine HCL 0.1 MG TAB PO PRN (11:44)
[2016-12-02] MEDS: ACETAMINOPHEN 325 MG TAB PO PRN (11:55)
--- NOTE | 2016-12-02 12:44 | HHI.PR ---
Subjective Remarks Implants says she still has pain in her leg however is improved and pain medications he R helping. No fever or chills overnight. She is eating better today. Feels tired. No nausea or vomiting no diarrhea or constipation. Objective Vitals Vital Signs Date Time Temp Pulse Resp B/P Pulse Ox O2 Delivery O2 Flow Rate FiO2 12/02/16 08:00 96.1 74 18 161/88 99 12/02/16 04:55 19 12/02/16 04:00 98.5 77 20 128/58 96 12/02/16 00:00 98.6 77 20 108/51 96 12/01/16 21:22 188/77 12/01/16 20:00 98.8 77 20 187/79 98 12/01/16 18:22 79 16 147/91 97 Room Air 12/01/16 18:00 74 16 157/78 98 Nasal Cannula 2 12/01/16 17:44 98.6 78 16 150/73 98 Nasal Cannula 2 12/01/16 15:19 98.2 65 20 142/71 99 I/O 12/01/16 12/01/16 12/01/16 12/02/16 12/02/16 12/02/16 07:00 15:00 23:00 07:00 15:00 23:00 Intake Total 1631 ml 940 ml 240 ml Output Total 350 ml 1 ml 350 ml Balance 1631 ml 590 ml 239 ml -350 ml Intake Oral 820 ml 340 ml 240 ml IV Total 811 ml Other 600 ml Output Urine Total 350 ml 350 ml Stool Total 1 ml Estimated Blood Loss 0 ml # Voids 3 2 2 # Bowel Movements 0 1 Result Diagram: 12/01/16 0626 12/02/16 0846 Imaging Last Impressions Foot X-Ray 11/30/16 0000 Signed Impressions: Service Date/Time: Wednesday, November 30, 2016 11:19 - CONCLUSION: 1. Deformity about the 1st metatarsal phalangeal joint. 2. Soft tissue swelling 2nd digit without osteomyelitis. Perico Novak MD FACR Renal Ultrasound 11/29/16 0000 Signed Impressions: Service Date/Time: Tuesday, November 29, 2016 16:58 - CONCLUSION: Negative renal sonogram. [place] Narvaez MD Objective Remarks GENERAL: This is a well-nourished, well-developed patient, in no apparent distress. Awake and oriented. SKIN: No rashes, ecchymoses or lesions. Cool and dry. HEAD: Atraumatic. Normocephalic. No temporal or scalp tenderness. EYES: Pupils equal round and reactive. Extraocular motions intact. No scleral icterus. No injection or drainage. ENT: Nose without bleeding, purulent drainage or septal hematoma. NECK: Trachea midline. No JVD or lymphadenopathy. Supple, nontender, no meningeal signs. CARDIOVASCULAR: Regular rate and rhythm without murmurs, gallops, or rubs. RESPIRATORY: Clear to auscultation. Breath sounds equal bilaterally. No wheezes , rales, or rhonchi. GASTROINTESTINAL: Abdomen soft, non-tender, nondistended. No hepato-splenomegaly , or palpable masses. No guarding. MUSCULOSKELETAL: Extremities without clubbing, cyanosis, or edema. No joint tenderness, effusion, or edema noted. No calf tenderness. Left foot wound wrapped in gauze, did not take down dressing. NEUROLOGICAL: Awake and alert. Able to move all 4 extremity. No focal neurologic findings appreciated on exam. Normal speech. A/P Assessment and Plan 61-year-old female with a past medical history significant for diabetes mellitus status post insulin pump implantation with multiple hospitalizations secondary to DKA, left foot osteomyelitis currently receiving antibiotic therapy through a PICC line, coronary artery disease with recent AK status post stent implantation July 2016, HTN, peripheral neuropathy, peripheral vascular disease, migraines and dyslipidemia who presents to [facility] ED with complaints of decreased appetite and nausea/vomiting for the past 2-3 days. ROSAURA - suspect prerenal secondary to dehydration, N/V and poor oral intake - Monitor kidney function, improving - Continue IVF - avoid nephrotoxic agents - Renal US ordered - repeat lab in am to monitor trend - IV Zofran prn - hold home Lisinopril dose - diabetic/renal/heart healthy diet DM2 - ISS - accuchecks - A1c 7.8 11/12/16 Left 2nd toe osteomyelitis Consulted her vascular surgeon, seen by Dr Fairbanks. Pt scheduled for Angiogram on Monday and Distal Bypass for Mon next week with Dr. Fairbanks [facility] surg Plan to amputate L 2nd toe to remove infected bone and reduce pain per podiatry Dr Trejo appreciate recommendations. 12/01/16 s/p surgery in the PM by Dr Trejo. Patient has PICC line in place for ongoing IV abx treatment Hold IV Cefepime 2gm q 8hrs and po Flagyl 500mg po TID - stop date 12/28/16 - Consult ID for abx recommendations. Discussed with Dr Cisse ID HOLD on any meds. patient doesn't need abx at this time, also patient had surgery and per Dr Neil chris she excise all athe affected bone. Consult podiatry, following Lortab prn with Morphine for breakthrough pain HTN/CAD/s/p AK with cardiac stents - not controlled at present - resume home medications except for ACEI - ASA daily - monitor BP and adjust treatment accordingly - clonidine prn with parameters PAD - resume home Plavix Dyslipidemia - resume home Pravastatin dose Peripheral neuropathy - resume home Gabapentin Migraines - Topamax qhs per home schedule - Imitrex prn DVT prophylaxis - Lovenox sq Discussed with the patient, nurse, Elizabeth Chaney MD Dec 02, 2016 12:44
[2016-12-02] MEDS ORDERED: ENOXAPARIN SODIUM 30 MG/0.3 ML SYRINGE SQ SCH (16:00)
[2016-12-02] MEDS: HYDROmorphone HCL PF 1 MG/ML VIAL IV PUSH PRN ×2 (16:26→23:24)
[2016-12-02] MEDS: ENOXAPARIN SODIUM 30 MG/0.3 ML SYRINGE SQ SCH (16:27)
--- NOTE | 2016-12-02 19:06 | HHI.NPPN ---
Subjective History of Present Illness 61-year-old female with a past medical history of hypertension, diabetes mellitus, hyperlipidemia, peripheral neuropathy, infection in the left big toe, history of recurrent, acute kidney injury in the past, was admitted because of nausea, vomiting and decreased appetite. I was called to see the patient because of elevated BUN and creatinine. Additional Remarks Patient is alert, no SOB, has mild left foot pain. Review of Systems General Constitutional: Fatigue Cardiovascular Cardiac: SMITH Objective Data Data 12/01/16 12/02/16 19:00 07:00 Intake Total 2331 ml 480 ml Output Total 350 ml 1 ml Balance 1981 ml 479 ml Intake Oral 920 ml 480 ml IV Total 811 ml Other 600 ml Output Urine Total 350 ml Stool Total 1 ml Estimated Blood Loss 0 ml # Voids 3 4 # Bowel Movements 1 Vital Signs Date Time Temp Pulse Resp B/P Pulse Ox O2 Delivery O2 Flow Rate FiO2 12/02/16 17:58 99 21 12/02/16 16:00 97.9 65 18 115/62 99 12/02/16 13:10 99 12/02/16 12:43 98.1 74 18 175/88 99 12/02/16 08:00 96.1 74 18 161/88 99 12/02/16 04:55 19 12/02/16 04:00 98.5 77 20 128/58 96 12/02/16 00:00 98.6 77 20 108/51 96 12/01/16 21:22 188/77 12/01/16 20:00 98.8 77 20 187/79 98 -: 12/01/16 0626 12/02/16 0846 Physical Exam General Appearance: No Acute Distress, Comfortable Eyes Eye Exam: Pupils Equal Throat Throat Exam: Oral Mucosa [place] & Moist Pulmonary Resp Exam: Breath Sounds Equal, No Distress, Rhonchi, Decreased Bases Cardiology CV Exam: Regular, Normal Sinus Rhythm Gastrointestinal/Abdomen GI Exam: Soft, Non-Tender, Bowel Sounds Present, Non-Distended Extremeties Extremities Exam: Trace Edema Neurologic Neuro Exam: Alert, Awake, Oriented Psychiatric Psych Exam: Appropriate Responses Assessment/Plan Assessment Summary: ROSAURA/Acute Renal Failure Problem List: (1) Metabolic acidosis (2) HTN (hypertension) (3) Diabetic ulcer of foot associated with type 1 diabetes mellitus, limited to breakdown of skin (4) Diabetes type 1, uncontrolled (5) PAD (peripheral artery disease) (6) Nausea & vomiting (7) ROSAURA (acute kidney injury) Plan Patient has left toe and hallux amputation. Urine out put is good. Creatinine is almost same. HCo3 is still low, continue IVF with NaHco3. Avoid Nephrotoxins and continue IVF. Follow the urine out put and BMP. Has an element of ROSAURA. Problem Qualifiers (1) HTN (hypertension): Qualified Code: I10 - Essential hypertension (2) Nausea & vomiting: Qualified Code: R11.2 - Non-intractable vomiting with nausea, unspecified vomiting type Luis Daniel Melendez MD Dec 02, 2016 19:06
[2016-12-02] MEDS: GABAPENTIN 100 MG CAP PO SCH (20:27)
[2016-12-02] MEDS: TOPIRAMATE 25 MG TAB PO SCH (20:27)
[2016-12-02] MEDS: TEMAZEPAM 15 MG CAP PO PRN (21:38)
[2016-12-03 01:00] VITALS: BP 165/73; PULSE 79; RESP 17; TEMP 97.7; O2SAT 96
[2016-12-03] MEDS: SODIUM BICARBONATE 8.4% INJ 75 MEQ in SODIUM CHLOR 0.45% 1000 ML INJ 1,000 ML IV SCH ×2 (03:22→09:21)
[2016-12-03 04:55] VITALS: BP 148/69; PULSE 81; RESP 17; TEMP 98; O2SAT 97
[2016-12-03] MEDS: DOCUSATE SODIUM 100 MG CAP PO SCH ×2 (05:00→18:05)
[2016-12-03] MEDS: INSULIN ASPART SUPPLEMENTAL SCALE SQ SCH ×4 (06:27→21:00)
[2016-12-03 07:23] LABS: BICARBONATE 19.8 MEQ/L (21.0-32.0); POTASSIUM 3.2 MEQ/L (3.5-5.1)
[2016-12-03 08:01] VITALS: BP 158/70; PULSE 84; RESP 18; TEMP 98.2; O2SAT 96
--- NOTE | 2016-12-03 08:04 | HHI.PR ---
Subjective Remarks Patient says she is allergic to morphine and he started Dilaudid pain yesterday. Says pain is controlled by medications and she has neurology Dilaudid. Potassium was low place. Patient denies any chest pain or shortness of breath. No abdominal pain. No nausea, vomiting, diarrhea no fever or chills overnight. Objective Vitals Vital Signs Date Time Temp Pulse Resp B/P Pulse Ox O2 Delivery O2 Flow Rate FiO2 12/03/16 08:01 98.2 84 18 158/70 96 12/03/16 04:55 98.0 81 17 148/69 97 12/03/16 01:00 97.7 79 17 165/73 96 12/02/16 21:03 97.7 65 17 140/64 97 12/02/16 17:58 99 21 12/02/16 16:00 97.9 65 18 115/62 99 12/02/16 13:10 99 12/02/16 12:43 98.1 74 18 175/88 99 I/O 12/02/16 12/02/16 12/02/16 12/03/16 12/03/16 12/03/16 07:00 15:00 23:00 07:00 15:00 23:00 Intake Total 240 ml 480 ml 360 ml Output Total 1 ml 350 ml Balance 239 ml 130 ml 360 ml Intake Oral 240 ml 480 ml 360 ml Output Urine Total 350 ml Stool Total 1 ml # Voids 2 5 # Bowel Movements 1 1 Result Diagram: 12/01/16 0626 12/03/16 0615 Imaging Last Impressions Foot X-Ray 11/30/16 0000 Signed Impressions: Service Date/Time: Wednesday, November 30, 2016 11:19 - CONCLUSION: 1. Deformity about the 1st metatarsal phalangeal joint. 2. Soft tissue swelling 2nd digit without osteomyelitis. Perico Novak MD FACR Renal Ultrasound 11/29/16 0000 Signed Impressions: Service Date/Time: Tuesday, November 29, 2016 16:58 - CONCLUSION: Negative renal sonogram. [place] Narvaez MD Objective Remarks GENERAL: This is a well-nourished, well-developed patient, in no apparent distress. Awake and oriented. SKIN: No rashes, ecchymoses or lesions. Cool and dry. HEAD: Atraumatic. Normocephalic. No temporal or scalp tenderness. EYES: Pupils equal round and reactive. Extraocular motions intact. No scleral icterus. No injection or drainage. ENT: Nose without bleeding, purulent drainage or septal hematoma. NECK: Trachea midline. No JVD or lymphadenopathy. Supple, nontender, no meningeal signs. CARDIOVASCULAR: Regular rate and rhythm without murmurs, gallops, or rubs. RESPIRATORY: Clear to auscultation. Breath sounds equal bilaterally. No wheezes , rales, or rhonchi. GASTROINTESTINAL: Abdomen soft, non-tender, nondistended. No hepato-splenomegaly , or palpable masses. No guarding. MUSCULOSKELETAL: Extremities without clubbing, cyanosis, or edema. No joint tenderness, effusion, or edema noted. No calf tenderness. Left foot wound wrapped in gauze, did not take down dressing. NEUROLOGICAL: Awake and alert. Able to move all 4 extremity. No focal neurologic findings appreciated on exam. Normal speech. A/P Assessment and Plan 61-year-old female with a past medical history significant for diabetes mellitus status post insulin pump implantation with multiple hospitalizations secondary to DKA, left foot osteomyelitis currently receiving antibiotic therapy through a PICC line, coronary artery disease with recent ND status post stent implantation July 2016, HTN, peripheral neuropathy, peripheral vascular disease, migraines and dyslipidemia who presents to [facility] ED with complaints of decreased appetite and nausea/vomiting for the past 2-3 days. ROSAURA - suspect prerenal secondary to dehydration, N/V and poor oral intake - Monitor kidney function, improving - Continue IVF - avoid nephrotoxic agents - Renal US ordered - repeat lab in am to monitor trend - IV Zofran prn - hold home Lisinopril dose - diabetic/renal/heart healthy diet DM2 - ISS - accuchecks - A1c 7.8 11/12/16 Left 2nd toe osteomyelitis Consulted her vascular surgeon, seen by Dr Fairbanks. Pt scheduled for Angiogram on Monday and Distal Bypass for Mon next week with Dr. Fairbanks [facility] [place] surg Plan to amputate L 2nd toe to remove infected bone and reduce pain per podiatry Dr Trejo appreciate recommendations. 12/01/16 s/p surgery in the PM by Dr Trejo. Patient has PICC line in place for ongoing IV abx treatment Hold IV Cefepime 2gm q 8hrs and po Flagyl 500mg po TID - stop date 12/28/16 - Consult ID for abx recommendations. Discussed with Dr Cisse ID HOLD on any meds. patient doesn't need abx at this time, also patient had surgery and per Dr Neil chris she excise all athe affected bone. Consult podiatry, following Lortab prn with Morphine for breakthrough pain HTN/CAD/s/p ND with cardiac stents - not controlled at present - resume home medications except for ACEI - ASA daily - monitor BP and adjust treatment accordingly - clonidine prn with parameters PAD - resume home Plavix Dyslipidemia - resume home Pravastatin dose Peripheral neuropathy - resume home Gabapentin Migraines - Topamax qhs per home schedule - Imitrex prn DVT prophylaxis - Lovenox sq Discussed with the patient, nurse Discharge plan Discharge: Improved and cleared by consultants. Elizabeth Mcneil MD Dec 03, 2016 08:04
[2016-12-03] MEDS ORDERED: POTASSIUM BICARBONATE 25 MEQ EFFERVESCENT TAB PO ONE (09:00)
[2016-12-03] MEDS: SODIUM CHLORIDE 0.9% FLUSH 10 ML FLUSH IV FLUSH SCH ×2 (09:00→19:46)
[2016-12-03] MEDS ORDERED: CALCIUM CARBONATE 500 MG CHEWABLE TAB CHEW ONE (09:00)
[2016-12-03] MEDS: PRAVASTATIN SOD 20 MG TAB PO SCH (09:22)
[2016-12-03] MEDS: ATENOLOL 25 MG TAB PO SCH ×2 (09:22→19:46)
[2016-12-03] MEDS: CLOPIDOGREL 75 MG TAB PO SCH (09:22)
[2016-12-03] MEDS: ASPIRIN EC 81 MG TABEC PO SCH (09:22)
[2016-12-03] MEDS: ACETAMINOPHEN/HYDROcodone 325 MG/10 MG TAB PO PRN ×3 (09:28→22:32)
--- NOTE | 2016-12-03 10:23 | PD.POD ---
Subjective Podiatric Problems s/p amputation L 2nd toe Past Med/Surg/Social History Social History Smoking Status: Never Smoker Objective Vital Signs Vital Signs Date Time Temp Pulse Resp B/P Pulse Ox O2 Delivery O2 Flow Rate FiO2 12/03/16 08:01 98.2 84 18 158/70 96 12/03/16 04:55 98.0 81 17 148/69 97 12/03/16 01:00 97.7 79 17 165/73 96 12/02/16 21:03 97.7 65 17 140/64 97 12/02/16 17:58 99 21 12/02/16 16:00 97.9 65 18 115/62 99 12/02/16 13:10 99 12/02/16 12:43 98.1 74 18 175/88 99 Coded Allergies: Codeine (Verified Allergy, Mild, HIVES, 11/10/16) Glucophage (Verified Allergy, Mild, DKA, 11/10/16) Morphine (Verified Adverse Reaction, Severe, 11/10/16) vomiting Physical Exam Remarks Incision well approximated with nylon suture. No active drainage. No erythema, no edema. Minimal pain Assessment & Plan A/P s/p amputation L 2nd toe 12/01/16 Sherie Changed dressing today. Continue dressings every 3 days as ordered L foot per nursing. Follow up 7-10 days in clinic for evaluation for suture removal Ita Rehman DPM Dec 03, 2016 10:23
[2016-12-03] MEDS: HYDROmorphone HCL PF 1 MG/ML VIAL IV PUSH PRN ×2 (11:15→19:43)
[2016-12-03 12:21] VITALS: BP 159/71; PULSE 82; RESP 19; TEMP 98.1; O2SAT 97
--- NOTE | 2016-12-03 15:22 | HHI.NPPN ---
Subjective History of Present Illness 61-year-old female with a past medical history of hypertension, diabetes mellitus, hyperlipidemia, peripheral neuropathy, infection in the left big toe, history of recurrent, acute kidney injury in the past, was admitted because of nausea, vomiting and decreased appetite. I was called to see the patient because of elevated BUN and creatinine. Additional Remarks Patient is alert, no SOB, occ. has nausea. Review of Systems General Constitutional: Fatigue Cardiovascular Cardiac: SMITH Objective Data Data 12/02/16 12/03/16 19:00 07:00 Intake Total 480 ml 360 ml Output Total 350 ml Balance 130 ml 360 ml Intake Oral 480 ml 360 ml Output Urine Total 350 ml # Voids 5 # Bowel Movements 1 Vital Signs Date Time Temp Pulse Resp B/P Pulse Ox O2 Delivery O2 Flow Rate FiO2 12/03/16 12:21 98.1 82 19 159/71 97 12/03/16 08:01 98.2 84 18 158/70 96 12/03/16 04:55 98.0 81 17 148/69 97 12/03/16 01:00 97.7 79 17 165/73 96 12/02/16 21:03 97.7 65 17 140/64 97 12/02/16 17:58 99 21 12/02/16 16:00 97.9 65 18 115/62 99 -: 12/01/16 0626 12/03/16 0615 Physical Exam General Appearance: No Acute Distress, Comfortable Eyes Eye Exam: Pupils Equal Throat Throat Exam: Oral Mucosa [place] & Moist Pulmonary Resp Exam: Breath Sounds Equal, No Distress, Rhonchi, Decreased Bases Cardiology CV Exam: Regular, Normal Sinus Rhythm Gastrointestinal/Abdomen GI Exam: Soft, Non-Tender, Bowel Sounds Present, Non-Distended Extremeties Extremities Exam: Trace Edema Neurologic Neuro Exam: Alert, Awake, Oriented Psychiatric Psych Exam: Appropriate Responses Assessment/Plan Assessment Summary: ROSAURA/Acute Renal Failure Problem List: (1) Metabolic acidosis (2) HTN (hypertension) (3) Diabetic ulcer of foot associated with type 1 diabetes mellitus, limited to breakdown of skin (4) Diabetes type 1, uncontrolled (5) PAD (peripheral artery disease) (6) Nausea & vomiting (7) ROSAURA (acute kidney injury) Plan Patient has left toe and hallux amputation. Urine out put is good. Creatinine is slightly better. HCo3 is still low, continue IVF with NaHco3. Avoid Nephrotoxins and continue IVF. Follow the urine out put and BMP. Vascular following and will need revascularization. Problem Qualifiers (1) HTN (hypertension): Qualified Code: I10 - Essential hypertension (2) Nausea & vomiting: Qualified Code: R11.2 - Non-intractable vomiting with nausea, unspecified vomiting type Luis Daniel Melendez MD Dec 03, 2016 15:21
[2016-12-03] MEDS: cloNIDine HCL 0.1 MG TAB PO PRN (15:58)
[2016-12-03 16:14] VITALS: BP 189/85; PULSE 81; RESP 19; TEMP 98.3; O2SAT 95
[2016-12-03] MEDS: ENOXAPARIN SODIUM 30 MG/0.3 ML SYRINGE SQ SCH (18:05)
[2016-12-03] MEDS: TOPIRAMATE 25 MG TAB PO SCH (19:46)
[2016-12-03] MEDS: GABAPENTIN 100 MG CAP PO SCH (19:46)
[2016-12-03 20:00] VITALS: BP 159/77; PULSE 77; RESP 18; TEMP 98.4; O2SAT 99
[2016-12-04] VITALS: BP 166/80; PULSE 83; RESP 20; TEMP 98.8; O2SAT 94
[2016-12-04] MEDS: SODIUM BICARBONATE 8.4% INJ 75 MEQ in SODIUM CHLOR 0.45% 1000 ML INJ 1,000 ML IV SCH ×3 (00:15→21:59)
[2016-12-04] MEDS: DOCUSATE SODIUM 100 MG CAP PO SCH ×2 (03:23→16:28)
[2016-12-04] MEDS: ACETAMINOPHEN/HYDROcodone 325 MG/10 MG TAB PO PRN ×4 (03:23→20:36)
[2016-12-04 04:00] VITALS: BP 171/75; PULSE 75; RESP 18; TEMP 98.8; O2SAT 97
[2016-12-04] MEDS: HYDROmorphone HCL PF 1 MG/ML VIAL IV PUSH PRN (06:03)
[2016-12-04] MEDS: INSULIN ASPART SUPPLEMENTAL SCALE SQ SCH ×4 (06:34→21:57)
[2016-12-04 06:39] LABS: AUTOMATED NEUTROPHIL # 2.1 TH/MM3 (1.8-7.7); BASOPHIL # 0.1 TH/MM3 (0-0.2); BASOPHIL % 1.4 % (0.0-2.0); EOSINOPHIL # 0.3 TH/MM3 (0-0.4); EOSINOPHIL % 6.4 % (0.0-4.0); HEMATOCRIT 30.2 % (35.0-46.0); HEMO FLAGS DIFF FINAL; LYMPH % 33.8 % (9.0-44.0); LYMPHOCYTE # 1.5 TH/MM3 (1.0-4.8); MEAN CELL VOLUME 81.2 FL (80.0-100.0); MEAN CORPUSCULAR HEMOGLOBIN 27.2 PG (27.0-34.0); MEAN CORPUSCULAR HGB CONC 33.5 % (32.0-36.0); MONO % 13.1 % (0.0-8.0); NEUT % 45.3 % (16.0-70.0); PLATELET COUNT 141 TH/MM3 (150-450); RED BLOOD COUNT 3.72 MIL/MM3 (4.00-5.30); RED CELL DISTRIBUTION WIDTH 17.5 % (11.6-17.2); WHITE BLOOD COUNT 4.5 TH/MM3 (4.0-11.0)
[2016-12-04 06:47] LABS: BICARBONATE 25.2 MEQ/L (21.0-32.0); POTASSIUM 3.9 MEQ/L (3.5-5.1)
[2016-12-04 08:25] VITALS: BP 151/71; PULSE 77; RESP 18; TEMP 98.6; O2SAT 95
--- NOTE | 2016-12-04 08:45 | PD.VS.PN ---
Pre-operative Note Pre-operative diagnosis: PAD w/ L LE tissue loss Planned procedure: Aortogram w/ L LE angiogram Interval History: Pt underwent L toe amputation Otherwise feels well creatinine improving (1.6) and getting IV hydration Labs: Laboratory Results Test 12/04/16 06:08 White Blood Count 4.5 TH/MM3 (4.0-11.0) Red Blood Count 3.72 MIL/MM3 (4.00-5.30) Hemoglobin 10.1 GM/DL (11.6-15.3) Hematocrit 30.2 % (35.0-46.0) Mean Corpuscular Volume 81.2 FL (80.0-100.0) Mean Corpuscular Hemoglobin 27.2 PG (27.0-34.0) Mean Corpuscular Hemoglobin 33.5 % Concent (32.0-36.0) Red Cell Distribution Width 17.5 % (11.6-17.2) Platelet Count 141 TH/MM3 (150-450) Mean Platelet Volume 9.7 FL (7.0-11.0) Sodium Level 140 MEQ/L (136-145) Potassium Level 3.9 MEQ/L (3.5-5.1) Chloride Level 101 MEQ/L (98-107) Carbon Dioxide Level 25.2 MEQ/L (21.0-32.0) Anion Gap 14 MEQ/L (5-15) Blood Urea Nitrogen 26 MG/DL (7-18) Random Glucose 330 MG/DL (74-106) Calcium Level 8.1 MG/DL (8.5-10.1) Blood: none needed Imaging: Last Impressions Foot X-Ray 11/30/16 0000 Signed Impressions: Service Date/Time: Wednesday, November 30, 2016 11:19 - CONCLUSION: 1. Deformity about the 1st metatarsal phalangeal joint. 2. Soft tissue swelling 2nd digit without osteomyelitis. Perico Novak MD FACR Renal Ultrasound 11/29/16 0000 Signed Impressions: Service Date/Time: Tuesday, November 29, 2016 16:58 - CONCLUSION: Negative renal sonogram. [place] Narvaez MD Orders: NPO after MN MIVF w/ HCO3 Post-operative destination: DOCU then floor anticipate distal bypass (re-do) on Monday Operative site marked: Yes Consent: Informed consent has been obtained from Robyn Marquez. I have explained the procedure in detail and discussed the risks, benefits, and potential complications. All questions have been answered. Kit Fairbanks MD Dec 04, 2016 08:45
[2016-12-04] MEDS: SODIUM CHLORIDE 0.9% FLUSH 10 ML FLUSH IV FLUSH SCH ×2 (08:48→21:00)
[2016-12-04] MEDS: ATENOLOL 25 MG TAB PO SCH ×2 (08:49→20:36)
[2016-12-04] MEDS: CLOPIDOGREL 75 MG TAB PO SCH (08:50)
[2016-12-04] MEDS: PRAVASTATIN SOD 20 MG TAB PO SCH (08:50)
[2016-12-04] MEDS: ASPIRIN EC 81 MG TABEC PO SCH (08:50)
--- NOTE | 2016-12-04 09:58 | HHI.PR ---
Subjective Remarks Patient in bed. Says she did vomiting today once after she ate. She alaso says she had pain med dilaudid before eating. Patient denies having any pain at this time. No fever or chills. No diarrhea. Objective Vitals Vital Signs Date Time Temp Pulse Resp B/P Pulse Ox O2 Delivery O2 Flow Rate FiO2 12/04/16 08:25 98.6 77 18 151/71 95 12/04/16 04:00 98.8 75 18 171/75 97 12/04/16 00:00 98.8 83 20 166/80 94 12/03/16 20:00 98.4 77 18 159/77 99 12/03/16 16:14 98.3 81 19 189/85 95 12/03/16 12:21 98.1 82 19 159/71 97 I/O 12/03/16 12/03/16 12/03/16 12/04/16 12/04/16 12/04/16 07:00 15:00 23:00 07:00 15:00 23:00 Intake Total 360 ml 100 ml 360 ml Balance 360 ml 100 ml 360 ml Intake Oral 360 ml 100 ml 360 ml # Voids 5 2 2 5 1 # Bowel Movements 1 Result Diagram: 12/04/16 0608 12/04/16 0608 Imaging Last Impressions Foot X-Ray 11/30/16 0000 Signed Impressions: Service Date/Time: Wednesday, November 30, 2016 11:19 - CONCLUSION: 1. Deformity about the 1st metatarsal phalangeal joint. 2. Soft tissue swelling 2nd digit without osteomyelitis. Perico Novak MD FACR Renal Ultrasound 11/29/16 0000 Signed Impressions: Service Date/Time: Tuesday, November 29, 2016 16:58 - CONCLUSION: Negative renal sonogram. Berlin Narvaez MD Objective Remarks GENERAL: This is a well-nourished, well-developed patient, in no apparent distress. Awake and oriented. SKIN: No rashes, ecchymoses or lesions. Cool and dry. HEAD: Atraumatic. Normocephalic. No temporal or scalp tenderness. EYES: Pupils equal round and reactive. Extraocular motions intact. No scleral icterus. No injection or drainage. ENT: Nose without bleeding, purulent drainage or septal hematoma. NECK: Trachea midline. No JVD or lymphadenopathy. Supple, nontender, no meningeal signs. CARDIOVASCULAR: Regular rate and rhythm without murmurs, gallops, or rubs. RESPIRATORY: Clear to auscultation. Breath sounds equal bilaterally. No wheezes , rales, or rhonchi. GASTROINTESTINAL: Abdomen soft, non-tender, nondistended. No hepato-splenomegaly , or palpable masses. No guarding. MUSCULOSKELETAL: Extremities without clubbing, cyanosis, or edema. No joint tenderness, effusion, or edema noted. No calf tenderness. Left foot wound wrapped in gauze, did not take down dressing. NEUROLOGICAL: Awake and alert. Able to move all 4 extremity. No focal neurologic findings appreciated on exam. Normal speech. A/P Assessment and Plan 61-year-old female with a past medical history significant for diabetes mellitus status post insulin pump implantation with multiple hospitalizations secondary to DKA, left foot osteomyelitis currently receiving antibiotic therapy through a PICC line, coronary artery disease with recent [place] status post stent implantation July 2016, HTN, peripheral neuropathy, peripheral vascular disease, migraines and dyslipidemia who presents to [facility] ED with complaints of decreased appetite and nausea/vomiting for the past 2-3 days. ROSAURA - suspect prerenal secondary to dehydration, N/V and poor oral intake - Monitor kidney function, kidney indices improving - Continue IVF with bicarb supplement - avoid nephrotoxic agents - Renal US reviewed and normal - repeat lab in am to monitor trend - hold home Lisinopril dose - diabetic/renal/heart healthy diet -Consult nephrology appreciate recommendations. Nausea: Antiemetics as need. Likely related to dilaudid use. DM2 - ISS - accuchecks - A1c 7.8 11/12/16 Left 2nd toe osteomyelitis Consulted her vascular surgeon, seen by Dr Fairbanks. Pt scheduled for Angiogram on Monday and Distal Bypass for Mon next week with Dr. Fairbanks vas surg Plan to amputate L 2nd toe to remove infected bone and reduce pain per podiatry Dr Trejo appreciate recommendations. 12/01/16 s/p surgery in the PM by Dr Trejo. Patient has PICC line in place for ongoing IV abx treatment Hold IV Cefepime 2gm q 8hrs and po Flagyl 500mg po TID - stop date 12/28/16 - Consult ID for abx recommendations. Discussed with Dr Cisse ID HOLD on any meds. patient doesn't need abx at this time, also patient had surgery and per Dr Neil chris she excise all athe affected bone. Consult podiatry, following Lortab prn with Morphine for breakthrough pain HTN/CAD/s/p OK with cardiac stents - not controlled at present - resume home medications except for ACEI - ASA daily - monitor BP and adjust treatment accordingly - clonidine prn with parameters PAD - resume home Plavix Dyslipidemia - resume home Pravastatin dose Peripheral neuropathy - resume home Gabapentin Migraines - Topamax qhs per home schedule - Imitrex prn DVT prophylaxis - Lovenox sq Discussed with the patient, nurse Discharge plan Discharge: DC when improved and cleared by consultants. Mon/ plan for further work up per [facility] surgeon Dr Fairbanks. Hopefully kidney function optimized by then. Elizabeth Mcneil MD Dec 04, 2016 09:58
--- NOTE | 2016-12-04 11:16 | HHI.NPPN ---
Subjective History of Present Illness 61-year-old female with a past medical history of hypertension, diabetes mellitus, hyperlipidemia, peripheral neuropathy, infection in the left big toe, history of recurrent, acute kidney injury in the past, was admitted because of nausea, vomiting and decreased appetite. I was called to see the patient because of elevated BUN and creatinine. Additional Remarks Patient is alert, no SOB, occ. has nausea, eating better, pain in the foot is better. Review of Systems General Constitutional: Fatigue Cardiovascular Cardiac: SMITH Objective Data Data 12/03/16 12/04/16 19:00 07:00 Intake Total 460 ml Balance 460 ml Intake Oral 460 ml # Voids 2 7 Vital Signs Date Time Temp Pulse Resp B/P Pulse Ox O2 Delivery O2 Flow Rate FiO2 12/04/16 08:25 98.6 77 18 151/71 95 12/04/16 04:00 98.8 75 18 171/75 97 12/04/16 00:00 98.8 83 20 166/80 94 12/03/16 20:00 98.4 77 18 159/77 99 12/03/16 16:14 98.3 81 19 189/85 95 12/03/16 12:21 98.1 82 19 159/71 97 -: 12/04/16 0608 12/04/16 0608 Physical Exam General Appearance: No Acute Distress, Comfortable Eyes Eye Exam: Pupils Equal Throat Throat Exam: Oral Mucosa [place] & Moist Pulmonary Resp Exam: Breath Sounds Equal, No Distress, Rhonchi, Decreased Bases Cardiology CV Exam: Regular, Normal Sinus Rhythm Gastrointestinal/Abdomen GI Exam: Soft, Non-Tender, Bowel Sounds Present, Non-Distended Extremeties Extremities Exam: Trace Edema Neurologic Neuro Exam: Alert, Awake, Oriented Psychiatric Psych Exam: Appropriate Responses Assessment/Plan Assessment Summary: ROSAURA/Acute Renal Failure Problem List: (1) Metabolic acidosis (2) HTN (hypertension) (3) Diabetic ulcer of foot associated with type 1 diabetes mellitus, limited to breakdown of skin (4) Diabetes type 1, uncontrolled (5) PAD (peripheral artery disease) (6) Nausea & vomiting (7) ROSAURA (acute kidney injury) Plan Patient has left toe and hallux amputation. Urine out put is good. Creatinine is improving and acidosis is better. HCo3 is still low, continue IVF with NaHco3. Avoid Nephrotoxins. Follow the urine out put and BMP. Vascular following and will need revascularization, possibly on Tues. Problem Qualifiers (1) HTN (hypertension): Qualified Code: I10 - Essential hypertension (2) Nausea & vomiting: Qualified Code: R11.2 - Non-intractable vomiting with nausea, unspecified vomiting type Luis Daniel Melendez MD Dec 04, 2016 11:16
[2016-12-04 12:05] VITALS: BP 155/74; PULSE 74; RESP 18; TEMP 98.1; O2SAT 95
[2016-12-04] MEDS: ONDANSETRON HCL 4 MG/2 ML VIAL IVP PRN ×2 (12:05→20:31)
[2016-12-04 16:29] VITALS: BP 168/69; PULSE 67; RESP 18; TEMP 98.6; O2SAT 98
[2016-12-04] MEDS: ENOXAPARIN SODIUM 30 MG/0.3 ML SYRINGE SQ SCH (16:31)
[2016-12-04 20:00] VITALS: BP 155/70; PULSE 71; RESP 18; TEMP 98.1; O2SAT 94
[2016-12-04] MEDS: TOPIRAMATE 25 MG TAB PO SCH (20:36)
[2016-12-04] MEDS: GABAPENTIN 100 MG CAP PO SCH (20:36)
--- NOTE | 2016-12-04 20:36 | MP ---
cc: ITA HERNANDEZ BUDDY DATE OF SURGERY December 01, 2016 DATE OF 1955 INDICATION The patient presented to the emergency department with symptoms of diabetic ketoacidosis and was also found to have a very painful ulceration down to bone with a known history of osteomyelitis having undergone 6 weeks of IV antibiotics with no resolution of the wound or the pain. I discussed with the patient that her options were to amputate the digit in order to remove the toe to remove the pain but also discussed with her that her upcoming vascular surgery may need to be moved forward a little bit in order to bring more circulation to the area to heal the wound from the amputation site. Her vascular surgeon was consulted and surgery is scheduled for early next week. I discussed with her the risks, benefits, potential complications of surgery and she agreed to move forward with amputation of left second toe. DETAILS OF PROCEDURE The patient was seen in preop holding by myself, nursing staff and Anesthesia where the correct patient, side and site were all confirmed to be correct in the left second toe. She was then taken back to the surgical suite. In supine position the left foot was prepped and draped in normal sterile fashion. Following time-outs as per hospital protocol attention was directed to the left second digit where two semi elliptical incisions were made encompassing the second digit medially and laterally in order to disarticulate the digit at the metatarsophalangeal joint level. Following removal of the digit, the digit had an ulceration measuring approximately 1.5 cm in diameter down to bone of the proximal interphalangeal joint area. It was removed in its entirety, followed by copious irrigation of the residual wound with normal saline, followed by a culture taken of this area prior to primary closure with both 2-0 and 3-0 nylon, followed by dressing consisting of Xeroform, 4x4s, cast padding and Dru bandage to the left foot. The second digit was sent to pathology for gross examination and culture was sent for Gram stain and culture in order to determine if further antibiotics are required. 2 grams Ancef IV was given preoperatively. The patient tolerated the procedure and anesthesia well without complications and was returned to the PACU with vital signs stable and vascular status intact to the remainder of the left foot. She had minimal bleeding to the area but is scheduled to have vascular intervention early next week. 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 PREOPERATIVE DIAGNOSIS Chronic osteomyelitis left second toe. POSTOPERATIVE DIAGNOSIS Chronic osteomyelitis left second toe. PATHOLOGY 1. Second digit left foot to pathology. 2. Culture left residual foot amputation site. PROPHYLAXIS 2 grams Ancef IV preoperatively. PROCEDURE Amputation left second toe. ANESTHESIA Sedation plus 22 mL of 2% lidocaine plain. HEMOSTASIS None. ESTIMATED BLOOD LOSS Minimal. DISPOSITION Weightbearing as tolerated to the left foot and surgical shoe to heel only. Will consult physical therapy to assist with gait training with possible walker or crutches for assistance. The patient is to have vascular intervention early next week and will keep the bandage clean, dry and intact and will likely change the bandage over the weekend. Ita HUGGINSKK /5:52 PM /8:28 PM
[2016-12-04] MEDS ORDERED: SODIUM BICARBONATE 8.4% INJ 50 MEQ in DEXTROSE 5% IN WATE 1000ML INJ 1,000 ML IV SCH ×2 (23:00)
[2016-12-04] MEDS: cloNIDine HCL 0.1 MG TAB PO PRN (23:44)
[2016-12-05] VITALS (7 sets, daily range): BP systolic 111–189; BP diastolic 54–96; PULSE 72–92; RESP 17–20; TEMP 97.2–98.8; O2SAT 95–99
[2016-12-05] MEDS: DOCUSATE SODIUM 100 MG CAP PO SCH ×2 (04:00→17:54)
[2016-12-05] MEDS: ACETAMINOPHEN/HYDROcodone 325 MG/10 MG TAB PO PRN ×4 (04:00→22:10)
[2016-12-05] MEDS: SODIUM BICARBONATE 8.4% INJ 75 MEQ in SODIUM CHLOR 0.45% 1000 ML INJ 1,000 ML IV SCH (04:01)
[2016-12-05 06:08] LABS: BICARBONATE 26.5 MEQ/L (21.0-32.0); POTASSIUM 3.6 MEQ/L (3.5-5.1)
[2016-12-05] MEDS: INSULIN ASPART SUPPLEMENTAL SCALE SQ SCH ×4 (06:11→22:14)
[2016-12-05] MEDS: SODIUM CHLORIDE 0.9% FLUSH 10 ML FLUSH IV FLUSH SCH ×2 (08:31→22:10)
[2016-12-05] MEDS: ATENOLOL 25 MG TAB PO SCH ×2 (08:33→22:10)
[2016-12-05] MEDS: ASPIRIN EC 81 MG TABEC PO SCH (08:33)
[2016-12-05] MEDS: PRAVASTATIN SOD 20 MG TAB PO SCH (08:33)
[2016-12-05] MEDS: CLOPIDOGREL 75 MG TAB PO SCH (08:34)
[2016-12-05] MEDS: ONDANSETRON HCL 4 MG/2 ML VIAL IVP PRN (10:11)
[2016-12-05] MEDS ORDERED: PROMETHAZINE INJ 25 MG/ML VIAL ONE (12:41)
--- NOTE | 2016-12-05 13:18 | HHI.PR ---
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
[2016-12-05] MEDS ORDERED: IOHEXOL 350 MG/ML 100 ML BTL (for RAD DIAG) OTHER ONE (13:30)
[2016-12-05] MEDS ORDERED: METOCLOPRAMIDE HCL 10 MG/2 ML VIAL IM PRN (15:00)
--- NOTE | 2016-12-05 15:53 | HHI.PR ---
Subjective Remarks Seen earlier today/ she is nauseated. Says dilaudid is making her nauseated and will hold on dilaudid. Says pain is failry controlled by pain meds now. No diarrhea. No fever or chills. Objective Vitals Vital Signs Date Time Temp Pulse Resp B/P Pulse Ox O2 Delivery O2 Flow Rate FiO2 12/05/16 14:31 96 Room Air 12/05/16 14:07 96 Nasal Cannula 21 12/05/16 12:00 97.2 72 18 125/75 95 12/05/16 09:15 98.8 77 17 156/65 97 12/05/16 04:00 98.5 73 18 134/54 95 12/05/16 00:00 98.8 86 18 189/79 95 12/04/16 20:00 98.1 71 18 155/70 94 12/04/16 17:28 18 12/04/16 16:29 98.6 67 18 168/69 98 I/O 12/04/16 12/04/16 12/04/16 12/05/16 12/05/16 12/05/16 07:00 15:00 23:00 07:00 15:00 23:00 Intake Total 360 ml 360 ml 240 ml Output Total 250 ml Balance 360 ml 110 ml 240 ml Intake Oral 360 ml 360 ml 240 ml Output Urine Total 250 ml # Voids 5 2 4 3 Result Diagram: 12/04/16 0608 12/05/16 0530 Imaging Last Impressions Foot X-Ray 11/30/16 0000 Signed Impressions: Service Date/Time: Wednesday, November 30, 2016 11:19 - CONCLUSION: 1. Deformity about the 1st metatarsal phalangeal joint. 2. Soft tissue swelling 2nd digit without osteomyelitis. Perico Novak MD FACR Renal Ultrasound 11/29/16 0000 Signed Impressions: Service Date/Time: Tuesday, November 29, 2016 16:58 - CONCLUSION: Negative renal sonogram. Berlin Narvaez MD Objective Remarks GENERAL: This is a well-nourished, well-developed patient, in no apparent distress. Awake and oriented. SKIN: No rashes, ecchymoses or lesions. Cool and dry. HEAD: Atraumatic. Normocephalic. No temporal or scalp tenderness. EYES: Pupils equal round and reactive. Extraocular motions intact. No scleral icterus. No injection or drainage. ENT: Nose without bleeding, purulent drainage or septal hematoma. NECK: Trachea midline. No JVD or lymphadenopathy. Supple, nontender, no meningeal signs. CARDIOVASCULAR: Regular rate and rhythm without murmurs, gallops, or rubs. RESPIRATORY: Clear to auscultation. Breath sounds equal bilaterally. No wheezes , rales, or rhonchi. GASTROINTESTINAL: Abdomen soft, non-tender, nondistended. No hepato-splenomegaly , or palpable masses. No guarding. MUSCULOSKELETAL: Extremities without clubbing, cyanosis, or edema. No joint tenderness, effusion, or edema noted. No calf tenderness. Left foot wound wrapped in gauze, did not take down dressing. NEUROLOGICAL: Awake and alert. Able to move all 4 extremity. No focal neurologic findings appreciated on exam. Normal speech. A/P Assessment and Plan 61-year-old female with a past medical history significant for diabetes mellitus status post insulin pump implantation with multiple hospitalizations secondary to DKA, left foot osteomyelitis currently receiving antibiotic therapy through a PICC line, coronary artery disease with recent ID status post stent implantation July 2016, HTN, peripheral neuropathy, peripheral vascular disease, migraines and dyslipidemia who presents to [facility] ED with complaints of decreased appetite and nausea/vomiting for the past 2-3 days. ROSAURA. Kidney function improving - suspect prerenal secondary to dehydration, N/V and poor oral intake - Monitor kidney function, kidney indices improving - Continue IVF with bicarb supplement - avoid nephrotoxic agents - Renal US reviewed and normal - repeat lab in am to monitor trend - hold home Lisinopril dose - diabetic/renal/heart healthy diet -Consult nephrology appreciate recommendations. Nausea: Antiemetics as need. Likely related to dilaudid use. Will DC dilaudid . DM2 - ISS - accuchecks - A1c 7.8 11/12/16 Left 2nd toe osteomyelitis Consulted her vascular surgeon, seen by Dr Fairbanks. Pt scheduled for Angiogram on Monday and Distal Bypass for Mon next week with Dr. Fairbanks [facility] surg Plan to amputate L 2nd toe to remove infected bone and reduce pain per podiatry Dr Trejo appreciate recommendations. 12/01/16 s/p surgery in the PM by Dr Trejo. Patient has PICC line in place for IV abx treatment (she was on IV abx) Hold IV Cefepime 2gm q 8hrs and po Flagyl 500mg po TID - stop date 12/28/16 - Consult ID for abx recommendations. Discussed with Dr Cisse ID HOLD on any meds. patient doesn't need abx at this time, also patient had surgery and per Dr Neil chris she excise all the affected bone. Consult podiatry, following Lortab prn with Morphine for breakthrough pain HTN/CAD/s/p ID with cardiac stents - not controlled at present - resume home medications except for ACEI - ASA daily - monitor BP and adjust treatment accordingly - clonidine prn with parameters PAD - resume home Plavix Dyslipidemia - resume home Pravastatin dose Peripheral neuropathy - resume home Gabapentin Migraines - Topamax qhs per home schedule - Imitrex prn DVT prophylaxis - Lovenox sq Discussed with the patient, nurse Discharge plan Discharge: DC when improved and cleared by consultants. Mon/Tus plan for further work up per [facility] surgeon Dr Fairbanks. DC when improved and cleared by [facility] surgery /podiatry Elizabeth Mcneil MD Dec 05, 2016 15:53
[2016-12-05] MEDS: ENOXAPARIN SODIUM 30 MG/0.3 ML SYRINGE SQ SCH (17:00)
--- NOTE | 2016-12-05 17:39 | HHI.NPPN ---
Subjective History of Present Illness 61-year-old female with a past medical history of hypertension, diabetes mellitus, hyperlipidemia, peripheral neuropathy, infection in the left big toe, history of recurrent, acute kidney injury in the past, was admitted because of nausea, vomiting and decreased appetite. I was called to see the patient because of elevated BUN and creatinine. Additional Remarks Patient is alert, no SOB, feeling better, appetite improving. Review of Systems General Constitutional: Fatigue Cardiovascular Cardiac: SMITH Objective Data Data 12/04/16 12/05/16 19:00 07:00 Intake Total 600 ml Output Total 250 ml Balance 350 ml Intake Oral 600 ml Output Urine Total 250 ml # Voids 4 5 Vital Signs Date Time Temp Pulse Resp B/P Pulse Ox O2 Delivery O2 Flow Rate FiO2 12/05/16 17:02 97.7 92 18 111/96 99 12/05/16 14:31 96 Room Air 12/05/16 14:07 96 Nasal Cannula 21 12/05/16 12:00 97.2 72 18 125/75 95 12/05/16 09:15 98.8 77 17 156/65 97 12/05/16 04:00 98.5 73 18 134/54 95 12/05/16 00:00 98.8 86 18 189/79 95 12/04/16 20:00 98.1 71 18 155/70 94 -: 12/04/16 0608 12/05/16 0530 Physical Exam General Appearance: No Acute Distress, Comfortable Eyes Eye Exam: Pupils Equal Throat Throat Exam: Oral Mucosa [place] & Moist Pulmonary Resp Exam: Breath Sounds Equal, No Distress, Rhonchi, Decreased Bases Cardiology CV Exam: Regular, Normal Sinus Rhythm Gastrointestinal/Abdomen GI Exam: Soft, Non-Tender, Bowel Sounds Present, Non-Distended Extremeties Extremities Exam: Trace Edema Neurologic Neuro Exam: Alert, Awake, Oriented Psychiatric Psych Exam: Appropriate Responses Assessment/Plan Assessment Summary: ROSAURA/Acute Renal Failure Problem List: (1) Metabolic acidosis (2) HTN (hypertension) (3) Diabetic ulcer of foot associated with type 1 diabetes mellitus, limited to breakdown of skin (4) Diabetes type 1, uncontrolled (5) PAD (peripheral artery disease) (6) Nausea & vomiting (7) ROSAURA (acute kidney injury) Plan Patient has left toe and hallux amputation. Urine out put is good. Creatinine is improving and acidosis is better. HCo3 is better, change the IVF. Avoid Nephrotoxins. Follow the urine out put and BMP. For revascularization in AM. Problem Qualifiers (1) HTN (hypertension): Qualified Code: I10 - Essential hypertension (2) Nausea & vomiting: Qualified Code: R11.2 - Non-intractable vomiting with nausea, unspecified vomiting type Luis Daniel Melendez MD Dec 05, 2016 17:39
[2016-12-05] MEDS: SODIUM CHLOR 0.9% 1000 ML INJ 1,000 ML IV SCH (18:00)
--- NOTE | 2016-12-05 19:21 | PD.VS.PN ---
Pre-operative Note Pre-operative diagnosis: LLE tissue loss, failed distal bypass Planned procedure: L LE bypass (redo) Interval History: Pt adm for elevated creatinine, responded to IVF. Ready for OR. Labs: Laboratory Results Test 12/04/16 12/05/16 06:08 05:30 White Blood Count 4.5 TH/MM3 (4.0-11.0) Red Blood Count 3.72 MIL/MM3 (4.00-5.30) Hemoglobin 10.1 GM/DL (11.6-15.3) Hematocrit 30.2 % (35.0-46.0) Mean Corpuscular Volume 81.2 FL (80.0-100.0) Mean Corpuscular Hemoglobin 27.2 PG (27.0-34.0) Mean Corpuscular Hemoglobin 33.5 % Concent (32.0-36.0) Red Cell Distribution Width 17.5 % (11.6-17.2) Platelet Count 141 TH/MM3 (150-450) Mean Platelet Volume 9.7 FL (7.0-11.0) Sodium Level 139 MEQ/L (136-145) Potassium Level 3.6 MEQ/L (3.5-5.1) Chloride Level 96 MEQ/L (98-107) Carbon Dioxide Level 26.5 MEQ/L (21.0-32.0) Anion Gap 17 MEQ/L (5-15) Blood Urea Nitrogen 22 MG/DL (7-18) Random Glucose 323 MG/DL (74-106) Calcium Level 7.7 MG/DL (8.5-10.1) Blood: T&C 2U Imaging: Last Impressions Foot X-Ray 11/30/16 0000 Signed Impressions: Service Date/Time: Wednesday, November 30, 2016 11:19 - CONCLUSION: 1. Deformity about the 1st metatarsal phalangeal joint. 2. Soft tissue swelling 2nd digit without osteomyelitis. Perico Novak MD FACR Renal Ultrasound 11/29/16 0000 Signed Impressions: Service Date/Time: Tuesday, November 29, 2016 16:58 - CONCLUSION: Negative renal sonogram. Berlin Narvaez MD Orders: NPO after MN MIVF Vanc 1g IV OCTOR Post-operative destination: PACU, then CIC Operative site marked: Yes Consent: Informed consent has been obtained from Robyn Marquez. I have explained the procedure in detail and discussed the risks, benefits, and potential complications. All questions have been answered. Kit Fairbanks MD Dec 05, 2016 19:21
[2016-12-05 20:57] LABS: CKMB 3.1 NG/ML (0.5-3.6)
[2016-12-05] MEDS: TOPIRAMATE 25 MG TAB PO SCH (21:00)
[2016-12-05] MEDS: GABAPENTIN 100 MG CAP PO SCH (22:10)
[2016-12-05] MEDS: CALCIUM CARBONATE 500 MG CHEWABLE TAB CHEW PRN (22:10)
[2016-12-06] VITALS (10 sets, daily range): BP systolic 103–161; BP diastolic 45–76; PULSE 74–83; RESP 16–20; TEMP 98–98.8; O2SAT 93–99
[2016-12-06] MEDS: DOCUSATE SODIUM 100 MG CAP PO SCH ×2 (05:00→18:04)
[2016-12-06] MEDS: SODIUM CHLOR 0.9% 1000 ML INJ 1,000 ML IV SCH ×2 (05:19→12:24)
[2016-12-06] MEDS: INSULIN ASPART SUPPLEMENTAL SCALE SQ SCH (06:37)
[2016-12-06] MEDS: ONDANSETRON HCL 4 MG/2 ML VIAL IVP PRN (06:37)
[2016-12-06] MEDS ORDERED: INSULIN HUMAN REGULAR 1,000 UNITS/10 ML VIAL ONE (07:32)
[2016-12-06] MEDS ORDERED: ONDANSETRON HCL 4 MG/2 ML VIAL IV PUSH ONE (07:37)
[2016-12-06] MEDS ORDERED: FAMOTIDINE 20 MG/2 ML VIAL IV PUSH ONE (07:39)
[2016-12-06] MEDS: CLOPIDOGREL 75 MG TAB PO SCH (08:03)
[2016-12-06] MEDS: ASPIRIN EC 81 MG TABEC PO SCH (08:03)
[2016-12-06] MEDS: SODIUM CHLORIDE 0.9% FLUSH 10 ML FLUSH IV FLUSH SCH ×2 (08:03→20:42)
[2016-12-06] MEDS: ATENOLOL 25 MG TAB PO SCH (08:04)
[2016-12-06] MEDS: PRAVASTATIN SOD 20 MG TAB PO SCH (08:04)
--- NOTE | 2016-12-06 08:45 | EKG ---
Date Performed: 12/05/2016 Time Performed: 21:39:01 PTAGE: 61 years EKG: Sinus rhythm POSSIBLE LEFT ATRIAL ENLARGEMENT NONSPECIFIC ST & T-WAVE ABNORMALITY BORDERLINE ECG PREVIOUS TRACING : 11/29/2016 12.32 No significant change from previous tracing noted. DOCTOR: Homero [place] Interpretating Date/Time 12/06/2016 08:44:16
[2016-12-06] MEDS ORDERED: [UNRECOGNIZED DRUG - REMARK] IV SCH ×2 (09:30)
--- NOTE | 2016-12-06 11:12 | HHI.PR ---
Subjective Remarks Went for surgery, was seen after the surgery in CICU. Patient in bed, is sleepy. Says she doesn't have any pain. Has a elena in, patient says she has the urge to urinate and wants to go to the bath. She is alert and oriented, I explained to the patient she has a elena and can not ambulate, PT will evaluate her. She expressed understanding. No chest pain, sob, n/v/d/c. Objective Vitals Vital Signs Date Time Temp Pulse Resp B/P Pulse Ox O2 Delivery O2 Flow Rate FiO2 12/06/16 08:33 98.7 78 20 109/49 96 12/06/16 05:57 98.0 76 18 139/64 98 12/06/16 01:16 18 12/06/16 01:14 98.8 83 20 119/56 95 12/05/16 21:25 98.8 85 20 128/60 98 12/05/16 17:02 97.7 92 18 111/96 99 12/05/16 14:31 96 Room Air 12/05/16 14:07 96 Nasal Cannula 21 12/05/16 12:00 97.2 72 18 125/75 95 I/O 12/05/16 12/05/16 12/05/16 12/06/16 12/06/16 12/06/16 07:00 15:00 23:00 07:00 15:00 23:00 Intake Total 240 ml Output Total 500 ml Balance 240 ml -500 ml Intake Oral 240 ml Output Urine Total 500 ml # Voids 3 1 # Bowel Movements 0 Result Diagram: 12/04/16 0608 12/05/16 2338 Imaging Last Impressions Foot X-Ray 11/30/16 0000 Signed Impressions: Service Date/Time: Wednesday, November 30, 2016 11:19 - CONCLUSION: 1. Deformity about the 1st metatarsal phalangeal joint. 2. Soft tissue swelling 2nd digit without osteomyelitis. Perico Novak MD FACR Renal Ultrasound 11/29/16 0000 Signed Impressions: Service Date/Time: Tuesday, November 29, 2016 16:58 - CONCLUSION: Negative renal sonogram. Berlin Narvaez MD Objective Remarks GENERAL: This is a well-nourished, well-developed patient, in no apparent distress. Awake and oriented. SKIN: No rashes, ecchymoses or lesions. Cool and dry. HEAD: Atraumatic. Normocephalic. No temporal or scalp tenderness. EYES: Pupils equal round and reactive. Extraocular motions intact. No scleral icterus. No injection or drainage. ENT: Nose without bleeding, purulent drainage or septal hematoma. NECK: Trachea midline. No JVD or lymphadenopathy. Supple, nontender, no meningeal signs. CARDIOVASCULAR: Regular rate and rhythm without murmurs, gallops, or rubs. RESPIRATORY: Clear to auscultation. Breath sounds equal bilaterally. No wheezes , rales, or rhonchi. GASTROINTESTINAL: Abdomen soft, non-tender, nondistended. No hepato-splenomegaly , or palpable masses. No guarding. MUSCULOSKELETAL: Extremities without clubbing, cyanosis, or edema. No joint tenderness, effusion, or edema noted. No calf tenderness. Left foot wound wrapped in gauze, did not take down dressing. NEUROLOGICAL: Awake and alert. Able to move all 4 extremity. No focal neurologic findings appreciated on exam. Normal speech. A/P Assessment and Plan 61-year-old female with a past medical history significant for diabetes mellitus status post insulin pump implantation with multiple hospitalizations secondary to DKA, left foot osteomyelitis currently receiving antibiotic therapy through a PICC line, coronary artery disease with recent VA status post stent implantation July 2016, HTN, peripheral neuropathy, peripheral vascular disease, migraines and dyslipidemia who presents to [facility] ED with complaints of decreased appetite and nausea/vomiting for the past 2-3 days. ROSAURA. Kidney function improving - suspect prerenal secondary to dehydration, N/V and poor oral intake - Monitor kidney function, kidney indices improving - Continue IVF with bicarb supplement - avoid nephrotoxic agents - Renal US reviewed and normal - repeat lab in am to monitor trend - hold home Lisinopril dose - diabetic/renal/heart healthy diet -Consult nephrology appreciate recommendations. Nausea: Antiemetics as need. Likely related to dilaudid use. Will DC dilaudid . DM2 - ISS - accuchecks - A1c 7.8 11/12/16 Left 2nd toe osteomyelitis. S/P amputation Left 2nd toe 12/01/16 S/P amputate L 2nd toe to remove infected bone and reduce pain per podiatry Dr Trejo appreciate recommendations. 12/01/16 s/p surgery in the PM by Dr Trejo. Patient has PICC line in place for IV abx treatment (she was on IV abx) Hold IV Cefepime 2gm q 8hrs and po Flagyl 500mg po TID - stop date 12/28/16 - Consult ID for abx recommendations. Discussed with Dr Cisse ID HOLD on any meds. patient doesn't need abx at this time, also patient had surgery and per Dr Neil chris she excise all the affected bone. 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 Consulted her vascular surgeon, seen by Dr Fairbanks. 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 Fairbanks [facility] surg HTN/CAD/s/p VA with cardiac stents - not controlled at present - resume home medications except for ACEI - ASA daily - monitor BP and adjust treatment accordingly - clonidine prn with parameters PAD - resume home Plavix Dyslipidemia - resume home Pravastatin dose Peripheral neuropathy - resume home Gabapentin Migraines - Topamax qhs per home schedule - Imitrex prn DVT prophylaxis - Lovenox sq Discussed with the patient, nurse Discharge plan Discharge: DC when improved and cleared by consultants. DC when improved and cleared by [facility] surgery /podiatry Discussed with Dr Fairbanks surg poss start ASA, plavix in 2 days, might be DC in ~ 1 week depending on improvement Elizabeth Mcneil MD Dec 06, 2016 11:12
[2016-12-06] MEDS ORDERED: DEXTROSE 50% IN WATER 50 ML VIAL(D50) IV PUSH PRN ×3 (11:15→14:15)
[2016-12-06] MEDS ORDERED: GLUCAGON 1 MG/ML VIAL OTHER PRN (11:15)
[2016-12-06] MEDS ORDERED: THROMBIN (TOPICAL) 20,000 UNIT VIAL OTHER ONE (11:31)
[2016-12-06] MEDS ORDERED: LACTATED RINGER'S 1000 ML INJ 1,000 ML IV ONE (12:00)
[2016-12-06] MEDS ORDERED: NORMOSOL R INJ 1,000 ML IV ONE (12:00)
[2016-12-06] MEDS ORDERED: fentaNYL CITRATE 250 MCG/5 ML AMP IV ONE (12:00)
[2016-12-06] MEDS ORDERED: PROPOFOL 200 MG/20 ML AMP IV ONE (12:00)
[2016-12-06] MEDS ORDERED: PHENYLEPH/NS 1000 MCG/10 ML SYR IV ONE (12:00)
--- NOTE | 2016-12-06 12:24 | HHI.PR ---
Immediate Post Op Note Procedure Date: Dec 06, 2016 Pre Op Diagnosis: PAD, failed distal bypass L LE Post Op Diagnosis: PAD, failed distal bypass L LE Surgeon: Kit Fairbanks Telecommunications Clerk(s): Adonis Ortiz Procedure: L VENDOR ANALYST/PFA TEA w/ patch angioplasty L fem-BK pop with reversed GSV re-do bypass Findings: strong DP signal at conclusion of case Complications: none apparent Specimen(s) removed: none Estimated blood loss: 300mL Anesthesia: General Drains: None Fluids: 1900 mL IVF: 200 mL UOP IVF Patient to: Other (CVICU) Patient Condition: Good Implant/Devices: SEE IMPLANT LOG (if applicable) Date/Time of Procedure: SEE SURGICAL CARE RECORD Kit Fairbanks MD Dec 06, 2016 12:24
--- NOTE | 2016-12-06 12:26 | HHI.PR ---
Addendum to Inpatient Note Addendum Reason: Additional Documentation Additional Information Per discussion with : chronic osteo Clinically no residual infection post surgery No antibiotics on discharge. Will sign off please call back if any change in clinical condition or questions. Anjali Cisse MD Dec 06, 2016 12:26
[2016-12-06] MEDS ORDERED: INSULIN REGULAR (IV INFUSION) 100 UNITS in SODIUM CHLORIDE 0.9% INJ 99 ML IV SCH (12:30)
[2016-12-06] MEDS ORDERED: MISC INFORMATION XX ONE (12:30)
[2016-12-06] MEDS ORDERED: ENOXAPARIN SODIUM 30 MG/0.3 ML SYRINGE SQ SCH (14:00)
[2016-12-06] MEDS ORDERED: INSULIN REGULAR 100 UNITS/100 ML NS ALGORITHM 2 IV SCH ×2 (14:15)
--- NOTE | 2016-12-06 15:02 | PD.CONS ---
[facility] Service Critical Care Medicine Consult Requested By Dr. Fairbanks Reason for Consult Diabetes management and ICU Primary Care Physician Kain Chau DO History of Present Illness 61-year-old female. Date of admission 11/30/2016. Date of consultation 12/06/2016. Past medical history includes diabetes mellitus type 1 , glaucoma, and peripheral neuropathy secondary diabetes, coronary disease history of MN type , hypertension, dyslipidemia, peripheral vascular disease, chronic pain syndrome, chronic kidney disease, ovarian cyst and migraine headaches. She is on dual antiplatelet therapy secondary to drug- eluting stent placed 07/29 [place]. She presented to [place] initially on 11/30 with weakness/fatigue and demanding amputation her left great toe. She was seen in consultation infectious disease for this issue. Previously on cefepime 2 g every 8 and Flagyl 500 mg oral. She seen in consultation by podiatry with subsequent amputation of left second great toe on 12/01 without consultation. ID as signed off. She was seen in consultation by nephrology with creatinine on admission of 2.5 currently 1.4. Seen on admission by vascular surgery Today, patient had a left leg bypass/femoropopliteal with saphenous vein graft with left greater than reconstruction by Dr. Fairbanks. 1900 cc crystalloid. 300 cc EBL. 200 urine output. She is currently in a simple mask that duration is 90%. Normotensive. Currently on insulin drip at 9 units an hour. Requesting blankets. Review of Systems Constitutional: COMPLAINS OF: Fatigue, Weight loss, DENIES: Fever, Weight gain Endocrine: DENIES: Polydipsia, Polyuria Eyes: COMPLAINS OF: Blurred vision, DENIES: Double Vision Ears, nose, mouth, throat: DENIES: Tinnitus, Hoarseness, Epistaxis Respiratory: DENIES: Cough Cardiovascular: DENIES: Chest pain, Lower Extremity Edema Gastrointestinal: DENIES: Abdominal pain, Nausea, Vomiting Genitourinary: DENIES: Urinary frequency, Nocturia Integumentary: DENIES: Pruritus, Rash Hematologic/lymphatic: DENIES: Bruising Immunologic/allergic: DENIES: Eczema Neurologic: COMPLAINS OF: Headache, DENIES: Abnormal gait Psychiatric: DENIES: Anxiety, Confusion Past Family Social History Allergies: Coded Allergies: Codeine (Verified Allergy, Mild, HIVES, 11/10/16) Glucophage (Verified Allergy, Mild, DKA, 11/10/16) Morphine (Verified Adverse Reaction, Severe, 11/10/16) vomiting Past Medical History Glaucoma Diabetic neuropathy Type II MN 11/28 Coronary artery disease with Promus Premier GARRY (2.5 x 28) to prox LAD and ( 2.25 x 32) mid LAD 07/29 [employer] -Recent heart Physician Dr. Rodriguez 11/28 revealed 30-40% reinstent stenosis. LAD 20% ostium. Left circumflex with mild disease. RCA 50% mid disease Dyslipidemia Diabetes mellitus last hemoglobin A1c 7.8 Elevated HDL 6612/ Chronic pain syndrome Chronic kidney disease Second left toe osteomyelitis Migraine headache Past Surgical History Left second toe amputation 12/[address] Rehman Cholecystectomy Hysterectomy Cardiac stents as above Left femoropopliteal bypass by Dr. Galloway 12/26/15 Insulin pump placement since removed PICC line placements self removed Reported Medications Imitrex 25 mg as needed Plavix 75 mg by mouth daily Atenolol 25 mg by mouth twice a day Neurontin 100 mg at night Topamax 25 mg at night Lisinopril 20 mg by mouth daily Pravastatin 20 mg by mouth daily Aspirin 81 mg by mouth daily Cefepime 2 g IV every 8 hours Mobic 15 mg by mouth daily Active Ordered Medications Reviewed in EMR Family History Mother with heart disease, MN, hypertension Father with liver disease, COPD and EtOH Social History 30 pack years quit 1 year ago tobacco. No alcohol since 6 months social alcohol past. THC use in past. Denies current. Physical Exam Vital Signs Vital Signs Date Time Temp Pulse Resp B/P Pulse Ox O2 Delivery O2 Flow Rate FiO2 12/06/16 13:00 98.7 74 16 103/45 99 12/06/16 12:55 99 Simple Mask 6.00 12/06/16 12:45 93 Nasal Cannula 6.00 12/06/16 08:33 98.7 78 20 109/49 96 12/06/16 05:57 98.0 76 18 139/64 98 12/06/16 01:16 18 12/06/16 01:14 98.8 83 20 119/56 95 12/05/16 21:25 98.8 85 20 128/60 98 12/05/16 17:02 97.7 92 18 111/96 99 Physical Exam GENERAL: 61-year-old female, critically ill currently resting in bed in no acute distress SKIN: Warm and dry. Multiple tattoos left lower extremity, butterfly to right shoulder. Multiple tattoos on gluteus & back HEAD: Atraumatic. Normocephalic. EYES: Pupils equal and round about 2 mm bilaterally and reactive. No scleral icterus. No injection or drainage. ENT: No nasal bleeding or discharge. Mucous membranes pink and moist. Oropharynx without erythema NECK: Trachea midline. No JVD. CARDIOVASCULAR: Regular rate and rhythm. S1, S2. No S4. RESPIRATORY: Clear to auscultation without wheezes rales or rhonchi. Breath sounds equal bilaterally. GASTROINTESTINAL: Abdomen soft, non-tender, nondistended. I Ornelas bowel sounds are appreciated. MUSCULOSKELETAL: Extremities status post left second toe amputation. Wrapped in Dru bandage. Incision from saphenous vein graft over medial aspect of left lower extremity at knee and below clean dry and intact without erythema NEUROLOGICAL: Awake and alert. No obvious cranial nerve deficits. Motor grossly within normal limits. Five out of 5 muscle strength in the arms and legs. Normal speech. Noted neuropathy stocking glove distribution bilateral lower extremities. Laboratory Laboratory Tests Test 12/05/16 12/05/16 12/06/16 20:10 23:38 08:50 Total Creatine Kinase 213 Creatine Kinase MB 3.1 Creatine Kinase MB % 1.5 Troponin I 0.30 Random Glucose 479 Blood Type A POSITIVE Antibody Screen NEGATIVE Crossmatch Leukocyte-Reduced Red Blood Cells Blood Bank Comment Date/Time Procedure Status Source Growth 12/01/16 17:25 Gram Stain - Final Complete Wound Foot 12/01/16 17:25 Wound Culture - Final Complete Staphylococcus Epidermidis 12/01/16 17:25 Fungal Smear - Final Resulted Wound Foot NO FUNGAL ELEMENTS SEEN. 12/01/16 17:25 Fungal Culture Resulted Wound Foot Pending 12/01/16 17:25 Acid Fast Stain - Final Resulted Wound Foot NO ACID FAST BACILLI SEEN 12/01/16 17:25 Mycobacterial Culture Resulted Wound Foot Pending Result Diagram: 12/04/16 0608 12/05/16 2338 Imaging Last Impressions Foot X-Ray 11/30/16 0000 Signed Impressions: Service Date/Time: Wednesday, November 30, 2016 11:19 - CONCLUSION: 1. Deformity about the 1st metatarsal phalangeal joint. 2. Soft tissue swelling 2nd digit without osteomyelitis. Perico Novak MD FACR Renal Ultrasound 11/29/16 0000 Signed Impressions: Service Date/Time: Tuesday, November 29, 2016 16:58 - CONCLUSION: Negative renal sonogram. Berlin Narvaez MD Assessment and Plan Assessment and Plan Neuro/Psych: History of migraine headache Chronic pain management Diabetic neuropathy Acetaminophen 650 mg every 4 hours for fever Oxycodone 5 mg every 4 hours when necessary/Driver 10/325 one tablet every hours when necessary and Dilaudid 2 mg IV every 4 hours when necessary for pain management Home medication Neurontin 100 mg daily at bedtime for neuropathy continued Home medication Topamax 25 mg daily at bedtime for migraine continued Home medications Imitrex 25 mg as needed for migraine being held Written for Restoril 15 mg at night when necessary insomnia Holding metabolic 50 mg by mouth daily for pain management CV: Postop day number 0 left leg bypass/femoropopliteal with SVG/left groin reconstruction by Dr. 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 EBL 300 cc. Urine output 200 cc. Echocardiogram 10/28 revealed EF 40-45%. Global hypokinesis. Grade 1 diastolic dysfunction. ELLIE 38 mmHg Cardiac catheter 11/28 revealed a normal left main. LAD 20% Ostium, 40% In- Stent Stenosis in LAD. Left Circumflex with mild diffuse disease and right circumflex with 50% mid vessel disease. Not amenable to further intervention. Medical management recommended by Dr. Briones Currently on metoprolol 20 mg by mouth twice a day for hypertension Currently on Lipitor 40 mg by mouth daily for dyslipidemia Continue aspirin 325 mg by mouth daily and Plavix 75 mg daily for GARRY/graft patency Home medication atenolol 25 mg by mouth twice a day lisinopril 20 mg by mouth daily for hypertension. Home medication Pravachol 20 mg by mouth daily for dyslipidemia Resp: History of tobaccoism Nasal cannula to maintain saturations greater than equal to 92% Incentive spirometry while awake As needed bronchodilator therapy GI: Advance to ADA diet Protonix 40 mg by mouth daily for GI prophylaxis Colace 100 mg twice a day for bowel regimen : White if needed for accurate I's and O's in a critically ill patient Endo: Diabetes mellitus type 1 hemoglobin A1c 7.8 11/28 Multiple admissions with DKA Last admission sent home on NPH 15 units a.m./7 units p.m. with sliding scale insulin Currently on cardiac infusion insulin at 9 units an hour to maintain tight euglycemic control. Last hemoglobin A1c 7.8. 11/28 Last triglycerides 132 07/29 Renal: Acute kidney injury Seen by Dr. Melendez/nephrology. Crowding currently 1.4. Admission was 2.5 No indication for hemodialysis at this time. Eosinophils negative. Renal ultrasound Results revealed no hydronephrosis Avoid nephrotoxic drugs Heme: Normocytic anemia Thrombocytopenia Monitor CBC daily. Follow trends ID: Left second toe osteomyelitis Previously treated with cefepime and Flagyl as outpatient. Note patient did not take Flagyl for 2 days prior to admission. Seen By . Currently off all antibiotics. Amputation definitive treatment. Currently no indication for any additional antibiotics PMO LEAD: History ovarian cyst No current active issue. 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 -Postoperative management per podiatry Access - Utilize peripheral IV. Central line if indicated Prophylaxis - GI-Protonix - DVT -Lovenox 30 mg subcutaneous daily Critical Care: The total critical care time was 55 minutes. Time to perform other separately billable procedures was not included in the critical care time. 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 Care plan discussed and all questions answered. Igor Hook MD Dec 06, 2016 15:02
[2016-12-06] MEDS ORDERED: INSULIN ASPART SUPPLEMENTAL SCALE SQ SCH (16:00)
[2016-12-06 17:11] LABS: BICARBONATE 29.7 MEQ/L (21.0-32.0); POTASSIUM 3.5 MEQ/L (3.5-5.1)
[2016-12-06] MEDS: ENOXAPARIN SODIUM 30 MG/0.3 ML SYRINGE SQ SCH (18:04)
[2016-12-06] MEDS: ACETAMINOPHEN/HYDROcodone 325 MG/10 MG TAB PO PRN (19:25)
--- NOTE | 2016-12-06 19:48 | HHI.NPPN ---
Subjective History of Present Illness 61-year-old female with a past medical history of hypertension, diabetes mellitus, hyperlipidemia, peripheral neuropathy, infection in the left big toe, history of recurrent, acute kidney injury in the past, was admitted because of nausea, vomiting and decreased appetite. I was called to see the patient because of elevated BUN and creatinine. Additional Remarks Patient is alert, seen after the surgery, no SOB. Review of Systems General Constitutional: Fatigue Cardiovascular Cardiac: SMITH Objective Data Data 12/05/16 12/06/16 19:00 07:00 Output Total 500 ml Balance -500 ml Output Urine Total 500 ml # Bowel Movements 0 Vital Signs Date Time Temp Pulse Resp B/P Pulse Ox O2 Delivery O2 Flow Rate FiO2 12/06/16 16:30 98.8 83 16 124/76 99 12/06/16 16:30 99 Nasal Cannula 3.00 12/06/16 16:21 16 12/06/16 15:00 83 12/06/16 15:00 83 12/06/16 13:00 98.7 74 16 103/45 99 12/06/16 12:55 99 Simple Mask 6.00 12/06/16 12:45 93 Nasal Cannula 6.00 12/06/16 08:33 98.7 78 20 109/49 96 12/06/16 05:57 98.0 76 18 139/64 98 12/06/16 01:16 18 12/06/16 01:14 98.8 83 20 119/56 95 12/05/16 21:25 98.8 85 20 128/60 98 -: 12/04/16 0608 12/06/16 1615 Physical Exam General Appearance: No Acute Distress, Comfortable Eyes Eye Exam: Pupils Equal Throat Throat Exam: Oral Mucosa [place]celsior & Moist Pulmonary Resp Exam: Breath Sounds Equal, No Distress, Rhonchi, Decreased Bases Cardiology CV Exam: Regular, Normal Sinus Rhythm Gastrointestinal/Abdomen GI Exam: Soft, Non-Tender, Bowel Sounds Present, Non-Distended Extremeties Extremities Exam: Trace Edema Neurologic Neuro Exam: Alert, Awake, Oriented Psychiatric Psych Exam: Appropriate Responses Assessment/Plan Assessment Summary: ROSAURA/Acute Renal Failure Problem List: (1) Metabolic acidosis (2) HTN (hypertension) (3) Diabetic ulcer of foot associated with type 1 diabetes mellitus, limited to breakdown of skin (4) Diabetes type 1, uncontrolled (5) PAD (peripheral artery disease) (6) Nausea & vomiting (7) ROSAURA (acute kidney injury) Plan Patient has left toe and hallux amputation. Urine out put is good. Now has left leg angioplasty and re-do Bypass. Has some increase in the Creatinine to 1.9. Continue gentle hydration. Follow the urine out put and BMP. Problem Qualifiers (1) HTN (hypertension): Qualified Code: I10 - Essential hypertension (2) Nausea & vomiting: Qualified Code: R11.2 - Non-intractable vomiting with nausea, unspecified vomiting type Luis Daniel Melendez MD Dec 06, 2016 19:48
[2016-12-06] MEDS: TOPIRAMATE 25 MG TAB PO SCH (20:42)
[2016-12-06] MEDS: METOPROLOL TARTRATE 25 MG TAB PO SCH (20:42)
[2016-12-06] MEDS: GABAPENTIN 100 MG CAP PO SCH (20:42)
[2016-12-06] MEDS: ATORVASTATIN 40 MG TAB PO SCH (20:42)
--- NOTE | 2016-12-06 22:10 | MP ---
cc: YANG FAIRBANKS MD DATE OF SURGERY 12/05/16 PREOPERATIVE DIAGNOSIS Left lower extremity gangrene peripheral vascular disease, failed distal bypass POSTOPERATIVE DIAGNOSIS Left lower extremity gangrene peripheral vascular disease, failed distal bypass PROCEDURE Aortogram with left lower extremity angiogram. ATTENDING SURGEON Ilan Fairbanks MD ANESTHESIA Local INDICATIONS Ms. Marquez is a 61 year old lady with diabetes and coronary artery disease as well as peripheral arterial occlusive disease. She had a previous femoral to popliteal artery bypass and presented for the gangrenous left second toe that was amputated by her phlebotomy specialist. I was asked to evaluate her. There was no prior catheter-based imaging available for my review since the suspected occlusion of her bypass. PROCEDURE IN DETAIL Informed consent was obtained from patient. She was taken to the operating room and placed supine on the operating room table. An appropriate timeout was taken to ensure the patient identity, operative site and planned procedure. The administration of antibiotics was not required since this is a clean case without the planned implantation of any foreign object. Everyone in the room agreed to timeout and we proceeded. Her bilateral groins were prepped and draped and locally anesthetized with 1% Lidocaine. A 21 gauge micropuncture needle was used to access the the right femoral artery. This was exchanged using Seldinger technique for a micropuncture sheath. A 0.035 glidewire was then introduced and micropuncture sheath was exchanged for a 4 [place] sheath and a VCF catheter was placed over the wire into the sheath. An aortogram was obtained. The glidewire was reintroduced and navigated down to the left common femoral artery. The VCF catheter was advanced over this and an left lower extremity arteriogram was obtained. The wire, catheter and sheath were removed and pressure was held for hemostasis. There were no complications. I was present and scrubbed for the entire procedure. INTERPRETATION This patient has patent infrarenal aorta with patent common iliac arteries bilaterally, external iliac arteries bilaterally, and hypogastric arteries bilaterally. The left common femoral artery is patent but stenotic. There appears to be the zhang of an old bypass. Profunda is patent. The superficial femoral artery is occluded. The popliteal artery constitutes. It is very diminutive but there is a below knee popliteal artery that is patent with three-vessel runoff to the foot. MD ARTURO Mccollum /1:52 PM /9:53 PM ARTURO
[2016-12-06] MEDS: ACETAMINOPHEN 325 MG TAB PO PRN (22:11)
[2016-12-07] VITALS (13 sets, daily range): BP systolic 114–157; BP diastolic 50–83; PULSE 67–87; RESP 16–20; TEMP 98–99.5; O2SAT 95–98
[2016-12-07] MEDS: ACETAMINOPHEN/HYDROcodone 325 MG/10 MG TAB PO PRN ×4 (01:51→22:42)
[2016-12-07 04:29] LABS: AUTOMATED NEUTROPHIL # 2.7 TH/MM3 (1.8-7.7); BASOPHIL # 0.1 TH/MM3 (0-0.2); BASOPHIL % 1.6 % (0.0-2.0); EOSINOPHIL # 0.1 TH/MM3 (0-0.4); EOSINOPHIL % 2.5 % (0.0-4.0); HEMATOCRIT 21.4 % (35.0-46.0); HEMO FLAGS DIFF FINAL; LYMPH % 20.2 % (9.0-44.0); LYMPHOCYTE # 0.9 TH/MM3 (1.0-4.8); MEAN CELL VOLUME 80.5 FL (80.0-100.0); MEAN CORPUSCULAR HGB CONC 34.8 % (32.0-36.0); NEUT % 58.7 % (16.0-70.0); PLATELET COUNT 118 TH/MM3 (150-450); RED BLOOD COUNT 2.66 MIL/MM3 (4.00-5.30); RED CELL DISTRIBUTION WIDTH 18.4 % (11.6-17.2); WHITE BLOOD COUNT 4.6 TH/MM3 (4.0-11.0)
[2016-12-07] MEDS: DOCUSATE SODIUM 100 MG CAP PO SCH ×2 (05:00→16:48)
[2016-12-07 05:03] LABS: BICARBONATE 28.3 MEQ/L (21.0-32.0); POTASSIUM 3.8 MEQ/L (3.5-5.1)
[2016-12-07 05:20] LABS: CALCIUM-PROTEIN CORRECTED 8.3 MG/DL (8.5-10.1)
[2016-12-07] MEDS: LOW DOSE INSULIN NOVOLOG SUPPLEMENTAL SCALE SQ SCH ×2 (06:00)
--- NOTE | 2016-12-07 07:35 | HHI.CCPN ---
Subjective Remarks/Hospital Course 61-year-old female. Date of admission 11/30/2016. Date of consultation 12/06/2016. Past medical history includes diabetes mellitus type 1 , glaucoma, and peripheral neuropathy secondary diabetes, coronary disease history of CA type , hypertension, dyslipidemia, peripheral vascular disease, chronic pain syndrome, chronic kidney disease, ovarian cyst and migraine headaches. She is on dual antiplatelet therapy secondary to drug- eluting stent placed 07/29[place]. She presented to [place] initially on 11/30 with weakness/fatigue and demanding amputation her left great toe. She was seen in consultation infectious disease for this issue. Previously on cefepime 2 g every 8 and Flagyl 500 mg oral. She seen in consultation by podiatry with subsequent amputation of left second great toe on 12/01 without consultation. ID as signed off. She was seen in consultation by nephrology with creatinine on admission of 2.5 currently 1.4. Seen on admission by vascular surgery Today, patient had a left leg bypass/femoropopliteal with saphenous vein graft with left greater than reconstruction by Dr. Fairbanks. 1900 cc crystalloid. 300 cc EBL. 200 urine output. She is currently in a simple mask. Normotensive. Currently on insulin drip at 9 units an hour. Requesting blankets. Subjective 12/07: Currently afebrile. Insulin drip discontinued currently on sliding scale insulin. Inability to 7.3. Hemodynamically stable. No obvious source of bleeding. Graft site clean dry and intact. No hematoma at surgical reconstruction site. Objective Vital Signs Date Time Temp Pulse Resp B/P Pulse Ox O2 Delivery O2 Flow Rate FiO2 12/07/16 04:00 99 Nasal Cannula 3.00 12/07/16 04:00 98.4 76 16 114/50 12/05/16 14:07 21 Intake and Output 12/06/16 12/06/16 12/07/16 08:00 16:00 00:00 Intake Total 423 ml Output Total 500 ml 150 ml Balance -500 ml 273 ml Result Diagram: 12/07/16 0350 12/07/16 0350 Imaging Last Impressions Foot X-Ray 11/30/16 0000 Signed Impressions: Service Date/Time: Wednesday, November 30, 2016 11:19 - CONCLUSION: 1. Deformity about the 1st metatarsal phalangeal joint. 2. Soft tissue swelling 2nd digit without osteomyelitis. Perico Novak MD FACR Renal Ultrasound 11/29/16 0000 Signed Impressions: Service Date/Time: Tuesday, November 29, 2016 16:58 - CONCLUSION: Negative renal sonogram. [place] Narvaez MD Objective Remarks GENERAL: 61-year-old female, critically ill currently resting in bed in no acute distress SKIN: Warm and dry. Multiple tattoos left lower extremity, butterfly to right and left shoulder. Multiple tattoos on gluteus & back HEAD: Atraumatic. Normocephalic. EYES: Pupils equal and round about 2 mm bilaterally and reactive. No scleral icterus. No injection or drainage. ENT: No nasal bleeding or discharge. Mucous membranes pink and moist. Oropharynx without erythema NECK: Trachea midline. No JVD. CARDIOVASCULAR: Regular rate and rhythm. S1, S2. No S4. RESPIRATORY: Clear to auscultation without wheezes rales or rhonchi. Breath sounds equal bilaterally. GASTROINTESTINAL: Abdomen soft, non-tender, nondistended. I Ornelas bowel sounds are appreciated. MUSCULOSKELETAL: Extremities status post left second toe amputation. Wrapped in Dru bandage. Incision from saphenous vein graft over medial aspect of left lower extremity at knee and above and below clean dry and intact without erythema NEUROLOGICAL: Awake and alert. No obvious cranial nerve deficits. Motor grossly within normal limits. Five out of 5 muscle strength in the arms and legs. Normal speech. Noted neuropathy stocking glove distribution bilateral lower extremities. A/P Assessment and Plan Neuro/Psych: History of migraine headache Chronic pain management Diabetic neuropathy Acetaminophen 650 mg every 4 hours for fever Oxycodone 5 mg every 4 hours when necessary/[place] 10/325 one tablet every hours when necessary and Dilaudid 2 mg IV every 4 hours when necessary for pain management Home medication Neurontin 100 mg daily at bedtime for neuropathy continued Home medication Topamax 25 mg daily at bedtime for migraine continued Home medications Imitrex 25 mg as needed for migraine being held Written for Restoril 15 mg at night when necessary insomnia Holding Mobic 15 mg by mouth daily for pain management CV: Postop day number 0 left leg bypass/femoropopliteal with SVG/left groin reconstruction by Dr. 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 EBL 300 cc. Urine output 200 cc. Echocardiogram 10/28 revealed EF 40-45%. Global hypokinesis. Grade 1 diastolic dysfunction. ELLIE 38 mmHg Cardiac catheter 11/28 revealed a normal left main. LAD 20% Ostium, 40% In- Stent Stenosis in LAD. Left Circumflex with mild diffuse disease and right circumflex with 50% mid vessel disease. Not amenable to further intervention. Medical management recommended by Dr. Briones Currently on metoprolol 20 mg by mouth twice a day for hypertension Currently on Lipitor 40 mg by mouth daily for dyslipidemia Continue aspirin 325 mg by mouth daily and Plavix 75 mg daily for GARRY/graft patency Home medication atenolol 25 mg by mouth twice a day lisinopril 20 mg by mouth daily for hypertension. Home medication Pravachol 20 mg by mouth daily for dyslipidemia Currently normal saline at 42 cc an hour. Resp: History of tobaccoism Nasal cannula to maintain saturations greater than equal to 92% Incentive spirometry while awake As needed bronchodilator therapy GI: Advance to ADA diet 1800 Protonix 40 mg by mouth daily for GI prophylaxis Colace 100 mg twice a day for bowel regimen : Cindy if needed for accurate I's and O's in a critically ill patient Endo: Diabetes mellitus type 1 hemoglobin A1c 7.8 11/28 Multiple admissions with DKA Last admission sent home on NPH 15 units a.m./7 units p.m. with sliding scale insulin Currently on cardiac infusion insulin at 9 units an hour to maintain tight euglycemic control. Switch to our sliding-scale insulin/low regimen with Accu-Cheks before meals/ at bedtime and O3 100. Start NPH 8 units a.m./4 units p.m. Last hemoglobin A1c 7.8. 11/28 Last triglycerides 132 07/29 Renal: Acute kidney injury Seen by Dr. Melendez/nephrology. Trending down currently 1.8. Admission was 2.5 No indication for hemodialysis at this time. Eosinophils negative. Renal ultrasound Results revealed no hydronephrosis Avoid nephrotoxic drugs Heme: Normocytic anemia Thrombocytopenia Monitor CBC daily. Follow trends Transfuse 1 unit PRBCs. Recheck at 1400. ID: Left second toe osteomyelitis Previously treated with cefepime and Flagyl as outpatient. Note patient did not take Flagyl for 2 days prior to admission. Seen By . Currently off all antibiotics. Amputation definitive treatment. 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 -Postoperative management per podiatry Access - Utilize peripheral IV. Central line if indicated Prophylaxis - GI-Protonix - DVT -Lovenox 30 mg subcutaneous daily Critical Care: The total care time was 35 minutes. Time to perform other separately billable procedures was not included in the critical care time. Igor Hook MD Dec 07, 2016 07:35
--- NOTE | 2016-12-07 07:39 | PD.VS.PN ---
Subjective POD #: 1 Procedure(s): L groin reconstruction, fem-BK pop with rGSV Subjective/Hospital Course hyperglycemia controlled overnight - off insulin gtt pain controlled pt appropriate anxious to "get moving" and work on d/c planning foot ok Objective Vitals/I&O Date Time Temp Pulse Resp B/P Pulse Ox O2 Delivery O2 Flow Rate FiO2 12/07/16 04:00 99 Nasal Cannula 3.00 12/07/16 04:00 98.4 76 16 114/50 98 12/07/16 00:00 98.0 82 16 142/55 98 12/07/16 00:00 98 Nasal Cannula 3.00 12/07/16 00:00 82 12/06/16 22:01 96 Nasal Cannula 2.00 12/06/16 20:00 98.3 77 18 161/58 99 12/06/16 20:00 77 12/06/16 20:00 99 Nasal Cannula 3.00 12/06/16 16:30 98.8 83 16 124/76 99 12/06/16 16:30 99 Nasal Cannula 3.00 12/06/16 16:21 16 12/06/16 15:00 83 12/06/16 15:00 83 12/06/16 13:00 98.7 74 16 103/45 99 12/06/16 12:55 99 Simple Mask 6.00 12/06/16 12:45 93 Nasal Cannula 6.00 12/06/16 08:33 98.7 78 20 109/49 96 12/07/16 12/07/16 12/07/16 07:00 15:00 23:00 Intake Total 1430 ml Output Total 750 ml Balance 680 ml Exam: L groin incision covered with VAC Leg warm L thigh and BK pop incisions c/d/i Pulses: Strong Doppler signals AT Laboratory Laboratory Tests Test 12/06/16 12/06/16 12/07/16 08:50 16:15 03:50 Blood Type A POSITIVE Antibody Screen NEGATIVE Crossmatch Leukocyte-Reduced Red Blood Cells Blood Bank Comment Sodium Level 146 144 Potassium Level 3.5 3.8 Chloride Level 107 106 Carbon Dioxide Level 29.7 28.3 Anion Gap 9 10 Blood Urea Nitrogen 29 28 Creatinine 1.94 1.81 Estimat Glomerular Filtration 26 28 Rate Random Glucose 27 185 Calcium Level 7.5 7.0 Troponin I 0.25 White Blood Count 4.6 Red Blood Count 2.66 Hemoglobin 7.4 Hematocrit 21.4 Mean Corpuscular Volume 80.5 Mean Corpuscular Hemoglobin 28.0 Mean Corpuscular Hemoglobin 34.8 Concent Red Cell Distribution Width 18.4 Platelet Count 118 Mean Platelet Volume 9.6 Neutrophils (%) (Auto) 58.7 Lymphocytes (%) (Auto) 20.2 Monocytes (%) (Auto) 17.0 Eosinophils (%) (Auto) 2.5 Basophils (%) (Auto) 1.6 Neutrophils # (Auto) 2.7 Lymphocytes # (Auto) 0.9 Monocytes # (Auto) 0.8 Eosinophils # (Auto) 0.1 Basophils # (Auto) 0.1 CBC Comment DIFF FINAL Differential Comment Protein Corrected Calcium 8.3 Total Protein 4.7 Assessment and Plan Assessment: (1) PAD (peripheral artery disease) Status: Chronic Plan doing well, bypass patent, wounds ok 1. D/C A-line 2. D/C White 3. OOB TC and PT consult 4. Tx 2U PRBC and recheck Hct 5. Continue blood glucose control Discharge Planning likely 5-7 days Kit Fairbanks MD Dec 07, 2016 07:39
[2016-12-07] MEDS ORDERED: POTASSIUM CHLORIDE 8 MEQ CONTROLLED RELEASE TAB PO ONE (07:45)
[2016-12-07] MEDS ORDERED: DEXTROSE 50% IN WATER 50 ML VIAL(D50) IV PUSH PRN (07:45)
[2016-12-07] MEDS ORDERED: GLUCAGON 1 MG/ML VIAL OTHER PRN (07:45)
[2016-12-07] MEDS: ASPIRIN 325 MG TAB PO SCH (08:41)
[2016-12-07] MEDS: INSULIN HUMAN NPH 1,000 UNITS/10 ML VIAL SQ SCH ×2 (08:41→16:48)
[2016-12-07] MEDS: PANTOPRAZOLE SOD 40 MG DELAYED RELEASE TAB PO SCH (08:42)
[2016-12-07] MEDS: CLOPIDOGREL 75 MG TAB PO SCH (08:42)
[2016-12-07] MEDS: METOPROLOL TARTRATE 25 MG TAB PO SCH ×2 (08:42→20:18)
[2016-12-07] MEDS: SODIUM CHLORIDE 0.9% FLUSH 10 ML FLUSH IV FLUSH SCH ×2 (08:42→20:19)
[2016-12-07] MEDS: SODIUM CHLOR 0.9% 1000 ML INJ 1,000 ML IV SCH (11:01)
[2016-12-07] MEDS: INSULIN NovoLIN REGULAR SUPPLEMENTAL SCALE SQ SCH ×3 (11:14→20:18)
[2016-12-07] MEDS: HYDROmorphone HCL 2 MG TAB PO PRN ×3 (11:15→20:21)
[2016-12-07] MEDS: CALCIUM CARBONATE 500 MG CHEWABLE TAB CHEW PRN (12:42)
--- NOTE | 2016-12-07 13:26 | MP ---
cc: YANG FAIRBANKS MD DATE OF SURGERY: 12/06/2016 PREOPERATIVE DIAGNOSIS Left lower extremity tissue loss, peripheral vascular disease, failed distal bypass. POSTOPERATIVE DIAGNOSIS Left lower extremity tissue loss, peripheral vascular disease, failed distal bypass. PROCEDURE 1. Left common femoral and profunda endarterectomy with patch angioplasty. 2. Left femoral-popliteal artery bypass with reverse greater saphenous vein. 3. Redo bypass. ATTENDING SURGEON Yang Fairbanks BENCH WORKER HELPER: Adonis Ortiz ANESTHESIA General. INDICATION Ms. Marquez is a lady who has a previous left femoral-popliteal bypass noted to be occluded. She has tissue loss and is taken to the operating room for redo bypass. Intraoperatively she was found to have a tight profunda stenosis and this was repaired and then the bypass performed with autogenous saphenous vein. DESCRIPTION OF PROCEDURE Informed consent was obtained from the patient. She was taken to the operating room and placed supine on the operating table. An appropriate timeout was taken to ensure the patient's identity, operative site and planned procedure. The administration of a gram of vancomycin was initiated prior to skin incision and will be discontinued after the single pre-op dose. Vancomycin was chosen because of the patient's preoperative stay being greater than 48 hours. Everyone in the room agreed with the timeout and we proceeded. She was prepped from her nipples to her toes. A vertical incision was made in the patient's left groin and carried down through subcutaneous tissue with electrocautery. The external iliac artery was identified and encircled with vessel loops. The previously bypassed common femoral artery, superficial femoral artery and broth branches of the profunda femoris were all dissected free. The saphenous vein was then identified and dissected free down the thigh down to the mid calf which skin incisions. The below-knee popliteal artery was identified from the medial aspect of the leg and encircled with a vessel loop. A tunnel was then created in the anatomic plane between the common femoral artery and the below-knee popliteal artery. The saphenous vein was harvested in the usual fashion with side branches ligated with 3-0 silks. The distal end of the vein was clamped with a right angle clamp and transected and oversewn with 3-0 silk. The vein was then removed all the way up to the saphenofemoral junction. This was clamped with a right angle. The vein was transected and the saphenofemoral junction was oversewn with 5-0 Prolene suture. The patient was then systemically heparinized. The vein was confirmed to have no leaks. AST was kept greater than 250 throughout the remainder of the case. Proximal control of the external iliac artery and distal control of both branches of the profunda were obtained with profunda clamps. The head of the graft was incised with an 11 blade and this was extended up to the common femoral artery with Bennett scissors and the graft zhang was removed from the artery and the graft was oversewn with silk suture. It was noted to be occluded. We extended our arteriotomy down to the profunda and the artery was endarterectomized without difficulty. A bovine pericardial patch was brought on the field and sewn in with 5-0 Prolene suture. The patch was then incised and the vein was sewn in an end-to-side fashion in a reverse manner by spatulating the vein and sewing the proximal end end-to-side with running 5-0 Prolene suture. At the completion it was flushed and noted to be hemostatic. The vein was distended, clamp distally, marked for orientation and passed through the tunnel, taking caution not to twist it. Proximal and distal control of the popliteal artery was obtained with profunda clamps and a longitudinal arteriotomy was made with an 11 blade and extended with Bennett scissors. The vein was cut to appropriate length, spatulated and sewn end-to-side with running 6-0 Prolene suture. At the completion it was flushed and noted to be hemostatic. There was a strong dorsalis pedis signal in the foot that was graft dependent. The wounds were irrigated and made hemostatic. The heparin was reversed with protamine. The wounds were closed with 2-o Polysorb, 3-0 Polysorb and 4-0 Monocryl. The sponge and needle counts were correct at the end of the case. I was present and scrubbed for the entire procedure. MD ALONDRA Mccollum/KATI /1:48 PM /12:43 PM [facility]
[2016-12-07 15:35] LABS: HEMATOCRIT 34.2 % (35.0-46.0); MEAN CELL VOLUME 80.7 FL (80.0-100.0); MEAN CORPUSCULAR HEMOGLOBIN 26.3 PG (27.0-34.0); MEAN CORPUSCULAR HGB CONC 32.6 % (32.0-36.0); PLATELET COUNT 119 TH/MM3 (150-450); RED BLOOD COUNT 4.24 MIL/MM3 (4.00-5.30); RED CELL DISTRIBUTION WIDTH 17.5 % (11.6-17.2); REVIEW FLAG FINAL; WHITE BLOOD COUNT 5.5 TH/MM3 (4.0-11.0)
[2016-12-07] MEDS: ENOXAPARIN SODIUM 30 MG/0.3 ML SYRINGE SQ SCH (16:48)
--- NOTE | 2016-12-07 17:08 | HHI.NPPN ---
Subjective History of Present Illness 61-year-old female with a past medical history of hypertension, diabetes mellitus, hyperlipidemia, peripheral neuropathy, infection in the left big toe, history of recurrent, acute kidney injury in the past, was admitted because of nausea, vomiting and decreased appetite. I was called to see the patient because of elevated BUN and creatinine. Additional Remarks Patient is alert, no pain in leg, no SOB. Review of Systems General Constitutional: Fatigue Cardiovascular Cardiac: SMITH Objective Data Data 12/06/16 12/07/16 19:00 07:00 Intake Total 423 ml 1430 ml Output Total 150 ml 750 ml Balance 273 ml 680 ml Intake Oral 180 ml 610 ml IV Total 243 ml 820 ml Output Urine Total 150 ml 750 ml Stool Total 0 ml # Voids 1 # Bowel Movements 0 Vital Signs Date Time Temp Pulse Resp B/P Pulse Ox O2 Delivery O2 Flow Rate FiO2 12/07/16 12:15 16 12/07/16 12:00 96 Room Air 12/07/16 11:00 98.5 74 16 137/68 97 12/07/16 10:30 96 Nasal Cannula 2.00 12/07/16 09:44 18 12/07/16 08:00 94 Room Air 12/07/16 07:00 80 12/07/16 07:00 98.6 80 18 157/64 97 12/07/16 04:00 99 Nasal Cannula 3.00 12/07/16 04:00 98.4 76 16 114/50 98 12/07/16 00:00 98.0 82 16 142/55 98 12/07/16 00:00 98 Nasal Cannula 3.00 12/07/16 00:00 82 12/06/16 22:01 96 Nasal Cannula 2.00 12/06/16 20:00 98.3 77 18 161/58 99 12/06/16 20:00 77 12/06/16 20:00 99 Nasal Cannula 3.00 -: 12/07/16 1515 12/07/16 0350 Physical Exam General Appearance: No Acute Distress, Comfortable Eyes Eye Exam: Pupils Equal Throat Throat Exam: Oral Mucosa [place] & Moist Pulmonary Resp Exam: Breath Sounds Equal, No Distress, Rhonchi, Decreased Bases Cardiology CV Exam: Regular, Normal Sinus Rhythm Gastrointestinal/Abdomen GI Exam: Soft, Non-Tender, Bowel Sounds Present, Non-Distended Extremeties Extremities Exam: Trace Edema Neurologic Neuro Exam: Alert, Awake, Oriented Psychiatric Psych Exam: Appropriate Responses Assessment/Plan Assessment Summary: ROSAURA/Acute Renal Failure Problem List: (1) Metabolic acidosis (2) HTN (hypertension) (3) Diabetic ulcer of foot associated with type 1 diabetes mellitus, limited to breakdown of skin (4) Diabetes type 1, uncontrolled (5) PAD (peripheral artery disease) (6) Nausea & vomiting (7) ROSAURA (acute kidney injury) Plan Patient has left toe and hallux amputation. Urine out put is good. Now has left leg angioplasty and re-do Bypass. Has some increase in the Creatinine to 1.9. and now 1.8, possibly related to contrast. Follow urine out put and BMP. Problem Qualifiers (1) HTN (hypertension): Qualified Code: I10 - Essential hypertension (2) Nausea & vomiting: Qualified Code: R11.2 - Non-intractable vomiting with nausea, unspecified vomiting type Luis Daniel Melendez MD Dec 07, 2016 17:08
[2016-12-07] MEDS: TOPIRAMATE 25 MG TAB PO SCH (20:18)
[2016-12-07] MEDS: ATORVASTATIN 40 MG TAB PO SCH (20:18)
[2016-12-07] MEDS: GABAPENTIN 100 MG CAP PO SCH (20:18)
[2016-12-08] VITALS (28 sets, daily range): BP systolic 149–177; BP diastolic 79–83; PULSE 74–96; RESP 16–18; TEMP 98.4–99.7; O2SAT 93–97
[2016-12-08] MEDS: HYDROmorphone HCL 2 MG TAB PO PRN ×5 (00:36→19:56)
[2016-12-08] MEDS: ACETAMINOPHEN/HYDROcodone 325 MG/10 MG TAB PO PRN ×3 (04:24→17:17)
[2016-12-08] MEDS: INSULIN NovoLIN REGULAR SUPPLEMENTAL SCALE SQ SCH ×5 (04:27→21:00)
[2016-12-08] MEDS: DOCUSATE SODIUM 100 MG CAP PO SCH ×2 (04:29→15:35)
[2016-12-08] MEDS: CALCIUM CARBONATE 500 MG CHEWABLE TAB CHEW PRN (05:15)
[2016-12-08 06:17] LABS: HEMATOCRIT 30.3 % (35.0-46.0); MEAN CELL VOLUME 79.7 FL (80.0-100.0); MEAN CORPUSCULAR HEMOGLOBIN 27.5 PG (27.0-34.0); MEAN CORPUSCULAR HGB CONC 34.6 % (32.0-36.0); PLATELET COUNT 110 TH/MM3 (150-450); RED CELL DISTRIBUTION WIDTH 17.1 % (11.6-17.2); REVIEW FLAG FINAL
[2016-12-08 06:43] LABS: POTASSIUM 3.8 MEQ/L (3.5-5.1)
[2016-12-08] MEDS: INSULIN HUMAN NPH 1,000 UNITS/10 ML VIAL SQ SCH ×2 (08:00→15:35)
[2016-12-08] MEDS: METOPROLOL TARTRATE 25 MG TAB PO SCH ×2 (09:12→19:54)
[2016-12-08] MEDS: ASPIRIN 325 MG TAB PO SCH (09:12)
[2016-12-08] MEDS: PANTOPRAZOLE SOD 40 MG DELAYED RELEASE TAB PO SCH (09:12)
[2016-12-08] MEDS: CLOPIDOGREL 75 MG TAB PO SCH (09:12)
[2016-12-08] MEDS: SODIUM CHLORIDE 0.9% FLUSH 10 ML FLUSH IV FLUSH SCH ×2 (09:13→19:57)
--- NOTE | 2016-12-08 09:59 | PD.VS.PN ---
Subjective POD #: 2 Procedure(s): L groin reconstruction, fem-BK pop with rGSV Subjective/Hospital Course Pt sitting in chair alert and in NAD Pt without complaints Reported her LLE feels great Pain controlled with medication (Debbie Doran) Objective Vitals/I&O Date Time Temp Pulse Resp B/P Pulse Ox O2 Delivery O2 Flow Rate FiO2 12/08/16 08:50 97 Nasal Cannula 12/08/16 08:00 Room Air 12/08/16 06:00 75 12/08/16 05:00 80 12/08/16 04:00 83 12/08/16 04:00 93 Room Air 12/08/16 03:13 82 12/08/16 03:10 99.7 85 18 164/83 93 12/08/16 02:00 78 12/08/16 01:00 80 12/08/16 00:00 80 12/08/16 00:00 97 Room Air 12/07/16 23:00 99.5 87 18 157/83 97 12/07/16 23:00 83 12/07/16 22:00 78 12/07/16 21:00 80 12/07/16 20:00 96 Room Air 12/07/16 20:00 82 12/07/16 19:52 96 21 12/07/16 19:05 99.1 84 18 144/68 96 12/07/16 19:00 82 12/07/16 16:00 99 Room Air 12/07/16 15:00 98.5 83 20 146/79 95 12/07/16 15:00 67 12/07/16 12:15 16 12/07/16 12:00 96 Room Air 12/07/16 11:00 98.5 74 16 137/68 97 12/07/16 10:30 96 Nasal Cannula 2.00 12/08/16 12/08/16 12/08/16 07:00 15:00 23:00 Intake Total 720 ml Output Total 250 ml Balance 470 ml Exam: GENERAL: A&OX3, GCS15, NAD SKIN: Warm and dry. Provena wound vac to L groin, Left LE incision sites intact with surgical glue, NO R/D/S, Left 2nd toe amputation site clean with suture closure NO R/D/S NECK: Supple, No JVD CARDIOVASCULAR: RRR, +S1,S2 w/o M/G/R RESPIRATORY: BS CTA [place] GASTROINTESTINAL: Abdomen soft, non-tender, nondistended. MUSCULOSKELETAL: No cyanosis, or edema. Strong triphasic signals bilat DP/PT heard via doppler BLE warm with motor intact Cap refill < 3 sec BLE Pulses: + triphasic signals DP/PT (bilat) heard via doppler Incisions: C/D/I Left groin with provena wound vac intact LLE intact with surgical glue Laboratory Laboratory Tests Test 12/07/16 12/08/16 15:15 05:57 White Blood Count 5.5 5.0 Red Blood Count 4.24 3.80 Hemoglobin 11.1 10.5 Hematocrit 34.2 30.3 Mean Corpuscular Volume 80.7 79.7 Mean Corpuscular Hemoglobin 26.3 27.5 Mean Corpuscular Hemoglobin 32.6 34.6 Concent Red Cell Distribution Width 17.5 17.1 Platelet Count 119 110 Mean Platelet Volume 9.5 9.7 Sodium Level 140 Potassium Level 3.8 Chloride Level 104 Carbon Dioxide Level 28.0 Anion Gap 8 Blood Urea Nitrogen 23 Creatinine 1.24 Estimat Glomerular Filtration 44 Rate Random Glucose 233 Calcium Level 7.6 (Debbie Doran) Assessment and Plan Assessment: (1) PAD (peripheral artery disease) Status: Chronic Plan Plan OOB to chair/Pt Eval Continue Monitoring Continue daily dressing changes Continue glucose monitoring Discharge Planning likely 5-7 days (Debbie Doran) Plan Overall looks good; wounds ok. Good signals. Needs PT (Kit Fairbanks MD) Debbie Doran Dec 08, 2016 09:59 Kit Fairbanks MD Dec 08, 2016 15:53
[2016-12-08] MEDS: SODIUM CHLOR 0.9% 1000 ML INJ 1,000 ML IV SCH (11:20)
[2016-12-08] MEDS: ENOXAPARIN SODIUM 30 MG/0.3 ML SYRINGE SQ SCH (15:35)
--- NOTE | 2016-12-08 15:50 | HHI.NPPN ---
Subjective History of Present Illness 61-year-old female with a past medical history of hypertension, diabetes mellitus, hyperlipidemia, peripheral neuropathy, infection in the left big toe, history of recurrent, acute kidney injury in the past, was admitted because of nausea, vomiting and decreased appetite. I was called to see the patient because of elevated BUN and creatinine. Additional Remarks Patient is alert, pain in leg is better, started eating well. Review of Systems General Constitutional: Fatigue Cardiovascular Cardiac: SMITH Objective Data Data 12/07/16 12/08/16 19:00 07:00 Intake Total 1950 ml 720 ml Output Total 590 ml 250 ml Balance 1360 ml 470 ml Intake Oral 1200 ml 720 ml IV Total 250 ml Packed Cells 500 ml Output Urine Total 590 ml 250 ml Stool Total 0 ml 0 ml # Voids 1 Vital Signs Date Time Temp Pulse Resp B/P Pulse Ox O2 Delivery O2 Flow Rate FiO2 12/08/16 15:34 18 12/08/16 12:20 16 12/08/16 12:00 80 12/08/16 12:00 Room Air 12/08/16 12:00 98.6 85 16 149/79 95 12/08/16 11:00 96 12/08/16 10:00 80 12/08/16 09:00 84 12/08/16 08:50 97 Nasal Cannula 12/08/16 08:00 Room Air 12/08/16 08:00 83 12/08/16 08:00 98.6 85 18 177/83 97 12/08/16 07:00 78 12/08/16 06:00 75 12/08/16 05:00 80 12/08/16 04:00 83 12/08/16 04:00 93 Room Air 12/08/16 03:13 82 12/08/16 03:10 99.7 85 18 164/83 93 12/08/16 02:00 78 12/08/16 01:00 80 12/08/16 00:00 80 12/08/16 00:00 97 Room Air 12/07/16 23:00 99.5 87 18 157/83 97 12/07/16 23:00 83 12/07/16 22:00 78 12/07/16 21:00 80 12/07/16 20:00 96 Room Air 12/07/16 20:00 82 12/07/16 19:52 96 21 12/07/16 19:05 99.1 84 18 144/68 96 12/07/16 19:00 82 12/07/16 16:00 99 Room Air -: 12/08/16 0557 12/08/16 0557 Physical Exam General Appearance: No Acute Distress, Comfortable Eyes Eye Exam: Pupils Equal Throat Throat Exam: Oral Mucosa [place] & Moist Pulmonary Resp Exam: Breath Sounds Equal, No Distress, Rhonchi, Decreased Bases Cardiology CV Exam: Regular, Normal Sinus Rhythm Gastrointestinal/Abdomen GI Exam: Soft, Non-Tender, Bowel Sounds Present, Non-Distended Extremeties Extremities Exam: Trace Edema Neurologic Neuro Exam: Alert, Awake, Oriented Psychiatric Psych Exam: Appropriate Responses Assessment/Plan Assessment Summary: ROSAUAR/Acute Renal Failure Problem List: (1) Metabolic acidosis (2) HTN (hypertension) (3) Diabetic ulcer of foot associated with type 1 diabetes mellitus, limited to breakdown of skin (4) Diabetes type 1, uncontrolled (5) PAD (peripheral artery disease) (6) Nausea & vomiting (7) ROSAURA (acute kidney injury) Plan Patient has left toe and hallux amputation. Urine out put is good. Now has left leg angioplasty and re-do Bypass. Has some increase in the Creatinine to 1.9. and now 1.4, Continue gentle hydration. follow the BMP. Problem Qualifiers (1) HTN (hypertension): Qualified Code: I10 - Essential hypertension (2) Nausea & vomiting: Qualified Code: R11.2 - Non-intractable vomiting with nausea, unspecified vomiting type Luis Daniel Melendez MD Dec 08, 2016 15:50
[2016-12-08] MEDS: GABAPENTIN 100 MG CAP PO SCH (19:54)
[2016-12-08] MEDS: ATORVASTATIN 40 MG TAB PO SCH (19:54)
[2016-12-08] MEDS: TOPIRAMATE 25 MG TAB PO SCH (19:54)
[2016-12-09] VITALS (30 sets, daily range): BP systolic 148–179; BP diastolic 72–93; PULSE 72–94; RESP 16–18; TEMP 98.1–99.5; O2SAT 94–99
[2016-12-09] MEDS: HYDROmorphone HCL 2 MG TAB PO PRN ×4 (00:59→20:43)
[2016-12-09] MEDS: INSULIN NovoLIN REGULAR SUPPLEMENTAL SCALE SQ SCH ×5 (03:00→20:52)
[2016-12-09] MEDS: DOCUSATE SODIUM 100 MG CAP PO SCH ×2 (03:17→16:39)
[2016-12-09] MEDS: ACETAMINOPHEN/HYDROcodone 325 MG/10 MG TAB PO PRN ×3 (03:18→23:04)
[2016-12-09 07:02] LABS: HEMATOCRIT 30.1 % (35.0-46.0); MEAN CELL VOLUME 80.5 FL (80.0-100.0); MEAN CORPUSCULAR HEMOGLOBIN 27.4 PG (27.0-34.0); PLATELET COUNT 110 TH/MM3 (150-450); RED BLOOD COUNT 3.75 MIL/MM3 (4.00-5.30); RED CELL DISTRIBUTION WIDTH 17.1 % (11.6-17.2); REVIEW FLAG FINAL; WHITE BLOOD COUNT 5.2 TH/MM3 (4.0-11.0)
[2016-12-09 07:27] LABS: BICARBONATE 24.2 MEQ/L (21.0-32.0); POTASSIUM 3.7 MEQ/L (3.5-5.1)
[2016-12-09] MEDS: CLOPIDOGREL 75 MG TAB PO SCH (08:40)
[2016-12-09] MEDS: PANTOPRAZOLE SOD 40 MG DELAYED RELEASE TAB PO SCH (08:41)
[2016-12-09] MEDS: ASPIRIN 325 MG TAB PO SCH (08:41)
[2016-12-09] MEDS: METOPROLOL TARTRATE 25 MG TAB PO SCH ×2 (08:41→20:41)
[2016-12-09] MEDS: SODIUM CHLORIDE 0.9% FLUSH 10 ML FLUSH IV FLUSH SCH ×2 (08:42→20:43)
[2016-12-09] MEDS: INSULIN HUMAN NPH 1,000 UNITS/10 ML VIAL SQ SCH ×2 (08:42→17:00)
--- NOTE | 2016-12-09 10:25 | HHI.NPPN ---
Subjective History of Present Illness 61-year-old female with a past medical history of hypertension, diabetes mellitus, hyperlipidemia, peripheral neuropathy, infection in the left big toe, history of recurrent, acute kidney injury in the past, was admitted because of nausea, vomiting and decreased appetite. I was called to see the patient because of elevated BUN and creatinine. Additional Remarks Patient is alert, pain in leg is better, sitting on chair. Review of Systems General Constitutional: Fatigue Cardiovascular Cardiac: SMITH Objective Data Data 12/08/16 12/09/16 19:00 07:00 Intake Total 720 ml Output Total 450 ml Balance 270 ml Intake Oral 720 ml Output Urine Total 450 ml # Bowel Movements 0 Vital Signs Date Time Temp Pulse Resp B/P Pulse Ox O2 Delivery O2 Flow Rate FiO2 12/09/16 08:04 96 21 12/09/16 06:00 88 12/09/16 05:00 94 12/09/16 04:44 95 Room Air 12/09/16 04:43 99.3 88 16 165/80 96 12/09/16 04:00 88 12/09/16 03:00 88 12/09/16 02:24 95 Room Air 12/09/16 02:23 99.5 94 16 172/84 94 12/09/16 02:00 94 12/09/16 01:00 88 12/09/16 00:00 86 12/08/16 23:00 85 12/08/16 22:00 80 12/08/16 21:00 80 12/08/16 20:57 97 Room Air 12/08/16 20:53 99.0 88 16 163/82 97 12/08/16 20:48 96 Nasal Cannula 21 12/08/16 20:00 94 12/08/16 19:00 79 12/08/16 18:00 80 12/08/16 17:54 16 12/08/16 17:00 84 12/08/16 16:00 Room Air 12/08/16 16:00 80 12/08/16 16:00 98.4 85 16 154/80 96 12/08/16 15:34 18 12/08/16 15:00 96 12/08/16 14:00 78 12/08/16 13:00 74 12/08/16 12:00 80 12/08/16 12:00 Room Air 12/08/16 12:00 98.6 85 16 149/79 95 12/08/16 11:00 96 -: 12/09/16 0615 12/09/16 0615 Physical Exam General Appearance: No Acute Distress, Comfortable Eyes Eye Exam: Pupils Equal Throat Throat Exam: Oral Mucosa [place] & Moist Pulmonary Resp Exam: Breath Sounds Equal, No Distress, Rhonchi, Decreased Bases Cardiology CV Exam: Regular, Normal Sinus Rhythm Gastrointestinal/Abdomen GI Exam: Soft, Non-Tender, Bowel Sounds Present, Non-Distended Extremeties Extremities Exam: Trace Edema Neurologic Neuro Exam: Alert, Awake, Oriented Psychiatric Psych Exam: Appropriate Responses Assessment/Plan Assessment Summary: ROSAURA/Acute Renal Failure Problem List: (1) Metabolic acidosis (2) HTN (hypertension) (3) Diabetic ulcer of foot associated with type 1 diabetes mellitus, limited to breakdown of skin (4) Diabetes type 1, uncontrolled (5) PAD (peripheral artery disease) (6) Nausea & vomiting (7) ROSAURA (acute kidney injury) Plan Patient has left toe and hallux amputation. Urine out put is good. Now has left leg angioplasty and re-do Bypass. Creatinine now normalize. Possible has ROSAURA due to infection/Contrast. I will sign off from Nephrology, call again if needed. Problem Qualifiers (1) HTN (hypertension): Qualified Code: I10 - Essential hypertension (2) Nausea & vomiting: Qualified Code: R11.2 - Non-intractable vomiting with nausea, unspecified vomiting type Luis Daniel Melendez MD Dec 09, 2016 10:25
--- NOTE | 2016-12-09 14:44 | PD.VS.PN ---
Subjective POD #: 3 Procedure(s): L groin reconstruction, fem-BK pop with rGSV Subjective/Hospital Course Pt sitting in chair alert and in NAD Pt without complaints Pt ambulated 50 feet with PT without difficulty (Debbie Doran) Objective Vitals/I&O Date Time Temp Pulse Resp B/P Pulse Ox O2 Delivery O2 Flow Rate FiO2 12/09/16 12:01 74 12/09/16 11:45 98.2 80 18 148/72 97 12/09/16 11:45 97 Room Air 12/09/16 11:00 77 12/09/16 10:51 18 12/09/16 10:01 75 12/09/16 09:00 80 12/09/16 08:30 98.3 87 18 170/93 96 12/09/16 08:30 96 Room Air 12/09/16 08:04 96 21 12/09/16 08:04 18 12/09/16 08:00 74 12/09/16 07:00 86 12/09/16 06:00 88 12/09/16 05:00 94 12/09/16 04:44 95 Room Air 12/09/16 04:43 99.3 88 16 165/80 96 12/09/16 04:00 88 12/09/16 03:00 88 12/09/16 02:24 95 Room Air 12/09/16 02:23 99.5 94 16 172/84 94 12/09/16 02:00 94 12/09/16 01:00 88 12/09/16 00:00 86 12/08/16 23:00 85 12/08/16 22:00 80 12/08/16 21:00 80 12/08/16 20:57 97 Room Air 12/08/16 20:53 99.0 88 16 163/82 97 12/08/16 20:48 96 Nasal Cannula 21 12/08/16 20:00 94 12/08/16 19:00 79 12/08/16 18:00 80 12/08/16 17:00 84 12/08/16 16:00 Room Air 12/08/16 16:00 80 12/08/16 16:00 98.4 85 16 154/80 96 12/08/16 15:00 96 12/09/16 12/09/16 12/09/16 06:59 14:59 22:59 Intake Total 720 ml Output Total 1300 ml Balance -580 ml Exam: GENERAL: A&OX3, NAD, GCS15 SKIN: Warm and dry. Provena wound vac to L Groin intact, LLE incisions with surgical glue intact, NO R/D/S CARDIOVASCULAR: +S1,S2 RRR RESPIRATORY: BS CTA GASTROINTESTINAL: Abdomen soft, non-tender, nondistended. MUSCULOSKELETAL: No cyanosis, or edema. + DP/PT with triphasic signals BLE with motor intact Cap refill < 3 sec Pulses: + DP/PT BLE Incisions: Left groin w/ provena wound vac LLE intact w/ surgical glue Left 2nd toe amp with suture closure All incisions w/ NO R/D/S/O Laboratory Laboratory Tests Test 12/09/16 06:15 White Blood Count 5.2 Red Blood Count 3.75 Hemoglobin 10.3 Hematocrit 30.1 Mean Corpuscular Volume 80.5 Mean Corpuscular Hemoglobin 27.4 Mean Corpuscular Hemoglobin 34.0 Concent Red Cell Distribution Width 17.1 Platelet Count 110 Mean Platelet Volume 9.8 Sodium Level 138 Potassium Level 3.7 Chloride Level 101 Carbon Dioxide Level 24.2 Anion Gap 13 Blood Urea Nitrogen 17 Creatinine 0.94 Estimat Glomerular Filtration 61 Rate Random Glucose 285 Calcium Level 7.8 (Debbie Doran) Assessment and Plan Assessment: (1) PAD (peripheral artery disease) Status: Chronic Plan Continue PT/OOB Apply Post op shoe w/transfers and ambulation Discharge Planning likely 3-4 days (Debbie Doran) Plan I agree with above assessment and plan. Patient anxious to go home. Improving with physical therapy. Fernando boot in place. Will stay over the weekend to allow for improvement in mobility. Charlse Carrasco DO, FACS Maintenance Data Analyst of Vascular Surgery /[place] (Charles Carrasco DO) Debbie Doran Dec 09, 2016 14:44 Charles Carrasco DO Dec 09, 2016 16:58
[2016-12-09] MEDS: ENOXAPARIN SODIUM 30 MG/0.3 ML SYRINGE SQ SCH (16:39)
--- NOTE | 2016-12-09 18:29 | HHI.CCPN ---
Subjective Remarks/Hospital Course 61-year-old female. Date of admission 11/30/2016. Date of consultation 12/06/2016. Past medical history includes diabetes mellitus type 1 , glaucoma, and peripheral neuropathy secondary diabetes, coronary disease history of [place] type , hypertension, dyslipidemia, peripheral vascular disease, chronic pain syndrome, chronic kidney disease, ovarian cyst and migraine headaches. She is on dual antiplatelet therapy secondary to drug- eluting stent placed 07/29ine. She presented to [facility] [place] initially on 11/30 with weakness/fatigue and demanding amputation her left great toe. She was seen in consultation infectious disease for this issue. Previously on cefepime 2 g every 8 and Flagyl 500 mg oral. She seen in consultation by podiatry with subsequent amputation of left second great toe on 12/01 without consultation. ID as signed off. She was seen in consultation by nephrology with creatinine on admission of 2.5 currently 1.4. Seen on admission by vascular surgery Today, patient had a left leg bypass/femoropopliteal with saphenous vein graft with left greater than reconstruction by Dr. Fairbanks. 1900 cc crystalloid. 300 cc EBL. 200 urine output. She is currently in a simple mask. Normotensive. Currently on insulin drip at 9 units an hour. Requesting blankets. 12/07: Currently afebrile. Insulin drip discontinued currently on sliding scale insulin. Inability to 7.3. Hemodynamically stable. No obvious source of bleeding. Graft site clean dry and intact. No hematoma at surgical reconstruction site. Subjective 12/09: Patient transferred to [facility]. Hospitalist to assume care. 10 units sliding scale past 24 hours. Objective Vital Signs Date Time Temp Pulse Resp B/P Pulse Ox O2 Delivery O2 Flow Rate FiO2 12/09/16 17:01 72 12/09/16 16:05 18 12/09/16 15:45 98.1 161/78 99 12/09/16 15:45 Room Air 12/09/16 08:04 21 12/07/16 10:30 2.00 Intake and Output 12/08/16 12/08/16 12/09/16 08:00 16:00 00:00 Intake Total 720 ml 720 ml Output Total 250 ml 450 ml Balance 470 ml 270 ml Result Diagram: 12/09/16 0615 12/09/16 0615 Imaging Last Impressions Foot X-Ray 11/30/16 0000 Signed Impressions: Service Date/Time: Wednesday, November 30, 2016 11:19 - CONCLUSION: 1. Deformity about the 1st metatarsal phalangeal joint. 2. Soft tissue swelling 2nd digit without osteomyelitis. Perico Novak MD FACR Renal Ultrasound 11/29/16 0000 Signed Impressions: Service Date/Time: Tuesday, November 29, 2016 16:58 - CONCLUSION: Negative renal sonogram. Berlin Narvaez MD Objective Remarks GENERAL: 61-year-old female, critically ill currently resting in bed in no acute distress SKIN: Warm and dry. Multiple tattoos left lower extremity, butterfly to right and left shoulder. Multiple tattoos on gluteus & back HEAD: Atraumatic. Normocephalic. EYES: Pupils equal and round about 2 mm bilaterally and reactive. No scleral icterus. No injection or drainage. ENT: No nasal bleeding or discharge. Mucous membranes pink and moist. Oropharynx without erythema NECK: Trachea midline. No JVD. CARDIOVASCULAR: Regular rate and rhythm. S1, S2. No S4. RESPIRATORY: Clear to auscultation without wheezes rales or rhonchi. Breath sounds equal bilaterally. GASTROINTESTINAL: Abdomen soft, non-tender, nondistended. I Ornelas bowel sounds are appreciated. MUSCULOSKELETAL: Extremities status post left second toe amputation. Wrapped in Dru bandage. Incision from saphenous vein graft over medial aspect of left lower extremity at knee and above and below clean dry and intact without erythema NEUROLOGICAL: Awake and alert. No obvious cranial nerve deficits. Motor grossly within normal limits. Five out of 5 muscle strength in the arms and legs. Normal speech. Noted neuropathy stocking glove distribution bilateral lower extremities. A/P Assessment and Plan Neuro/Psych: History of migraine headache Chronic pain management Diabetic neuropathy Acetaminophen 650 mg every 4 hours for fever Oxycodone 5 mg every 4 hours when necessary/[place] 10/325 one tablet every hours when necessary and Dilaudid 2 mg IV every 4 hours when necessary for pain management Home medication Neurontin 100 mg daily at bedtime for neuropathy continued Home medication Topamax 25 mg daily at bedtime for migraine continued Home medications Imitrex 25 mg as needed for migraine being held Written for Restoril 15 mg at night when necessary insomnia Holding Mobic 15 mg by mouth daily for pain management CV: Postop day number 0 left leg bypass/femoropopliteal with SVG/left groin reconstruction by Dr. Fairbanks (L GLASS SETTER/PFA TEA w/ patch angioplasty, L fem-BK pop with reversed GSV, re-do bypass) Coronary artery disease - drug-eluting stent Promus Premier proximal LAD 2.5 x 28 and mid LAD 2.5 x 32 - 07/29 in [place] Recent type II [place] 11/28 Elevated HDL Dyslipidemia Peripheral vascular disease Chronic systolic and diastolic heart failure Crystalloid in 1900 cc. EBL 300 cc. Urine output 200 cc. Echocardiogram 10/28 revealed EF 40-45%. Global hypokinesis. Grade 1 diastolic dysfunction. ELLIE 38 mmHg Cardiac catheter 11/28 revealed a normal left main. LAD 20% Ostium, 40% In- Stent Stenosis in LAD. Left Circumflex with mild diffuse disease and right circumflex with 50% mid vessel disease. Not amenable to further intervention. Medical management recommended by Dr. Briones Currently on metoprolol 25 mg by mouth twice a day for hypertension Currently on Lipitor 40 mg by mouth daily for dyslipidemia Continue aspirin 325 mg by mouth daily and Plavix 75 mg daily for GARRY/graft patency Home medication atenolol 25 mg by mouth twice a day lisinopril 20 mg by mouth daily for hypertension. Home medication Pravachol 20 mg by mouth daily for dyslipidemia Currently normal saline at 42 cc an hour. Resp: History of tobaccoism Nasal cannula to maintain saturations greater than equal to 92% Incentive spirometry while awake As needed bronchodilator therapy GI: Advance to ADA diet 1800 Protonix 40 mg by mouth daily for GI prophylaxis Colace 100 mg twice a day for bowel regimen : White if needed for accurate I's and O's in a critically ill patient Endo: Diabetes mellitus type 1 hemoglobin A1c 7.8 11/28 Multiple admissions with DKA Last admission sent home on NPH 15 units a.m./7 units p.m. with sliding scale insulin Switch to our sliding-scale insulin/low regimen with Accu-Cheks before meals/ at bedtime and O300. Start NPH 8 units a.m./4 units p.m.. 10 units line scale insulin past 24 hours Last hemoglobin A1c 7.8. 11/28 Last triglycerides 132 07/29 Renal: Acute kidney injury Seen by Dr. Melendez/nephrology. Trending down currently 1.8. Admission was 2.5 No indication for hemodialysis at this time. Eosinophils negative. Renal ultrasound Results revealed no hydronephrosis Avoid nephrotoxic drugs Heme: Normocytic anemia Thrombocytopenia Monitor CBC daily. Follow trends Transfuse 1 unit PRBCs. Recheck at 1400. ID: Left second toe osteomyelitis Previously treated with cefepime and Flagyl as outpatient. Note patient did not take Flagyl for 2 days prior to admission. Seen By . Currently off all antibiotics. Amputation definitive treatment. Currently no indication for any additional antibiotics TRASH HAULER: History ovarian cyst No current active issue. 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 -Postoperative management per podiatry Access - Utilize peripheral IV. Central line if indicated Prophylaxis - GI-Protonix - DVT -Lovenox 30 mg subcutaneous daily Critical Care: The total care time was 35 minutes. Time to perform other separately billable procedures was not included in the critical care time. Hospitalist to assume care. Igor Hook MD Dec 09, 2016 18:29
[2016-12-09] MEDS: GABAPENTIN 100 MG CAP PO SCH (20:42)
[2016-12-09] MEDS: ATORVASTATIN 40 MG TAB PO SCH (20:42)
[2016-12-09] MEDS: TOPIRAMATE 25 MG TAB PO SCH (20:46)
[2016-12-10] VITALS (28 sets, daily range): BP systolic 148–178; BP diastolic 76–99; PULSE 58–101; RESP 16–18; TEMP 98–99; O2SAT 93–99
[2016-12-10] MEDS: INSULIN NovoLIN REGULAR SUPPLEMENTAL SCALE SQ SCH ×5 (03:00→21:00)
[2016-12-10] MEDS: DOCUSATE SODIUM 100 MG CAP PO SCH ×2 (05:00→16:42)
[2016-12-10] MEDS: HYDROmorphone HCL 2 MG TAB PO PRN ×2 (05:27→11:50)
[2016-12-10] MEDS: ASPIRIN 325 MG TAB PO SCH (08:06)
[2016-12-10] MEDS: INSULIN HUMAN NPH 1,000 UNITS/10 ML VIAL SQ SCH (08:06)
[2016-12-10] MEDS: METOPROLOL TARTRATE 25 MG TAB PO SCH ×2 (08:06→20:01)
[2016-12-10] MEDS: PANTOPRAZOLE SOD 40 MG DELAYED RELEASE TAB PO SCH (08:06)
[2016-12-10] MEDS: CLOPIDOGREL 75 MG TAB PO SCH (08:06)
[2016-12-10] MEDS: ACETAMINOPHEN/HYDROcodone 325 MG/10 MG TAB PO PRN ×3 (08:09→23:54)
--- NOTE | 2016-12-10 08:26 | HHI.PR ---
Subjective Remarks Patient feels well and is eager to go home. She understands she has to stay over the weekend w possible discharge on Monday. She would like to have a prescription for the current insulin that she is receiving care at the hospital instead of using her NovoLog pump. She states that she can't afford the medication and it works better for her than the pump. She denies any chest pains, shortness of breath, nausea or vomiting. She states that she will eat breakfast then will get up and walk down the halls. Objective Vitals Vital Signs Date Time Temp Pulse Resp B/P Pulse Ox O2 Delivery O2 Flow Rate FiO2 12/10/16 06:00 82 12/10/16 05:10 98.4 85 16 164/83 96 12/10/16 05:09 82 12/10/16 03:38 97 Room Air 12/10/16 03:00 80 12/10/16 02:02 99 Room Air 12/10/16 02:00 82 12/10/16 01:00 80 12/10/16 00:20 98.6 87 16 156/99 96 12/10/16 00:00 72 12/09/16 23:00 82 12/09/16 22:00 82 12/09/16 21:27 21 12/09/16 21:19 98 Room Air 12/09/16 21:16 98.6 94 16 179/90 98 12/09/16 21:00 82 12/09/16 20:00 80 12/09/16 19:00 86 12/09/16 17:01 72 12/09/16 16:05 18 12/09/16 16:00 74 12/09/16 15:45 98.1 82 16 161/78 99 12/09/16 15:45 99 Room Air 12/09/16 15:00 78 12/09/16 14:00 82 12/09/16 13:00 72 12/09/16 12:01 74 12/09/16 11:45 98.2 80 18 148/72 97 12/09/16 11:45 97 Room Air 12/09/16 11:00 77 12/09/16 10:51 18 12/09/16 10:01 75 12/09/16 09:00 80 12/09/16 08:30 98.3 87 18 170/93 96 12/09/16 08:30 96 Room Air I/O 12/09/16 12/09/16 12/09/16 12/10/16 12/10/16 12/10/16 07:00 15:00 23:00 07:00 15:00 23:00 Intake Total 720 ml 690 ml 480 ml Output Total 1300 ml 800 ml 1700 ml Balance -580 ml -110 ml -1220 ml Intake Oral 720 ml 690 ml 480 ml IV Total 0 ml Output Urine Total 1300 ml 800 ml 1700 ml # Voids 3 # Bowel Movements 0 0 Result Diagram: 12/09/16 0615 12/09/16 0615 Imaging Last Impressions Foot X-Ray 11/30/16 0000 Signed Impressions: Service Date/Time: Wednesday, November 30, 2016 11:19 - CONCLUSION: 1. Deformity about the 1st metatarsal phalangeal joint. 2. Soft tissue swelling 2nd digit without osteomyelitis. Perico Novak MD FACR Renal Ultrasound 11/29/16 0000 Signed Impressions: Service Date/Time: Tuesday, November 29, 2016 16:58 - CONCLUSION: Negative renal sonogram. Berlin Narvaez MD Objective Remarks GENERAL: 61-year-old female, pleasant, laying in bed SKIN: Warm and dry. Multiple tattoos noted CARDIOVASCULAR: Regular rate and rhythm. No murmurs RESPIRATORY: Clear to auscultation without wheezes rales or rhonchi. Breath sounds equal bilaterally. GASTROINTESTINAL: Abdomen soft, non-tender, nondistended. MUSCULOSKELETAL: Extremities status post left second toe amputation. Wrapped in Dru bandage, dry clean and intact. Incision from saphenous vein graft over medial aspect of left lower extremity at knee and above and below clean dry and intact without erythema NEUROLOGICAL: Awake and alert. No obvious cranial nerve deficits. Motor grossly within normal limits. Normal speech. A/P Assessment and Plan History of migraine headache Chronic pain management Diabetic neuropathy Acetaminophen 650 mg every 4 hours for fever Oxycodone 5 mg every 4 hours when necessary/[place] 10/325 one tablet every hours when necessary and Dilaudid 2 mg IV every 4 hours when necessary for pain management Home medication Neurontin 100 mg daily at bedtime for neuropathy continued Home medication Topamax 25 mg daily at bedtime for migraine continued Home medications Imitrex 25 mg as needed for migraine being held Written for Restoril 15 mg at night when necessary insomnia Holding Mobic 15 mg by mouth daily for pain management Postop day number 0 left leg bypass/femoropopliteal with SVG/left groin reconstruction by Dr. Fairbanks (L COTTON TIPPER/PFA TEA w/ patch angioplasty, L fem-BK pop with reversed GSV, re-do bypass) Coronary artery disease - drug-eluting stent Promus Premier proximal LAD 2.5 x 28 and mid LAD 2.5 x 32 - 07/29 in [place] Recent type II [place] 11/28 Elevated HDL Dyslipidemia Peripheral vascular disease Chronic systolic and diastolic heart failure Echocardiogram 10/28 revealed EF 40-45%. Global hypokinesis. Grade 1 diastolic dysfunction. ELLIE 38 mmHg Cardiac catheter 11/28 revealed a normal left main. LAD 20% Ostium, 40% In- Stent Stenosis in LAD. Left Circumflex with mild diffuse disease and right circumflex with 50% mid vessel disease. Not amenable to further intervention. Medical management recommended by Dr. Briones Currently on metoprolol 25 mg by mouth twice a day for hypertension. Will add amlodipine 5 mg by mouth daily as her blood pressures have not been well controlled. Titrate up as needed Currently on Lipitor 40 mg by mouth daily for dyslipidemia Continue aspirin 325 mg by mouth daily and Plavix 75 mg daily for GARRY/graft patency d/c atenolol 25 mg by mouth twice a day, resumed pt's home dose of lisinopril 20 mg by mouth daily for hypertension. Home medication Pravachol 20 mg by mouth daily for dyslipidemia HLIV History of tobaccoism Nasal cannula to maintain saturations greater than equal to 92% Incentive spirometry while awake As needed bronchodilator therapy GI: DA diet 1800 Protonix 40 mg by mouth daily for GI prophylaxis Colace 100 mg twice a day for bowel regimen Diabetes mellitus type 1 hemoglobin A1c 7.8 11/28 Multiple admissions with DKA Last admission sent home on NPH 15 units a.m./7 units p.m. with sliding scale insulin Switch to our sliding-scale insulin/low regimen with Accu-Cheks before meals/ at bedtime and O300. on NPH 8 units a.m./4 units p.m. I have increase NPH to 11 units in the morning/5 units in the p.m. continue to monitor and adjust accordingly Last hemoglobin A1c 7.8. 11/28 Last triglycerides 132 07/29 Acute kidney injury Seen by Dr. Melendez/nephrology. Creatinine trending down to 0.94 No indication for hemodialysis at this time. Eosinophils negative. Renal ultrasound Results revealed no hydronephrosis Avoid nephrotoxic drugs. Nephrology has signed off. Reconsult as needed Normocytic anemia Thrombocytopenia Status post Transfuse 1 unit PRBCs. Recheck at 1400. 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 Rehman 12/04 Previously treated with cefepime and Flagyl as outpatient. Note patient did not take Flagyl for 2 days prior to admission. Seen By . Currently off all antibiotics. Amputation definitive treatment. Currently no indication for any additional antibiotics -No residual effect of osteomyelitis. -Postoperative management per podiatry - DVT -Lovenox 30 mg subcutaneous daily Discharge Planning Per vascular surgery, patient to remain in the hospital over the weekend. Anticipate discharge on Monday. Rosa Blakely MD Dec 10, 2016 08:26
[2016-12-10] MEDS ORDERED: ATENOLOL 50 MG TAB PO SCH (09:00)
[2016-12-10] MEDS: SODIUM CHLORIDE 0.9% FLUSH 10 ML FLUSH IV FLUSH SCH ×2 (09:00→20:01)
[2016-12-10] MEDS ORDERED: amLODIPine BESYLATE 5 MG TAB PO SCH (09:30)
[2016-12-10] MEDS: LISINOPRIL 20 MG TAB PO SCH (09:45)
--- NOTE | 2016-12-10 11:09 | PD.VS.PN ---
Subjective Subjective/Hospital Course In recliner. Walked in hallway yesterday. Less discomfort today. Objective Vitals/I&O Date Time Temp Pulse Resp B/P Pulse Ox O2 Delivery O2 Flow Rate FiO2 12/10/16 09:01 80 12/10/16 08:01 99.0 86 16 171/81 93 12/10/16 08:01 93 Room Air 12/10/16 08:00 82 12/10/16 07:00 78 12/10/16 06:00 82 12/10/16 05:10 98.4 85 16 164/83 96 12/10/16 05:09 82 12/10/16 03:38 97 Room Air 12/10/16 03:00 80 12/10/16 02:02 99 Room Air 12/10/16 02:00 82 12/10/16 01:00 80 12/10/16 00:20 98.6 87 16 156/99 96 12/10/16 00:00 72 12/09/16 23:00 82 12/09/16 22:00 82 12/09/16 21:27 21 12/09/16 21:19 98 Room Air 12/09/16 21:16 98.6 94 16 179/90 98 12/09/16 21:00 82 12/09/16 20:00 80 12/09/16 19:00 86 12/09/16 17:01 72 12/09/16 16:05 18 12/09/16 16:00 74 12/09/16 15:45 98.1 82 16 161/78 99 12/09/16 15:45 99 Room Air 12/09/16 15:00 78 12/09/16 14:00 82 12/09/16 13:00 72 12/09/16 12:01 74 12/09/16 11:45 98.2 80 18 148/72 97 12/09/16 11:45 97 Room Air 12/10/16 12/10/16 12/10/16 07:00 15:00 23:00 Intake Total 480 ml Output Total 1700 ml Balance -1220 ml Physical Exam left leg incision clean and intact and vac dressing in place left groin. Foot warm and to amp site clean.. left foot warm Assessment and Plan Assessment: (1) PAD (peripheral artery disease) Status: Chronic Plan More mobile since working with PT. Improving with physical therapy. Fernando boot in place. Possible discharge early next week, Charles Carrasco DO, FACS Time Study Engineer of Vascular Surgery /[place] Discharge Planning likely 3-4 days Charles Carrasco DO Dec 10, 2016 11:09
[2016-12-10] MEDS: ENOXAPARIN SODIUM 30 MG/0.3 ML SYRINGE SQ SCH (16:43)
[2016-12-10] MEDS: ONDANSETRON HCL 4 MG/2 ML VIAL IVP PRN (16:43)
[2016-12-10] MEDS ORDERED: INSULIN HUMAN NPH 1,000 UNITS/10 ML VIAL SQ SCH (17:00)
[2016-12-10] MEDS: GABAPENTIN 100 MG CAP PO SCH (20:01)
[2016-12-10] MEDS: cloNIDine HCL 0.1 MG TAB PO PRN (20:01)
[2016-12-10] MEDS: ATORVASTATIN 40 MG TAB PO SCH (20:01)
[2016-12-10] MEDS: TOPIRAMATE 25 MG TAB PO SCH (20:01)
[2016-12-11] VITALS (27 sets, daily range): BP systolic 141–173; BP diastolic 67–79; PULSE 68–102; RESP 16–18; TEMP 97.6–99.1; O2SAT 95–98
[2016-12-11] MEDS: INSULIN NovoLIN REGULAR SUPPLEMENTAL SCALE SQ SCH ×5 (03:00→21:00)
[2016-12-11] MEDS: DOCUSATE SODIUM 100 MG CAP PO SCH ×2 (05:00→16:17)
[2016-12-11] MEDS: ACETAMINOPHEN/HYDROcodone 325 MG/10 MG TAB PO PRN (05:34)
[2016-12-11] MEDS ORDERED: INSULIN HUMAN NPH 1,000 UNITS/10 ML VIAL SQ SCH ×2 (08:00→17:00)
--- NOTE | 2016-12-11 08:52 | PD.VS.PN ---
Subjective Subjective/Hospital Course no complaints. Objective Vitals/I&O left foot warm 2nd toe amp site is clean and intact. incisions clean and wound vac in place. Date Time Temp Pulse Resp B/P Pulse Ox O2 Delivery O2 Flow Rate FiO2 12/11/16 06:01 76 12/11/16 05:00 78 12/11/16 04:31 98.6 79 16 151/74 98 12/11/16 04:29 98 Room Air 12/11/16 04:00 78 12/11/16 03:00 77 12/11/16 02:00 74 12/11/16 01:00 77 12/11/16 00:13 98.6 79 16 143/74 98 12/11/16 00:09 98 Room Air 12/11/16 00:00 72 12/10/16 23:00 76 12/10/16 21:00 74 12/10/16 20:13 99 Room Air 12/10/16 20:12 98.2 86 16 178/83 99 12/10/16 20:00 86 12/10/16 19:25 98 21 12/10/16 19:00 81 12/10/16 18:00 101 12/10/16 17:00 80 12/10/16 16:00 76 12/10/16 15:01 97 Room Air 12/10/16 15:01 79 12/10/16 15:01 98.8 81 16 148/76 97 12/10/16 14:01 58 12/10/16 13:03 18 12/10/16 13:00 62 12/10/16 12:01 72 12/10/16 11:45 98.0 74 18 159/80 98 12/10/16 11:45 93 Room Air 12/10/16 11:00 74 12/10/16 10:00 78 12/10/16 09:09 18 12/10/16 09:01 80 12/11/16 12/11/16 12/11/16 07:00 15:00 23:00 Intake Total 620 ml Output Total 0 ml Balance 620 ml Assessment and Plan Assessment: (1) PAD (peripheral artery disease) Status: Chronic Plan Patient feeling better with mobility over the weekend. Plan for discharge early this week. Charles Carrasco DO, FACS Incident Coordinator of Vascular Surgery /[place] Discharge Planning likely 3-4 days Charles Carrasco DO Dec 11, 2016 08:52
--- NOTE | 2016-12-11 09:26 | HHI.PR ---
Subjective Remarks Pt tells me that she would like to not have to take the dilaudid, she is tolerating the lortabs and would like to continue to take that w adjustment for pain control. She denies any CP/SOB/N/V. she also feels constipated Objective Vitals Vital Signs Date Time Temp Pulse Resp B/P Pulse Ox O2 Delivery O2 Flow Rate FiO2 12/11/16 08:55 98 21 12/11/16 06:01 76 12/11/16 05:00 78 12/11/16 04:31 98.6 79 16 151/74 98 12/11/16 04:29 98 Room Air 12/11/16 04:00 78 12/11/16 03:00 77 12/11/16 02:00 74 12/11/16 01:00 77 12/11/16 00:13 98.6 79 16 143/74 98 12/11/16 00:09 98 Room Air 12/11/16 00:00 72 12/10/16 23:00 76 12/10/16 21:00 74 12/10/16 20:13 99 Room Air 12/10/16 20:12 98.2 86 16 178/83 99 12/10/16 20:00 86 12/10/16 19:25 98 21 12/10/16 19:00 81 12/10/16 18:00 101 12/10/16 17:00 80 12/10/16 16:00 76 12/10/16 15:01 97 Room Air 12/10/16 15:01 79 12/10/16 15:01 98.8 81 16 148/76 97 12/10/16 14:01 58 12/10/16 13:03 18 12/10/16 13:00 62 12/10/16 12:01 72 12/10/16 11:45 98.0 74 18 159/80 98 12/10/16 11:45 93 Room Air 12/10/16 11:00 74 12/10/16 10:00 78 I/O 12/10/16 12/10/16 12/10/16 12/11/16 12/11/16 12/11/16 07:00 15:00 23:00 07:00 15:00 23:00 Intake Total 480 ml 600 ml 620 ml Output Total 1700 ml 775 ml 0 ml Balance -1220 ml -175 ml 620 ml Intake Oral 480 ml 600 ml 620 ml IV Total 0 ml Output Urine Total 1700 ml 775 ml Stool Total 0 ml # Voids 7 # Bowel Movements 0 0 Result Diagram: 12/09/16 0615 12/09/16 0615 Imaging Last Impressions Foot X-Ray 11/30/16 0000 Signed Impressions: Service Date/Time: Wednesday, November 30, 2016 11:19 - CONCLUSION: 1. Deformity about the 1st metatarsal phalangeal joint. 2. Soft tissue swelling 2nd digit without osteomyelitis. Perico Novak MD FACR Renal Ultrasound 11/29/16 0000 Signed Impressions: Service Date/Time: Tuesday, November 29, 2016 16:58 - CONCLUSION: Negative renal sonogram. [place] Narvaez MD Objective Remarks GENERAL: 61-year-old female, pleasant, laying in bed SKIN: Warm and dry. Multiple tattoos noted CARDIOVASCULAR: Regular rate and rhythm. No murmurs RESPIRATORY: Clear to auscultation without wheezes rales or rhonchi. Breath sounds equal bilaterally. GASTROINTESTINAL: Abdomen soft, non-tender, nondistended. MUSCULOSKELETAL: Extremities status post left second toe amputation. Wrapped in Dru bandage, dry clean and intact. Incision from saphenous vein graft over medial aspect of left lower extremity at knee and above and below clean dry and intact without erythema NEUROLOGICAL: Awake and alert. No obvious cranial nerve deficits. Motor grossly within normal limits. Normal speech. A/P Assessment and Plan History of migraine headache Chronic pain management Diabetic neuropathy Acetaminophen 650 mg every 4 hours for fever Oxycodone 5 mg every 4 hours when necessary/ changed [place] 10/325 one tablet every 4 hours when necessary and d/c Dilaudid Home medication Neurontin 100 mg daily at bedtime for neuropathy continued Home medication Topamax 25 mg daily at bedtime for migraine continued Home medications Imitrex 25 mg as needed for migraine being held Written for Restoril 15 mg at night when necessary insomnia Holding Mobic 15 mg by mouth daily for pain management Postop day number 0 left leg bypass/femoropopliteal with SVG/left groin reconstruction by Dr. Fairbanks (L MEDIA PRODUCER/PFA TEA w/ patch angioplasty, L fem-BK pop with reversed GSV, re-do bypass) Coronary artery disease - drug-eluting stent Promus Premier proximal LAD 2.5 x 28 and mid LAD 2.5 x 32 - 07/29 in [place] Recent type II [place] 11/28 Elevated HDL Dyslipidemia Peripheral vascular disease Chronic systolic and diastolic heart failure Echocardiogram 10/28 revealed EF 40-45%. Global hypokinesis. Grade 1 diastolic dysfunction. ELLIE 38 mmHg Cardiac catheter 11/28 revealed a normal left main. LAD 20% Ostium, 40% In- Stent Stenosis in LAD. Left Circumflex with mild diffuse disease and right circumflex with 50% mid vessel disease. Not amenable to further intervention. Medical management recommended by Dr. Briones Currently on metoprolol 25 mg by mouth twice a day for hypertension. increase amlodipine to 10 mg by mouth daily as her blood pressures have not been well controlled. Titrate up as needed Currently on Lipitor 40 mg by mouth daily for dyslipidemia Continue aspirin 325 mg by mouth daily and Plavix 75 mg daily for GARRY/graft patency off atenolol, on lisinopril 20 mg by mouth daily for hypertension. Home medication Pravachol 20 mg by mouth daily for dyslipidemia HLIV History of tobaccoism Nasal cannula to maintain saturations greater than equal to 92% Incentive spirometry while awake As needed bronchodilator therapy GI: DA diet 1800 Protonix 40 mg by mouth daily for GI prophylaxis Colace 100 mg twice a day for bowel regimen Diabetes mellitus type 1 hemoglobin A1c 7.8 11/28 Multiple admissions with DKA Last admission sent home on NPH 15 units a.m./7 units p.m. with sliding scale insulin Switch to our sliding-scale insulin/low regimen with Accu-Cheks before meals/ at bedtime and O300. I have increase NPH to 12 units in the morning/7 units in the p.m. continue to monitor and adjust accordingly Last hemoglobin A1c 7.8. 11/28 Last triglycerides 132 07/29 Acute kidney injury Seen by Dr. Melendez/nephrology. Creatinine down to 0.94 No indication for hemodialysis at this time. Eosinophils negative. Renal ultrasound Results revealed no hydronephrosis Avoid nephrotoxic drugs. Nephrology has signed off. Reconsult as needed Normocytic anemia Thrombocytopenia Status post Transfuse 1 unit PRBCs. Recheck at 1400. 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 Rehman 12/04 Previously treated with cefepime and Flagyl as outpatient. Note patient did not take Flagyl for 2 days prior to admission. Seen By . Currently off all antibiotics. Amputation definitive treatment. Currently no indication for any additional antibiotics -No residual effect of osteomyelitis. -Postoperative management per podiatry - DVT -Lovenox 30 mg subcutaneous daily Discharge Planning I discussed the case w Dr. Carrasco, patient to remain in the hospital over the weekend. Anticipate discharge on Monday when cleared by Dr. Fairbanks. Rosa Blaekly MD Dec 11, 2016 09:26
[2016-12-11] MEDS: CLOPIDOGREL 75 MG TAB PO SCH (09:40)
[2016-12-11] MEDS: PANTOPRAZOLE SOD 40 MG DELAYED RELEASE TAB PO SCH (09:41)
[2016-12-11] MEDS: LISINOPRIL 20 MG TAB PO SCH (09:41)
[2016-12-11] MEDS: METOPROLOL TARTRATE 25 MG TAB PO SCH ×2 (09:41→20:34)
[2016-12-11] MEDS: ASPIRIN 325 MG TAB PO SCH (09:41)
[2016-12-11] MEDS: SODIUM CHLORIDE 0.9% FLUSH 10 ML FLUSH IV FLUSH SCH ×2 (09:42→20:36)
[2016-12-11] MEDS ORDERED: ACETAMINOPHEN/HYDROcodone 325 MG/10 MG TAB PO PRN (10:30)
[2016-12-11] MEDS: cloNIDine HCL 0.1 MG TAB PO PRN (16:17)
[2016-12-11] MEDS: ENOXAPARIN SODIUM 30 MG/0.3 ML SYRINGE SQ SCH (16:17)
[2016-12-11] MEDS: ATORVASTATIN 40 MG TAB PO SCH (20:34)
[2016-12-11] MEDS: GABAPENTIN 100 MG CAP PO SCH (20:35)
[2016-12-11] MEDS: TOPIRAMATE 25 MG TAB PO SCH (20:36)
[2016-12-12] VITALS (18 sets, daily range): BP systolic 149–169; BP diastolic 50–82; PULSE 74–93; RESP 16–18; TEMP 98.1–98.7; O2SAT 93–97
[2016-12-12] MEDS: INSULIN NovoLIN REGULAR SUPPLEMENTAL SCALE SQ SCH ×3 (03:00→11:50)
[2016-12-12] MEDS: DOCUSATE SODIUM 100 MG CAP PO SCH (06:15)
[2016-12-12] MEDS ORDERED: INSULIN HUMAN NPH 1,000 UNITS/10 ML VIAL SQ SCH (08:00)
--- NOTE | 2016-12-12 08:14 | HHI.PR ---
Subjective Remarks Patient feels well. She is concerned about her blood sugars. Denies any chest pain, shortness of breath, nausea or vomiting. She does have primary care physician that she follows regularly with. She is hopeful to go home soon. Objective Vitals Vital Signs Date Time Temp Pulse Resp B/P Pulse Ox O2 Delivery O2 Flow Rate FiO2 12/12/16 07:42 93 21 12/12/16 07:22 82 12/12/16 06:00 76 12/12/16 05:00 78 12/12/16 04:00 82 12/12/16 03:53 98.7 83 16 151/50 97 12/12/16 03:52 95 Room Air 12/12/16 03:00 81 12/12/16 02:00 88 12/12/16 01:00 80 12/12/16 00:00 78 12/11/16 23:32 95 Room Air 12/11/16 23:00 80 12/11/16 22:00 78 12/11/16 21:27 95 Room Air 12/11/16 21:00 78 12/11/16 21:00 99.1 76 16 155/73 95 12/11/16 20:00 102 12/11/16 19:00 77 12/11/16 18:26 75 12/11/16 17:00 75 12/11/16 16:00 80 12/11/16 15:00 97.6 83 18 173/77 97 12/11/16 15:00 96 Room Air 12/11/16 15:00 87 12/11/16 14:00 70 12/11/16 13:00 80 12/11/16 12:00 94 12/11/16 11:01 98 Room Air 12/11/16 11:00 98.9 81 18 141/67 97 12/11/16 11:00 72 12/11/16 10:00 94 12/11/16 09:00 68 12/11/16 08:55 98 21 I/O 12/11/16 12/11/16 12/11/16 12/12/16 12/12/16 12/12/16 07:00 15:00 23:00 07:00 15:00 23:00 Intake Total 620 ml 880 ml 420 ml Output Total 0 ml 1100 ml 651 ml Balance 620 ml -220 ml -231 ml Intake Oral 620 ml 880 ml 420 ml Output Urine Total 1100 ml 650 ml Stool Total 0 ml 0 ml 1 ml # Voids 7 # Bowel Movements 0 Result Diagram: 12/09/16 0615 12/09/16 0615 Imaging Last Impressions Foot X-Ray 11/30/16 0000 Signed Impressions: Service Date/Time: Wednesday, November 30, 2016 11:19 - CONCLUSION: 1. Deformity about the 1st metatarsal phalangeal joint. 2. Soft tissue swelling 2nd digit without osteomyelitis. Perico Novak MD FACR Renal Ultrasound 11/29/16 0000 Signed Impressions: Service Date/Time: Tuesday, November 29, 2016 16:58 - CONCLUSION: Negative renal sonogram. Berlin Narvaez MD Objective Remarks GENERAL: 61-year-old female, pleasant, laying in bed SKIN: Warm and dry. Multiple tattoos noted CARDIOVASCULAR: Regular rate and rhythm. No murmurs RESPIRATORY: Clear to auscultation without wheezes rales or rhonchi. Breath sounds equal bilaterally. GASTROINTESTINAL: Abdomen soft, non-tender, nondistended. MUSCULOSKELETAL: Extremities status post left second toe amputation. Wrapped in Dru bandage, dry clean and intact. Incision from saphenous vein graft over medial aspect of left lower extremity at knee and above and below clean dry and intact without erythema NEUROLOGICAL: Awake and alert. No obvious cranial nerve deficits. Motor grossly within normal limits. Normal speech. A/P Assessment and Plan History of migraine headache Chronic pain management Diabetic neuropathy Acetaminophen 650 mg every 4 hours for fever Oxycodone 5 mg every 4 hours when necessary/ changed [place] 10/325 one tablet every 4 hours when necessary and d/c Dilaudid Home medication Neurontin 100 mg daily at bedtime for neuropathy continued Home medication Topamax 25 mg daily at bedtime for migraine continued Home medications Imitrex 25 mg as needed for migraine being held Written for Restoril 15 mg at night when necessary insomnia Holding Mobic 15 mg by mouth daily for pain management Postop day number 0 left leg bypass/femoropopliteal with SVG/left groin reconstruction by Dr. Fairbanks (L [employer] AGENT/PFA TEA w/ patch angioplasty, L fem-BK pop with reversed GSV, re-do bypass) Coronary artery disease - drug-eluting stent Promus Premier proximal LAD 2.5 x 28 and mid LAD 2.5 x 32 - 07/29 in [place] Recent type II NM 11/28 Elevated HDL Dyslipidemia Peripheral vascular disease Chronic systolic and diastolic heart failure Echocardiogram 10/28 revealed EF 40-45%. Global hypokinesis. Grade 1 diastolic dysfunction. ELLIE 38 mmHg Cardiac catheter 11/28 revealed a normal left main. LAD 20% Ostium, 40% In- Stent Stenosis in LAD. Left Circumflex with mild diffuse disease and right circumflex with 50% mid vessel disease. Not amenable to further intervention. Medical management recommended by Dr. Briones Currently on metoprolol 25 mg by mouth twice a day for hypertension. increase amlodipine to 10 mg by mouth daily as her blood pressures have not been well controlled. Titrate up as needed Currently on Lipitor 40 mg by mouth daily for dyslipidemia Continue aspirin 325 mg by mouth daily and Plavix 75 mg daily for GARRY/graft patency off atenolol, on lisinopril 20 mg by mouth daily for hypertension. Home medication Pravachol 20 mg by mouth daily for dyslipidemia HLIV History of tobaccoism Nasal cannula to maintain saturations greater than equal to 92% Incentive spirometry while awake As needed bronchodilator therapy GI: DA diet 1800 Protonix 40 mg by mouth daily for GI prophylaxis Colace 100 mg twice a day for bowel regimen Diabetes mellitus type 1 hemoglobin A1c 7.8 11/28 Multiple admissions with DKA Last admission sent home on NPH 15 units a.m./7 units p.m. with sliding scale insulin Switch to our sliding-scale insulin/low regimen with Accu-Cheks before meals/ at bedtime and O300. NPH to 12 units in the morning/7 units in the p.m. continue to monitor and adjust accordingly. Patient was instructed to keep a log of her blood sugars upon discharge and bring to her primary care physician to continue to have her NPH adjusted. Apparently patient did not get her 11 units yesterday morning. At this time, we will hold off on increasing NPH dose. Patient is agreeable with plan. She will be discharged with an insulin (NovoLog) sliding scale as well. Last hemoglobin A1c 7.8. 11/28 Last triglycerides 132 07/29 Acute kidney injury Seen by Dr. Melendez/nephrology. Creatinine down to 0.94 No indication for hemodialysis at this time. Eosinophils negative. Renal ultrasound Results revealed no hydronephrosis Avoid nephrotoxic drugs. Nephrology has signed off. Reconsult as needed Normocytic anemia Thrombocytopenia Status post Transfuse 1 unit PRBCs. Recheck at 1400. 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 Rehman 12/04 Previously treated with cefepime and Flagyl as outpatient. Note patient did not take Flagyl for 2 days prior to admission. Seen By . Currently off all antibiotics. Amputation definitive treatment. Currently no indication for any additional antibiotics -No residual effect of osteomyelitis. -Postoperative management per podiatry - DVT -Lovenox 30 mg subcutaneous daily Discharge Planning Awaiting final recommendations from Rosa Gonzalez MD December 12, 2016 08:14
[2016-12-12] MEDS ORDERED: NOVONP2 SQ ×2 (08:56)
[2016-12-12] MEDS ORDERED: amLODIPine BESYLATE 5 MG TAB PO SCH (09:00)
[2016-12-12] MEDS ORDERED: NOVOLOGP2 SQ (09:03)
[2016-12-12] MEDS ORDERED: ASPI325T PO (09:06)
[2016-12-12] MEDS ORDERED: METO25TA3 PO (09:06)
[2016-12-12] MEDS ORDERED: AMLO5 PO (09:06)
[2016-12-12] MEDS ORDERED: ATOR40TA16 PO (09:06)
[2016-12-12] MEDS: PANTOPRAZOLE SOD 40 MG DELAYED RELEASE TAB PO SCH (09:22)
[2016-12-12] MEDS: ASPIRIN 325 MG TAB PO SCH (09:22)
[2016-12-12] MEDS: CLOPIDOGREL 75 MG TAB PO SCH (09:22)
[2016-12-12] MEDS: METOPROLOL TARTRATE 25 MG TAB PO SCH (09:22)
[2016-12-12] MEDS: LISINOPRIL 20 MG TAB PO SCH (09:22)
[2016-12-12] MEDS: SODIUM CHLORIDE 0.9% FLUSH 10 ML FLUSH IV FLUSH SCH (09:24)
--- NOTE | 2016-12-12 09:26 | HHI.FF ---
Face to Face Verification Diagnosis: (1) Diabetes type 1, uncontrolled (2) Diabetic ulcer of foot associated with type 1 diabetes mellitus, limited to breakdown of skin (3) Toe amputation status Home Health Nursing Order: Wound care and dressing changes Nursing assessment with vital signs Instructions: Every 3 days dressing change L foot with xeroform, 4x4, cling, emiliano. I have seen patient Robyn Marquez on 12/12/16. My clinical findings support the need for the requested home health care services because: dressing changes to left foot q3 days Deconditioned w/ increased weakness High risk of falls I certify that my clinical findings support that this patient is homebound because: dressing changes to left foot. Unsteady gait/balance Rosa Blakely MD December 12, 2016 09:26
[2016-12-12] MEDS ORDERED: HYDR-3583 PO (09:28)
[2016-12-12] MEDS ORDERED: OXYC-392 PO (09:28)
--- NOTE | 2016-12-12 09:32 | PD.VS.PN ---
Subjective POD #: 6 Procedure(s): L groin reconstruction, fem-BK pop with rGSV Subjective/Hospital Course no complaints. BS controlled better ambulating independently getting wound care to toe amp per podiatry Objective Vitals/I&O Date Time Temp Pulse Resp B/P Pulse Ox O2 Delivery O2 Flow Rate FiO2 12/12/16 08:55 98.3 88 18 169/82 97 12/12/16 08:55 97 Room Air 12/12/16 08:55 80 12/12/16 07:42 93 21 12/12/16 07:22 82 12/12/16 06:00 76 12/12/16 05:00 78 12/12/16 04:00 82 12/12/16 03:53 98.7 83 16 151/50 97 12/12/16 03:52 95 Room Air 12/12/16 03:00 81 12/12/16 02:00 88 12/12/16 01:00 80 12/12/16 00:00 78 12/11/16 23:32 95 Room Air 12/11/16 23:00 80 12/11/16 22:00 78 12/11/16 21:27 95 Room Air 12/11/16 21:00 78 12/11/16 21:00 99.1 76 16 155/73 95 12/11/16 20:00 102 12/11/16 19:00 77 12/11/16 18:26 75 12/11/16 17:00 75 12/11/16 16:00 80 12/11/16 15:00 97.6 83 18 173/77 97 12/11/16 15:00 96 Room Air 12/11/16 15:00 87 12/11/16 14:00 70 12/11/16 13:00 80 12/11/16 12:00 94 12/11/16 11:01 98 Room Air 12/11/16 11:00 98.9 81 18 141/67 97 12/11/16 11:00 72 12/11/16 10:00 94 12/12/16 12/12/16 12/12/16 07:00 15:00 23:00 Intake Total 420 ml Output Total 651 ml Balance -231 ml Exam: L groin incision c/d/i Thigh and calf incisions c/d/i Pulses: Strong Doppler signal at foot Assessment and Plan Assessment: (1) PAD (peripheral artery disease) Status: Chronic Plan Ok to d/c when cleared from medical svc Surgical incisions open to air ok Have arranged f/u in my clinic with JOI/Graft scan - pt has appt card. Discharge Planning likely 3-4 days Kit Fairbanks MD December 12, 2016 09:32
--- NOTE | 2016-12-12 09:34 | HHI.DS ---
Discharge Summary Admission Date Nov 29, 2016 at 16:28 Discharge Date: December 12, 2016 Admitting Diagnosis ROSAURA, Nausea and Vomiting (1) Toe amputation status ICD Code: Z89.429 Diagnosis: Principal (2) Diabetes type 1, uncontrolled ICD Code: E10.65 Diagnosis: Principal (3) S/P angioplasty ICD Code: Z98.62 Diagnosis: Principal Procedures left leg bypass/femoropopliteal with SVG/left groin reconstruction by Dr. 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 Rehman 12/04 Brief History - From Admission This is a 61-year-old female with a past medical history significant for diabetes mellitus status post insulin pump implantation with multiple hospitalizations secondary to DKA, left foot osteomyelitis currently receiving antibiotic therapy through a PICC line, coronary artery disease with recent [place] status post stent implantation July 2016, HTN, peripheral neuropathy, peripheral vascular disease, migraines and dyslipidemia who presents to [facility] ED with complaints of decreased appetite and nausea/vomiting for the past 2-3 days. Patient states she's not been eating her normal amount because to just does not seem appealing to her. She reports increased fatigue. She states she's had several episodes of nausea and vomiting occurring 1-2 times for the past 2 days and noticed a small amount of blood in the vomitus yesterday. She also states that she had a small amount of blood in the mucus after she blew her nose earlier today. She also reports that she feels that her skin is warm but she has not taken her temperature at home. She denies any palpitations, dizziness, lightheadedness, shortness of breath, chest pain, abdominal pain, diarrhea or constipation. She denies any complaints of black/ tarry/bloody stools. In the ED, patient was found to have elevated creatinine level of 2.50. Blood glucose is controlled at 122. Lactic acid was 0.8 and white count was 6.8. CBC/BMP: 12/09/16 0615 12/09/16 0615 Imaging Last Impressions Foot X-Ray 11/30/16 0000 Signed Impressions: Service Date/Time: Wednesday, November 30, 2016 11:19 - CONCLUSION: 1. Deformity about the 1st metatarsal phalangeal joint. 2. Soft tissue swelling 2nd digit without osteomyelitis. Perico Novak MD FACR Renal Ultrasound 11/29/16 0000 Signed Impressions: Service Date/Time: Tuesday, November 29, 2016 16:58 - CONCLUSION: Negative renal sonogram. Berlin Narvaez MD PE at Discharge GENERAL: 61-year-old female, pleasant, laying in bed SKIN: Warm and dry. Multiple tattoos noted CARDIOVASCULAR: Regular rate and rhythm. No murmurs RESPIRATORY: Clear to auscultation without wheezes rales or rhonchi. Breath sounds equal bilaterally. GASTROINTESTINAL: Abdomen soft, non-tender, nondistended. MUSCULOSKELETAL: Extremities status post left second toe amputation. Wrapped in Dru bandage, dry clean and intact. Incision from saphenous vein graft over medial aspect of left lower extremity at knee and above and below clean dry and intact without erythema NEUROLOGICAL: Awake and alert. No obvious cranial nerve deficits. Motor grossly within normal limits. Normal speech. Hospital Course s/p left leg bypass/femoropopliteal with SVG/left groin reconstruction by Dr. 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 Global hypokinesis. Grade 1 diastolic dysfunction. ELLIE 38 mmHg Cardiac catheter 11/28 revealed a normal left main. LAD 20% Ostium, 40% In- Stent Stenosis in LAD. Left Circumflex with mild diffuse disease and right circumflex with 50% mid vessel disease. Not amenable to further intervention. Medical management recommended by Dr. Briones Currently on metoprolol 25 mg by mouth twice a day for hypertension. amlodipine to 10 mg by mouth daily Currently on Lipitor 40 mg by mouth daily for dyslipidemia Continue aspirin 325 mg by mouth daily and Plavix 75 mg daily for GARRY/graft patency on lisinopril 20 mg by mouth daily for hypertension. Home medication Pravachol 20 mg by mouth daily for dyslipidemia HLIV Diabetes mellitus type 1 hemoglobin A1c 7.8 11/28 Multiple admissions with DKA Last admission sent home on NPH 15 units a.m./7 units p.m. with sliding scale insulin Switch to our sliding-scale insulin/low regimen with Accu-Cheks before meals/ at bedtime and O300. Pt preferred to be on the NPH: will send home on 12 units in the morning/7 units in the p.m. continue to monitor and adjust accordingly. Patient was instructed to keep a log of her blood sugars upon discharge and bring to her primary care physician to continue to have her NPH adjusted. Patient is agreeable with plan. She was discharged with an insulin (NovoLog) sliding scale as well for additional coverage Last hemoglobin A1c 7.8. 11/28 Last triglycerides 132 07/29 Acute kidney injury Seen by Dr. Melendez/nephrology. Creatinine down to 0.94 No indication for hemodialysis at this time. Eosinophils negative. Renal ultrasound Results revealed no hydronephrosis Avoid nephrotoxic drugs. 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 Rehman 12/04 Previously treated with cefepime and Flagyl as outpatient. Note patient did not take Flagyl for 2 days prior to admission. Seen By . Currently off all antibiotics. Amputation definitive treatment. Currently no indication for any additional antibiotics -No residual effect of osteomyelitis. -Postoperative management per podiatry Pt Condition on Discharge: Stable Discharge Disposition: Disch w/ Home Health Serv Discharge Time: > 30 minutes Discharge Instructions DIET: Follow Instructions for: Heart Healthy Diet, Diabetic Diet Activities you can perform: Regular-No Restrictions Follow up Referrals: Physician - 3-5 Days Podiatry - 2-3 Days with Ita Rehman DPM Vascular Surgery - 2 Weeks with Kit Fairbanks MD New Medications: Insulin Aspart Inj (Novolog Inj) 1,000 Unit/10 Ml Vial 0 SQ DIRECTED Sliding Scale as directed. if blood sugar less than 70 do not give insulin If blood sugar 150-199 give 1 unit If blood sugar 200-249 give 3 units If blood sugar 250-299 give 5 units If blood sugar 300-349 give 7 units If blood sugar greater than 349 give 9 units Blood Sugar Management #10 Ref 0 ML Amlodipine (Norvasc) 5 Mg Tab 10 MG PO DAILY Days 30 TAB Aspirin (Aspirin) 325 Mg Tab 325 MG PO DAILY Days 30 TAB Atorvastatin (Atorvastatin) 40 Mg Tab 40 MG PO HS Days 30 TAB Hydrocodone-Acetaminophen (Hydrocodone-Acetaminophen) 10-325 mg Tab 1 TAB PO Q4-6H PRN PAIN SCALE 4 TO 10 #20 TAB Insulin Human NPH Inj (Novolin N Inj) 1,000 Unit/10 Ml Vial 7 UNITS SQ DAILY@1600 Days 30 INJECTION Insulin Human NPH Inj (Novolin N Inj) 1,000 Unit/10 Ml Vial 12 UNITS SQ DAILYAC Days 30 INJECTION Metoprolol Tartrate (Metoprolol Tartrate) 25 Mg Tab 25 MG PO BID Days 30 TAB Oxycodone (Oxycodone) 5 Mg Tab 5 MG PO Q4-6H PRN PAIN SCALE 1 TO 3 #30 TAB Continued Medications: Clopidogrel (Clopidogrel) 75 Mg Tab 75 MG PO DAILY Blood Clot Prevention #30 Ref 0 TAB Gabapentin (Gabapentin) 100 Mg Cap 100 MG PO HS #30 Ref 0 CAP Lisinopril (Lisinopril) 20 Mg Tab 20 MG PO DAILY #30 Ref 0 TAB Sumatriptan (Imitrex) 25 Mg Tab 25 MG PO ONCE If a satisfactory response has not been obtained at 2 hours, a second dose may be administered PRN MIGRAINE HEADACHE Ref 0 TAB Topiramate (Topamax) 25 Mg Tab 25 MG PO HS Control Seizures #60 Ref 0 TAB Discontinued Medications: Aspirin DR (Aspir-81) 81 Mg Tabdr 81 MG PO DAILY Atenolol (Atenolol) 25 Mg Tab 25 MG PO BID Blood Pressure Management #60 Ref 0 TAB Cefepime Inj (Cefepime Inj) 2 Gm Inj 2 GM IV Q8H Osteomyelitis Days 42 Ref 0 BAG Epinephrine Inj (Epinephrine Inj) 1 Mg/Ml Inj 0.3 MG SQ ONCE Give with any signs of respiratory distress. PRN ALLERGIC REACTION #1 VIAL Hydrocortisone Inj (Solu-Cortef Inj) 250 Mg Inj 250 MG IV PUSH ONCE Give over 30-60 seconds. PRN ALLERGIC REACTION #1 Ref 0 VIAL Insulin Aspart Inj (Novolog Inj) 1,000 Unit/10 Ml Vial SQ DIRECTED Sliding Scale via insulin pump Blood Sugar Management #0 Ref 0 ML Meloxicam (Mobic) 15 Mg Tab 15 MG PO DAILY Arthritis pain Ref 0 TAB Pravastatin (Pravastatin) 20 Mg Tab 20 MG PO DAILY Cholesterol Management #30 Ref 0 TAB Rosa Blakely MD December 12, 2016 09:34
== END 2016-12-12 15:57 | disposition home health service (06) | DRG 253 ==
LOC: NEPD 11:32 → NEDA 16:28 → NEPGCP 23:39 → N05A 12-01 18:37 → HCVR 12-06 12:45 → HCIS 12-07 14:53
PROVIDERS: ADMIT Hospitalist; ATTEND Hospitalist
PROC: 0Y6S0Z0 Detachment at Left 2nd Toe, Complete, Open Approach (ICD-10-PCS; 2016-12-01)
PROC: B41G1ZZ Fluoroscopy of Left Lower Extremity Arteries using Low Osmolar Contrast (ICD-10-PCS; 2016-12-05)
PROC: B4101ZZ Fluoroscopy of Abdominal Aorta using Low Osmolar Contrast (ICD-10-PCS; 2016-12-05)
PROC: 047L0ZZ Dilation of Left Femoral Artery, Open Approach (ICD-10-PCS; 2016-12-06)
PROC: 04CL0ZZ Extirpation of Matter from Left Femoral Artery, Open Approach (ICD-10-PCS; 2016-12-06)
PROC: 04UL0JZ Supplement Left Femoral Artery with Synthetic Substitute, Open Approach (ICD-10-PCS; 2016-12-06)
PROC: 06BQ0ZZ Excision of Left Saphenous Vein, Open Approach (ICD-10-PCS; 2016-12-06)
PROC: 041L09L Bypass Left Femoral Artery to Popliteal Artery with Autologous Venous Tissue, Open Approach (ICD-10-PCS; principal; 2016-12-06 07:58)
PROC: 30233N1 Transfusion of Nonautologous Red Blood Cells into Peripheral Vein, Percutaneous Approach (ICD-10-PCS; 2016-12-07)
DX: E10.52 Type 1 diabetes mellitus with diabetic peripheral angiopathy with gangrene (principal); N17.9 Acute kidney failure, unspecified; I13.0 Hypertensive heart and chronic kidney disease with heart failure and stage 1 through stage 4 chronic kidney disease, or unspecified chronic kidney disease; I50.42 Chronic combined systolic (congestive) and diastolic (congestive) heart failure; T82.855A Stenosis of coronary artery stent, initial encounter; T82.898A Other specified complication of vascular prosthetic devices, implants and grafts, initial encounter; D69.6 Thrombocytopenia, unspecified; M86.672 Other chronic osteomyelitis, left ankle and foot; E10.69 Type 1 diabetes mellitus with other specified complication; E10.22 Type 1 diabetes mellitus with diabetic chronic kidney disease; E10.42 Type 1 diabetes mellitus with diabetic polyneuropathy; L97.509 Non-pressure chronic ulcer of other part of unspecified foot with unspecified severity; E86.0 Dehydration; I25.10 Atherosclerotic heart disease of native coronary artery without angina pectoris; L08.9 Local infection of the skin and subcutaneous tissue, unspecified; E10.621 Type 1 diabetes mellitus with foot ulcer; D64.9 Anemia, unspecified; I70.292 Other atherosclerosis of native arteries of extremities, left leg; E78.5 Hyperlipidemia, unspecified; I25.2 Old myocardial infarction; G43.909 Migraine, unspecified, not intractable, without status migrainosus; M19.90 Unspecified osteoarthritis, unspecified site; R63.0 Anorexia; N18.9 Chronic kidney disease, unspecified; G89.4 Chronic pain syndrome; H40.9 Unspecified glaucoma; G47.00 Insomnia, unspecified; K59.00 Constipation, unspecified; F41.9 Anxiety disorder, unspecified; Y83.1 Surgical operation with implant of artificial internal device as the cause of abnormal reaction of the patient, or of later complication, without mention of misadventure at the time of the procedure; Z79.4 Long term (current) use of insulin; Z81.1 Family history of alcohol abuse and dependence; Z82.49 Family history of ischemic heart disease and other diseases of the circulatory system; Z87.891 Personal history of nicotine dependence; Z88.5 Allergy status to narcotic agent; Z96.41 Presence of insulin pump (external) (internal)
CPT/HCPCS: 33967; 36246; 36430; 73630; 75625; 75710; 76775; 76937; 80048; 80053; 81001; 82550; 82552; 82947; 82948; 83605; 83935; 84155; 84300; 84484; 85025; 85027; 86403; 86850; 86900; 86901; 86920; 87015; 87070; 87077; 87102; 87116; 87186; 87205; 87206; 88305; 88311; 93005; 96361; 96374; C1769; C1893; E0113; J0690; J1170; J1644; J1650; J1815; J2250; J2370; J2405; J2550; J3010; J3370; J3480; J7030; J7120; L3260; P9016; Q9967

== ENCOUNTER → 2017-04-18 | Day surgery (SDC) | payer MEDICAID ==
[~2017-04-18] VITALS: Ht 147.3 cm; Wt 52.6 kg
[~2017-04-18] MED LIST changes: +AMLO10TA2 PO; +AMLO5 PO; +ASPI325T PO; -ASPI81TA81 PO; -ATEN25TA PO; +ATOR40TA16 PO; +BUPIVACAINE/EPINEPHRINE 0.5% PF 30 ML VIAL ONE; -CEFE2INJ5 IV; +CHLORHEXIDINE GLUCONATE 2 % 1 PACK (2 CLOTHS) TOPICAL PRN; +CLOPIDOGREL 75 MG TAB PO ONE; +DEXMEDETOMIDINE HCL 200 MCG/2 ML VIAL ONE; +DO NOT ADM ANY ANTICOAGULANT DRUGS PRN; -EPIN1INJ21 IV PUSH; -EPIN1INJ21 SQ; +GLUC4CHW CHEW; -GLUCTES12; +HEPARIN SODIUM - IV 10,000 UNITS/10 ML VIAL ONE; +HYDR-3583 PO; -INSU1MIS15; +INSULIN HUMAN REGULAR 1,000 UNITS/10 ML VIAL SQ PRN; +IOHEXOL 300 MG/ML 100 ML BTL (for Rad CT) IVCONTRAST ONE; +IOHEXOL 350 MG/ML 50 ML BTL (for RAD DIAG) ONE; +LACTATED RINGER'S 1000 ML IV PRN; -LANCETS1 MI1; +METO25TA3 PO; +METOPROLOL TARTRATE 25 MG TAB PO PRN; -METR-1 PO; +MIDAZOLAM HCL 2 MG/2 ML VIAL ONE; -MOBI15TA PO; +NOVORP2 SQ; +OXYC-392 PO; +POVIDONE IODINE 5% (ANTISEPSIS KIT) 4 APPLICATIONS EACH NARE PRN; -PRAV20TA2 PO; +SODIUM CHLORID 0.9% 500 ML IV PRN; -SOLU250I IV PUSH; +TRAZ50TA12 PO; +VITA1000 PO; +ePHEDrine/NS 25 MG/5 ML SYR IV ONE
[2017-04-18 10:33] LABS: AUTOMATED NEUTROPHIL # 3.4 TH/MM3 (1.8-7.7); BASOPHIL # 0.1 TH/MM3 (0-0.2); BASOPHIL % 1.1 % (0.0-2.0); EOSINOPHIL # 0.4 TH/MM3 (0-0.4); EOSINOPHIL % 5.5 % (0.0-4.0); HEMATOCRIT 43.5 % (35.0-46.0); HEMO FLAGS DIFF FINAL; LYMPH % 28.1 % (9.0-44.0); LYMPHOCYTE # 1.8 TH/MM3 (1.0-4.8); MEAN CORPUSCULAR HEMOGLOBIN 28.4 PG (27.0-34.0); MEAN CORPUSCULAR HGB CONC 33.4 % (32.0-36.0); MONO % 11.4 % (0.0-8.0); NEUT % 53.9 % (16.0-70.0); PLATELET COUNT 208 TH/MM3 (150-450); RED BLOOD COUNT 5.12 MIL/MM3 (4.00-5.30); WHITE BLOOD COUNT 6.4 TH/MM3 (4.0-11.0)
[2017-04-18 10:43] LABS: PROTHROMBIN TIME - PATIENT 10.9 SEC (9.8-11.6)
[2017-04-18 10:48] LABS: BICARBONATE 22.9 MEQ/L (21.0-32.0); POTASSIUM 4.1 MEQ/L (3.5-5.1)
--- NOTE | 2017-04-18 10:57 | PD.VS.PN ---
Pre-operative Note Pre-operative diagnosis: failing L LE bypass Planned procedure: L LE angiogram and potential endovascular intervention Interval History: Pt has been feeling well. No F/C. No foot pain. Chest: clear B Reg rate Leg no rashes or wounds. Labs: Laboratory Results Test 04/18/17 10:10 Anion Gap 9 MEQ/L (5-15) Blood Urea Nitrogen 23 MG/DL (7-18) Creatinine 1.01 MG/DL (0.50-1.00) Random Glucose 329 MG/DL (74-106) Calcium Level 8.6 MG/DL (8.5-10.1) Sodium Level 138 MEQ/L (136-145) Potassium Level 4.1 MEQ/L (3.5-5.1) Chloride Level 106 MEQ/L (98-107) Carbon Dioxide Level 22.9 MEQ/L (21.0-32.0) Hematocrit 43.5 % (35.0-46.0) Hemoglobin 14.5 GM/DL (11.6-15.3) Mean Corpuscular Hemoglobin 28.4 PG (27.0-34.0) Mean Corpuscular Hemoglobin Concent 33.4 % (32.0-36.0) Mean Corpuscular Volume 85.0 FL (80.0-100.0) Mean Platelet Volume 8.6 FL (7.0-11.0) Platelet Count 208 TH/MM3 (150-450) Prothromb Time International Ratio 1.0 RATIO Red Blood Count 5.12 MIL/MM3 (4.00-5.30) Red Cell Distribution Width 14.0 % (11.6-17.2) White Blood Count 6.4 TH/MM3 (4.0-11.0) Blood: none needed Imaging: will make in OR Orders: NPO Post-operative destination: PACU Operative site marked: Yes Consent: Informed consent has been obtained from Robyn Marquez. I have explained the procedure in detail and discussed the risks, benefits, and potential complications. All questions have been answered. Kit Fairbanks MD Apr 18, 2017 10:57
--- NOTE | 2017-04-18 13:37 | HHI.PR ---
Immediate Post Op Note Procedure Date: Apr 18, 2017 Pre Op Diagnosis: failing L LE bypass Post Op Diagnosis: failing L LE bypass Surgeon: Kit Fairbanks Fishing Rod Mechanic(s): none Procedure: Aortogram w/ L LE angiogram Vein graft MEDICAL CERTIFICATION SPECIALIST (4mm DCB) Findings: high grade proximal stenosis, successful MEDICAL CERTIFICATION SPECIALIST with 3 vessel runoff Complications: none Specimen(s) removed: none Estimated blood loss: 5mL Anesthesia: General Fluids: 500mL Patient to: PACU Patient Condition: Good Date/Time of Procedure: SEE SURGICAL CARE RECORD Kit Fairbanks MD Apr 18, 2017 13:37
[2017-04-18 15:20] VITALS: BP 127/67; PULSE 83; RESP 20; TEMP 97.4; O2SAT 98
--- NOTE | 2017-04-18 20:53 | MP ---
cc: YANG FAIRBANKS MD DATE OF SURGERY 04/18/17 PREOPERATIVE DIAGNOSIS Failing left lower extremity bypass. POSTOPERATIVE DIAGNOSIS Failing left lower extremity bypass. PROCEDURE Aortogram with left lower extremity angiogram. MEDICATIONS Ilan Fairbanks MD ANESTHESIA Local with sedation INDICATION Ms. Marquez is a 61-year-old female with a failed bypass who did a left femoral to below-knee popliteal artery bypass with saphenous vein several months ago. On surveillance duplex there is a stenosis. She is taken to the operating room for angiographic evaluation and treatment. There is no prior cath based imaging since the elevated velocity on the duplex. PROCEDURE IN DETAIL Informed consent was obtained from the patient. She was taken to the operating room and placed supine on the operating room table. Appropriate time-out was taken to ensure patient identity and planned procedure. Administration of antibiotics was not necessary as this a clean procedure without a planned implantation of any foreign object. Everyone in the room agreed with timeout and we proceeded. Her bilateral groin was prepped and draped. Right groin was anesthetized with 1% lidocaine. A 21 gauge micropuncture needle was used to access the right common femoral artery. This was exchanged using Seldinger technique for a micropuncture sheath through which a 0.035 Glidewire was introduced. Micropuncture sheath was exchanged for a 5-Montserratian sheath and the VCF catheter was placed over the wire and through the sheath. An aortogram was obtained. Glidewire was reintroduced, navigated down to the left common femoral artery and the VCF catheter advanced over this. The left lower extremity arteriogram was obtained. The patient was systemically heparinized with 5000 units of IV heparin. A 0.035 Lizama wire was introduced and the VCF catheter and 5-Montserratian sheath removed and a 6-Montserratian 55 cm Jose Rafael sheath was introduced. The CXI catheter was placed over the Lizama and the Lizama was exchanged for a LEVER MILLER wire. Using a LEVER MILLER and CXI we were able to navigate past the proximal stenosis into the distal part of the vein graft. The Lizama wire was reintroduced and the vein graft stenosis was angioplastied with a 4 x 80 drug coated balloon. Completion angiogram showed excellent result without any recoil, extravasation or dissection. The outflow was the below knee popliteal artery with three-vessel runoff to lower calf. Wire catheter and sheath were removed and the groin was closed with AngioSeal. There were no complications. I was present and scrubbed for the entire procedure. INTERPRETATION The patient has patent infrarenal aorta, common iliac artery, external iliac arteries, hypogastric arteries. There is no hemodynamically significant stenosis of any of these blood vessels. The left common femoral artery and profunda are patent. The SFA is occluded. There is a femoral to below knee popliteal artery bypass that has a string like stenosis of the proximal aspect. This was successfully angioplastied to 4 mm. The outflow below-knee popliteal artery had no further stenosis of the bypass. There is three-vessel runoff to the distal calf. MD ALONDRA Mccollum/ /1:40 PM /8:35 PM ARTURO
== END | disposition home or self-care (01) ==
LOC: HSDC 08:48
PROVIDERS: ATTEND Surgery
DX: T82.858A Stenosis of other vascular prosthetic devices, implants and grafts, initial encounter (principal); I70.422 Atherosclerosis of autologous vein bypass graft(s) of the extremities with rest pain, left leg; Y83.2 Surgical operation with anastomosis, bypass or graft as the cause of abnormal reaction of the patient, or of later complication, without mention of misadventure at the time of the procedure; F17.210 Nicotine dependence, cigarettes, uncomplicated; I25.10 Atherosclerotic heart disease of native coronary artery without angina pectoris; I10 Essential (primary) hypertension; E78.5 Hyperlipidemia, unspecified; J44.9 Chronic obstructive pulmonary disease, unspecified; E11.9 Type 2 diabetes mellitus without complications; F32.9 Major depressive disorder, single episode, unspecified; Z79.01 Long term (current) use of anticoagulants; Z79.84 Long term (current) use of oral hypoglycemic drugs; Z79.82 Long term (current) use of aspirin; Z79.4 Long term (current) use of insulin; Z79.899 Other long term (current) drug therapy
CPT/HCPCS: 01440; 37224; 75710; 80048; 85025; 85610; C1769; C2623; J1644; J1815; J2250; J3010; J7120; Q9967